=== PATIENT | female | born 1945 | race Caucasian/White ===

== ENCOUNTER → 2017-10-24 11:54 | Outpatient (CLI) | payer MEDICARE, SELFPAY ==
[2017-10-24 15:43] LABS: Absolute Lymphocyte Count 1.77 X10^3/ul (0.83-4.51); Absolute Neutrophil Count 3.5 X10^3/uL (2.0-7.7); Basophil# 0.02 X10^3/uL; Basophil% 0.3 % (0-1); Eosinophils% 1.7 % (0-5); Hematocrit 33.8 % (37-47); Hemoglobin 11.5 g/dl (12.0-15.0); Lymphocyte # 1.77 X10^3/ul (4.0); Lymphocyte % 29.4 % (19-41); Mean Corpuscular Hgb 30.5 pg (27.0-32.0); Mean Corpuscular Volume 89.7 fL (81-99); Mean Platelet Vol. 9.4 fl (6.2-12.0); Monocyte# 0.64 X10^3/uL; Monocyte% 10.6 % (0-10); Platelet Count 280 K/mm3 (150-450); RBC Distribution Width CV 12.9 % (11.6-14.6); RBC Distribution Width SD 42.1 fl (35.1-43.9); Red Blood Count 3.77 M/mm3 (4.2-5.4)
[2017-10-24 15:45] LABS: POSITIVE COUNT NO; POSITIVE DIFFERENTIAL NO; POSITIVE MORPHOLOGY NO
[2017-10-24 16:19] LABS: Vitamin D,25 Hydroxy 32.4 ng/mL (29.95-100.01)
[2017-10-24 16:24] LABS: AST(SGOT) 21 U/L (15-37); Alanine Aminotransfer ALT/SGPT 24 U/L (13-56); Albumin, Serum 3.7 g/dL (3.2-5.0); Alkaline Phosphatase 78 U/L (45-117); Anion Gap 8 (5-15); BUN 13 mg/dL (7-18); BUN/Creat Ratio 16.2 RATIO (10-20); Calcium,Total 9.5 mg/dL (8.5-10.1); Chloride 107 mmol/L (98-107); EST Glomerular Filtration Rate 74 mL/min (>60); Est Glom Filt Rate - Afr Amer 90 mL/min (>60); Globulin 3.8 g/dL (2.2-4.2); Glucose 86 mg/dL (74-106); Potassium 3.8 mmol/L (3.5-5.1); Protein, Total 7.5 g/dL (6.4-8.2); Sodium Level 141 mmol/L (136-145); Thyroid Stim Hormone (TSH) 1.14 uIU/mL (0.358-3.74)
== END ==
PROVIDERS: Family Provider Family Medicine Geriatric Medicine; PCP Family Medicine Geriatric Medicine; Visit Provider Family Medicine Geriatric Medicine
DX: E55.9 Vitamin D deficiency, unspecified (principal); I10 Essential (primary) hypertension
CPT/HCPCS: 36415; 80053; 82306; 84443; 85025

== ENCOUNTER → 2018-04-29 14:17 | Outpatient (CLI) | payer MEDICARE, SELFPAY ==
[2018-04-29 16:57] LABS: Absolute Neutrophil Count 4.7 X10^3/uL (2.0-7.7); Basophil# 0.04 X10^3/uL; Basophil% 0.5 % (0-1); Eosinophil# 0.12 X10^3/uL; Eosinophils% 1.4 % (0-5); Hematocrit 34.1 % (37-47); Hemoglobin 11.7 g/dl (12.0-15.0); Lymphocyte % 33.5 % (19-41); Mean Corp Hgb Conc 34.3 g/gl (32-36); Mean Corpuscular Hgb 30.5 pg (27.0-32.0); Mean Corpuscular Volume 88.8 fL (81-99); Mean Platelet Vol. 9.9 fl (6.2-12.0); Monocyte% 10.4 % (0-10); Neutrophil # 4.67 X10^3/uL (2.7-7.7); Platelet Count 349 K/mm3 (150-450); RBC Distribution Width CV 13.4 % (11.6-14.6); RBC Distribution Width SD 42.5 fl (35.1-43.9); Red Blood Count 3.84 M/mm3 (4.2-5.4); White Blood Count 8.7 K/mm3 (4.4-11.0)
[2018-04-29 17:00] LABS: POSITIVE COUNT NO; POSITIVE DIFFERENTIAL NO; POSITIVE MORPHOLOGY NO
[2018-04-29 17:08] LABS: Vitamin D,25 Hydroxy 36.4 ng/mL (29.95-100.01)
[2018-04-29 17:10] LABS: ALB/GLOB Ratio 0.9 RATIO (0.9-2.4); AST(SGOT) 19 U/L (15-37); Alanine Aminotransfer ALT/SGPT 24 U/L (13-56); Albumin, Serum 3.6 g/dL (3.2-5.0); Alkaline Phosphatase 84 U/L (45-117); Anion Gap 10 (5-15); BUN 12 mg/dL (7-18); BUN/Creat Ratio 13.6 RATIO (10-20); Chloride 105 mmol/L (98-107); Creatinine, Serum 0.88 mg/dL (0.55-1.02); EST Glomerular Filtration Rate 67 mL/min (>60); Est Glom Filt Rate - Afr Amer 81 mL/min (>60); Globulin 4.1 g/dL (2.2-4.2); Glucose 93 mg/dL (74-106); Protein, Total 7.7 g/dL (6.4-8.2); Sodium Level 143 mmol/L (136-145); Thyroid Stim Hormone (TSH) 1.29 uIU/mL (0.358-3.74)
== END ==
PROVIDERS: Family Provider Family Medicine Geriatric Medicine; PCP Family Medicine Geriatric Medicine; Visit Provider Family Medicine Geriatric Medicine
DX: E55.9 Vitamin D deficiency, unspecified (principal); I10 Essential (primary) hypertension
CPT/HCPCS: 36415; 80053; 82306; 84443; 85025

== ENCOUNTER → 2018-05-07 14:15 | Outpatient (CLI) | payer MEDICARE, SELFPAY ==
[2018-05-07 15:57] LABS: Anion Gap 7 (5-15); BUN 9 mg/dL (7-18); BUN/Creat Ratio 12.5 RATIO (10-20); Calcium,Total 8.6 mg/dL (8.5-10.1); Chloride 108 mmol/L (98-107); Creatinine, Serum 0.72 mg/dL (0.55-1.02); EST Glomerular Filtration Rate 84 mL/min (>60); Est Glom Filt Rate - Afr Amer 102 mL/min (>60); Glucose 115 mg/dL (74-106); Potassium 3.7 mmol/L (3.5-5.1); Sodium Level 141 mmol/L (136-145)
== END ==
PROVIDERS: Family Provider Family Medicine Geriatric Medicine; PCP Family Medicine Geriatric Medicine; Visit Provider Family Medicine Geriatric Medicine
DX: E87.6 Hypokalemia (principal)
CPT/HCPCS: 36415; 80048

== ENCOUNTER 2018-05-19 14:52 | Emergency (ER) | payer MEDICARE, SELFPAY ==
[2018-05-19 14:53] VITALS: BP 142/72; PULSE 70; RESP 24; TEMP 36.4; O2SAT 98; BMI 23.2
--- NOTE | 2018-05-19 15:16 | ED.DCSUM_ITS ---
- ER Visit Summary Date of Service: 05/19/18 Chief Complaint: Right eye pain History of Present Illness: The patient is a 73 F who woke at 5 AM this morning to go to the restroom. She noted her right eye was quite painful at that time. She did not note any obvious foreign body or injection to her eye. She tried using Visine eyedrops and went back to bed. When she got up at 11 she still had right eye pain. She denies vision change. She denies any known injury. She states she did have a similar episode in the past when she had fallen asleep with her contacts and had a corneal abrasion. Physical Examination: Vital signs unremarkable. Patient is lying in a darkened room. She is in no acute distress. Head neck examination was no eyelid edema or erythema. There is minimal injection of the right eye. Pupils equal and reactive. No gross foreign body. Extraocular movements fully intact. Test Results: [] Emergency Department Course and Treatment: Tetracaine is applied to the right eye and patient has complete resolution of her pain. Floor seen is applied and there is mild uptake noted around the 2 o'clock position. She will be treated with gentamicin eyedrops. She has seen Dr. Samuels in the past and will be referred back to him if not improving. Treatment Plan: [] Disposition: Discharge Impression: Corneal abrasion right eye This note was generated with [employer] dictation software. It may contain incorrect words, spelling, and punctuation that were not noted in review of the chart prior to signing ED Disposition - Plan for ED Patient: Chief Complaint: Eye Problem Referrals: Ramon Best Chi, MD [Primary Care Provider] -
--- NOTE | 2018-05-19 15:30 | ED.DEP ---
ED Disposition - Plan for ED Patient: Disposition: Home or Assisted Living Chief Complaint: Eye Problem Instructions: ED Eye Injury Corneal Abrasion Referrals: Sujit Samuels MD [STAFF PHYSICIAN] - 1-2 Days if not improving Additional Instructions: 1 drop Gentamicin to right eye 4x/day until pain resolved for 24 hours.
[2018-05-19] MEDS: Tetracaine 0.5% Ophthalmic Bottle 1 DRP RIGHT EYE (16:16)
[2018-05-19] MEDS: Gentamicin Sulfate 1 OPTH.BTL 1 DRP RIGHT EYE (16:16)
[2018-05-19] MEDS: Fluorescein 1 MG STRIP 1 STRIP RIGHT EYE (16:17)
--- NOTE | 2018-05-19 16:51 | ED.RN ---
After instilling eye drop to right eye pt states pain started again. Physician aware and tetracaine x2 drops was administered. Pt was found to walking about room increased resps and stated her arms and legs were tingling. 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 Upon assessment I assured pt she had no signs of allergic reaction. I placed nonrebreather on pt and encouraged her to slow breathing. After ten minutes pt admits some improvement. report was given to Jenny Metcalf and pt will continue to rest while waiting for sx to resolve.
== END 2018-05-19 17:00 | disposition home or self-care (01) ==
PROVIDERS: Emergency Provider Emergency Medicine; Family Provider Family Medicine Geriatric Medicine; PCP Family Medicine Geriatric Medicine
DX: S05.01XA Injury of conjunctiva and corneal abrasion without foreign body, right eye, initial encounter (principal); X58.XXXA Exposure to other specified factors, initial encounter; Y93.9 Activity, unspecified; I10 Essential (primary) hypertension; Z87.891 Personal history of nicotine dependence; Z79.899 Other long term (current) drug therapy
CPT/HCPCS: 99282

== ENCOUNTER → 2018-08-05 12:54 | Outpatient (CLI) | payer MEDICARE, SELFPAY ==
--- NOTE | 2018-08-05 12:57 | BI_ITS ---
MAMMOGRAPHY - BILATERAL SCREENING REASON FOR EXAM: Female, 73 years old. Routine annual screening examination. PERTINENT HISTORY: Sister with breast cancer. Mother with breast cancer. TECHNIQUE: Digital bilateral breast gladis (3D mammographic acquisition) in the CC and MLO projections. 2-D mediolateral oblique (MLO) and craniocaudad (CC) views of both breasts were obtained. CAD: Full Field Digital Mammography with Computer Added Detection was performed. COMPARISON: Comparison is made with prior study dated May 30, 2017 and May 10, 2016. FINDINGS: Breast Composition: There are scattered areas of fibroglandular density. There are no dominant masses or suspicious calcifications. No other significant abnormalities are identified. There has been no significant change since the prior study. BI/SCREENING MAMM (CAD), BILAT IMPRESSION: Stable bilateral screening mammogram. Yearly follow-up mammogram recommended. (A) ASSESSMENT CATEGORY: BIRADS Category 1: Negative. A letter regarding these results will be sent to the patient by the facility within 30 days. Approximately 10% of breast cancers are not detected by mammography. A normal mammogram should not delay biopsy of a clinically suspicious abnormality. [id number] Electronically Signed: Sai Grey MD at 14:18 EST , Service support ,
== END ==
PROVIDERS: Family Provider Family Medicine Geriatric Medicine; PCP Family Medicine Geriatric Medicine; Referring Provider Family Medicine Geriatric Medicine; Visit Provider Family Medicine Geriatric Medicine
DX: Z12.31 Encounter for screening mammogram for malignant neoplasm of breast (principal); Z80.3 Family history of malignant neoplasm of breast
CPT/HCPCS: 77063; 77067

== ENCOUNTER → 2018-08-19 16:17 | Outpatient (CLI) | payer MEDICARE, SELFPAY ==
--- NOTE | 2018-08-19 16:22 | RAD_ITS ---
STUDY: X-RAY - RIGHT HIP REASON FOR EXAM: Female, 73 years old. Right hip pain. No known injury. TECHNIQUE: 2 views of the hip. AP pelvis. COMPARISON: Abdomen December 27, 2016. FINDINGS: Alignment is normal. No fracture or dislocation. Mild superior hip joint space narrowing right slightly greater than left not significantly changed. Degenerative changes L3-L4 with disc space narrowing and osteophytosis stable since the prior study. Soft tissues unremarkable. RAD/HIP, UNI W/ Pelvis 2-3 Views IMPRESSION: Degenerative changes of the hips right greater than left. Degenerative changes L3-4. Electronically Signed: Kristofer Logan MD at 5:42 EST , Service support ,
--- NOTE | 2018-08-19 16:23 | RAD_ITS ---
STUDY: X-RAY - LUMBAR SPINE REASON FOR EXAM: Female, 73 years old. Low back pain. No known injury. TECHNIQUE: 3 view(s) of the lumbar spine were obtained. COMPARISON: CT abdomen and pelvis July 20, 2016. FINDINGS: Lumbar levoscoliosis. No fracture or subluxation. Disc space narrowing with vacuum disc and marginal osteophytes L3-L4. Disc space narrowing L2-L3 and L5-S1. Soft tissues unremarkable. RAD/Lumbar Spine 2 or 3 Views IMPRESSION: Multilevel degenerative changes of the lumbar spine unchanged, most prominent at L3-L4. Lumbar levoscoliosis. Electronically Signed: Kristofer Logan MD at 5:49 EST , Service support ,
--- NOTE | 2018-08-19 16:29 | RAD_ITS ---
STUDY: X-RAY - RIGHT SHOULDER REASON FOR EXAM: Female, 73 years old. Bilateral shoulder pain for many years. No known injury. TECHNIQUE: 3 view(s) of the shoulder. COMPARISON: Chest x-ray January 30, 2017. FINDINGS: Normal glenohumeral articulation. Normal acromioclavicular joint. Normal acromion. A large osteophyte arises from the medial aspect of the humeral head present previously. The soft tissue structures are unremarkable. Normal visualized pulmonary apex. RAD/Shoulder min 2 Views IMPRESSION: Degenerative changes of the shoulder. No fracture identified. Electronically Signed: Kristofer Logan MD at 4:58 EST , Service support ,
--- NOTE | 2018-08-19 16:45 | RAD_ITS ---
STUDY: X-RAY - LEFT SHOULDER REASON FOR EXAM: Female, 73 years old. Bilateral shoulder pain for many years. No known injury. TECHNIQUE: 4 view(s) of the shoulder. COMPARISON: Chest January 30, 2017. FINDINGS: Normal glenohumeral articulation. Normal acromioclavicular joint. Normal acromion. Small osteophyte arises from the medial aspect humeral head. Possible 0.9 x 0.8 cm loose body superior aspect of the shoulder joint. The soft tissue structures are unremarkable. Normal visualized pulmonary apex. RAD/Shoulder min 2 Views IMPRESSION: Degenerative changes humeral head and small loose body within the shoulder joint, unchanged. Electronically Signed: Kristofer Logan MD at 5:02 EST , Service support ,
== END ==
PROVIDERS: Family Provider Family Medicine Geriatric Medicine; PCP Family Medicine Geriatric Medicine; Referring Provider Family Medicine Geriatric Medicine; Visit Provider Family Medicine Geriatric Medicine
DX: M25.512 Pain in left shoulder (principal); M25.511 Pain in right shoulder; M25.551 Pain in right hip; M54.5 Low back pain
CPT/HCPCS: 72100; 73030; 73502

== ENCOUNTER → 2018-10-29 15:00 | Outpatient (CLI) | payer MEDICARE, SELFPAY ==
[2018-09-02 15:25] VITALS: BMI 22.6
[2018-10-29 17:28] LABS: Absolute Lymphocyte Count 1.59 X10^3/ul (0.83-4.51); Absolute Neutrophil Count 4.2 X10^3/uL (2.0-7.7); Basophil# 0.02 X10^3/uL; Basophil% 0.3 % (0-1); Eosinophil# 0.09 X10^3/uL; Eosinophils% 1.3 % (0-5); Hematocrit 38.6 % (37-47); Hemoglobin 12.9 g/dl (12.0-15.0); Lymphocyte # 1.59 X10^3/ul (4.0); Lymphocyte % 23.6 % (19-41); Mean Corp Hgb Conc 33.4 g/gl (32-36); Mean Corpuscular Hgb 30.6 pg (27.0-32.0); Mean Corpuscular Volume 91.5 fL (81-99); Mean Platelet Vol. 9.6 fl (6.2-12.0); Monocyte# 0.82 X10^3/uL; Monocyte% 12.2 % (0-10); Neutrophil # 4.21 X10^3/uL (2.7-7.7); Neutrophil % 62.5 % (47-70); Platelet Count 390 K/mm3 (150-450); RBC Distribution Width CV 13.8 % (11.6-14.6); RBC Distribution Width SD 45.1 fl (35.1-43.9); Red Blood Count 4.22 M/mm3 (4.2-5.4); White Blood Count 6.7 K/mm3 (4.4-11.0)
[2018-10-29 17:30] LABS: POSITIVE COUNT NO; POSITIVE DIFFERENTIAL NO; POSITIVE MORPHOLOGY NO
[2018-10-29 18:01] LABS: Vitamin D,25 Hydroxy 25.6 ng/mL (29.95-100.01)
[2018-10-29 18:28] LABS: ALB/GLOB Ratio 0.9 RATIO (0.9-2.4); AST(SGOT) 25 U/L (15-37); Alanine Aminotransfer ALT/SGPT 31 U/L (13-56); Albumin, Serum 3.7 g/dL (3.2-5.0); Alkaline Phosphatase 94 U/L (45-117); Anion Gap 11 (5-15); BUN 14 mg/dL (7-18); BUN/Creat Ratio 16.7 RATIO (10-20); Calcium,Total 9.1 mg/dL (8.5-10.1); Chloride 108 mmol/L (98-107); Creatinine, Serum 0.84 mg/dL (0.55-1.02); EST Glomerular Filtration Rate 70 mL/min (>60); Est Glom Filt Rate - Afr Amer 85 mL/min (>60); Globulin 4.2 g/dL (2.2-4.2); Glucose 102 mg/dL (74-106); Potassium 3.7 mmol/L (3.5-5.1); Protein, Total 7.9 g/dL (6.4-8.2); Sodium Level 141 mmol/L (136-145); Thyroid Stim Hormone (TSH) 1.31 uIU/mL (0.358-3.74)
== END ==
PROVIDERS: Family Provider Family Medicine Geriatric Medicine; PCP Family Medicine Geriatric Medicine; Visit Provider Family Medicine Geriatric Medicine
DX: E55.9 Vitamin D deficiency, unspecified (principal); I10 Essential (primary) hypertension
CPT/HCPCS: 36415; 80053; 82306; 84443; 85025

== ENCOUNTER → 2018-12-16 15:12 | Outpatient (CLI) | payer MEDICARE, SELFPAY ==
[2018-09-02 15:25] VITALS: BMI 22.6
--- NOTE | 2018-12-16 15:26 | RAD_ITS ---
STUDY: X-RAY - LEFT SHOULDER REASON FOR EXAM: Female, 73 years old. Pain. TECHNIQUE: 4 view(s) of the shoulder. COMPARISON: August 19, 2018 FINDINGS: There are degenerative changes of the glenohumeral articulation. There are degenerative changes of the acromioclavicular joint. Normal acromion. There is a osteophyte arising from the medial aspect of the humeral head. There is a stable bony density projecting superior to the shoulder joint. The soft tissue structures are unremarkable. Normal visualized pulmonary apex. RAD/Shoulder min 2 Views IMPRESSION: Degenerative changes. Stable possible loose body within the shoulder joint. Electronically Signed: Shyanne Guevara MD at 16:14 EDT Tel , Service support ,
--- NOTE | 2018-12-16 15:26 | RAD_ITS ---
STUDY: X-RAY - RIGHT SHOULDER REASON FOR EXAM: Female, 73 years old. Pain. TECHNIQUE: 4 view(s) of the shoulder. COMPARISON: September 16, 2018 FINDINGS: There are degenerative changes of the glenohumeral articulation. There are degenerative changes of the acromioclavicular joint. Normal acromion. There is a large osteophyte arising from the medial aspect of the humeral head that is grossly stable. The soft tissue structures are unremarkable. Normal visualized pulmonary apex. RAD/Shoulder min 2 Views IMPRESSION: Degenerative changes. Electronically Signed: Shyanne Guevara MD at 16:01 EDT Tel , Service support ,
[2018-12-16 16:20] LABS: Magnesium 2.2 mg/dL (1.6-2.6); T3 Uptake 37 % (30-39)
== END ==
PROVIDERS: Family Provider Family Medicine Geriatric Medicine; PCP Family Medicine Geriatric Medicine; Referring Provider Family Medicine Geriatric Medicine; Visit Provider Family Medicine Geriatric Medicine
DX: E03.9 Hypothyroidism, unspecified (principal); E83.49 Other disorders of magnesium metabolism; M19.012 Primary osteoarthritis, left shoulder; M19.011 Primary osteoarthritis, right shoulder
CPT/HCPCS: 36415; 73030; 83735; 84439; 84443; 84479

== ENCOUNTER → 2018-12-18 13:41 | Outpatient (CLI) | payer MEDICARE, SELFPAY ==
[2018-09-02 15:25] VITALS: BMI 22.6
--- NOTE | 2018-12-18 13:43 | ECHOD_ITS ---
Reason For Study: SOB Procedure This was a 2D Doppler, Color Flow transthoracic echocardiogram. Exam performed in department. Left Ventricle Normal size and thickness. The estimated ejection fraction is 65 %. Stage 1 diastolic dysfunction. No regional wall motion abnormalities noted. Right Ventricle Normal size and thickness. Normal systolic function. Atria Normal left atrium. Normal right atrium. Normal atrial septum. Mitral Valve The mitral valve is structurally normal. No prolapse or stenosis seen. Trivial mitral valve insufficiency. Tricuspid Valve Normal tricuspid valve. Trivial tricuspid valve insufficiency. Right ventricular systolic pressure estimated to be 30 mmHg. Aortic Valve Normal aortic valve. Trisinus/trileaflet aortic valve. Pulmonic Valve Normal pulmonic valve. Trivial pulmonic valve insufficiency. Great Vessels Normal aortic root. Normal arch. Normal inferior vena cava. Inferior vena cava collapse with sniff. Pericardium/Pleural No pericardial effusion. MMode/2D Measurements & Calculations LVIDd: 4.7 cm IVSd: 1.5 cm Ao root diam: 3.1 cm LVIDs: 2.8 cm LVPWd: 1.1 cm LA dimension: 3.0 cm RVDd: 3.3 cm FS: 39.5 % LAV(MOD-bp): 45.9 ml LA A4 area: 16.6 cm2 RA A4 area: 10.6 cm2 LAV(MOD-bp) Indexed: 26.6 ml/m2 LAV(MOD-sp2): 48.3 ml LAV(MOD-sp4): 42.2 ml Time Measurements MV dec time: 0.22 sec Doppler Measurements & Calculations MV E max myke: 88.4 cm/sec Lat Peak E' Myke: 11.2 cm/sec Med Peak E' Myke: 6.2 cm/sec MV A max myke: 106.8 cm/sec E/E' lat: 7.9 E/E' med: 14.3 MV E/A: 0.83 MV V2 max: 110.7 cm/sec MV P1/2t max myke: 93.4 cm/sec Ao V2 max: 133.6 cm/sec MV max P.9 mmHg MV P1/2t: 98.6 msec Ao max P.1 mmHg MV V2 mean: 60.5 cm/sec MV dec slope: 277.4 cm/sec2 Ao V2 mean: 81.8 cm/sec MV mean P.7 mmHg MVA(P1/2t): 2.2 cm2 Ao mean P.2 mmHg MV V2 VTI: 34.9 cm Ao V2 VTI: 27.3 cm LV V1 max: 94.4 cm/sec MR max myke: 588.8 cm/sec PA V2 max: 96.3 cm/sec LV V1 max P.6 mmHg MR max P.7 mmHg LV V1 mean P.9 mmHg MR mean myke: 445.1 cm/sec LV V1 mean: 64.7 cm/sec MR mean P.8 mmHg LV V1 VTI: 21.1 cm MR VTI: 183.9 cm PI end-d myke: 90.5 cm/sec TR max myke: 248.4 cm/sec TR max P.7 mmHg Interpretation Summary The estimated ejection fraction is 65 %. Stage 1 diastolic dysfunction. Trivial mitral valve insufficiency. Trivial tricuspid valve insufficiency. Right ventricular systolic pressure estimated to be 30 mmHg. There is no comparison study available. Ordering Physician: Ramon Best Referring Physician: Ramon Best Chi Performed By: Kirk Rico RCS
== END ==
PROVIDERS: Family Provider Family Medicine Geriatric Medicine; PCP Family Medicine Geriatric Medicine; Referring Provider Family Medicine Geriatric Medicine; Visit Provider Family Medicine Geriatric Medicine
DX: R06.02 Shortness of breath (principal)
CPT/HCPCS: 93306

== ENCOUNTER → 2019-03-18 17:02 | Outpatient (CLI) | payer MEDICARE, SELFPAY ==
[2019-03-18 15:20] VITALS: BMI 22.6
--- NOTE | 2019-03-18 17:06 | RAD_ITS ---
STUDY: X-RAY - RIGHT KNEE REASON FOR EXAM: Female, 73 years old. Right knee pain. Previous patellar resection. TECHNIQUE: 4 view(s) of the knee. COMPARISON: None. FINDINGS: No visible fracture. No osseous destruction. The patella is surgically absent. Alignment anatomic. Marked degenerative changes lateral compartment. Soft tissues with no acute findings. Calcific atherosclerosis. RAD/Knee 4 or More Views IMPRESSION: No acute osseous abnormality. Marked degenerative changes lateral compartment. Patella surgically absent. Electronically Signed: Dandre Dobbins, at 4:20 EDT Tel , Service support ,
--- NOTE | 2019-03-18 17:06 | RAD_ITS ---
STUDY: X-RAY - PELVIS AND RIGHT HIP REASON FOR EXAM: Female, 73 years old. Right hip pain. TECHNIQUE: 3 views of the pelvis and hip. COMPARISON: 08/19/2018 radiographs FINDINGS: Interval progression of now severe right hip osteoarthritis with [id number] configuration and subchondral sclerosis and cystic change of both the femoral head and acetabular roof. No fracture or osseous destruction. No dislocation. No acute soft tissue abnormality. Dense calcific atherosclerosis. Right scoliosis lumbar spine, probably mild, partially visible. Mild degenerative changes left hip. RAD/HIP, UNI W/ Pelvis 2-3 Views IMPRESSION: Interval progression of now severe right hip osteoarthritis. Electronically Signed: Dandre Dobbins, at 4:47 EDT Tel , Service support ,
== END ==
PROVIDERS: Family Provider Internal Medicine; PCP Internal Medicine; Referring Provider Internal Medicine; Visit Provider Internal Medicine
DX: M17.11 Unilateral primary osteoarthritis, right knee (principal); M16.11 Unilateral primary osteoarthritis, right hip
CPT/HCPCS: 73502; 73564

== ENCOUNTER → 2019-03-24 14:57 | Outpatient (CLI) | payer MEDICARE, SELFPAY ==
[2019-03-24 12:55] VITALS: BMI 23.1
--- NOTE | 2019-03-24 14:58 | RAD_ITS ---
STUDY: X-RAY - PELVIS AND RIGHT HIP REASON FOR EXAM: Female, 73 years old. Pain TECHNIQUE: 3 views of the pelvis and hip. COMPARISON: None. FINDINGS: There is a non-specific bowel gas pattern. Normal visualized soft tissue structures. Normal bilateral iliac wings, sacroiliac joints and visualized sacrum. Normal bilateral superior and inferior pubic rami. Normal pubic symphysis. Normal bilateral ischial tuberosities. Normal visualized femoral head. Normal acetabulum. Severe concentric narrowing of the hip joint. RAD/HIP, UNI W/ Pelvis 2-3 Views IMPRESSION: Severe arthritic changes of the right hip. No evidence for acute fracture Electronically Signed: Sujit Moraes MD at 19:31 EDT , Service support ,
== END ==
PROVIDERS: Family Provider Internal Medicine; PCP Internal Medicine; Referring Provider Orthopaedic Surgery; Visit Provider Orthopaedic Surgery
DX: M16.11 Unilateral primary osteoarthritis, right hip (principal)
CPT/HCPCS: 73502

== ENCOUNTER → 2019-04-08 14:05 | Outpatient (CLI) | payer MEDICARE, SELFPAY ==
[2019-04-08 13:50] VITALS: BMI 23.1
--- NOTE | 2019-04-08 14:24 | EKG12_ITS ---
Test Reason : ROUTINE Blood Pressure : / mmHG Vent. Rate : 064 BPM Atrial Rate : 064 BPM P-R Int : 134 ms QRS Dur : 132 ms QT Int : 462 ms P-R-T Axes : 051 -22 115 degrees QTc Int : 476 ms Normal sinus rhythm Left bundle branch block Abnormal ECG Confirmed by JOMAR SOLORIO, VITA ([id number]), avid editor PAL CHAVARRIA ([id number]) on 04/09/2019 8:41:40 AM Referred By: Mendel Manzo Confirmed By:VITA HADLEY MD
[2019-04-08 14:51] LABS: Hematocrit 37.8 % (37-47); Hemoglobin 12.6 g/dL (12.0-15.0); Mean Corp Hgb Conc 33.3 g/dL (32-36); Mean Corpuscular Volume 92.9 fL (81-99); Mean Platelet Vol. 9.3 fl (6.2-12.0); Platelet Count 315 K/mm3 (150-450); RBC Distribution Width CV 12.8 % (11.6-14.6); RBC Distribution Width SD 43.8 fl (35.1-43.9); Red Blood Count 4.07 M/mm3 (4.2-5.4); White Blood Count 9.6 K/mm3 (4.4-11.0)
[2019-04-08 15:32] LABS: Anion Gap 7 (5-15); BUN 21 mg/dL (7-18); Calcium,Total 9.5 mg/dL (8.5-10.1); Chloride 106 mmol/L (98-107); Creatinine, Serum 0.78 mg/dL (0.55-1.02); EST Glomerular Filtration Rate 77 mL/min (>60); Est Glom Filt Rate - Afr Amer 93 mL/min (>60); Glucose 95 mg/dL (74-106); Sodium Level 139 mmol/L (136-145); Thyroid Stim Hormone (TSH) 0.74 uIU/mL (0.358-3.74)
== END ==
PROVIDERS: Family Provider Internal Medicine; PCP Internal Medicine; Referring Provider Nurse Practitioner Family; Visit Provider Nurse Practitioner Family
DX: Z01.818 Encounter for other preprocedural examination (principal); E03.9 Hypothyroidism, unspecified
CPT/HCPCS: 36415; 80048; 84443; 85027; 93005

== ENCOUNTER 2019-04-29 07:30 | Inpatient (IN) | payer MEDICARE, SELFPAY ==
[2019-03-24 12:55] VITALS: BMI 23.1
[2019-04-22 11:21] VITALS: BP 151/74; PULSE 64; RESP 16; TEMP 36.9; O2SAT 97; BMI 23.6
[2019-04-22 14:08] VITALS: BMI 23.2
--- NOTE | 2019-04-28 13:56 | HP.PCM_ITS ---
History and Physical Date of Admission: 04/29/19 Intake Vital Signs 03/24/19 Height 5 ft 6 in 03/24/19 Weight: 143 lb 6 oz 03/24/19 Body Mass Index (BMI) 23.1 Intake Visit Reasons: RIGHT HIP Chief Complaint: right hip Accompanied by: Self Is patient in pain?: Yes Pain scale (1-10): 4 Allergies Sulfa (Sulfonamide Antibiotics) Allergy (Verified 03/18/19 13:40) Unknown Medications Cholecalciferol (Vitamin D3) [Vitamin D3] 400 unit PO DAILY 05/02/14 [History Confirmed 03/24/19] Clonazepam [Clonazepam Tab.Rapdis] 0.25 mg PO QHS 05/02/14 [History Confirmed 03/24/19] Multivitamins,Therapeutic [Multivitamin] 1 tab PO DAILY 05/02/14 [History Confirmed 03/24/19] Paroxetine [Paxil] 10 mg PO DAILY 05/02/14 [History Confirmed 03/24/19] Calcium Carbonate [Tums] 1,000 mg PO BIDCM 07/20/16 [History Confirmed 03/24/19] Levothyroxine [Synthroid] 50 mcg PO DAILY 07/20/16 [History Confirmed 03/24/19] Losartan Potassium [Cozaar] 100 mg PO DAILY 07/20/16 [History Confirmed 03/24/19] Simvastatin [Zocor] 40 mg PO QHS 07/20/16 [History Confirmed 03/24/19] Aynor-3 Fatty Acids [Fish Oil] 1 tab PO BID 01/30/17 [History Confirmed 03/24/19] baclofen 10 mg tablet 10 mg PO DAILY 08/26/18 [History Confirmed 03/24/19] diclofenac potassium 25 mg capsule 25 mg PO BID 08/26/18 [History Confirmed 03/24/19] amlodipine 5 mg tablet 2.5 mg PO DAILY #90 tab 03/18/19 [Rx Confirmed 03/24/19] potassium chloride ER 20 mEq tablet,extended release(part/cryst) PO #30 tab 03/24/19 [History Confirmed 03/24/19] [facility] Medical History (Updated 03/18/19 @ 15:41 by Hector Allen MD) Pain management (Acute) Skin cancer (Acute) Heart murmur (Chronic) Hypertension (Chronic) Chronic bronchitis (Chronic) Cataracts, bilateral (Chronic) UTI (urinary tract infection) (Chronic) Back problem (Chronic) History of wrist fracture (Resolved) History of fracture of right ankle (Resolved) Hyperthyroidism (Acute) History of Clostridium difficile colitis (Resolved) IBS (irritable bowel syndrome) (Chronic) Anxiety (Chronic) High cholesterol (Chronic) Hypotension (Acute) Age related osteoporosis (Chronic) Environmental allergies (Chronic) Surgical History (Updated 02/19/19 @ 07:45 by Deborah Morgan) History of colonoscopy (Acute) History of right knee surgery (Acute) Family History (Updated 02/19/19 @ 07:47 by Deborah Morgan) Sister Asthma Anxiety Breast cancer Diabetes Respiratory disease Skin cancer Mother Breast cancer Father Depression Grandmother Colon cancer Grandfather Myocardial infarction Other Cancer Heart disease Hypertension Kidney disease Social History (Updated 03/24/19 @ 15:24 by Bobby Parnell DO) Smoking Status: Former smoker alcohol intake: current alcohol intake frequency: holidays/special occasions only Alcohol type: beer, other substance use type: does not use what type of physical activity do you participate in: walking, aerobics frequency: 1-2 times per week HPI RIGHT HIP: Chief Complaint: Referral from Dr. allen for right hip pain Details: Parts of this documentation were recorded by a scribe, this documentation accurately reflects the service provided and the decisions made by me, Bobby Parnell DO 03/24/19 1252. PIERO TURCIOS is a 73 year old F NEW patient here today for right hip pain. Patient referred by Dr. Tejada. Patient states she has had this pain for about 3 months. She has right groin torres that radiates arounf to the lateral side of her hip. Denies numbness, tingling or other associated symptoms. Does have occasional popping and pain of her right thigh. Patient has seen Dr. Quan for her low back and right hip. Patient does not recall the injections. States the injections where somewhat helpful. Patient has been taking Ibuprofen and Tylenol. Has had PT of her right knee and leg within the past year. Has a hx of right knee surgery about 50 years ago had a patellectomy of the right knee. Patient had a right intra-articular hip injection on 12/05/18 and had a TFE ROS Const Reports system reviewed and no additional complaints, except as docu Eyes Reports system reviewed and no additional complaints, except as docu ENT Reports system reviewed and no additional complaints, except as docu Card Reports system reviewed and no additional complaints, except as docu Resp Reports system reviewed and no additional complaints, except as docu GI Reports system reviewed and no additional complaints, except as docu Musc Reports system reviewed and no additional complaints, except as docu, Reports as per HPI Skin/Breast Reports system reviewed and no additional complaints, except as docu Neuro Yes system reviewed and no additional complaints, except as docu Psych Reports system reviewed and no additional complaints, except as docu Endo Reports system reviewed and no additional complaints, except as docu Santiago/Lymph Reports system reviewed and no additional complaints, except as docu Aller/Immun Reports system reviewed and no additional complaints, except as docu Ortho Exam Right Knee Homans Sign: No Right Hip Skin: No Ecchymosis, No soft tissue swelling, No Erythema Homans Sign: No HIP: Pain with internal and external rotation about the groin and posterior hip palpable pedal pulses Supplemental Info 03/18/2019 x-ray right hip: Severe [id number] DJD joint space narrowing subchondral sclerosis and bone spurs Assessment & Plan Problems 1. Primary osteoarthritis of right hip M16.11 2. Osteoarthritis of lumbar spine, unspecified spinal osteoarthritis complication status M47.816 Plan Obtained X-rays of patient's right hip and lumbar spine. Personally reviewed x- rays. There is no obvious fracture, dislocation, or lucency noted. Patient educated that she has severe OA of the right hip. Patient also educated that she also has low back spondylosis. Patient educated that her groin pain and post of her lateral sided hip pain is from the hip OA. Educated that her tx options are PT or right total hip replacement anti-inflammatories aquatic therapy. Reviewed the pre-operative plans with the patient. Risks and benefits of the procedure were fully explained, including but not limited to infection, neurovascular injury, continued pain, arthritis, stiffness, need for further surgery, re- injury, DVT, PE, general risks of anesthesia, and loss of limb or life. The patient understands all the risks and does wish to proceed with written consent. Patient educated that there is risk of a leg length discrepancy and she will be on blood thinners post op along with strict hip precautions for 3 months and expected postoperative course. Educated that she does need PT post op for ROM and mobility. Follow up in after surgery or sooner if pain, swelling, numbness or associated symptoms, or concerns develop. All questions answered. Patient in agreement of plan. Will forward a copy to Dr. Allen. Thank you for this consultation Orders Orders: HIP, UNI W/ Pelvis 2-3 Views Today M25.551 Plan Detail Goals Decrease pain and spasm Improve ROM Barriers Scoliosis Coding Level of Care Code 12732 Diagnoses Primary osteoarthritis of right hip M16.11 ??Osteoarthritis type: primary Osteoarthritis of lumbar spine, unspecified spinal osteoarthritis complication status M47.816 ??Spinal osteoarthritis complication: unspecified spinal osteoarthritis I have re-examined the patient. There are no clinical changes since date of exam
[2019-04-29] VITALS (10 sets, daily range): BP systolic 114–136; BP diastolic 48–68; PULSE 63–84; RESP 14–18; TEMP 36–36.9; O2SAT 96–100; BMI 23.6
[2019-04-29] MEDS: Gabapentin 600 MG Tablet PO (08:30)
[2019-04-29] MEDS: Scopolamine 1mg/72hr Patch 1 PATCH TRANSDERM. (08:30)
[2019-04-29] MEDS: Celecoxib 200 MG Capsule 400 MG PO (08:31)
[2019-04-29] MEDS: Acetaminophen 500 MG Tablet 1000 MG PO ×3 (08:31→21:15)
[2019-04-29 08:46] LABS: Bedside Glucose 73 mg/dL (70-110)
[2019-04-29] MEDS: Lactated Ringers 1,000 ML 100 ML IV (09:19)
[2019-04-29] MEDS: Magnesium Sulfate 4gm/100mL 4 GM/100 ML IV.SOLN. IV (09:20)
[2019-04-29] MEDS: dexAMETHasone 10 MG/ML Vial IV (09:42)
[2019-04-29] MEDS: Cefazolin 2 GM in 0.9% Normal Saline 100 ML IV (09:48)
--- NOTE | 2019-04-29 11:14 | RAD_ITS ---
STUDY: X-RAY - PELVIS AND RIGHT HIP REASON FOR EXAM: Female, 74 years old. Right hip replacement. TECHNIQUE: 1 views of the pelvis and hip. COMPARISON: Comparison is made with prior examination dated March 24, 2019. FINDINGS: The patient is status post right hip replacement. There is good alignment. Postoperative soft tissue changes. RAD/Hip Min 2 Views (Portable) IMPRESSION: Status post right hip replacement. There is good alignment. Postoperative soft tissue changes. Electronically Signed: Sai Grey, at 13:28 EST , Service support ,
--- NOTE | 2019-04-29 11:20 | PCM.OPRPT ---
Report of Operation Date of Procedure: 04/29/19 Description of Surgical Findings:: Preoperative diagnosis: DJD right hip Postoperative diagnosis: Same Procedure: Right total hip arthroplasty Implants: [place] Accolade II stem size 4 132 degree neck angle +2.5 mm neck length 54 mm cup with 20 mm cancellous screw 36 mm ceramic head Anesthesia: Spinal EBL: 200 cc Complications: None Condition: Stable to PACU Indication for procedure: This is a 74-year-old female who has had long-standing arthrosis of the hip who has failed conservative treatment and wished to undergo total hip arthroplasty. We did discuss operative versus nonoperative intervention including risks of bleeding, infection , nerve artery tissue damage, need for further surgery, fracture, leg length discrepancy dislocation blood clot and need for postoperative physical therapy and postoperative expectations. An informed consent was signed. Procedure: Patient was met in the preoperative holding area once again the operative extremity was identified by both patient and physician and was marked. Patient was met by anesthesia and a spinal was placed. A Valencia catheter was placed patient was then positioned in the lateral decubitus position on a well-padded pegboard with an axillary roll. All bony prominences were checked and padded. The patient was prepped and draped in the usual sterile fashion. A timeout was called to ensure the proper patient procedure and extremity were being contemplated. Anatomic landmarks were palpated and marked for a standard posterior lateral approach. A 10 blade scalpel was used to make a posterior incision through the skin and subcutaneous tissue. In retractors were used and electrocautery was used to maintain meticulous hemostasis and dissect full-thickness flaps until the gluteal fascia was reached. The gluteal fascia was incised in line with the gluteal fibers. The bursal tissue was then freed from the underside and a Charnley retractor was placed. The fat pad was elevated off of the external rotators with electrocautery and the external rotators were dissected off of the greater trochanter including the piriformis and were tagged with #1 Ethibond for later repair. The joint capsule opened with posterior trapdoor technique. The hip was surgically dislocated. Hohmann was placed around the lesser trochanter. A neck cutting guide was used to efraín the neck with a Bovie and an oscillating saw was used complete the femoral neck cut. The femoral head was then removed and sized. We then turned our attention to the acetabulum. A Bovie was used to make a perforation in the anterior joint capsule and a pointed Hohmann was placed this was repeated in the 6 o'clock position a wide marion was placed there. With a long handled knife the labral and pulvinar tissue were removed. We then began sequential reaming until the appropriate size was achieved. We then fit the acetabular shell in place with good food and drug research scientist to the acetabulum. We then proceeded to place a posterior superior screw by drilling first measuring and inserting the screw. We then inserted a trial liner. And turned our attention back to the femur at this point a femoral elevator was used. As well as a pointed wide Hohmann around the lesser trochanter and a Hohmann to help retract the gluteus medius. A box chisel was used to remove excess lateral neck followed by a canal finder and a lateralizing reamer. This was followed by sequential broaches. Attention was made of the version within the canal. Once the final broach was seated we then trialed reduced the hip it was determined that a 132 degree neck angle with a 2.5 neck length was the appropriate size. We then checked ability with shuck testing as well as flexion and internal rotation. then proceeded with hip extension and checked leg lengths at the knees and heels. At this point trials were removed. A posterior lipped liner was inserted to the cup. The femoral stem was inserted. We re-trialed and then proceeded to impact the femoral head onto the Josias taper. We then surgically reduce the hip check stability again and leg lengths and were satisfied. Betadine rinse was allowed to sit for 5 minutes while everyone changed their gloves. Thorough irrigation was performed. Followed by closure of the external rotators with #2 FiberWire followed by closure of gluteal fascia with #1 Ethibond. 0 Vicryl fat stitches and 2-0 Vicryl subcutaneous stitches and randy in the skin. Dressing was applied Mepilex Ag and an abduction pillow was placed. Patient tolerated the procedure well there was no intraoperative complications all counts were correct and the patient was brought back to the PACU in stable condition
[2019-04-29] MEDS: Lactated Ringers 1,000 ML 125 ML IV ×2 (13:55→22:34)
[2019-04-29] MEDS: Ensure Surgery 237 ML LIQUID PO ×2 (14:01→21:15)
[2019-04-29] MEDS: Cefazolin 1 GM/50 ML BAG IV ×2 (15:15→22:34)
[2019-04-29] MEDS: oxyCODONE 5 MG Tablet PO (16:15)
[2019-04-29] MEDS: Atorvastatin Calcium 20 MG Tablet PO (21:15)
[2019-04-30 03:10] VITALS: BP 148/73; PULSE 84; RESP 16; TEMP 36.4; O2SAT 95
[2019-04-30 05:24] LABS: Hematocrit 32.1 % (37-47); Hemoglobin 10.6 g/dL (12.0-15.0); Mean Corpuscular Hgb 31.2 pg (27.0-32.0); Mean Corpuscular Volume 94.4 fL (81-99); Mean Platelet Vol. 9.7 fl (6.2-12.0); Platelet Count 279 K/mm3 (150-450); RBC Distribution Width CV 12.3 % (11.6-14.6); RBC Distribution Width SD 42.7 fl (35.1-43.9); White Blood Count 17.2 K/mm3 (4.4-11.0)
[2019-04-30 05:42] LABS: Anion Gap 7 (5-15); BUN 14 mg/dL (7-18); BUN/Creat Ratio 21.4 RATIO (10-20); Calcium,Total 8.7 mg/dL (8.5-10.1); Chloride 109 mmol/L (98-107); Creatinine, Serum 0.65 mg/dL (0.55-1.02); EST Glomerular Filtration Rate 94 mL/min (>60); Est Glom Filt Rate - Afr Amer 113 mL/min (>60); Estimated Creatinine Clearance 43.07 ml/min; Glucose 181 mg/dL (74-106); Potassium 4.2 mmol/L (3.5-5.1); Sodium Level 141 mmol/L (136-145)
[2019-04-30] MEDS: Cefazolin 1 GM/50 ML BAG IV (06:21)
[2019-04-30] MEDS: Acetaminophen 500 MG Tablet 1000 MG PO ×2 (06:22→14:25)
[2019-04-30] MEDS: Levothyroxine 50 MCG Tablet PO (06:23)
[2019-04-30] MEDS: Ensure Surgery 237 ML LIQUID PO (06:23)
[2019-04-30] MEDS: APIXABAN 2.5 MG TABLET PO (06:25)
[2019-04-30] MEDS: Losartan Potassium 100 MG Tablet PO (07:35)
[2019-04-30] MEDS: Multivitamins,Therapeutic Tablet 1 TABLET PO (07:35)
[2019-04-30] MEDS: Paroxetine 20 MG Tablet 40 MG PO (07:36)
[2019-04-30] MEDS: amLODIPine 5 MG Tablet PO (07:36)
[2019-04-30] MEDS: 0.9% Saline Lock 10 ML Syringe IV (07:38)
[2019-04-30 09:40] VITALS: BP 148/66; PULSE 81; RESP 20; TEMP 37; O2SAT 98
--- NOTE | 2019-04-30 09:40 | CASEMGMT ---
JAYJAY SHIELDS Face to Face with patient for initial transition planning/care coordination assessment. JAYJAY SHIELDS introduced self and role at [facility]. Patient sitting in chair, alert and oriented. Patient willing to participate in assessment and is able to answer all questions appropriately. Care providers, pharmacy, and demographics verified. Patient wishes to discharge home and would like HHC at discharge. JAYJAY SHIELDS provided list of C companies in-network with insurance. Patient would like [facility]. Patient states she has no further needs or concerns at this time. CM to follow for discharge planning needs that may arise. PCP: Aaron Specialists: zhen Parnell Pharmacy: [facility] Insurance: [employer] Prescription Benefit: yes Living Will/HPOA: yes, daughter Rubina Watters LNOK: daughters Living Arrangements: Patient lives alone in 2 story home with bed and bath on 1st floor. Patient was independent prior to surgery Transportation: daughters DME/HHC: Patient has shower chair, raised toilet, grab bars, hip kit, and walker at home. Patient prefers [facility] for HHC. JAYJAY SHIELDS sent referral to [facility] and they are able to accept the patient. Disposition Plan: Patient to discharge home with family support, HHC, and follow-u plans in place. Akosua DANIEL, RN, CM
--- NOTE | 2019-04-30 12:57 | PCM.DC.ORTHO ---
Discharge Diet: No Restrictions Weight Bearing Status: Weight bearing as tolerated Additional Instructions: Begin daily showering warm water antibacterial soap postop day #3( 72hrs Post-operatively) and then daily. Leave the dressing on for 72 hours postoperatively then may remove prior to first shower and change dressing daily after this until no drainage for 2 consecutive days then may leave open to air. Follow hip precautions as reviewed by hospital physical therapist. Wear compression stockings may remove at night. Call with any concerns Allergies/Adverse Reactions: Allergies Sulfa (Sulfonamide Antibiotics) Allergy (Verified 04/29/19 08:17) Unknown Medications to take at Discharge Cholecalciferol (Vitamin D3) [Vitamin D3] 400 unit PO DAILY 05/02/14 Multivitamins,Therapeutic [Multivitamin] 1 tab PO DAILY 05/02/14 Paroxetine [Paxil] 40 mg PO DAILY 05/02/14 Levothyroxine [Synthroid] 50 mcg PO DAILY 07/20/16 Losartan Potassium [Cozaar] 100 mg PO DAILY 07/20/16 Simvastatin [Zocor] 40 mg PO QHS 07/20/16 potassium chloride ER 20 mEq tablet,extended release(part/cryst) 20 meq PO DAILY #30 tab 03/24/19 magnesium 250 mg (as magnesium oxide) tablet 250 mg PO DAILY 04/08/19 vitamin B complex and vit C no.3 15 mg-10 mg-50 mg-5 mg-300 mg capsule 1 cap PO DAILY 04/08/19 amlodipine 5 mg tablet 5 mg PO DAILY tab 04/15/19 Calcium Carbonate [Tums Ultra Strength] 1,177 mg PO QHS 04/22/19 Acetaminophen [Tylenol] 1,000 mg PO Q8 #50 tab 04/30/19 Apixaban [Eliquis] 2.5 mg PO BID #42 tab 04/30/19 Oxycodone [Oxyir] 5 - 10 mg PO Q4H PRN PRN #60 tablet 04/30/19 The following prescriptions were given: Apixaban [Eliquis] 2.5 mg PO BID #42 tab [facility] Oxycodone [Oxyir] 5 - 10 mg PO Q4H PRN PRN #60 tablet PRN Reason: Pain Score 1-5/10 Transmission Status: [facility] Acetaminophen [Tylenol] 1,000 mg PO Q8 #50 tab Transmission Status: Pending to [id number] Primary Care Physician: Hector Walker MD [Primary Care Provider] - Test Results: Test results from this visit will be discussed in further detail at your follow-up appointment, if applicable. Please Follow Up With: Bobby Parnell, When: 2 weeks
--- NOTE | 2019-04-30 12:58 | DS.PCM_ITS ---
Discharge Date and Diagnosis Date of Admission: 04/29/19 Date of Discharge: 04/30/19 - Secondary Discharge Diagnosis Chronic Problems (Last Reviewed 04/22/19 @ 14:07 by Deborah Morgan) Diarrhea (Chronic) Right hip pain (Chronic) Heart murmur (Chronic) Hypertension (Chronic) Chronic bronchitis (Chronic) Cataracts, bilateral (Chronic) UTI (urinary tract infection) (Chronic) Back problem (Chronic) Scoliosis (Chronic) L lumbar IBS (irritable bowel syndrome) (Chronic) Anxiety (Chronic) High cholesterol (Chronic) Age related osteoporosis (Chronic) Environmental allergies (Chronic) Depression (Chronic) Hypothyroidism (Chronic) HLD (hyperlipidemia) (Chronic) HTN (hypertension) (Chronic) Hospital Course and Treatment Operations: None, total hip replacement Summary of Care Provided: The patient is a 74 year old F ]underwent right total hip arthroplasty on date of admission without any intraoperative complications. Patient has failed can conservative treatment wished to undergo the elective procedure. Patient underwent the procedure without any intraoperative complications did receive pre-and postoperative antibiotics which were discontinued within 23 hours postoperatively. Patient did receive trans-examined acid and vital signs remained stable postoperatively as well as hemoglobin and hematocrit and did not require any blood transfusion. Seen by physical therapy did progress ambulation was started on both mechanical chemical DVT prophylaxis in the form of SCDs DAVID hose and Eliquis 2.5 mg twice daily for which patient will continue for 3 weeks post hospital discharge. To be set up with home health care at home physical therapy will follow-up in the office in 2 weeks for staple removal wound check and conversion to outpatient physical therapy. - Physical Exam Vitals/I&O's: Vital Signs Temp Pulse Resp BP Pulse Ox 98.6 F 81 20 H 148/66 H 98 04/30/19 09:40 04/30/19 09:40 04/30/19 09:40 04/30/19 09:40 04/30/19 09:40 Oxygen Flow Rate (L/min) 6 Oxygen Delivery Method Room Air Weight: 144 lb 2.917 oz Body Mass Index (BMI) 23.6 Intake and Output for Last 24 Hours 04/28/19 04/29/19 04/30/19 23:59 23:59 23:59 Intake Total 3522.92 / 3522.92 1260.5 / 1260.5 Output Total 2760 / 2760 1600 / 1600 Balance 762.92 / 762.92 -339.5 / -339.5 General: Alert, Oriented x3, Cooperative, No apparent distress Extremities: - - NVI compartments soft, no cocerning signs from nursing. Laboratory Results 04/30/19 04:55: WBC 17.2 H, RBC 3.40 L, Hgb 10.6 L, Hct 32.1 L, MCV 94.4, MCH 31.2, MCHC 33.0, RDW Std Deviation 42.7, RDW Coeff of Golden 12.3, Plt Count 279, MPV 9.7 04/30/19 04:55: Sodium 141, Potassium 4.2, Chloride 109 H, Carbon Dioxide 25.0, Anion Gap 7, BUN 14, Creatinine 0.65, Estim Creat Clear Calc 43.07, Est GFR (MDRD) Af Amer 113, Est GFR (MDRD) Non-Af 94, BUN/Creatinine Ratio 21.4 H, Glucose 181 H, Calcium 8.7 Current Medications Acetaminophen (Tylenol) 1,000 mg PO Q8 [facility] Last Admin: 04/30/19 06:22 Dose: 1,000 mg Documented by: Amlodipine Besylate (Norvasc) 5 mg PO DAILY [facility] Last Admin: 04/30/19 07:36 Dose: 5 mg Documented by: Apixaban (Eliquis) 2.5 mg PO BID [facility] Atorvastatin Calcium (Lipitor) 20 mg PO QHS [facility] Last Admin: 04/29/19 21:15 Dose: 20 mg Documented by: Enteral Nutritional Formula (Ensure Surgery) 237 ml PO 0600,1300,2000 [facility] Last Admin: 04/30/19 12:38 Dose: Not Given Documented by: Hydromorphone HCl (Dilaudid Inj) 0.5 mg IV Q2H PRN PRN PRN Reason: BREAKTHROUGH PAIN (>4/10) Lactated Ringer's () 1,000 mls @ 125 mls/hr IV .Q8H [facility] Last Admin: 04/30/19 12:37 Dose: Not Given Documented by: Insulin Human Lispro (Humalog Kwikpen (Bkc)) 1 - 6 unit SC Q4H PRN PRN; Protocol PRN Reason: BG>/= 180, SEE PROTOCOL Ketorolac Tromethamine (Toradol) 15 mg IV Q6H PRN PRN PRN Reason: Pain Score 1-5/10 Stop: 05/01/19 11:14 Levothyroxine Sodium (Synthroid) 50 mcg PO DAILY@0600 [facility] Last Admin: 04/30/19 06:23 Dose: 50 mcg Documented by: Losartan Potassium (Cozaar) 100 mg PO DAILY [facility] Last Admin: 04/30/19 07:35 Dose: 100 mg Documented by: Multivitamins (Multivitamin) 1 tablet PO DAILYCM [facility] Last Admin: 04/30/19 07:35 Dose: 1 tablet Documented by: Ondansetron HCl (Zofran) 4 mg IV Q6H PRN PRN PRN Reason: NAUSEA Oxycodone HCl (Oxyir) 5 - 10 mg PO Q4H PRN PRN PRN Reason: Pain Score 1-510 Last Admin: 04/29/19 16:15 Dose: 5 mg Documented by: Paroxetine HCl (Paxil) 40 mg PO DAILY [facility] Last Admin: 04/30/19 07:36 Dose: 40 mg Documented by: Potassium Chloride (K-Dur) 20 meq PO DAILY [facility] Last Admin: 04/30/19 07:35 Dose: 20 meq Documented by: Senna/Docusate Sodium (Senokot-S, Ramandeep-Colace) 2 tablet PO BID [facility] Last Admin: 04/30/19 07:34 Dose: Not Given Documented by: Sodium Chloride () 10 - 40 ml IV UD PRN PRN Reason: SALINE FLUSH Last Admin: 04/30/19 07:38 Dose: 10 ml Documented by: Discharge Diet: No Restrictions Weight Bearing Status: Weight bearing as tolerated Home Medications: Medications to take at Discharge Cholecalciferol (Vitamin D3) [Vitamin D3] 400 unit PO DAILY 05/02/14 Multivitamins,Therapeutic [Multivitamin] 1 tab PO DAILY 05/02/14 Paroxetine [Paxil] 40 mg PO DAILY 05/02/14 Levothyroxine [Synthroid] 50 mcg PO DAILY 07/20/16 Losartan Potassium [Cozaar] 100 mg PO DAILY 07/20/16 Simvastatin [Zocor] 40 mg PO QHS 07/20/16 potassium chloride ER 20 mEq tablet,extended release(part/cryst) 20 meq PO DAILY #30 tab 03/24/19 magnesium 250 mg (as magnesium oxide) tablet 250 mg PO DAILY 04/08/19 vitamin B complex and vit C no.3 15 mg-10 mg-50 mg-5 mg-300 mg capsule 1 cap PO DAILY 04/08/19 amlodipine 5 mg tablet 5 mg PO DAILY tab 04/15/19 Calcium Carbonate [Tums Ultra Strength] 1,177 mg PO QHS 04/22/19 Acetaminophen [Tylenol] 1,000 mg PO Q8 #50 tab 04/30/19 Apixaban [Eliquis] 2.5 mg PO BID #42 tab 04/30/19 Oxycodone [Oxyir] 5 - 10 mg PO Q4H PRN PRN #60 tablet 04/30/19 Following Prescrptions Were Given to Patient: Apixaban [Eliquis] 2.5 mg PO BID #42 tab [facility] Oxycodone [Oxyir] 5 - 10 mg PO Q4H PRN PRN #60 tablet PRN Reason: Pain Score 1-11/01 Transmission Status[facility] Acetaminophen [Tylenol] 1,000 mg PO Q8 #50 tab Transmission Status: Pending to [facility] Primary Care Physician: Hector Walker MD [Primary Care Provider] - Please Follow Up With: Bobby Parnell DO When: 2 weeks Additional Instructions: Begin daily showering warm water antibacterial soap postop day #3( 72hrs Post- operatively) and then daily. Leave the dressing on for 72 hours postoperatively then may remove prior to first shower and change dressing daily after this until no drainage for 2 consecutive days then may leave open to air. Follow hip precautions as reviewed by hospital physical therapist. Wear compression stockings may remove at night. Call with any concerns Medical Necessity - Tobacco Use Smoking Status: Former smoker Meaningful Use Info Meaningful Use Diagnoses (Choose all that apply): None applicable
[2019-04-30 14:16] VITALS: BP 141/68; PULSE 79; RESP 16; TEMP 36.6; O2SAT 99
== END 2019-04-30 14:31 | disposition home or self-care (01) | DRG 470 ==
LOC: ACINP 07:32 → MS3 12:50
PROVIDERS: Admitting Provider Orthopaedic Surgery; Family Provider Internal Medicine; PCP Internal Medicine; Referring Provider Orthopaedic Surgery; Visit Provider Orthopaedic Surgery
PROC: 0SR90JZ Replacement of Right Hip Joint with Synthetic Substitute, Open Approach (ICD-10-PCS; CPT 27130; principal; 2019-04-29 09:05)
DX: M16.11 Unilateral primary osteoarthritis, right hip (principal); M47.816 Spondylosis without myelopathy or radiculopathy, lumbar region; E03.9 Hypothyroidism, unspecified; E78.5 Hyperlipidemia, unspecified; I10 Essential (primary) hypertension; Z87.891 Personal history of nicotine dependence; F32.9 Major depressive disorder, single episode, unspecified
CPT/HCPCS: 36415; 73502; 80048; 82962; 85027; 87081; 97110; 97116; 97162; 97166; 97530; C1713; C1776; J7120; A4216

== ENCOUNTER 2019-05-02 17:08 | Emergency (ER) | payer MEDICARE, SELFPAY ==
[2019-04-29 12:55] VITALS: BMI 23.6
[2019-05-02 17:11] VITALS: BP 156/64; PULSE 87; RESP 17; TEMP 36.4; O2SAT 96; BMI 23.6
--- NOTE | 2019-05-02 17:38 | EKG12_ITS ---
Test Reason : Blood Pressure : / mmHG Vent. Rate : 069 BPM Atrial Rate : 069 BPM P-R Int : 132 ms QRS Dur : 142 ms QT Int : 472 ms P-R-T Axes : 057 028 125 degrees QTc Int : 505 ms Normal sinus rhythm Left bundle branch block Abnormal ECG Confirmed by CHINO SOLORIO, WINTER ([id number]), survey questionnaire designer SHRUTI VILLAR ([id number]) on 05/06/2019 1:51:55 PM Referred By: Bobby Parnell Confirmed By:WINTER MAGANA MD
--- NOTE | 2019-05-02 17:47 | ED.DCSUM_ITS ---
History of Present Illness Chief Complaint: Dizziness Detail of Chief Complaint: Since of warmth followed by nausea and swirling sensation Informant: Patient, Family Onset: Today Context: Sudden Onset Timing: Continuous Quality: Swishing sensation in her head Location: Head and generalized Current Severity: Mild Maximum Severity: Moderate Worsened by: Per patient unknown Relieved by: Per patient nothing Associated Symptoms: Nausea, warmth and shortness of breath with anxiety Narrative: Is an elderly 74-year-old woman who has 2 complaints first was shortness of breath that started abruptly associated with feeling anxious. She is status post total right hip arthroplasty on April 29. She states half hour prior to presentation she developed dizziness which she defined as a swirling sensation and with a sensation of warmth and nausea. She denies headache. She has chronic neck pain. She denies double vision or blurred vision. She denies trouble with speech or swallowing. She denied chest pain. She denied vomiting or diarrhea. She did complain of nausea. She states she is on Eliquis. She was started on Eliquis postop. She is presently taking 5 mg twice a day. She states the swishing sensation has improved. There is no history of TIA or CVA. She denies swelling of her calf, discoloration or pain. Prior similar symptoms: No Recent Illness/Hospitalization: Yes - Past Medical History (1) Hyperthyroidism Status: Acute (2) Hypotension Status: Acute (3) Anxiety Status: Chronic (4) Cataracts, bilateral Status: Chronic (5) Depression Status: Chronic (6) Diarrhea Status: Chronic (7) HLD (hyperlipidemia) Status: Chronic (8) HTN (hypertension) Status: Chronic (9) IBS (irritable bowel syndrome) Status: Chronic Past Medical History - Allergies and Home Meds Allergies/Adverse Reactions: Allergies Sulfa (Sulfonamide Antibiotics) Allergy (Verified 05/02/19 17:11) Unknown Primary Care Physician: Hector Walker MD [Primary Care Provider] - Surgical History: - Lives: Alone Smoking Status: Unknown if ever smoked Alcohol: None Drugs: None - Family History Maternal Family History: Family History (Last Reviewed 04/22/19 @ 14:07 by Deborah Morgan) Sister Asthma Anxiety Breast cancer Diabetes Respiratory disease Skin cancer Mother Breast cancer Father Depression Grandmother Colon cancer Grandfather Myocardial infarction Other Cancer Heart disease Hypertension Kidney disease Family History: Reports: - Paternal Family History: Family History (Last Reviewed 04/22/19 @ 14:07 by Deborah Morgan) Sister Asthma Anxiety Breast cancer Diabetes Respiratory disease Skin cancer Mother Breast cancer Father Depression Grandmother Colon cancer Grandfather Myocardial infarction Other Cancer Heart disease Hypertension Kidney disease Family History: Reports: - Review of Systems General: Denies: Chills, Fever, Malaise, Subjective, Sweats Eyes: Denies: Visual changes - bilaterally, Blurred Vision - bilaterally ENT: Denies: Bilateral ear pain, Rhinorrhea, Sore throat Cardiovascular: Denies: Chest pain, Palpitations Respiratory: Reports: Dyspnea, Dyspnea on exertion Gastrointestinal: Denies: Abdominal pain, Nausea, Vomiting, Diarrhea, Melena, Hematochezia Musculoskeletal: Denies: Myalgias, Arthralgias, Neck pain, Back pain, Swelling, Extremity Pain Skin: Denies: Rash, Wounds Neurological: Denies: Headache, Weakness, Parasthesia, Numbness Psych: Denies: Depression, Anxiety Hematologic: Reports: Easy bruising. Denies: Easy bleeding Allergy: Denies: Uticaria, Swelling of the mouth, Swelling of the tongue Physical Exam Vital Signs/Narrative: Vital Signs Temp Pulse Resp BP Pulse Ox 05/02/19 17:11 97.6 F L 87 17 156/64 H 96 Inital Vital Signs reviewed: Yes General: Well nourished, Well developed, No Acute Distress Head: Normocephalic, Atraumatic Eyes: Perrl, EOMI ENT: Moist mucous membranes, No rhinorrhea Neck: Supple, Nontender Cardiovascular: Regular rate, Regular rhythm, No murmurs, Normal S1, Normal S2 Respiratory: No distress, CTA bilaterally, Chest nontender Abdomen: Soft, Nontender, Nondistended, Normal bowel sounds Back: Nontender, Normal Inspection Extremities: Nontender, No edema Skin: Normal color, No rash, No Trauma. Negative for: Cyanosis, Diaphoresis, Jaundice Neurological: Alert, Oriented x3, Cranial nerves II-XII grossly intact, Normal Strength, Normal Sensation, Normal DTR, - - Romberg with eyes open and close normal. The eye askew test was negative. The hint test was negative. Enriqueta- Hallpike maneuver cause symptoms when she was raised from a flat position. Psychological: Normal affect, Normal Mood Diagnostic/Tx/Re-eval Chest X-Ray - ED: 2 View, Normal, Heart, Bony Structures, No Acute Disease, Chronic Changes, - - There is a 1 cm right hilar nodule. There is no evidence of infiltrate, effusion or pneumothorax. CTA was ordered to evaluate for pulmonary embolus. 05/02/19 18:30 Chest PA and Lateral [RAD] Stat Laboratory Results 05/02/19 05/02/19 05/02/19 17:56 17:56 17:56 WBC 11.7 H RBC 3.47 L Hgb 10.8 L Hct 32.1 L MCV 92.5 MCH 31.1 MCHC 33.6 RDW Std Deviation 42.2 RDW Coeff of Golden 12.6 Plt Count 313 MPV 9.6 Immature Gran % (Auto) 0.300 Neut % (Auto) 67.2 Lymph % (Auto) 19.3 Rutherford % (Auto) 11.6 H Eos % (Auto) 1.2 Baso % (Auto) 0.4 Absolute Neuts (auto) 7.9 H Absolute Lymphs (auto) 2.25 Nucleated RBC % 0 D-Dimer Quant (PE/DVT) 1.62 H* Sodium 139 Potassium 3.5 Chloride 106 Carbon Dioxide 25.0 Anion Gap 8 BUN 19 H Creatinine 0.83 Estim Creat Clear Calc 51.89 Est GFR (MDRD) Af Amer 86 Est GFR (MDRD) Non-Af 71 BUN/Creatinine Ratio 22.9 H Glucose 110 H Calcium 9.0 CTA of the chest reveals no abnormality per radiologist. - Medical Decision Making Patient appears tachypneic and dyspneic. Even though she is on Eliquis since she is post op day 3 of right total hip arthroplasty need to entertain possibility of pulmonary embolus. She is not high pretest probability; therefore, will obtain d-dimer. Chest x-ray was obtained to evaluate for pneumonia. EKG to assess for acute ischemia which would raise then possibility of congestive heart failure. Suspect patient's dizziness is benign positional vertigo in light of the positive Enirqueta-Hallpike maneuver. ED Disposition - Plan for ED Patient: Disposition: Home or Assisted Living Diagnosis: Dyspnea, Benign paroxysmal positional vertigo, Anxiety reaction Instructions: Benign Positional Vertigo Prescriptions: Clorazepate [Tranxene] 3.75 mg PO TID PRN PRN #10 tablet PRN Reason: Anxiousness/shortness of breat Transmission Status: Sent to [facility] Referrals: Hector Walker MD [Primary Care Provider] -
[2019-05-02 18:10] LABS: Absolute Lymphocyte Count 2.25 X10^3/uL (0.83-4.51); Absolute Neutrophil Count 7.9 X10^3/uL (2.0-7.7); Basophil# 0.05 X10^3/uL; Basophil% 0.4 % (0-1); Eosinophil# 0.14 X10^3/uL; Eosinophils% 1.2 % (0-5); Hematocrit 32.1 % (37-47); Hemoglobin 10.8 g/dL (12.0-15.0); Lymphocyte # 2.25 X10^3/ul (4.0); Lymphocyte % 19.3 % (19-41); Mean Corp Hgb Conc 33.6 g/dL (32-36); Mean Corpuscular Hgb 31.1 pg (27.0-32.0); Mean Corpuscular Volume 92.5 fL (81-99); Mean Platelet Vol. 9.6 fl (6.2-12.0); Monocyte# 1.35 X10^3/uL; Monocyte% 11.6 % (0-10); NRBC Flagged by Analyzer 0 % (0-5); Neutrophil # 7.85 X10^3/uL (2.7-7.7); Neutrophil % 67.2 % (47-70); Platelet Count 313 K/mm3 (150-450); RBC Distribution Width CV 12.6 % (11.6-14.6); RBC Distribution Width SD 42.2 fl (35.1-43.9); Red Blood Count 3.47 M/mm3 (4.2-5.4); White Blood Count 11.7 K/mm3 (4.4-11.0)
[2019-05-02 18:20] LABS: Anion Gap 8 (5-15); BUN 19 mg/dL (7-18); BUN/Creat Ratio 22.9 RATIO (10-20); Chloride 106 mmol/L (98-107); Creatinine, Serum 0.83 mg/dL (0.55-1.02); EST Glomerular Filtration Rate 71 mL/min (>60); Est Glom Filt Rate - Afr Amer 86 mL/min (>60); Estimated Creatinine Clearance 51.89 ml/min; Glucose 110 mg/dL (74-106); Potassium 3.5 mmol/L (3.5-5.1); Sodium Level 139 mmol/L (136-145)
--- NOTE | 2019-05-02 18:30 | RAD_ITS ---
STUDY: X-RAY CHEST REASON FOR EXAM: Female, 74 years old. Dizziness. Headache. Hit replacement on Sunday. TECHNIQUE: PA and lateral views of the chest. COMPARISON: January 30, 2017 FINDINGS: The lungs remain hyperinflated. There are stable prominent interstitial markings. Normal size heart. Normal mediastinum and fina. Normal visualized pulmonary arteries. There is atherosclerotic calcification of the aortic arch with tortuosity. Normal visualized thoracic spine. There is degenerative osteoarthritis of the bilateral shoulders. There is no demonstrated abnormality of the visualized soft tissue structures of the upper abdomen. RAD/Chest PA and Lateral IMPRESSION: Stable examination demonstrating no acute cardiopulmonary process. Electronically Signed: Shyanne Guevara MD at 18:53 EST Tel , Service support ,
[2019-05-02 18:34] LABS: D-Dimer Quantitative (DVT/PE) 1.62 FEU/ug/m (0.27-0.49)
--- NOTE | 2019-05-02 18:39 | CT_ITS ---
STUDY: CTA CHEST REASON FOR EXAM: Female, 74 years old. Shortness of breath. Recent hip replacement. RADIATION DOSAGE (If Supplied By Facility): CTDIvol = ( 11.19 ) mGy, DLP = ( 379.05 ) mGycm TECHNIQUE: The examination was performed with the intravenous administration of IV Isovue 370 100. Post-processing of the angiographic images was performed, with multiplanar reformation and 3D reconstruction. Individualized dose optimization techniques were used for this CT. COMPARISON: January 30, 2017 FINDINGS: There is suboptimal enhancement of the main pulmonary artery and right and left pulmonary arteries. There is suboptimal enhancement of the bilateral peripheral pulmonary arteries. There is no gross demonstrated pulmonary embolism. There is atherosclerotic calcification of the aortic arch and descending thoracic aorta. There is no demonstrated aortic dissection. There are calcifications of the coronary arteries. There are calcified mediastinal left hilar lymph nodes. Normal visualized trachea and bronchi. There is stable minimal left basilar scarring. Normal chest wall structures. There are degenerative changes of thoracic spine. The limited images of the upper abdomen demonstrate hepatic and splenic granulomas. CT/CTA Chest W/WO Contrast IMPRESSION: No demonstrated gross pulmonary embolism or arterial dissection. Atherosclerosis. Evidence of prior granulomatous disease. Electronically Signed: Shyanne Guevara MD at 19:16 EST Tel , Service support ,
[2019-05-02 19:40] VITALS: BP 136/64
--- NOTE | 2019-05-02 21:15 | ED.VISSUMM ---
- ER Visit Summary Date of Service: 05/02/19 Chief Complaint: [] History of Present Illness: The patient is a 74 F [] Physical Examination: [] Test Results: [] Emergency Department Course and Treatment: [] Treatment Plan: [] Disposition: [] Impression: [] This note was generated with [employer] dictation software. It may contain incorrect words, spelling, and punctuation that were not noted in review of the chart prior to signing ED Disposition - Plan for ED Patient: Disposition: Home or Assisted Living Diagnosis: Dyspnea, Benign paroxysmal positional vertigo, Anxiety reaction Instructions: Benign Positional Vertigo Prescriptions: Clorazepate [Tranxene] 3.75 mg PO TID PRN PRN #10 tablet PRN Reason: Anxiousness/shortness of breat Transmission Status: Sent to [id number] Referrals: Hector Walker MD [Primary Care Provider] -
[2019-05-02 21:32] VITALS: BP 147/85; PULSE 71; RESP 16; O2SAT 99
== END 2019-05-02 21:32 | disposition home or self-care (01) ==
PROVIDERS: Emergency Provider Emergency Medicine; Family Provider Internal Medicine; PCP Internal Medicine
DX: H81.10 Benign paroxysmal vertigo, unspecified ear (principal); R06.00 Dyspnea, unspecified; F41.1 Generalized anxiety disorder; E05.90 Thyrotoxicosis, unspecified without thyrotoxic crisis or storm; F32.9 Major depressive disorder, single episode, unspecified; E78.5 Hyperlipidemia, unspecified; I10 Essential (primary) hypertension; Z96.641 Presence of right artificial hip joint; Z79.01 Long term (current) use of anticoagulants; Z79.899 Other long term (current) drug therapy
CPT/HCPCS: 71046; 71275; 80048; 85025; 85379; 93005; 96360; 96361; 99284; J7030; Q9967; A4216

== ENCOUNTER 2019-05-12 14:57 | Inpatient (IN) | payer MEDICARE, SELFPAY ==
[2019-05-12] VITALS (11 sets, daily range): BP systolic 118–152; BP diastolic 51–108; PULSE 75–95; RESP 17–24; TEMP 36.3–37.3; O2SAT 94–99; BMI 23.6; BMI 22.8; BMI 24.2
--- NOTE | 2019-05-12 15:36 | EKG12_ITS ---
Test Reason : CP Blood Pressure : / mmHG Vent. Rate : 077 BPM Atrial Rate : 077 BPM P-R Int : 130 ms QRS Dur : 148 ms QT Int : 408 ms P-R-T Axes : 056 036 167 degrees QTc Int : 461 ms Normal sinus rhythm Left bundle branch block Abnormal ECG Confirmed by JOMAR SOLORIO, VITA ([id number]), editor farm journal RAUDEL TREADWELL ([id number]) on 05/14/2019 2:06:35 PM Referred By: Ibeth Melton Confirmed By:VITA HADLEY MD
--- NOTE | 2019-05-12 15:37 | VDLE_ITS ---
Reason For Study: SOB RIGHT LEFT GSV is normal. GSV is normal. CFV is compressible, spontaneous, phasic, CFV is compressible, spontaneous, phasic, competent and demonstrates normal competent, and demonstrates normal augmentation. augmentation. FV is compressible, spontaneous, phasic, FV is compressible, spontaneous, phasic, competent and demonstrates normal competent and demonstrates normal augmentation. augmentation. POP V is compressible, spontaneous, phasic, POP V is compressible, spontaneous, phasic, competent and demonstrates normal competent and demonstrates normal augmentation. augmentation. T/P Trunk is compressible. T/P Trunk is compressible. PTV is compressible. PTV is compressible. PER V is difficult to visualize, appears PER V is difficult to visualize, appears compressible. compressible. Procedure Exam performed portable in ED. The study was technically difficult. A preliminary report was called and/or faxed to ED. Interpretation Summary No evidence for acute deep venous thrombosis bilateral lower extremities with patent and compressible bilateral great saphenous veins. Bilateral peroneal veins are difficult to visualize but appear compressible. The exam was felt to be technically difficult. Ordering Physician: Chase Shelby Referring Physician: Hector Walker Performed By: Julieth Zelaya, GRANT, RVT
--- NOTE | 2019-05-12 15:40 | RAD_ITS ---
STUDY: X-RAY CHEST REASON FOR EXAM: Female, 74 years old. Chest pain. TECHNIQUE: Single AP portable view of the chest. COMPARISON: Comparison is made with prior study dated May 02, 2019. FINDINGS: EKG electrodes are seen. Mild degree of vascular congestion. Blunting of both cause phrenic angles with mild increased markings at the bases suggestive of atelectasis. Normal size heart. Normal mediastinum and fina. Normal visualized pulmonary arteries. There is atherosclerotic calcification of the aortic arch with tortuosity. Normal visualized thoracic spine. There is degenerative osteoarthritis of the bilateral shoulders. There is no demonstrated abnormality of the visualized soft tissue structures of the upper abdomen. RAD/Chest 1 View (Portable) IMPRESSION: Findings suggest mild degree of vascular congestion/CHF with blunting of both costophrenic angles and mild bibasilar atelectasis. Electronically Signed: Sai rGey, at 15:58 EST , Service support ,
[2019-05-12 15:47] LABS: Absolute Lymphocyte Count 2.08 X10^3/uL (0.83-4.51); Absolute Neutrophil Count 10.2 X10^3/uL (2.0-7.7); Basophil# 0.05 X10^3/uL; Basophil% 0.4 % (0-1); Eosinophils% 0.7 % (0-5); Hematocrit 31.3 % (37-47); Hemoglobin 10.4 g/dL (12.0-15.0); Lymphocyte # 2.08 X10^3/ul (4.0); Lymphocyte % 15.3 % (19-41); Mean Corp Hgb Conc 33.2 g/dL (32-36); Mean Corpuscular Hgb 31.3 pg (27.0-32.0); Mean Corpuscular Volume 94.3 fL (81-99); Mean Platelet Vol. 9.3 fl (6.2-12.0); Monocyte# 1.15 X10^3/uL; Monocyte% 8.5 % (0-10); NRBC Flagged by Analyzer 0 % (0-5); Neutrophil # 10.16 X10^3/uL (2.7-7.7); Neutrophil % 74.7 % (47-70); Platelet Count 435 K/mm3 (150-450); RBC Distribution Width CV 13.5 % (11.6-14.6); RBC Distribution Width SD 45.8 fl (35.1-43.9); Red Blood Count 3.32 M/mm3 (4.2-5.4); White Blood Count 13.6 K/mm3 (4.4-11.0)
[2019-05-12] MEDS: Aspirin 81 MG TAB.CHEW 324 MG PO (16:00)
[2019-05-12 16:17] LABS: Anion Gap 9 (5-15); BUN 13 mg/dL (7-18); BUN/Creat Ratio 18.2 RATIO (10-20); Calcium,Total 8.8 mg/dL (8.5-10.1); Chloride 109 mmol/L (98-107); Creatinine, Serum 0.72 mg/dL (0.55-1.02); EST Glomerular Filtration Rate 84 mL/min (>60); Est Glom Filt Rate - Afr Amer 102 mL/min (>60); Glucose 121 mg/dL (74-106); Potassium 2.9 mmol/L (3.5-5.1); Sodium Level 140 mmol/L (136-145)
--- NOTE | 2019-05-12 16:18 | ED.RN ---
trop 5.[address] lab. dr bowden aware
--- NOTE | 2019-05-12 16:23 | ED.VISSUMM ---
- ER Visit Summary Date of Service: 05/12/19 Chief Complaint: Chest pain and shortness of breath History of Present Illness: The patient is a [address] Walker. On April 29 she had a right total hip replacement by Dr. Parnell. She reports that she was doing well until 2 days ago. She denies any hip pain or redness. She reports that she had the randy out today. Patient reports that 2 nights ago she woke up severely short of breath. It seemed to improve when she went and sat in the chair. However, since then she has chest pain and shortness of breath when she exerts herself and is short of breath when she lays flat. She describes of chest pain as a pressure that is 8 out of 10 at worst and she is pain-free currently. It is brought on by movement and resolves after a few minutes of rest. She reports that it lasts hours at night. She denies any associated nausea, vomiting, or diaphoresis. She does report that she is very short of breath with this. Patient denies any personal family history of DVT. She denies any ankle swelling or calf pain. Physical Examination: Vitals: Stable. Afebrile. General: Well-nourished and well-developed. Head: Normocephalic atraumatic. Neck: Supple, no lymphadenopathy. No JVD. Nontender. Cardiovascular: Regular rate and rhythm. 2 out of 6 systolic murmur. Respiratory: No respiratory distress. Crackles at the bases bilaterally. Abdominal: Soft, nontender, nondistended, normal bowel sounds. No guarding, rebound, or peritoneal signs. Back: Nontender. Extremities: Nontender, no edema. No palpable cord or Homans sign. Calves are nontender. Skin: Normal color, no rash. Neurologic: Alert and oriented ?3. Cranial nerves II through XII are intact. Normal strength and sensation. Psych: Normal affect. Test Results: EKG is sinus at 77 with a left bundle branch block. This is unchanged from earlier this month. Troponin is 5.74. Chem-7 shows a potassium of 2.9, chloride 109, glucose 121. CBC shows a white count 13.6, H&H of 10.4 and 31.3, segmented neutrophils 75, lymphs is a 15. Bilateral lower extremity Dopplers are negative. Chest x-ray shows mild CHF. Emergency Department Course and Treatment: Patient was treated with aspirin and K-Dur p.o. She is resting comfortably and is pain-free. Treatment Plan: The patient was discussed with Dr. Stephen and Dr. Melton. She is on 2.5 mg of Eliquis twice daily. Dr. Stephen asked that I did not anticoagulate her further. She will be admitted to the hospital for further evaluation and treatment. Disposition: Admitted in improved condition. Impression: 1. Non-ST elevation NM. 2. Hypokalemia. 3. Critical care time 30 minutes. This note was generated with [employer] dictation software. It may contain incorrect words, spelling, and punctuation that were not noted in review of the chart prior to signing ED Disposition - Plan for ED Patient: Referrals: Hector Walker MD [Primary Care Provider] -
[2019-05-12 16:50] LABS: BNP,B-Type NATRIURETIC PEPTIDE 937.1 pg/mL (0-100)
--- NOTE | 2019-05-12 17:25 | CON.PCM_ITS ---
Reason for Consult Date of Consultation: 05/12/19 Reason for Consultation: Shortness of breath and abnormal cardiac enzymes History of Present Illness: The patient is a 74 year old F past medical history significant for hypertension and chronic left bundle branch block. She recently over the last 2 weeks underwent right hip surgery and was discharged and was doing well. She was discharged on Eliquis 2.5 mg twice a day. She says over the last week or so she has been getting progressively short of breath with some chest heaviness. She has not had any pedal edema and there is been no radiation of this chest heaviness she has not had any palpitations no paroxysmal nocturnal dyspnea. She has had a mild cough. She presented to the emergency room today and her EKG did confirm the left bundle branch block but in addition she was noted to be dyspneic and her troponin was noted to be abnormal. Cardiology was called for follow-up [] Past Medical History Allergies/Adverse Reactions: Allergies Sulfa (Sulfonamide Antibiotics) Allergy (Verified 05/12/19 14:58) Unknown Home Medications: Ambulatory Orders Medication Instructions Recorded Cholecalciferol (Vitamin D3) 400 unit PO DAILY 05/02/14 [Vitamin D3] Multivitamins,Therapeutic 1 tab PO DAILY 05/02/14 [Multivitamin] Levothyroxine [Synthroid] 50 mcg PO DAILY 07/20/16 Losartan Potassium [Cozaar] 100 mg PO DAILY 07/20/16 Simvastatin [Zocor] 40 mg PO QHS 07/20/16 potassium chloride ER 20 mEq 20 meq PO DAILY #30 tab 03/24/19 tablet,extended release(part/cryst) vitamin B complex and vit C no.3 1 cap PO DAILY 04/08/19 15 mg-10 mg-50 mg-5 mg-300 mg capsule amlodipine 5 mg tablet 5 mg PO DAILY tab 04/15/19 Calcium Carbonate [Tums Ultra 1,177 mg PO QHS 04/22/19 Strength] Apixaban [Eliquis] 2.5 mg PO BID #42 tab 04/30/19 Oxycodone [Oxyir] 5 - 10 mg PO Q4H PRN PRN #60 tab 04/30/19 Clorazepate [Tranxene] 3.75 mg PO TID PRN PRN #10 tab 05/02/19 paroxetine 40 mg tablet 40 mg PO DAILY #90 tab 05/09/19 Acetaminophen [Tylenol] 1,000 mg PO Q8H 05/12/19 Magnesium Oxide [Mag-Ox 400] 800 mg PO BID 05/12/19 Past Medical History (Chronic Problems): Chronic Problems (Last Reviewed 04/22/19 @ 14:07 by Deborah Morgan) Diarrhea (Chronic) Right hip pain (Chronic) Heart murmur (Chronic) Hypertension (Chronic) Chronic bronchitis (Chronic) Cataracts, bilateral (Chronic) UTI (urinary tract infection) (Chronic) Back problem (Chronic) Scoliosis (Chronic) L lumbar IBS (irritable bowel syndrome) (Chronic) Anxiety (Chronic) High cholesterol (Chronic) Age related osteoporosis (Chronic) Environmental allergies (Chronic) Depression (Chronic) Hypothyroidism (Chronic) HLD (hyperlipidemia) (Chronic) HTN (hypertension) (Chronic) Surgical History: - - *Family History Maternal Family History: Family History (Last Reviewed 04/22/19 @ 14:07 by Deborah Morgan) Sister Asthma Anxiety Breast cancer Diabetes Respiratory disease Skin cancer Mother Breast cancer Father Depression Grandmother Colon cancer Grandfather Myocardial infarction Other Cancer Heart disease Hypertension Kidney disease History Items: - Paternal Family History: Family History (Last Reviewed 04/22/19 @ 14:07 by Deborah Morgan) Sister Asthma Anxiety Breast cancer Diabetes Respiratory disease Skin cancer Mother Breast cancer Father Depression Grandmother Colon cancer Grandfather Myocardial infarction Other Cancer Heart disease Hypertension Kidney disease History Items: - Smoking Status: Former smoker Tobacco Use: Cigarettes Alcohol: None Drugs: None Review of Systems - Review of Systems General: Denies: Fever, Night Sweats, Fatigue HEENT: Denies: Vision Change Cardiovascular: Reports: Chest Discomfort, Shortness of Breath, Shortness of Breath at Rest. Denies: Orthopnea, PND, Peripheral Edema, Palpitations, Lightheadedness, Dizziness, Near Syncope, Syncope Respiratory: Denies: Cough, Sputum Production, Hemoptysis Gastrointestinal: Denies: Hematemesis, Hematochezia, Melena Genitourinary: Denies: Dysuria, Hematuria Muscoloskeletal: Denies: Myalgias Skin: Denies: Rash Neurological: Denies: Dizziness Psychiatric: Denies: Anxiety Endocrine: Denies: Unexplained Weight Loss Hematologic/ Lymphatic: Denies: Anemia Subjectve: Pleasant lady in no distress Objective: Vital Signs Temp Pulse Resp BP Pulse Ox 97.3 F L 83 18 152/108 H 96 05/12/19 14:58 05/12/19 17:22 05/12/19 17:22 05/12/19 17:22 05/12/19 17:22 Oxygen Delivery Method Room Air Weight: 142 lb Body Mass Index (BMI) 22.8 General: Awake, Alert, Oriented x 3 HEENT: PERRL, EOMI, Sclera Non Icteric Neck: Supple, Good ROM, No Lymph Node Enlargement Lungs: Rales - Sanjay Bases Cardiovascular: Regular Rhythm, Normal S1, Normal S2, No Murmurs, No Rubs, No Gallops Vascular: No Carotid Bruits, Normal Femoral Pulses, Normal Radial Pulses, Normal Dorsalis Pedal Pulse, Normal Posterior Tibial Pulses Abdomen: Bowel Sounds Present, Soft, Non Tender, No HSM, No Organomegaly Extremities: No Cyanosis, No Clubbing, No edema Musculoskeletal: No Erythema Skin: No Rashes Lymphatic: No Lymph Node Enlargement Neurological: No Focal Motor or Sensory Deficit Psych/Mental Status: Appropriate 05/12/19 15:27: WBC 13.6 H, RBC 3.32 L, Hgb 10.4 L, Hct 31.3 L, MCV 94.3, MCH 31.3, MCHC 33.2, Plt Count 435, MPV 9.3, Immature Gran % (Auto) 0.400, Neut % (Auto) 74.7 H, Lymph % (Auto) 15.3 L, [place] % (Auto) 8.5, Eos % (Auto) 0.7, Baso % (Auto) 0.4, Absolute Neuts (auto) 10.2 H, Nucleated RBC % 0 05/12/19 15:27: Sodium 140, Potassium 2.9 L, Chloride 109 H, Carbon Dioxide 22.0, Anion Gap 9, BUN 13, Creatinine 0.72, Est GFR (MDRD) Af Amer 102, Est GFR (MDRD) Non-Af 84, BUN/Creatinine Ratio 18.2, Glucose 121 H, Calcium 8.8, Troponin I 5.740 H* 05/12/19 15:27: B-Natriuretic Peptide 937.1 H Rhythm: EKG: Sinus rhythm with a left bundle branch block ECHO: Stress Test: Cardiac Cath: PCI: CT Surgery: Holter monitor: EPS: PPM: CXR: Chest CT Scan: Assessment/Plan 1. Non-ST elevation myocardial infarction * Patient presents with shortness of breath and is noted to have abnormal cardiac enzymes suggestive of a non-ST elevation myocardial infarction. My recommendation at this time would be for her to consider a cardiac catheterization to assess her coronary anatomy. Her last stress test was in 2017 and in 2019 she did have preserved ejection fraction by echocardiographic criteria. * The risk benefits and alternatives have been explained to her as well as her daughters they understand and agreed to proceed. * Since she has been on Eliquis we may need a day or so before we proceed with this electively. Alternatively we may be able to proceed with this through the radial approach. This would also be dependent on her clinical course * 2. Hypertension * Her blood pressure appears to be under suboptimal control. Would continue with losartan at a higher dose. * We will also add low-dose beta-bishnu to her regimen. * 3. Congestive heart failure * Patient presents with shortness of breath and bilateral rales and elevated natruretic peptide suggestive of congestive heart failure. The above is likely secondary to ischemia. * Would recommend intravenous diuresis and replacement of her potassium * Evaluate her coronary anatomy through a left heart catheterization. * 4. Left bundle branch block * It appears she has a chronic left bundle branch block. * We will continue to follow the above. * * Thank you for allowing me to participate in the care of your patient. Please don't hesitate to call if any issues arise
--- NOTE | 2019-05-12 17:57 | PCM.HP.STD ---
Problem List (1) Chest pain Status: Acute Qualifiers: Chest pain type: chest pain due to myocardial ischemia Ischemic chest pain type: unstable angina pectoris Qualified Code(s): I20.0 - Unstable angina History of Present Illness Date of Admission: 05/12/19 The patient is a 74 year old F who underwent a R HETAL on 04/29/[address] Parnell. She states that she had been doing quite well other than and episode of BPPV up until about 2 days ago when she started to experience SOB that woke her from sleep and chest pressure. She states that both of these have been ongoing since then. She and her family have noticed that she gets dyspneic very easily and she states that it is worse with exertion and the pressure that she has been feeling in her chest worsens with exertion. She describes it as the feeling as if she is having a lead weight placed on her chest. She is currently denying chest pressure but still gets dyspneic with extended conversations. Sats are in the mid 90's on RA. She states that she feels better at rest. She also has had to sleep upright in a chair 2/2 orthopnea with lying flat. EKG shows LBBB which appears to be chronic but her troponins are > 5 and she has crackles on exam B LL. Of note, pt had been ambulating with a cane but is now using a walker again 2/2 SOB. Past Medical History Past Medical History (Chronic Problems): Chronic Problems (Last Reviewed 04/22/19 @ 14:07 by Deborah Morgan) Diarrhea (Chronic) Right hip pain (Chronic) Heart murmur (Chronic) Hypertension (Chronic) Chronic bronchitis (Chronic) Cataracts, bilateral (Chronic) UTI (urinary tract infection) (Chronic) Back problem (Chronic) Scoliosis (Chronic) L lumbar IBS (irritable bowel syndrome) (Chronic) Anxiety (Chronic) High cholesterol (Chronic) Age related osteoporosis (Chronic) Environmental allergies (Chronic) Depression (Chronic) Hypothyroidism (Chronic) HLD (hyperlipidemia) (Chronic) HTN (hypertension) (Chronic) Medical History: Medical History (Last Reviewed 04/22/19 @ 14:07 by Deborah Morgan) Pain management (Acute) R52 Dr Quan 2019 Skin cancer (Acute) C44.90 Heart murmur (Chronic) R01.1 Hypertension (Chronic) I10 Chronic bronchitis (Chronic) J42 Cataracts, bilateral (Chronic) H26.9 UTI (urinary tract infection) (Chronic) N39.0 Back problem (Chronic) M53.9 History of wrist fracture (Resolved) Z87.81 History of fracture of right ankle (Resolved) Z87.81 1987 Hyperthyroidism (Acute) E05.90 History of Clostridium difficile colitis (Resolved) Z86.19 IBS (irritable bowel syndrome) (Chronic) K58.9 Anxiety (Chronic) F41.9 High cholesterol (Chronic) E78.00 Hypotension (Acute) I95.9 Age related osteoporosis (Chronic) M81.0 Environmental allergies (Chronic) Z91.09 Allergies Sulfa (Sulfonamide Antibiotics) Allergy (Verified 05/12/19 14:58) Unknown Home Medications: Ambulatory Orders Medication Instructions Recorded Cholecalciferol (Vitamin D3) 400 unit PO DAILY 05/02/14 [Vitamin D3] Multivitamins,Therapeutic 1 tab PO DAILY 05/02/14 [Multivitamin] Levothyroxine [Synthroid] 50 mcg PO DAILY 07/20/16 Losartan Potassium [Cozaar] 100 mg PO DAILY 07/20/16 Simvastatin [Zocor] 40 mg PO QHS 07/20/16 potassium chloride ER 20 mEq 20 meq PO DAILY #30 tab 03/24/19 tablet,extended release(part/cryst) vitamin B complex and vit C no.3 1 cap PO DAILY 04/08/19 15 mg-10 mg-50 mg-5 mg-300 mg capsule amlodipine 5 mg tablet 5 mg PO DAILY tab 04/15/19 Calcium Carbonate [Tums Ultra 1,177 mg PO QHS 04/22/19 Strength] Apixaban [Eliquis] 2.5 mg PO BID #42 tab 04/30/19 Oxycodone [Oxyir] 5 - 10 mg PO Q4H PRN PRN #60 tab 04/30/19 Clorazepate [Tranxene] 3.75 mg PO TID PRN PRN #10 tab 05/02/19 paroxetine 40 mg tablet 40 mg PO DAILY #90 tab 05/09/19 Acetaminophen [Tylenol] 1,000 mg PO Q8H 05/12/19 Magnesium Oxide [Mag-Ox 400] 800 mg PO BID 05/12/19 Surgical History: Surgical History (Last Reviewed 05/12/19 @ 18:05 by Ibeth Melton DO) History of colonoscopy Z98.890 History of right knee surgery Z98.890 shattered Knee cap - 1967 Surgical History: total hip arthroplasty - 04/29/19, - Psychiatric History: Anxiety, Depression 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 Lives: Alone, - - currently (since hip surgery) daughters have been staying with her Smoking Status: Former smoker Tobacco Use: Cigarettes Alcohol: None Drugs: None - *Family History Maternal Family History: Family History (Last Reviewed 05/12/19 @ 18:06 by Ibeth Melton DO) Sister Asthma Anxiety Breast cancer Diabetes Respiratory disease Skin cancer Mother Breast cancer Father Depression Grandmother Colon cancer Grandfather Myocardial infarction Other Cancer Heart disease Hypertension Kidney disease History Items: High Cholesterol, Hypertension, - Paternal Family History: Family History (Last Reviewed 05/12/19 @ 18:06 by Ibeth Melton DO) Sister Asthma Anxiety Breast cancer Diabetes Respiratory disease Skin cancer Mother Breast cancer Father Depression Grandmother Colon cancer Grandfather Myocardial infarction Other Cancer Heart disease Hypertension Kidney disease History Items: - Review of Systems Constitutional: Reports: Fatigue. Denies: Anorexia, Chills, Fever, Night Sweats, Malaise, Weakness, Weight Change Eyes: Denies: Blurred vision, Cataracts, Conjunctivae Inflammation, Double vision, Drainage, Eyelid Inflammation, Pain, Vision Change HEENT: Denies: Difficulty Hearing, Difficulty Swallowing, Dysphasia, Ear Pain, Eye Pain, Hard of Hearing, Head Aches, Hearing Changes, Nasal bleeding, Nasal Congestion, Post Nasal Drip, Sinus Congestion, Sinus Drainage, Sore Throat, Visual Changes Cardiovascular: Reports: Chest Pressure, Chest Tightness, Heaviness, Orthopnea, - - sx worsened with exertion. Denies: Chest Pain, Claudication, Edema, Light Headedness, Palpitations, Paroxysmal Noc. Dyspnea, Syncope Respiratory: Reports: Cough, Shortness of Breath, Shortness of breath upon exertion. Denies: Hemoptysis, Pleuritic Pain, Shortness of breath at rest, Sputum production, Wheezing Gastrointestinal: Reports: Abdominal Pain, Constipation, Diarrhea, Dyspepsia, Hematemesis, Hematochezia, Nausea, Melena, Vomiting Genitourinary: Reports: Dysuria, Frequency, Hematuria, Hesitancy, Incontinence, Nocturia, Retention, Urgency Gynecological: Reports: Excessively long or heavy periods Musculoskeletal: Reports: Joint Pain, Joint stiffness, Leg Pain, Muscle pain. Denies: Arm Pain, Back Pain, Foot Pain, Hand Pain, Joint swelling, Neck Pain, Shoulder Pain Skin: Reports: - - R HETAL incision posterior thigh-well healing (randy removed today). Denies: Dryness, Jaundice, Lesions, Pruritis, Rash, Skin Changes, Wounds Neurological: Denies: Balance problems, Blurred vision, Double vision, Change in Speech, Slurred speech, Confusion, Difficulty swallowing, Focal weakness, Headaches, Incoordination, Numbness, Tingling, Tremor, Seizures Psychiatric: Reports: Anxiety, Depression. Denies: Suicidal Ideations Endocrine: Denies: Change in Body Habitus, Heat/ Cold Intolerance, Polydipsia, Polyuria, Hx of Irradiation, Hx of Thyroiditis Hematologic/ Lymphatic: Denies: Adenopathy, Anemia, Easy Bruising, Easy Bleeding, Petechiae, Purpura, Hx of blood clot, Hx of blood transfusion VTE Information - Inpt Only VTE Present on Admission: No VTE Mechan Device Prophylaxis: SCD's VTE Pharm Prophylaxis ordered?: No Reason prophylaxis not ordered:: Drug Interaction - on apixiban - Physical Exam Vitals/I&O's: Vital Signs Temp Pulse Resp BP Pulse Ox 97.3 F L 83 18 152/108 H 96 05/12/19 14:58 05/12/19 17:22 05/12/19 17:22 05/12/19 17:22 05/12/19 17:22 Oxygen Delivery Method Room Air Weight: 64.41 kg Body Mass Index (BMI) 22.8 General: Alert, Oriented x3, Cooperative, Well developed, Well nourished, - - non-toxic but mild conversational dyspnea HEENT: Atraumatic, PERRLA, EOMI, Normocephalic, EAC Clear Oral: Moist Mucosa, No Gingival or Mucosal Lesions/ Ulcerations, - - upper dentures in place Neck: Supple, Negative Carotid Bruits, No Nodes, No Nuchal Rigidity, Trachea Midline, Thyroid Normal Size and Texture, JVD, Bilateral, - - +HJR Lungs: Rales - B LL 1/2 of lung stephens, Short of Breath Cardiovascular: Regular rate, Regular Rhythm, Normal S1, Normal S2, No murmurs, No Ectopic Activity, No rub noted, No Gallop Abdomen: Bowel Sounds Present, Soft, Non Tender, Non-Distended, No Hepato-splenomegaly, No hernias noted Extremities: No clubbing, No cyanosis, No edema, Peripheral Pulses Normal Skin: No rashes, No breakdown, Incision - well healing R posterior thigh Musculoskeletal: No Tenderness to Palpation of Joints or Extremities, Arthritic Changes, Muscle Wasting - R LE-mild Lymphatic: No Cervical, Supraclavicular, or Inguinal Adenopathy Neurological: Cranial nerves II-XII grossly intact, Deep Tendon Reflexes 2+/4 and Symmetrical, Neuro grossly intact, Motor Exam 5/5 strength throughout - except R LE 2/2 HETAL Psych/Mental Status: Normal Affect, Appropriate, Anxious - mild Laboratory Results 05/12/19 15:27: WBC 13.6 H, RBC 3.32 L, Hgb 10.4 L, Hct 31.3 L, MCV 94.3, MCH 31.3, MCHC 33.2, RDW Std Deviation 45.8 H, RDW Coeff of Golden 13.5, Plt Count 435, MPV 9.3, Immature Gran % (Auto) 0.400, Neut % (Auto) 74.7 H, Lymph % (Auto) 15.3 L, [place] % (Auto) 8.5, Eos % (Auto) 0.7, Baso % (Auto) 0.4, Absolute Neuts (auto) 10.2 H, Absolute Lymphs (auto) 2.08, Nucleated RBC % 0 05/12/19 15:27: Sodium 140, Potassium 2.9 L, Chloride 109 H, Carbon Dioxide 22.0, Anion Gap 9, BUN 13, Creatinine 0.72, Estim Creat Clear Calc 44.80, Est GFR (MDRD) Af Amer 102, Est GFR (MDRD) Non-Af 84, BUN/Creatinine Ratio 18.2, Glucose 121 H, Calcium 8.8, Troponin I 5.740 H* 05/12/19 15:27: B-Natriuretic Peptide 937.1 H Current Medications Acetaminophen (Tylenol) 1,000 mg PO Q8 [facility] Amlodipine Besylate (Norvasc) 5 mg PO DAILY [facility] Atorvastatin Calcium (Lipitor) 20 mg PO QHS [facility] Clopidogrel Bisulfate (Plavix) 75 mg PO DAILY [facility] Sodium Chloride () 1,000 mls @ 0 mls/hr IV .Q0M JOANA Levothyroxine Sodium (Synthroid) 50 mcg PO DAILY@0600 JOANA Losartan Potassium (Cozaar) 100 mg PO DAILY JOANA Magnesium Oxide (Mag-Ox 400) 800 mg PO BID JOANA Multivitamins (Multivitamin) 1 tablet PO DAILY@0800 JOANA Nitroglycerin (Nitrostat) 0.4 mg SUBLINGUAL Q5M PRN PRN Reason: CARDIAC/CHEST PAIN Assessment/Plan All Active Problems (Last Reviewed 04/22/19 @ 14:07 by Deborah Morgan) Pain management (Acute) Skin cancer (Acute) Segmental and somatic dysfunction of pelvic region (Acute) Segmental and somatic dysfunction of lumbar region (Acute) Segmental and somatic dysfunction of thoracic region (Acute) Segmental and somatic dysfunction of cervical region (Acute) History of wrist fracture (Resolved) History of fracture of right ankle (Resolved) Hyperthyroidism (Acute) History of Clostridium difficile colitis (Resolved) Hypotension (Acute) Chest pain (Acute) NSTEMI -admit to TELE -Cards consulted -Cardiac Cath when deemed appropriate by cards -Plavix with load -BB started and increased losartan dose per cards (100mg from 50 mg) -statin -nitro prn -cardiac diet -bed rest for now CHF-Acute -diuresis with lasix -suspect pt should respond well with diuresis -hep lock IV Chronic LBBB -noted on previous ECG HPL/HTN -med changes per cards -check LFT in am Hypokalemia -40 mEq given in ED -recheck in am -may need more with lasix Hypothyroidism -continue home levothyroxine Mild Leukocytosis -suspect reactive -no s/o infection Anxiety/Depression -cotinue paxil IBS -no active issues Vitamin D Deficiency -restart supplementation upon d/c HETAL 04/29 -WBAT -continue precautions -consult PT once able -apixiban 2.5 for now for DVT prophylaxis Code Visit Inpatient E&M: 19045 Init Hosp L2
--- NOTE | 2019-05-12 18:38 | EKG12_ITS ---
Test Reason : NSTEMI Blood Pressure : / mmHG Vent. Rate : 081 BPM Atrial Rate : 081 BPM P-R Int : 142 ms QRS Dur : 142 ms QT Int : 410 ms P-R-T Axes : 048 004 145 degrees QTc Int : 476 ms Normal sinus rhythm Left bundle branch block Abnormal ECG When compared with ECG of 12-MAY-2019 15:15, MANUAL COMPARISON REQUIRED, DATA IS UNCONFIRMED Confirmed by KERA DOWLING ([id number]), associate entertainment editor RAUDEL TREADWELL ([id number]) on 05/20/2019 10:20:01 AM Referred By: Ibeth Melton Confirmed By:KERA DOWLING
[2019-05-12] MEDS: Clopidogrel Bisulfate 300 MG Tablet PO (18:59)
[2019-05-12] MEDS: Furosemide 40 MG/4 ML Vial IV (19:00)
[2019-05-12] MEDS: Atorvastatin Calcium 20 MG Tablet PO (21:15)
[2019-05-12] MEDS: Acetaminophen 500 MG Tablet 1000 MG PO (21:15)
[2019-05-12] MEDS: Magnesium Oxide 400 MG Tablet 800 MG PO (21:16)
[2019-05-12] MEDS: MELATONIN 3 MG TABLET PO (23:40)
[2019-05-13] VITALS (24 sets, daily range): BP systolic 95–139; BP diastolic 42–93; PULSE 74–103; RESP 16–34; TEMP 36.3–36.7; O2SAT 89–98; BMI 24.1
[2019-05-13] MEDS: amLODIPine 5 MG Tablet PO (05:45)
[2019-05-13] MEDS: Acetaminophen 500 MG Tablet 1000 MG PO ×3 (05:45→21:06)
[2019-05-13] MEDS: Clopidogrel Bisulfate 75 MG Tablet PO (05:45)
[2019-05-13] MEDS: Levothyroxine 50 MCG Tablet PO (05:46)
[2019-05-13] MEDS: Losartan Potassium 100 MG Tablet PO (05:46)
[2019-05-13] MEDS: 0.9% Saline Lock 10 ML Syringe IV ×2 (05:53→23:41)
--- NOTE | 2019-05-13 05:55 | EKG12_ITS ---
Test Reason : AM EKG Blood Pressure : / mmHG Vent. Rate : 076 BPM Atrial Rate : 076 BPM P-R Int : 140 ms QRS Dur : 146 ms QT Int : 426 ms P-R-T Axes : 055 010 154 degrees QTc Int : 479 ms Normal sinus rhythm Left bundle branch block Abnormal ECG When compared with ECG of 12-MAY-2019 22:21, MANUAL COMPARISON REQUIRED, DATA IS UNCONFIRMED Confirmed by KERA DOWLING ([id number]), supervising editor news reel RAUDEL TREADWELL ([id number]) on 05/20/2019 10:20:45 AM Referred By: Ibeth Melton Confirmed By:KERA DOWLIGN
[2019-05-13 06:16] LABS: Hematocrit 31.6 % (37-47); Hemoglobin 10.6 g/dL (12.0-15.0); Mean Corp Hgb Conc 33.5 g/dL (32-36); Mean Corpuscular Hgb 31.3 pg (27.0-32.0); Mean Corpuscular Volume 93.2 fL (81-99); Mean Platelet Vol. 9.5 fl (6.2-12.0); Platelet Count 473 K/mm3 (150-450); Red Blood Count 3.39 M/mm3 (4.2-5.4); White Blood Count 14.2 K/mm3 (4.4-11.0)
[2019-05-13 06:55] LABS: ALB/GLOB Ratio 0.6 RATIO (0.9-2.4); AST(SGOT) 41 U/L (15-37); Alanine Aminotransfer ALT/SGPT 40 U/L (13-56); Albumin, Serum 2.9 g/dL (3.2-5.0); Alkaline Phosphatase 107 U/L (45-117); Anion Gap 9 (5-15); BUN 14 mg/dL (7-18); BUN/Creat Ratio 18.5 RATIO (10-20); Calcium,Total 9.1 mg/dL (8.5-10.1); Chloride 108 mmol/L (98-107); Cholesterol 156 mg/dL (200); Creatinine, Serum 0.76 mg/dL (0.55-1.02); EST Glomerular Filtration Rate 79 mL/min (>60); Est Glom Filt Rate - Afr Amer 96 mL/min (>60); Estimated Creatinine Clearance 43.07 ml/min; Globulin 4.8 g/dL (2.2-4.2); Glucose 109 mg/dL (74-106); High Density Lipoprotein 77 mg/dL; Potassium 3.3 mmol/L (3.5-5.1); Protein, Total 7.7 g/dL (6.4-8.2); Sodium Level 140 mmol/L (136-145); Triglycerides 94 mg/dL; Very Low Density Lipoprotein 19 mg/dL (5-40)
[2019-05-13] MEDS: Aspirin 81 MG TAB.CHEW PO (07:18)
--- NOTE | 2019-05-13 07:44 | NURSING ---
verbal report given to ashly torres in [facility]
[2019-05-13 08:20] LABS: Magnesium 2.3 mg/dL (1.6-2.6); Phosphorus 3.5 mg/dL (2.5-4.9)
--- NOTE | 2019-05-13 08:56 | PN.CARD_ITS ---
Subjectve: Patient seen and evaluated. Objective: Vital Signs Temp Pulse Resp BP Pulse Ox 98.1 F 77 20 H 121/64 H 96 05/13/19 05:29 05/13/19 05:29 05/13/19 05:29 05/13/19 05:29 05/13/19 05:29 Oxygen Flow Rate (L/min) 2 Oxygen Delivery Method Nasal Cannula Weight: 145 lb 8.081 oz Body Mass Index (BMI) 24.2 Intake and Output for Last 24 Hours 05/11/19 05/12/19 05/13/19 23:59 23:59 23:59 Intake Total 360 / 360 Output Total 300 / 300 Balance 60 / 60 General: Awake, Alert, Oriented x 3 HEENT: PERRL, EOMI, Sclera Non Icteric Neck: Supple, Good ROM, No Lymph Node Enlargement Lungs: Clear to auscultation Cardiovascular: Regular Rhythm, Normal S1, Normal S2, No Murmurs, No Rubs, No Gallops Vascular: No Carotid Bruits, Normal Femoral Pulses, Normal Radial Pulses, Normal Dorsalis Pedal Pulse, Normal Posterior Tibial Pulses Abdomen: Bowel Sounds Present, Soft, Non Tender, No HSM, No Organomegaly Extremities: No Cyanosis, No Clubbing, No edema Musculoskeletal: No Erythema Skin: No Rashes Lymphatic: No Lymph Node Enlargement Neurological: No Focal Motor or Sensory Deficit Psych/Mental Status: Appropriate 05/12/19 15:27: WBC 13.6 H, RBC 3.32 L, Hgb 10.4 L, Hct 31.3 L, MCV 94.3, MCH 31.3, MCHC 33.2, Plt Count 435, MPV 9.3, Immature Gran % (Auto) 0.400, Neut % (Auto) 74.7 H, Lymph % (Auto) 15.3 L, [place] % (Auto) 8.5, Eos % (Auto) 0.7, Baso % (Auto) 0.4, Absolute Neuts (auto) 10.2 H, Nucleated RBC % 0 05/12/19 15:27: Sodium 140, Potassium 2.9 L, Chloride 109 H, Carbon Dioxide 22.0, Anion Gap 9, BUN 13, Creatinine 0.72, Est GFR (MDRD) Af Amer 102, Est GFR (MDRD) Non-Af 84, BUN/Creatinine Ratio 18.2, Glucose 121 H, Calcium 8.8, Troponin I 5.740 H* 05/12/19 15:27: B-Natriuretic Peptide 937.1 H 05/12/19 18:48: Troponin I 6.880 H* 05/12/19 22:15: Troponin I 7.320 H* 05/13/19 05:35: WBC 14.2 H, RBC 3.39 L, Hgb 10.6 L, Hct 31.6 L, MCV 93.2, MCH 31.3, MCHC 33.5, Plt Count 473 H, MPV 9.5 05/13/19 05:35: Sodium 140, Potassium 3.3 L, Chloride 108 H, Carbon Dioxide 23.0, Anion Gap 9, BUN 14, Creatinine 0.76, Est GFR (MDRD) Af Amer 96, Est GFR (MDRD) Non-Af 79, BUN/Creatinine Ratio 18.5, Glucose 109 H, Calcium 9.1, Total Bilirubin 0.60, Triglycerides 94, Cholesterol 156, LDL Cholesterol 60, VLDL Cholesterol 19, HDL Cholesterol 77 05/13/19 05:35: Phosphorus 3.5, Magnesium 2.3 Rhythm: EKG: ECHO: Stress Test: Cardiac Cath: PCI: CT Surgery: Holter monitor: EPS: PPM: CXR: Chest CT Scan: Medical Necessity - Tobacco Use Smoking Status: Former smoker Tobacco Use: Cigarettes Assessment/Plan 1. Non-ST elevation myocardial infarction * Patient presents with shortness of breath and is noted to have abnormal cardiac enzymes suggestive of a non-ST elevation myocardial infarction. My recommendation at this time would be for her to consider a cardiac catheterization to assess her coronary anatomy. Her last stress test was in 2017 and in 2019 she did have preserved ejection fraction by echocardiographic criteria. * Patient underwent cardiac catheterization today which demonstrated the following * Normal left main coronary artery * Left anterior descending artery with moderate calcification and mid segment 90% stenosis * First diagonal vessel with diffuse disease * Codominant left circumflex artery with moderate mid segment disease * Totally occluded mid right coronary artery and a small vessel with [id number] collaterals * Based on the above angiographic findings the patient will be considered for angioplasty of the left anterior descending artery. 2. Hypertension * Her blood pressure appears to be under suboptimal control. Would continue with losartan at a higher dose. * We will also add low-dose [id number] to her regimen. * 3. Congestive heart failure * Patient presents with shortness of breath and bilateral rales and elevated natruretic peptide suggestive of congestive heart failure. The above is likely secondary to ischemia. * Would recommend intravenous diuresis and replacement of her potassium * 4. Left bundle branch block * It appears she has a chronic left bundle branch block. * We will continue to follow the above. * * Thank you for allowing me to participate in the care of your patient. Please don't hesitate to call if any issues arise
--- NOTE | 2019-05-13 08:58 | ECHOCS_ITS ---
Version 2 Reason For Study: CHF Procedure This was a 2D Doppler, Color Flow transthoracic echocardiogram. The study was technically difficult. Contrast injection was performed. Exam performed portable in ICU/CCU. Left Ventricle Normal LV size. The estimated ejection fraction is 35 %. Moderately severe segmental systolic dysfunction (see wall motion). Stage 3 diastolic dysfunction. [place] : Akinetic. Mid-anteroseptal : Akinetic. Mid-Posterior: Normal. Mid-Inferior: Normal. Lateral-Basal: Normal. Atria Normal left atrium. Normal right atrium. Mitral Valve Normal mitral valve. Mild (1+) eccentric mitral valve insufficiency. Tricuspid Valve Normal tricuspid valve. Moderate (2+) tricuspid valve insufficiency. Pulmonary artery systolic pressure is 55 mmHg. Pulmonic Valve The pulmonic valve is not well visualized. Great Vessels Normal aortic root. The pulmonary artery is normal size. Normal inferior vena cava. Pericardium/Pleural No pericardial effusion. Medication Diluted definity 2ml given slow IV push to enhance endocardial definition. MMode/2D Measurements & Calculations LVIDd: 4.9 cm IVSd: 1.5 cm Ao root diam: 2.9 cm LVIDs: 4.4 cm LVPWd: 1.1 cm LA dimension: 3.8 cm RVDd: 3.8 cm FS: 10.5 % LAV(MOD-bp): 61.4 ml LVAd ap4: 37.2 cm2 SV(MOD-sp4): 34.6 ml LAV(MOD-bp) Indexed: 35.6 ml/m2 EDV(MOD-sp4): 133.0 ml LAV(MOD-sp2): 56.5 ml EDV(sp4-el): 136.4 ml LAV(MOD-sp4): 58.2 ml LVAs ap4: 29.9 cm2 ESV(MOD-sp4): 98.4 ml ESV(sp4-el): 101.1 ml EF(MOD-sp4): 26.0 % EF(sp4-el): 25.9 % SV(sp4-el): 35.3 ml LA A4 area: 18.0 cm2 RA A4 area: 11.9 cm2 Time Measurements MV dec time: 0.15 sec Doppler Measurements & Calculations MV E max nancy: 132.4 cm/sec MV V2 max: 135.9 cm/sec MV P1/2t max nancy: 135.1 cm/sec MV A max nancy: 44.9 cm/sec MV max P.4 mmHg MV P1/2t: 59.3 msec MV E/A: 3.0 MV V2 mean: 61.2 cm/sec MV mean P.0 mmHg MV dec slope: 667.2 cm/sec2 MV V2 VTI: 24.2 cm MVA(P1/2t): 3.7 cm2 Ao V2 max: 112.5 cm/sec LV V1 max: 90.6 cm/sec MR max nancy: 385.0 cm/sec Ao max P.1 mmHg LV V1 max P.3 mmHg MR max P.3 mmHg MR mean nancy: 279.9 cm/sec MR mean P.8 mmHg MR VTI: 104.0 cm PA V2 max: 76.1 cm/sec TR max nancy: 353.9 cm/sec TR max P.1 mmHg Interpretation Summary Normal LV size. The estimated ejection fraction is 35 %. Moderately severe segmental systolic dysfunction (see wall motion). Moderate (2+) tricuspid valve insufficiency. Pulmonary artery systolic pressure is 55 mmHg. Stage 3 diastolic dysfunction. Contrast injection was performed. Compared to previous study, the left ventricular systolic function has worsened.. Ordering Physician: Bairon Stephen Referring Physician: Ibeth Mleton Performed By: Kirk Rico RCS
--- NOTE | 2019-05-13 09:07 | CL.D_ITS ---
Patient Name: SOLANGE TURCIOS Study Date: 05/13/2019 Performing: Bairon Stephen MD Ht: 64.96 inches 165 cm : 1945 Wt: 145.51 lbs 66 kg Age: 74 Gender: female BSA: 1.73 PROCEDURE(S) PERFORMED DC11-AO ROOT ANGIO WITH HEART CATH [id number] CI34-MTH W OR WO PTCA, SINGLE CORONARY ARTERY CLINICAL PROFILE AND INDICATIONS Heart Failure: NYHA Class: 2, Newly Diagnosed: Yes, Heart Failure Type: Diastolic Stress/Imaging Stress/Image Study Performed: No CONCLUSIONS Severe triple-vessel disease involving the mid LAD, diffuse disease noted in the distal LAD, moderate disease noted in the diagonal, moderate disease noted in the circumflex artery, totally occluded non dominant right coronary artery with [id number] collaterals RECOMMENDATIONS Referred for immediate PCI DESCRIPTION OF PROCEDURE The patient arrived to the procedure lab. The risks and benefits of the procedure as well as a full d escription of our services here and current unavailability of surgical backup were fully explained to the patient and/or their significant other prior to the catheterization. The Timeout was completed, verifying the correct patient and procedure. The patient's procedural site was prepped and draped in the usual fashion. Local anesthetic was given subcutaneously to right radial region with Lidocaine 2% . Using a modified Seldinger technique, arterial access was obtained via the right radial artery, a 6 Fr sheath was inserted. Left Coronary Artery selective angiography was performed in multiple views u sing a 5 Fr. 4.0 [place] catheter. Right Coronary Artery non-selective angiography was then performed i n multiple views using a 5 Fr. JR 5 catheter. Ascending (root) aorta selective angiography was then p erformed in single view. Ascending (root) aorta selective angiography was then performed in single view. CORONARY ANGIOGRAPHY DOMINANCE: Co- Dominant LEFT HEART ASSESSMENT Left Ventricular Ejection Fraction: Not assessed LEFT MAIN: Mild calcification, Angiographically normal LEFT ANTERIOR DESCENDING ARTERY: MID LAD: 90 % Stenosis DISTAL LAD: Diffusely diseased up to 70 % DIAGONAL 1: Proximal - Moderate luminal irregularities up to 50% CIRCUMFLEX ARTERY: MID CIRC: 60 % Stenosis RIGHT CORONARY ARTERY: MID RCA: is occluded COLLATERAL FLOW: Collateral flow from CIRC to Right PDA AORTIC ROOT: small RCA noted aberrantly COMPLICATIONS PROCEDURE MEDICATIONS Fentanyl 25 mcg IV Versed 1 mg IV Oxygen: 2 L/min via nasal cannula Heparin 5000 unit(s) IV 05/13/2019 08:56:28 SUMMARY OF HEMODYNAMIC DATA Time AIR REST ECG 08:01:47 AO 108/58 (78) SA 08:24:19 Signed By Bairon Stephen MD On 05/13/2019 09:06:53 Bairon Stephen MD
--- NOTE | 2019-05-13 09:29 | NURSING ---
verbal report given to JAYJAY Fitzpatrick in ICU
--- NOTE | 2019-05-13 09:45 | EKG12_ITS ---
Test Reason : S/P PTCA Blood Pressure : / mmHG Vent. Rate : 086 BPM Atrial Rate : 086 BPM P-R Int : 140 ms QRS Dur : 148 ms QT Int : 438 ms P-R-T Axes : 065 018 -29 degrees QTc Int : 524 ms Normal sinus rhythm Left bundle branch block Abnormal ECG When compared with ECG of 13-MAY-2019 05:19, MANUAL COMPARISON REQUIRED, DATA IS UNCONFIRMED Confirmed by CHINO SOLORIO, WINTER ([id number]), editor house organ PAL CHAVARRIA ([id number]) on 05/26/2019 1:52:31 PM Referred By: Ibeth Melton Confirmed By:WINTER MAGANA MD
[2019-05-13] MEDS: 0.9% Normal Saline 1,000 ML 60 ML IV (10:27)
--- NOTE | 2019-05-13 10:35 | CRPHASE1_ITS ---
Patient Communication PHII Cardiac Rehab Discussed with Patient:: Yes Guide to Cardiac Rehab Given to Patient:: Yes Cardiac Rehab Facility Choice List Given to Patient:: Yes Choice Program [facility] CR PHII:: Communication Given to CR, Refer to marker.to Risk Factors/Lifestyle Smoking Status: Smoker, status unknown Hx Hypertension: Yes Hx Diabetes Mellitus Type 1: No Hx Diabetes Mellitus Type 2: No Height: 5 ft 5 in Weight:: 145 lb BMI: 24.1 Family History: Family History (Last Reviewed 05/12/19 @ 18:06 by Ibeth Melton DO) Sister Asthma Anxiety Breast cancer Diabetes Respiratory disease Skin cancer Mother Breast cancer Father Depression Grandmother Colon cancer Grandfather Myocardial infarction Other Cancer Heart disease Hypertension Kidney disease Laboratory Values: Cardiac Rehab Phase I Labs Triglycerides 94 mg/dL (-199) 05/13/19 05:35 Cholesterol 156 mg/dL (200) 05/13/19 05:35 LDL Cholesterol 60 mg/dL (0-130) 05/13/19 05:35 HDL Cholesterol 77 mg/dL (40-) 05/13/19 05:35 Phase I Education Given On:: [place], Nutrition, Antiplatelet medication, CHF, Smoking cessation, Diabetes - Type I, Diabetes - Type II - CR BOOKLET GIVEN AND PROGRAM EXPLAINED, PT GRISELDAT SETTELING IN AFTER PROCEDURE, TOLD WILL CALL ONCE SHE IS HOME TO DISCUSS CR FURTHER Medical/Surgical History CAD:: Yes Diabetes:: No Hypertension:: Yes Dyslipidemia:: Yes Other Medical/Surgical Issues:: LBBB,IBS,OSTEOPOROSIS Cardiac Rehabilitation Info Cardiac Rehabilitation Program Information: Cardiac Rehabilitation is important for patients like you who are recovering from a heart problem. Cardiac rehabilitation programs are recognized as integral to the continued care of the patient with coronary heart disease. The cardiac rehabilitation program is designed to optimize a patient's physical, psychological, and social functioning. Health occasional caregiver work in cardiac rehabilitation programs and assist you with getting the treatments you need to get stronger and healthier - like exercise, healthy eating habits, and medications. Cardiac rehabilitation has been show to help people with heart problems live longer and have better life enjoyment than people who do not go to cardiac rehabilitation. Please contact the Cardiac Rehabilitation Program at [facility] at in two weeks if you have not heard from them.
--- NOTE | 2019-05-13 10:39 | CRPH1.INSTRU ---
General Education CAD and cardiac anatomy and function:: Not instructed Explanation of diagnoses and procedures:: Not instructed Sign/Symptoms of NM:: Not instructed Antiplatelet therapy: Not instructed - ANGIOPLASY W/O STENT Proper use of NTG-SL: Not instructed Emergency procedures and activation of EMS: Patient communicates acknowledgment Compliance of all prescribed medications: Patient communicates acknowledgment Smoking Nicotine/Smoking Response Code:: Not instructed Dyslipidemia Dyslipidemia Response Code:: Not instructed Overweight/Obesity Patient Overweight/Obesity Risk Factors Are:: BMI Normal [24-29 & > 65 years old] - 24.1 BMI Overweight/Obesity:: Not instructed Hypertension Recommendations Include:: Maintain BP <130/85, BP <130/80 if diabetic, Decrease/maintain normal body weight, Moderation of ETOH Hypertension:: Not instructed Heart Disease Heart Disease Response Code:: Not instructed Diabetes Patient Diabetes Risk Factors Are:: No documented hx of diabetes Metabolic Syndrome Metabolic Syndrome Response Code:: Not instructed Sedentary Sedentary Response Code:: Not instructed Stress Stress Response Code:: Not instructed
--- NOTE | 2019-05-13 10:48 | CL.I_ITS ---
Patient Name: SOLANGE TURCIOS Study Date: 05/13/2019 Performing: Manan Begum MD Ht: 64.96 inches 165 cm : 1945 Wt: 145.51 lbs 66 kg Age: 74 Gender: female BSA: 1.73 PROCEDURE(S) PERFORMED [id number], SINGLE CORONARY ARTERY CLINICAL PROFILE AND CO-MORBIDITIES Heart Failure: NYHA Class: 2, Newly Diagnosed: Yes, Heart Failure Type: Diastolic Stress/Imaging Stress/Image Study Performed: No CONCLUSIONS Successful PTCA of mLAD RECOMMENDATIONS ASA Indefinitley Risk factor modification Follow up with Dr. Zafar Mike for at least 1 month DESCRIPTION OF PROCEDURE The patient arrived to the procedure lab. The risks and benefits of the procedure as well as a full d escription of our services here and current unavailability of surgical backup were fully explained to the patient and/or their significant other prior to the catheterization. The Timeout was completed, verifying the correct patient and procedure. The patient's procedural site was prepped and draped in the usual fashion. Local anesthetic was given subcutaneously to right radial region with Lidocaine 2% Using a modified Seldinger technique,arterial access was obtained via the right radial artery, a 6Fr sheath was inserted. Left Coronary Artery selective angiography was performed in multiple views usin g a 5 Fr. 4.0 Aurora catheter. Right Coronary Artery non-selective angiography was then performed in m ultiple views using a 5 Fr. JR 5 catheter. Ascending (root) aorta selective angiography was then perf ormed in single view. Ascending (root) aorta selective angiography was then performed in single view.The images were reviewed and options discussed. A decision was then made to proceed with an Intervention, IVUS or other adjunct procedure. XB3 Guide catheter was inserted and engaged into the LCA. BMW Guide wire was advanced to the LAD. 2x8 Emerge Balloon catheter was advanced across lesion in the LAD, mid. PTCA balloon inflated at 8 a tms for 28 secs. PTCA balloon inflated at 8 atms for 12 secs. Angiogram performed post balloon dilata tion. Angiogram performed. Runthru Guide wire was inserted as a travon wire 2.5x8 Synergy Drug Eluting stent was advanced across the lesion in the LAD, mid. Drug Eluting stent was removed intact, failed to cross lesion Angiogram performed. Angiogram performed. Angiogram performed. The arterial sheath was pulled and a TR Band was applied for hemostasis. 13ccair INTERVENTION INFORMATION LESION SITE: LAD (Mid) Lesion Complexity: High/C, chronic total occlusion: No, lesion at bifurcation: No, thrombus present: No, lesion length: 4 mm, culprit lesion: Yes, Previously treated lesion: No Pre Stenosis: 90 % Pre intervention SHER flow: 3 PROCEDURE: Balloon Angioplasty Stent did not cross due to heavily calcified and tortuous proximal LAD even with the use of a travon w sonia. Since we had a good PTCA result, we decided to accept the result without further attempts at brianda nt deployment. Post Stenosis: 40 % Post intervention SHER flow: 3 Lesion Devices: Cardinal 6 Fr XB3.0 100cm Guide Catheter Butler .014 BMW Lillian Straight 190cm Julien Sci EMERGE MR 2.00x08 BALLOON Julien Sci Synergy MR ROEL 2.50x08 Terumo .014 Runthrough Extra Floppy 180cm straight COMPLICATIONS No Complications PROCEDURE MEDICATIONS Fentanyl 25 mcg IV Versed 1 mg IV Oxygen: 2 L/min via nasal cannula Heparin 5000 unit(s) IV 05/13/2019 08:56:28 Nitro 200 mcg IC 05/13/2019 09:23:10 Zofran 4 mg IV 05/13/2019 09:23:30 SUMMARY OF HEMODYNAMIC DATA Time AIR REST ECG 08:01:47 AO 108/58 (78) SA 08:24:19 Signed By Manan Begum MD On 05/13/2019 10:47:58 AM Manan Begum MD
[2019-05-13] MEDS: Furosemide 20 MG/2 ML VIAL IV (11:13)
--- NOTE | 2019-05-13 11:13 | CASEMGMT ---
RN CM Assessment Readmission Note Previous Admission: 04.29.19- Diagnosis: RTHR DC Disposition: home with [facility]. Pt states she did f/u with ortho on dc. Had her medications and did not have concerns on dc. Presentation: NSTEMI Intro role of CM and purpose of RN CM assessment to patient in room Demographics, PCP and Pharmacy verified. Pt states she was doing well @ home; had been participating in therapy and was walking with cane alone. No care needs identified. Pt is agreeable to resume [facility] on dc for PT/OT, however states they may be done with me soon, I was getting around with just the cane. Pt states she had not seen Dr. Walker since last admission, Dr. Walker did call her on phone in hospital today to check on her. Pt did f/u with Dr. Parnell as ordered. PCP: Dr. Walker Specialists: Dr. Stephen; Dr. Pranell Patient DC goals: Home on dc DC PLAN: Anticipate home on dc with resumption of PT/OT by [facility] [place] CARTERN RN ACM
[2019-05-13] MEDS: Paroxetine 20 MG Tablet 40 MG PO (11:19)
[2019-05-13] MEDS: Magnesium Oxide 400 MG Tablet 800 MG PO ×2 (11:19→21:08)
[2019-05-13] MEDS: Multivitamins,Therapeutic Tablet 1 TABLET PO (11:20)
--- NOTE | 2019-05-13 12:14 | CHAPLAIN ---
Type of Pastoral Visit _x__ Initial Visit ___ Follow-up Visit ___ On-call Visit ___ General Patient Visit ___ Spiritual Assessment ___ Family Conference ___ Bereavement ___ Rapid Response ___ Code Blue ___ Other (describe below) Pastoral Care Referral From _x__ Patient ___ Family ___ Nurse ___ Physician ___ Meat Counter Worker ___ Manager Of Business Operations ___ Other (describe below) Sacrament/Intervention ___ Active listening ___ Anointing ___ Confucianist ___ Bereavement ___ Communion _x__ Babita exploration ___ ___ Life review ___ Prayer ___ Reconciliation ___ Sacrament of Sick _x__ Supportive presence ___ Wedding ___ Other (describe below) Pastoral Comments
--- NOTE | 2019-05-13 13:15 | PN_ITS ---
Subjective: Patient was admitted yesterday for shortness of breath and chest pressure. She also was having episode of BP 2 days. She has dyspnea on exertion. She was found to have NSTEMI with serial troponins. EKG showed LBBB which appears to be chronic but troponins were 5.7, 6.8 and 7.3 consistent with non-STEMI Patient was taken to [facility] and found single-vessel disease and had PCI of mid LAD. She is transferred to ICU after PCI Patient is mild short of breath on exertion otherwise denies chest pressure. Vitals/I&O's: Vital Signs Temp Pulse Resp BP Pulse Ox 98.1 F 77 20 H 121/64 H 96 05/13/19 05:29 05/13/19 05:29 05/13/19 05:29 05/13/19 05:29 05/13/19 05:29 Oxygen Flow Rate (L/min) 2 Oxygen Delivery Method Nasal Cannula Weight: 145 lb Body Mass Index (BMI) 24.2 Intake and Output for Last 24 Hours 05/11/19 05/12/19 05/13/19 23:59 23:59 23:59 Intake Total 360 / 360 Output Total 300 / 300 Balance 60 / 60 General: Alert, Oriented x3, Cooperative HEENT: Atraumatic, PERRLA, EOMI, Normocephalic Neck: Supple, No JVD, Negative Carotid Bruits Lungs: Normal air movement - Air entry bilaterally equal., No rhonchi, No wheeze, Rales - Occasional rales present in the right lung base Cardiovascular: Regular rate, Regular Rhythm, Normal S1, Normal S2, No murmurs Abdomen: Bowel Sounds Present, Soft, Non Tender, Non-Distended Extremities: No edema, Capillary Refill Less than 3 Seconds Skin: No rashes, No breakdown Musculoskeletal: No Tenderness to Palpation of Joints or Extremities, Arthritic Changes Neurological: Cranial nerves II-XII grossly intact, Deep Tendon Reflexes 2+/4 and Symmetrical, Neuro grossly intact Psych/Mental Status: Normal Affect, Appropriate Laboratory Results 05/12/19 15:27: WBC 13.6 H, RBC 3.32 L, Hgb 10.4 L, Hct 31.3 L, MCV 94.3, MCH 31.3, MCHC 33.2, RDW Std Deviation 45.8 H, RDW Coeff of Golden 13.5, Plt Count 435, MPV 9.3, Immature Gran % (Auto) 0.400, Neut % (Auto) 74.7 H, Lymph % (Auto) 15.3 L, [place] % (Auto) 8.5, Eos % (Auto) 0.7, Baso % (Auto) 0.4, Absolute Neuts (auto) 10.2 H, Absolute Lymphs (auto) 2.08, Nucleated RBC % 0 05/12/19 15:27: Sodium 140, Potassium 2.9 L, Chloride 109 H, Carbon Dioxide 22.0, Anion Gap 9, BUN 13, Creatinine 0.72, Estim Creat Clear Calc 44.80, Est GFR (MDRD) Af Amer 102, Est GFR (MDRD) Non-Af 84, BUN/Creatinine Ratio 18.2, Glucose 121 H, Calcium 8.8, Troponin I 5.740 H* 05/12/19 15:27: B-Natriuretic Peptide 937.1 H 05/12/19 18:48: Troponin I 6.880 H* 05/12/19 22:15: Troponin I 7.320 H* 05/13/19 05:35: WBC 14.2 H, RBC 3.39 L, Hgb 10.6 L, Hct 31.6 L, MCV 93.2, MCH 31.3, MCHC 33.5, RDW Std Deviation 47.0 H, RDW Coeff of Golden 14.0, Plt Count 473 H, MPV 9.5 05/13/19 05:35: Sodium 140, Potassium 3.3 L, Chloride 108 H, Carbon Dioxide 23.0, Anion Gap 9, BUN 14, Creatinine 0.76, Estim Creat Clear Calc 43.07, Est GFR (MDRD) Af Amer 96, Est GFR (MDRD) Non-Af 79, BUN/Creatinine Ratio 18.5, Glucose 109 H, Calcium 9.1, Total Bilirubin 0.60, AST 41 H, ALT 40, Alkaline Phosphatase 107, Total Protein 7.7, Albumin 2.9 L, Globulin 4.8 H, Albumin/Globulin Ratio 0.6 L, Triglycerides 94, Cholesterol 156, LDL Cholesterol 60, VLDL Cholesterol 19, HDL Cholesterol 77 05/13/19 05:35: Phosphorus 3.5, Magnesium 2.3 Current Medications Acetaminophen (Tylenol) 1,000 mg PO Q8 JOANA Last Admin: 05/13/19 05:45 Dose: 1,000 mg Documented by: Amlodipine Besylate (Norvasc) 5 mg PO DAILY [facility] Last Admin: 05/13/19 05:45 Dose: 5 mg Documented by: Atorvastatin Calcium (Lipitor) 20 mg PO QHS [facility] Last Admin: 05/12/19 21:15 Dose: 20 mg Documented by: Atropine Sulfate () 0.5 mg IV UD PRN PRN Reason: HR <50 bpm Clopidogrel Bisulfate (Plavix) 75 mg PO DAILY [facility] Last Admin: 05/13/19 05:45 Dose: 75 mg Documented by: Heparin Sodium (Beef Lung) (Heparin 500 Unit/5 Ml (100/Ml)) 500 unit IV UD PRN PRN Reason: HEPARIN FLUSH Sodium Chloride () 1,000 mls @ 0 mls/hr IV .Q0M JOANA Sodium Chloride () 1,000 mls @ 60 mls/hr IV .[id number] [facility] Last Admin: 05/13/19 10:27 Dose: 60 mls/hr Documented by: Labetalol HCl (Trandate) 5 mg IV X1 PRN PRN Reason: SBP > 160 when pulling sheath Stop: 05/15/19 09:38 Levothyroxine Sodium (Synthroid) 50 mcg PO DAILY@0600 [facility] Last Admin: 05/13/19 05:46 Dose: 50 mcg Documented by: Losartan Potassium (Cozaar) 100 mg PO DAILY [facility] Last Admin: 05/13/19 05:46 Dose: 100 mg Documented by: Magnesium Oxide (Mag-Ox 400) 800 mg PO BID [facility] Last Admin: 05/13/19 11:19 Dose: 800 mg Documented by: Melatonin (Melatonin) 3 mg PO QHS PRN PRN Reason: SLEEP Last Admin: 05/12/19 23:40 Dose: 3 mg Documented by: Multivitamins (Multivitamin) 1 tablet PO DAILY@0800 [facility] Last Admin: 05/13/19 11:20 Dose: 1 tablet Documented by: Nitroglycerin (Nitrostat) 0.4 mg SUBLINGUAL Q5M PRN PRN Reason: CARDIAC/CHEST PAIN Paroxetine HCl (Paxil) 40 mg PO DAILY [facility] Last Admin: 05/13/19 11:19 Dose: 40 mg Documented by: Potassium Chloride (K-Dur) 40 meq [facility] Stop: 05/14/19 17:01 Sodium Chloride () 10 - 40 ml IV UD PRN PRN Reason: SALINE FLUSH Last Admin: 05/13/19 05:53 Dose: 10 ml Documented by: Sodium Chloride () 500 ml IV BOLUS PRN PRN Reason: VASO-VAGAL PROTOCOL Medical Necessity - Tobacco Use Smoking Status: Smoker, status unknown Tobacco Use: Cigarettes Assessment/Plan All Active Problems (Last Reviewed 04/22/19 @ 14:07 by Deborah Morgan) Pain management (Acute) Skin cancer (Acute) Segmental and somatic dysfunction of pelvic region (Acute) Segmental and somatic dysfunction of lumbar region (Acute) Segmental and somatic dysfunction of thoracic region (Acute) Segmental and somatic dysfunction of cervical region (Acute) History of wrist fracture (Resolved) History of fracture of right ankle (Resolved) Hyperthyroidism (Acute) History of Clostridium difficile colitis (Resolved) Hypotension (Acute) Chest pain (Acute) Patient was admitted yesterday for shortness of breath and chest pressure. She also was having episode of BP 2 days. She has dyspnea on exertion. She was found to have NSTEMI with serial troponins. EKG showed LBBB which appears to be chronic but troponins were 5.7, 6.8 and 7.3 consistent with non-STEMI Patient was taken to [facility] and found single-vessel disease and had PCI of mid LAD. She is transferred to ICU after PCI Patient is mild short of breath on exertion otherwise denies chest pressure. 1. NSTEMI: Cardiac cath shows chronic total occlusion of mid LAD 90%. Patient h ad balloon angioplasty and post stenosis 40%. Stent did not cross due to heavily calcified and tortuous proximal LAD. Normal left main. First diagonal with diffuse disease. Codominant left circumflex with moderate mid segment disease. Totally occluded mid RCA and a small vessel with [id number] collaterals. This was explained to the patient. She has preserved EF by echocardiographic criteria. On low-dose beta-bishnu, nitroglycerin as needed losartan. Aspirin and Plavix 2. Acute on chronic heart failure with preserved EF most probably secondary to NSTEMI: Patient was admitted with shortness of breath, elevated BNP and mild pulmonary congestion suggestive of acute on chronic heart failure. On IV diuretic. Monitor electrolytes and kidney function. Hypokalemia: Potassium being replaced 3. Chronic left bundle branch block: 4. Hypertension and dyslipidemia and hypothyroidism: Blood pressure was 152/108 on 05/12 but currently well controlled 121/64. Fasting profile reported as TG 94, TC 156, LDL 60 and HDL 77. Levothyroxine. 5. History of total hip arthroplasty on 04/29: On Eliquis 2.5 mg twice daily for DVT prophylaxis. Currently on hold; resume after 24 hours of the procedure Code Visit Inpatient E&M: [id number] [facility] Hosp L3
[2019-05-13] MEDS: Lidocaine 5% Patch 1 PATCH TOPICAL (21:00)
[2019-05-13] MEDS: Atorvastatin Calcium 20 MG Tablet PO (21:05)
[2019-05-13] MEDS: MELATONIN 3 MG TABLET PO (22:09)
[2019-05-13] MEDS: Calcium Carbonate 500 MG Tablet 1000 MG PO (23:16)
[2019-05-13] MEDS: Furosemide 40 MG/4 ML Vial IV (23:41)
[2019-05-14] VITALS (24 sets, daily range): BP systolic 97–150; BP diastolic 49–76; PULSE 77–100; RESP 16–34; TEMP 36.6–37.1; O2SAT 85–97
[2019-05-14 04:14] LABS: Hematocrit 30.5 % (37-47); Hemoglobin 10.2 g/dL (12.0-15.0); Mean Corp Hgb Conc 33.4 g/dL (32-36); Mean Corpuscular Hgb 31.5 pg (27.0-32.0); Mean Corpuscular Volume 94.1 fL (81-99); Mean Platelet Vol. 9.2 fl (6.2-12.0); Platelet Count 445 K/mm3 (150-450); RBC Distribution Width CV 13.9 % (11.6-14.6); RBC Distribution Width SD 46.7 fl (35.1-43.9); Red Blood Count 3.24 M/mm3 (4.2-5.4)
[2019-05-14 04:30] LABS: ALB/GLOB Ratio 0.6 RATIO (0.9-2.4); AST(SGOT) 163 U/L (15-37); Alanine Aminotransfer ALT/SGPT 51 U/L (13-56); Albumin, Serum 2.7 g/dL (3.2-5.0); Alkaline Phosphatase 103 U/L (45-117); Anion Gap 10 (5-15); BUN 17 mg/dL (7-18); BUN/Creat Ratio 20.4 RATIO (10-20); Calcium,Total 8.8 mg/dL (8.5-10.1); Chloride 109 mmol/L (98-107); Creatinine, Serum 0.83 mg/dL (0.55-1.02); EST Glomerular Filtration Rate 71 mL/min (>60); Est Glom Filt Rate - Afr Amer 86 mL/min (>60); Estimated Creatinine Clearance 51.89 ml/min; Globulin 4.3 g/dL (2.2-4.2); Glucose 138 mg/dL (74-106); Potassium 3.9 mmol/L (3.5-5.1); Sodium Level 141 mmol/L (136-145)
[2019-05-14] MEDS: Acetaminophen 500 MG Tablet 1000 MG PO ×3 (05:08→22:34)
[2019-05-14] MEDS: Levothyroxine 50 MCG Tablet PO (05:09)
--- NOTE | 2019-05-14 05:55 | RAD_ITS ---
STUDY: X-RAY CHEST REASON FOR EXAM: Female, 74 years old. Shortness of breath/dyspnea. TECHNIQUE: Single AP portable view of the chest. COMPARISON: Comparison is made with prior study dated May 12, 2019. FINDINGS: EKG electrodes are seen. There now is evidence of increased markings in the right upper lobe. Stable increased markings at the lung bases. This may represent superimposed infiltration on residual mild degree of CHF. Blunting of both costophrenic angles. There is borderline cardiomegaly. Normal mediastinum and fina. Normal visualized pulmonary arteries. There is atherosclerotic calcification of the aortic arch with tortuosity. Normal visualized thoracic spine. There is degenerative osteoarthritis of the bilateral shoulders. There is no demonstrated abnormality of the visualized soft tissue structures of the upper abdomen. RAD/Chest 1 View (Portable) IMPRESSION: Persistent mild degree of CHF. Findings suggestive of new right upper lobe infiltrate. Electronically Signed: Sai Grey, at 10:18 EST , Service support ,
[2019-05-14] MEDS: Ondansetron 4 MG/2 ML Vial IV ×3 (06:23→20:35)
[2019-05-14] MEDS: 0.9% Saline Lock 10 ML Syringe IV ×6 (06:23→20:35)
--- NOTE | 2019-05-14 07:04 | CPS ---
patient was 95% on 4 lpm. patient weaned to 3 lpm.
--- NOTE | 2019-05-14 07:16 | CPS ---
patient weaned to 2 lpm
--- NOTE | 2019-05-14 07:30 | PN.CARD_ITS ---
Subjectve: Patient seen and evaluated. Was apparently short of breath the night. Needed some Lasix. This morning is resting quietly. Objective: Vital Signs Temp Pulse Resp BP Pulse Ox 97.8 F 83 20 H 128/58 H 94 05/14/19 04:00 05/14/19 07:00 05/14/19 07:00 05/14/19 07:00 05/14/19 07:15 Oxygen Flow Rate (L/min) 3 Oxygen Delivery Method Nasal Cannula Weight: 144 lb 6.444 oz Body Mass Index (BMI) 24.2 Intake and Output for Last 24 Hours 05/12/19 05/13/19 05/14/19 23:59 23:59 23:59 Intake Total 1733 / 1733 120 / 120 Output Total 300 / 300 1200 / 1200 Balance 1433 / 1433 -1080 / -1080 General: Awake, Alert, Oriented x 3 HEENT: PERRL, EOMI, Sclera Non Icteric Neck: Supple, Good ROM, No Lymph Node Enlargement Lungs: Clear to auscultation Cardiovascular: Regular Rhythm, Normal S1, Normal S2, No Murmurs, No Rubs, No Gallops Vascular: No Carotid Bruits, Normal Femoral Pulses, Normal Radial Pulses, Normal Dorsalis Pedal Pulse, Normal Posterior Tibial Pulses Abdomen: Bowel Sounds Present, Soft, Non Tender, No HSM, No Organomegaly Extremities: No Cyanosis, No Clubbing, No edema Musculoskeletal: No Erythema Skin: No Rashes Lymphatic: No Lymph Node Enlargement Neurological: No Focal Motor or Sensory Deficit 05/13/19 05:35: Phosphorus 3.5, Magnesium 2.3 05/14/19 04:10: WBC 14.0 H, RBC 3.24 L, Hgb 10.2 L, Hct 30.5 L, MCV 94.1, MCH 31.5, MCHC 33.4, Plt Count 445, MPV 9.2 05/14/19 04:10: Sodium 141, Potassium 3.9, Chloride 109 H, Carbon Dioxide 22.0, Anion Gap 10, BUN 17, Creatinine 0.83, Est GFR (MDRD) Af Amer 86, Est GFR (MDRD) Non-Af 71, BUN/Creatinine Ratio 20.4 H, Glucose 138 H, Calcium 8.8, Total Bilirubin 0.50 Rhythm: EKG: ECHO: Stress Test: Cardiac Cath: PCI: CT Surgery: Holter monitor: EPS: PPM: CXR: Chest CT Scan: Medical Necessity - Tobacco Use Smoking Status: Smoker, status unknown Tobacco Use: Cigarettes Assessment/Plan 1. Non-ST elevation myocardial infarction * Patient presents with shortness of breath and is noted to have abnormal cardiac enzymes suggestive of a non-ST elevation myocardial infarction. My recommendation at this time would be for her to consider a cardiac catheterization to assess her coronary anatomy. Her last stress test was in 2017 and in 2019 she did have preserved ejection fraction by echocardiographic criteria. * Patient underwent cardiac catheterization which demonstrated the following * Normal left main coronary artery * Left anterior descending artery with moderate calcification and mid segment 90% stenosis * First diagonal vessel with diffuse disease * Codominant left circumflex artery with moderate mid segment disease * Totally occluded mid right coronary artery and a small vessel with [id number] collaterals * Based on the above angiographic findings the patient underwent limited angioplasty of the left anterior descending artery. Significant calcification noted. 2. Hypertension * Her blood pressure appears to be under suboptimal control. Would continue with losartan at a higher dose. * We will also add low-dose beta-bishnu to her regimen. * 3. Congestive heart failure * Patient presents with shortness of breath and bilateral rales and elevated natruretic peptide suggestive of congestive heart failure. The above is likely secondary to ischemia. * Would recommend diuresis and replacement of her potassium * Echocardiogram demonstrated reduced left ventricular systolic function estimated EF of 30 to 35% with segmental wall motion of normalities including nearly akinetic anterior wall. 4. Left bundle branch block * It appears she has a chronic left bundle branch block. * We will continue to follow the above. * * Thank you for allowing me to participate in the care of your patient. Please don't hesitate to call if any issues arise
--- NOTE | 2019-05-14 07:57 | PN_ITS ---
Patient Problems: Active and Suspected Problems (Last Updated 05/13/19 @ 17:53 by Mable Wood) Non-ST elevated myocardial infarction (non-STEMI) (Acute 05/12/19) Subjective: Seen and examined. Patient has shortness of breath, nausea last night. Still short of breath. Patient was also seen by nighttime hospitalist last night. EKG done normal sinus rhythm 71 bpm with LAD with nonspecific intraventricular block and T wave abnormality. No significant change from previous EKG. QTc 445 ms. monitoring and evaluation advisor patient has PVCs. Chest x-ray done in the morning. Patient on Zofran but did not respond therefore Reglan added. Vitals/I&O's: Vital Signs Temp Pulse Resp BP Pulse Ox 97.8 F 83 20 H 128/58 H 93 05/14/19 04:00 05/14/19 07:00 05/14/19 07:00 05/14/19 07:00 05/14/19 07:37 Oxygen Flow Rate (L/min) 2 Oxygen Delivery Method Nasal Cannula Weight: 144 lb 6.444 oz Body Mass Index (BMI) 24.2 Intake and Output for Last 24 Hours 05/12/19 05/13/19 05/14/19 23:59 23:59 23:59 Intake Total 1733 / 1733 120 / 120 Output Total 300 / 300 1200 / 1200 Balance 1433 / 1433 -1080 / -1080 General: Alert, Oriented x3, Cooperative HEENT: Atraumatic, PERRLA, EOMI, Normocephalic Neck: Supple, No JVD, Negative Carotid Bruits Lungs: Diminished - Air entry diminished more on right lung side., Rales - Bilateral rales present., Short of Breath Cardiovascular: Regular rate, Regular Rhythm, Normal S1, Normal S2, No murmurs Abdomen: Bowel Sounds Present, Soft, Non Tender, Non-Distended Extremities: Capillary Refill Less than 3 Seconds, Edema - Mild edema Skin: No rashes, No breakdown Musculoskeletal: No Tenderness to Palpation of Joints or Extremities, Arthritic Changes Lymphatic: No Cervical, Supraclavicular, or Inguinal Adenopathy Neurological: Cranial nerves II-XII grossly intact, Deep Tendon Reflexes 2+/4 and Symmetrical Psych/Mental Status: Normal Affect, Appropriate Laboratory Results 05/13/19 05:35: Phosphorus 3.5, Magnesium 2.3 05/14/19 04:10: WBC 14.0 H, RBC 3.24 L, Hgb 10.2 L, Hct 30.5 L, MCV 94.1, MCH 31.5, MCHC 33.4, RDW Std Deviation 46.7 H, RDW Coeff of Golden 13.9, Plt Count 445, MPV 9.2 05/14/19 04:10: Sodium 141, Potassium 3.9, Chloride 109 H, Carbon Dioxide 22.0, Anion Gap 10, BUN 17, Creatinine 0.83, Estim Creat Clear Calc 51.89, Est GFR (MDRD) Af Amer 86, Est GFR (MDRD) Non-Af 71, BUN/Creatinine Ratio 20.4 H, Glucose 138 H, Calcium 8.8, Total Bilirubin 0.50, AST 163 H, ALT 51, Alkaline Phosphatase 103, Total Protein 7.0, Albumin 2.7 L, Globulin 4.3 H, Albumin/Globulin Ratio 0.6 L Current Medications Acetaminophen (Tylenol) 1,000 mg PO Q8 [facility] Last Admin: 05/14/19 05:08 Dose: 1,000 mg Documented by: Amlodipine Besylate (Norvasc) 5 mg PO DAILY [facility] Last Admin: 05/13/19 05:45 Dose: 5 mg Documented by: Atorvastatin Calcium (Lipitor) 20 mg PO QHS [facility] Last Admin: 05/13/19 21:05 Dose: 20 mg Documented by: Atropine Sulfate () 0.5 mg IV UD PRN PRN Reason: HR <50 bpm Calcium Carbonate (Tums) 1,000 mg PO Q4H PRN PRN PRN Reason: INDIGESTION Last Admin: 05/13/19 23:16 Dose: 1,000 mg Documented by: Clopidogrel Bisulfate (Plavix) 75 mg PO DAILY [facility] Last Admin: 05/13/19 05:45 Dose: 75 mg Documented by: Heparin Sodium (Beef Lung) (Heparin 500 Unit/5 Ml (100/Ml)) 500 unit IV UD PRN PRN Reason: HEPARIN FLUSH Sodium Chloride () 1,000 mls @ 0 mls/hr IV .Q0M [facility] Labetalol HCl (Trandate) 5 mg IV X1 PRN PRN Reason: SBP > 160 when pulling sheath Stop: 05/15/19 09:38 Levothyroxine Sodium (Synthroid) 50 mcg PO DAILY@0600 [facility] Last Admin: 05/14/19 05:09 Dose: 50 mcg Documented by: Lidocaine (Lidoderm Patch) 1 patch TOPICAL DAILY PRN; Protocol PRN Reason: low back pain Last Admin: 05/13/19 21:00 Dose: 1 patch Documented by: Losartan Potassium (Cozaar) 100 mg PO DAILY [facility] Last Admin: 05/13/19 05:46 Dose: 100 mg Documented by: Magnesium Oxide (Mag-Ox 400) 800 mg PO BID [facility] Last Admin: 05/13/19 21:08 Dose: 800 mg Documented by: Melatonin (Melatonin) 3 mg PO QHS PRN PRN Reason: SLEEP Last Admin: 05/13/19 22:09 Dose: 3 mg Documented by: Multivitamins (Multivitamin) 1 tablet PO DAILY@0800 [facility] Last Admin: 05/13/19 11:20 Dose: 1 tablet Documented by: Multivitamins (Allbee W/C Caplet, Thera B Comp/C) 1 capsule PO DAILY [facility] Nitroglycerin (Nitrostat) 0.4 mg SUBLINGUAL Q5M PRN PRN Reason: CARDIAC/CHEST PAIN Ondansetron HCl (Zofran) 4 mg IV Q6H PRN PRN PRN Reason: NAUSEA/VOMITING Last Admin: 05/14/19 06:23 Dose: 4 mg Documented by: Paroxetine HCl (Paxil) 40 mg PO DAILY [facility] Last Admin: 05/13/19 11:19 Dose: 40 mg Documented by: Potassium Chloride (K-Dur) 40 meq PO BIDCM [facility] Stop: 05/14/19 17:01 Last Admin: 05/13/19 17:07 Dose: 40 meq Documented by: Sodium Chloride () 10 - 40 ml IV UD PRN PRN Reason: SALINE FLUSH Last Admin: 05/14/19 06:23 Dose: 20 ml Documented by: Sodium Chloride () 500 ml IV BOLUS PRN PRN Reason: VASO-VAGAL PROTOCOL STROKE Vital Signs/Narrative: Vital Signs Temp Pulse Resp BP Pulse Ox 05/14/19 07:37 93 05/14/19 07:15 94 05/14/19 07:03 95 05/14/19 07:00 83 20 H 128/58 H 94 05/14/19 06:00 85 22 H 129/60 H 94 05/14/19 05:00 96 26 H 125/52 H 92 05/14/19 04:00 97.8 F 90 22 H 124/60 H 93 Medical Necessity - Tobacco Use Smoking Status: Smoker, status unknown Tobacco Use: Cigarettes Assessment/Plan All Active Problems (Last Updated 05/13/19 @ 17:53 by Mable Wood) Non-ST elevated myocardial infarction (non-STEMI) (Acute 05/12/19) History of coronary angioplasty (Resolved 05/13/19) Chest pain (Resolved) History of Clostridium difficile colitis (Resolved) Hypotension (Resolved) Patient was admitted yesterday for shortness of breath and chest pressure. She also was having episode of BP 2 days. She has dyspnea on exertion. She was found to have NSTEMI with serial troponins. EKG showed LBBB which appears to be chronic but troponins were 5.7, 6.8 and 7.3 consistent with non-STEMI Patient was [facility] and found single-vessel disease and had PCI of mid LAD. She is transferred to ICU after PCI Patient is mild short of breath on exertion otherwise denies chest pressure. 1. NSTEMI: Cardiac cath shows chronic total occlusion of mid LAD 90%. Patient had balloon angioplasty and post stenosis 40%. Stent did not cross due to heavily calcified and tortuous proximal LAD. Normal left main. First diagonal with diffuse disease. Codominant left circumflex with moderate mid segment disease. Totally occluded mid RCA and a small vessel with [id number] collaterals. This was explained to the patient. She has preserved EF by echocardiographic criteria. On low-dose beta-bishnu, nitroglycerin as needed losartan. Aspirin and Plavix. 05/14/2019: Patient is short of breath and mild nauseous. monitoring and evaluation advisor and EKG did not show much change. Occasional PVCs. Chest x-ray reviewed. Shows mild pulmonary congestion with blunting of bilateral costophrenic angles suggestive of mild effusion. Repeat chest x-ray official report pending. To me it shows increased infiltrate in right lower lobe. Urinary antigen, MRSA nasal screen and sputum culture ordered. Patient did not have any fever or chills, tachycardia therefore want to start antibiotic. Still most possible causes CHF exacerbation and moderate pulmonary hypertension. Patient has about 50 pack years of his smoking therefore concern of COPD. Never had PFT. Quit about 5 years ago. 2. Acute on chronic heart failure with preserved EF most probably secondary to NSTEMI: Patient was admitted with shortness of breath, elevated BNP and mild pulmonary congestion suggestive of acute on chronic heart failure. On IV diuretic. Monitor electrolytes and kidney function. Hypokalemia: Potassium being replaced 05/14: Echo reported EF 35% with moderately severe segmental systolic dysfunction with akinetic anteroseptal wall stage III diastolic dysfunction. Moderate 2+ TR, RVSP 55 images history of moderate pulmonary hypertension. 3. Chronic left bundle branch block: 4. Hypertension and dyslipidemia and hypothyroidism: Blood pressure was 152/108 on 05/12 but currently well controlled 121/64. Fasting profile reported as TG 94, TC 156, LDL 60 and HDL 77. On levothyroxine. 5. History of total hip arthroplasty on 04/29: On Eliquis 2.5 mg twice daily for DVT prophylaxis. Diagnosis, hospital course labs, imaging and plan of management discussed with patient and HER-2 daughters near the bedside Clinical Impression(s) from Imaging Studies Chest X-Ray 05/12/19 15:40 IMPRESSION: Findings suggest mild degree of vascular congestion/CHF with blunting of both costophrenic angles and mild bibasilar atelectasis. Code Visit Inpatient E&M: 73779 Subs Hosp L3
[2019-05-14] MEDS: Multivitamins,Therapeutic Tablet 1 TABLET PO (08:38)
[2019-05-14] MEDS: Metoclopramide 10 MG/2 ML Vial IV (09:05)
[2019-05-14] MEDS: Vitamin B Comp W-C Capsule 1 CAP PO (09:09)
[2019-05-14] MEDS: amLODIPine 5 MG Tablet PO (09:10)
[2019-05-14] MEDS: Losartan Potassium 100 MG Tablet PO (09:10)
[2019-05-14] MEDS: Clopidogrel Bisulfate 75 MG Tablet PO (09:11)
[2019-05-14] MEDS: Magnesium Oxide 400 MG Tablet 800 MG PO ×2 (09:11→22:35)
[2019-05-14] MEDS: Paroxetine 20 MG Tablet 40 MG PO (09:11)
[2019-05-14] MEDS: guaiFENesin 1,200 MG Tablet 1200 MG PO ×2 (09:59→22:35)
[2019-05-14] MEDS: Furosemide 40 MG/4 ML Vial IV (09:59)
--- NOTE | 2019-05-14 10:00 | EKG12_ITS ---
Test Reason : AM Blood Pressure : / mmHG Vent. Rate : 088 BPM Atrial Rate : 088 BPM P-R Int : 142 ms QRS Dur : 140 ms QT Int : 392 ms P-R-T Axes : 055 017 159 degrees QTc Int : 474 ms Normal sinus rhythm Left bundle branch block Abnormal ECG When compared with ECG of 13-MAY-2019 10:08, MANUAL COMPARISON REQUIRED, DATA IS UNCONFIRMED Confirmed by CHINO SOLORIO, WINTER ([id number]), image editor PAL CHAVARRIA ([id number]) on 05/26/2019 1:04:07 PM Referred By: Ibeth Melton Confirmed By:WINTER MAGANA MD
[2019-05-14] MEDS: Ipratropium/Albuterol Sulfate 3 ML AMPUL.NEB INHALATION ×2 (12:42→19:49)
[2019-05-14 13:44] LABS: M R Staph aureus DNA By PCR Negative (Negative); Probe Check PASS; Specimen Processing Control PASS
[2019-05-14] MEDS: Metoclopramide 10 MG/2 ML Vial 5 MG IV (16:58)
--- NOTE | 2019-05-14 19:49 | CPS ---
placed nasal cannula on pt at 2 lpm of oxygen
[2019-05-14] MEDS: APIXABAN 2.5 MG TABLET PO (22:34)
[2019-05-14] MEDS: Atorvastatin Calcium 20 MG Tablet PO (22:35)
[2019-05-14] MEDS: MELATONIN 3 MG TABLET PO (22:43)
[2019-05-15] VITALS (16 sets, daily range): BP systolic 90–123; BP diastolic 49–71; PULSE 72–98; RESP 17–26; TEMP 36.6–37; O2SAT 91–95
[2019-05-15] MEDS: Acetaminophen 500 MG Tablet 1000 MG PO ×3 (06:01→21:18)
[2019-05-15] MEDS: Levothyroxine 50 MCG Tablet PO (06:01)
[2019-05-15] MEDS: Ondansetron 4 MG/2 ML Vial IV (06:09)
[2019-05-15] MEDS: 0.9% Saline Lock 10 ML Syringe IV ×4 (06:12→16:42)
[2019-05-15] MEDS: Ipratropium/Albuterol Sulfate 3 ML AMPUL.NEB INHALATION (07:02)
[2019-05-15] MEDS: Metoclopramide 10 MG/2 ML Vial 5 MG IV (08:55)
[2019-05-15] MEDS: Calcium Carbonate 500 MG Tablet 1000 MG PO (09:12)
--- NOTE | 2019-05-15 09:18 | PN.CARD_ITS ---
Subjectve: Patient seen and evaluated. Objective: Vital Signs Temp Pulse Resp BP Pulse Ox 98.5 F 88 21 H 123/66 H 93 05/15/19 03:30 05/15/19 07:20 05/15/19 07:20 05/15/19 03:30 05/15/19 07:42 Oxygen Flow Rate (L/min) 3 Oxygen Delivery Method Nasal Cannula Weight: 143 lb 15.39 oz Body Mass Index (BMI) 24.2 Intake and Output for Last 24 Hours 05/13/19 05/14/19 05/15/19 23:59 23:59 23:59 Intake Total 1733 / 1733 1300 / 1300 100 / 100 Output Total 300 / 300 1800 / 1800 Balance 1433 / 1433 -500 / -500 100 / 100 General: Awake, Alert, Oriented x 3 HEENT: PERRL, EOMI, Sclera Non Icteric Neck: Supple, Good ROM, No Lymph Node Enlargement Lungs: Rales - Sanjay Bases Cardiovascular: Regular Rhythm, Normal S1, Normal S2, No Murmurs, No Rubs, No Gallops Vascular: No Carotid Bruits, Normal Femoral Pulses, Normal Radial Pulses, Normal Dorsalis Pedal Pulse, Normal Posterior Tibial Pulses Abdomen: Bowel Sounds Present, Soft, Non Tender, No HSM, No Organomegaly Extremities: No Cyanosis, No Clubbing, No edema Musculoskeletal: No Erythema Skin: No Rashes Lymphatic: No Lymph Node Enlargement Neurological: No Focal Motor or Sensory Deficit Psych/Mental Status: Appropriate Rhythm: EKG: ECHO: Stress Test: Cardiac Cath: PCI: CT Surgery: Holter monitor: EPS: PPM: CXR: Chest CT Scan: Medical Necessity - Tobacco Use Smoking Status: Smoker, status unknown Tobacco Use: Cigarettes Assessment/Plan 1. Non-ST elevation myocardial infarction * Patient presents with shortness of breath and is noted to have abnormal cardiac enzymes suggestive of a non-ST elevation myocardial infarction. My recommendation at this time would be for her to consider a cardiac catheterization to assess her coronary anatomy. Her last stress test was in 2017 and in 2019 she did have preserved ejection fraction by echocardiographic criteria. * Patient underwent cardiac catheterization which demonstrated the following * Normal left main coronary artery * Left anterior descending artery with moderate calcification and mid segment 90% stenosis * First diagonal vessel with diffuse disease * Codominant left circumflex artery with moderate mid segment disease * Totally occluded mid right coronary artery and a small vessel with lef t-to-right collaterals * Based on the above angiographic findings the patient underwent limited angioplasty of the left anterior descending artery. Significant calcification noted. 2. Hypertension * Her blood pressure appears to be under suboptimal control. Would continue with losartan at a higher dose. * We will also add low-dose beta-bishnu to her regimen. * 3. Congestive heart failure * Patient presents with shortness of breath and bilateral rales and elevated natruretic peptide suggestive of congestive heart failure. The above is likely secondary to ischemia. * Would recommend diuresis and replacement of her potassium * Echocardiogram demonstrated reduced left ventricular systolic function estimated EF of 30 to 35% with segmental wall motion of normalities including nearly akinetic anterior wall. * We will continue losartan * Eventually would need Lasix during discharge 4. Left bundle branch block * It appears she has a chronic left bundle branch block. * We will continue to follow the above. * * Thank you for allowing me to participate in the care of your patient. Please don't hesitate to call if any issues arise
--- NOTE | 2019-05-15 10:00 | EKG12_ITS ---
Test Reason : AM Blood Pressure : / mmHG Vent. Rate : 099 BPM Atrial Rate : 099 BPM P-R Int : 130 ms QRS Dur : 138 ms QT Int : 374 ms P-R-T Axes : 050 013 185 degrees QTc Int : 479 ms Normal sinus rhythm Possible Left atrial enlargement Left bundle branch block Abnormal ECG When compared with ECG of 13-MAY-2019 05:19, MANUAL COMPARISON REQUIRED, DATA IS UNCONFIRMED Confirmed by CHINO SOLORIO, WINTER ([id number]), editor in chief RAUDEL TREADWELL ([id number]) on 05/19/2019 10:01:32 AM Referred By: Ibeth Melton Confirmed By:WINTER MAGANA MD
[2019-05-15] MEDS: Furosemide 40 MG/4 ML Vial IV (10:56)
[2019-05-15] MEDS: APIXABAN 2.5 MG TABLET PO ×2 (11:00→21:19)
[2019-05-15] MEDS: Magnesium Oxide 400 MG Tablet 800 MG PO ×2 (11:01→21:19)
[2019-05-15] MEDS: Multivitamins,Therapeutic Tablet 1 TABLET PO (11:01)
[2019-05-15] MEDS: Vitamin B Comp W-C Capsule 1 CAP PO (11:01)
[2019-05-15] MEDS: guaiFENesin 1,200 MG Tablet 1200 MG PO ×2 (11:02→21:19)
[2019-05-15] MEDS: Losartan Potassium 100 MG Tablet PO (11:02)
[2019-05-15] MEDS: Clopidogrel Bisulfate 75 MG Tablet PO (11:03)
[2019-05-15] MEDS: Paroxetine 20 MG Tablet 40 MG PO (11:04)
[2019-05-15] MEDS: amLODIPine 5 MG Tablet PO (11:04)
[2019-05-15] MEDS: Carvedilol 3.125 MG TABLET PO ×2 (11:19→21:19)
--- NOTE | 2019-05-15 11:50 | DCINST_ITS ---
- Discharge Diagnoses Current Active Problems: Current Active and Chronic Problems (Last Updated 05/13/19 @ 17:53 by Mable Wood) Atherosclerosis of coronary artery of [place] heart without angina pectoris (Chronic) [id number] LAD 05/13/19 Non-ST elevated myocardial infarction (non-STEMI) (Acute 05/12/19) Acute on chronic combined systolic (congestive) and diastolic (congestive) heart failure (Chronic) Secondary pulmonary arterial hypertension (Chronic) Essential (primary) hypertension (Chronic) Allergies/Adverse Reactions: Allergies Sulfa (Sulfonamide Antibiotics) Allergy (Verified 05/12/19 14:58) Unknown Medications to take at Discharge Cholecalciferol (Vitamin D3) [Vitamin D3] 400 unit PO DAILY 05/02/14 Multivitamins,Therapeutic [Multivitamin] 1 tab PO DAILY 05/02/14 Levothyroxine [Synthroid] 50 mcg PO DAILY 07/20/16 Losartan Potassium [Cozaar] 100 mg PO DAILY 07/20/16 Simvastatin [Zocor] 40 mg PO QHS 07/20/16 potassium chloride ER 20 mEq tablet,extended release(part/cryst) 20 meq PO DAILY #30 tab 03/24/19 vitamin B complex and vit C no.3 15 mg-10 mg-50 mg-5 mg-300 mg capsule 1 cap PO DAILY 04/08/19 amlodipine 5 mg tablet 5 mg PO DAILY tab 04/15/19 Calcium Carbonate [Tums Ultra Strength] 1,177 mg PO QHS 04/22/19 Apixaban [Eliquis] 2.5 mg PO BID #42 tab 04/30/19 Oxycodone [Oxyir] 5 - 10 mg PO Q4H PRN PRN #60 tab 04/30/19 Clorazepate [Tranxene] 3.75 mg PO TID PRN PRN #10 tab 05/02/19 paroxetine 40 mg tablet 40 mg PO DAILY #90 tab 05/09/19 Acetaminophen [Tylenol] 1,000 mg PO Q8H 05/12/19 Magnesium Oxide [Mag-Ox 400] 800 mg PO BID 05/12/19 Primary Care Physician: Hector Walker MD [Primary Care Provider] - Test Results: Test results from this visit will be discussed in further detail at your follow- up appointment, if applicable.
--- NOTE | 2019-05-15 12:05 | PCM.PN.HOSP ---
Patient Problems: Active and Suspected Problems (Last Updated 05/13/19 @ 17:53 by Mable Wood) Non-ST elevated myocardial infarction (non-STEMI) (Acute 05/12/19) Subjective: Patient is still short of breath. Oxygen requirement went up from 2-3 and 5 L of oxygen. Patient did not had fever but short of breath, tachypnea. Earlier chest x-ray shows right upper lobe infiltrate therefore most likely pneumonia and therefore started on IV Rocephin and Zithromax. Vitals/I&O's: Vital Signs Temp Pulse Resp BP Pulse Ox 98.3 F 84 25 H 115/71 91 05/15/19 10:46 05/15/19 11:45 05/15/19 10:46 05/15/19 10:46 05/15/19 10:46 Oxygen Flow Rate (L/min) 5 Oxygen Delivery Method Nasal Cannula Weight: 143 lb 15.39 oz Body Mass Index (BMI) 24.2 Intake and Output for Last 24 Hours 05/13/19 05/14/19 05/15/19 23:59 23:59 23:59 Intake Total 1733 / 1733 1300 / 1300 100 / 100 Output Total 300 / 300 1800 / 1800 Balance 1433 / 1433 -500 / -500 100 / 100 General: Alert, Oriented x3, Cooperative HEENT: Atraumatic, PERRLA, EOMI, Normocephalic Neck: Supple, No JVD, Negative Carotid Bruits Lungs: Diminished - Air entry is diminished., Rhonchi - Rhonchi getting better Cardiovascular: Regular rate, Regular Rhythm, Normal S1, Normal S2, No murmurs, - - Occasional PVCs Abdomen: Bowel Sounds Present, Soft, Non Tender, Non-Distended Extremities: No edema, Capillary Refill Less than 3 Seconds Skin: No rashes, No breakdown Musculoskeletal: No Tenderness to Palpation of Joints or Extremities, Arthritic Changes Neurological: Cranial nerves II-XII grossly intact Psych/Mental Status: Normal Affect, Appropriate Microbiology Past 72 Hours 05/14/19 16:40 Mucosa - Nasopharyngeal Respiratory Panel (PCR) - Final 05/14/19 12:10 Urine, Random Streptococcus pneumoniae Antigen (M - Final 05/14/19 12:10 Urine, Random Legionella Antigen - Final Laboratory Results 05/14/19 10:00: MRSA (PCR) Negative Current Medications Acetaminophen (Tylenol) 1,000 mg PO Q8 [facility] Last Admin: 05/15/19 06:01 Dose: 1,000 mg Documented by: Amlodipine Besylate (Norvasc) 5 mg PO DAILY [facility] Last Admin: 05/15/19 11:04 Dose: 5 mg Documented by: Apixaban (Eliquis) 2.5 mg PO BID [facility] Last Admin: 05/15/19 11:00 Dose: 2.5 mg Documented by: Atorvastatin Calcium (Lipitor) 20 mg PO QHS [facility] Last Admin: 05/14/19 22:35 Dose: 20 mg Documented by: Atropine Sulfate () 0.5 mg IV UD PRN PRN Reason: HR <50 bpm Azithromycin (Zithromax) 500 mg PO Q24 [facility] Calcium Carbonate (Tums) 1,000 mg PO Q4H PRN PRN PRN Reason: INDIGESTION Last Admin: 05/15/19 09:12 Dose: 1,000 mg Documented by: Carvedilol (Coreg) 3.125 mg PO BID [facility] Last Admin: 05/15/19 11:19 Dose: 3.125 mg Documented by: Clopidogrel Bisulfate (Plavix) 75 mg PO DAILY [facility] Last Admin: 05/15/19 11:03 Dose: 75 mg Documented by: Furosemide (Lasix) 40 mg IV DAILY [facility] Last Admin: 05/15/19 10:56 Dose: 40 mg Documented by: Guaifenesin (Mucinex) 1,200 mg PO BID [facility] Last Admin: 05/15/19 11:02 Dose: 1,200 mg Documented by: Heparin Sodium (Beef Lung) (Heparin 500 Unit/5 Ml (100/Ml)) 500 unit IV UD PRN PRN Reason: HEPARIN FLUSH Sodium Chloride () 1,000 mls @ 0 mls/hr IV .Q0M [facility] Ceftriaxone Sodium (Rocephin) 1 gm in 50 mls @ 100 mls/hr IV Q24 [facility] Levothyroxine Sodium (Synthroid) 50 mcg PO DAILY@0600 [facility] Last Admin: 05/15/19 06:01 Dose: 50 mcg Documented by: Lidocaine (Lidoderm Patch) 1 patch TOPICAL DAILY PRN; Protocol PRN Reason: low back pain Last Admin: 05/13/19 21:00 Dose: 1 patch Documented by: Losartan Potassium (Cozaar) 100 mg PO DAILY [facility] Last Admin: 05/15/19 11:02 Dose: 100 mg Documented by: Magnesium Oxide (Mag-Ox 400) 800 mg PO BID [facility] Last Admin: 05/15/19 11:01 Dose: 800 mg Documented by: Melatonin (Melatonin) 3 mg PO QHS PRN PRN Reason: SLEEP Last Admin: 05/14/19 22:43 Dose: 3 mg Documented by: Metoclopramide HCl (Reglan) 5 mg IV Q6H PRN PRN PRN Reason: NAUSEA Last Admin: 05/15/19 08:55 Dose: 5 mg Documented by: Multivitamins (Multivitamin) 1 tablet PO DAILY@0800 [facility] Last Admin: 05/15/19 11:01 Dose: 1 tablet Documented by: Multivitamins (Allbee W/C Caplet, Thera B Comp/C) 1 capsule PO DAILY [facility] Last Admin: 05/15/19 11:01 Dose: 1 capsule Documented by: Nitroglycerin (Nitrostat) 0.4 mg SUBLINGUAL Q5M PRN PRN Reason: CARDIAC/CHEST PAIN Ondansetron HCl (Zofran) 4 mg IV Q6H PRN PRN PRN Reason: NAUSEA/VOMITING Last Admin: 05/15/19 06:09 Dose: 4 mg Documented by: Paroxetine HCl (Paxil) 40 mg PO DAILY [facility] Last Admin: 05/15/19 11:04 Dose: 40 mg Documented by: Sodium Chloride () 10 - 40 ml IV UD PRN PRN Reason: SALINE FLUSH Last Admin: 05/15/19 10:56 Dose: 20 ml Documented by: Sodium Chloride () 500 ml IV BOLUS PRN PRN Reason: VASO-VAGAL PROTOCOL STROKE Vital Signs/Narrative: Vital Signs Temp Pulse Resp BP Pulse Ox 05/15/19 11:45 84 05/15/19 10:46 98.3 F 92 25 H 115/71 91 Medical Necessity - Tobacco Use Smoking Status: Smoker, status unknown Tobacco Use: Cigarettes Assessment/Plan All Active Problems (Last Updated 05/13/19 @ 17:53 by Mable Wood) Non-ST elevated myocardial infarction (non-STEMI) (Acute 05/12/19) History of coronary angioplasty (Resolved 05/13/19) Chest pain (Resolved) History of Clostridium difficile colitis (Resolved) Hypotension (Resolved) Patient was admitted yesterday for shortness of breath and chest pressure. She also was having episode of BP 2 days. She has dyspnea on exertion. She was found to have NSTEMI with serial troponins. EKG showed LBBB which appears to be chronic but troponins were 5.7, 6.8 and 7.3 consistent with non-STEMI Patient was taken to [facility] and found single-vessel disease and had PCI of mid LAD. She is transferred to ICU after PCI Patient is mild short of breath on exertion otherwise denies chest pressure. 1. NSTEMI: Cardiac cath shows chronic total occlusion of mid LAD 90%. Patient had balloon angioplasty and post stenosis 40%. Stent did not cross due to heavily calcified and tortuous proximal LAD. Normal left main. First diagonal with diffuse disease. Codominant left circumflex with moderate mid segment disease. Totally occluded mid RCA and a small vessel with [id number] collaterals. This was explained to the patient. She has preserved EF by echocardiographic criteria. On low-dose beta-bishnu, nitroglycerin as needed losartan. Aspirin and Plavix. 05/14/2019: Patient is short of breath and mild nauseous. group work program aide and EKG did not show much change. Occasional PVCs. Chest x-ray reviewed. Shows mild pulmonary congestion with blunting of bilateral costophrenic angles suggestive of mild effusion. X-ray was ordered. Urinary antigen, MRSA nasal screen and sputum culture ordered. Patient did not have any fever or chills, tachycardia therefore want to start antibiotic. Still most possible causes CHF exacerbation and moderate pulmonary hypertension. Patient has about 50 pack years of his smoking therefore concern of COPD. Never had PFT. Quit about 5 years ago. 05/15/2019: Patient did not have chest pain. On appropriate cardiac medications. 2. Right upper lobe pneumonia: X-ray shows right upper lobe infiltrate. Mild degree of CHF/pulmonary venous congestion. Urinary antigens are negative. Respiratory panel negative. Sputum culture ordered. MRSA nasal screen negative.. With increased shortness of breath, tachypnea and hypoxia, patient is started on IV antibiotic, Rocephin and Zithromax. If she still shortness of breath, hypoxia does not get better will need CT chest and upgrade of antibiotic. 2. Acute on chronic heart failure with preserved EF most probably secondary to NSTEMI: Patient was admitted with shortness of breath, elevated BNP and mild pulmonary congestion suggestive of acute on chronic heart failure. On IV diuretic. Monitor electrolytes and kidney function. Hypokalemia: Potassium being replaced 05/14: Echo reported EF 35% with moderately severe segmental systolic dysfunction with akinetic anteroseptal wall stage III diastolic dysfunction. Moderate 2+ TR, RVSP 55 images history of moderate pulmonary hypertension. 3. Chronic left bundle branch block: 4. Hypertension and dyslipidemia and hypothyroidism: Blood pressure was 152/108 on 05/12 but currently well controlled 121/64. Fasting profile reported as TG 94, TC 156, LDL 60 and HDL 77. On levothyroxine. 5. History of total hip arthroplasty on 04/29: On Eliquis 2.5 mg twice daily for DVT prophylaxis. Diagnosis, hospital course labs, imaging and plan of management discussed with patient and HER-2 daughters near the bedside Signout: Patient admitted with non-STEMI and had angioplasty done. Could not have a stent secondary to calcified proximal LAD. Patient more short of breath and tachypnea and right upper infiltrate, right upper lobe pneumonia. Started on IV Rocephin and Zithromax. Clinical Impression(s) from Imaging Studies Chest X-Ray 05/12/19 15:40 IMPRESSION: Findings suggest mild degree of vascular congestion/CHF with blunting of both costophrenic angles and mild bibasilar atelectasis. Clinical Impression(s) from Imaging Studies Chest X-Ray 05/12/19 15:40 IMPRESSION: Findings suggest mild degree of vascular congestion/CHF with blunting of both costophrenic angles and mild bibasilar atelectasis. Electronically Signed: Sai Grey, at 15:58 EST , Service support , Chest X-Ray 05/14/19 05:55 IMPRESSION: Persistent mild degree of CHF. Findings suggestive of new right upper lobe infiltrate. Code Visit Inpatient E&M: 39081 Subs Hosp L3
[2019-05-15] MEDS: Azithromycin 250 MG Tablet 500 MG PO (13:25)
--- NOTE | 2019-05-15 14:02 | CASEMGMT ---
Pt is current with [facility] for PT/OT at this time and pt is agreeable to add assisted d/t recent NSTEMI with intervention. Message left with Gayle at [facility] at this time in regards to same and MARIBEL order is in with note to add assisted. Pt/family voice no further questions/concerns/needs at this time. Patricia RO CM
[2019-05-15] MEDS: Ceftriaxone 1 GM/50 ML BAG IV (15:21)
[2019-05-15] MEDS: Metoclopramide 5 MG TABLET PO ×2 (16:42→21:19)
[2019-05-15 18:31] LABS: Absolute Lymphocyte Count 1.62 X10^3/uL (0.83-4.51); Absolute Neutrophil Count 9.4 X10^3/uL (2.0-7.7); Basophil# 0.02 X10^3/uL; Basophil% 0.2 % (0-1); Eosinophil# 0.12 X10^3/uL; Hematocrit 29.5 % (37-47); Hemoglobin 9.5 g/dL (12.0-15.0); Lymphocyte # 1.62 X10^3/ul (4.0); Lymphocyte % 13.2 % (19-41); Mean Corp Hgb Conc 32.2 g/dL (32-36); Mean Corpuscular Hgb 30.8 pg (27.0-32.0); Mean Corpuscular Volume 95.8 fL (81-99); Mean Platelet Vol. 9.7 fl (6.2-12.0); Monocyte# 1.05 X10^3/uL; Monocyte% 8.5 % (0-10); NRBC Flagged by Analyzer 0 % (0-5); Neutrophil # 9.44 X10^3/uL (2.7-7.7); Neutrophil % 76.6 % (47-70); Platelet Count 462 K/mm3 (150-450); RBC Distribution Width CV 13.9 % (11.6-14.6); RBC Distribution Width SD 48.3 fl (35.1-43.9); Red Blood Count 3.08 M/mm3 (4.2-5.4); White Blood Count 12.3 K/mm3 (4.4-11.0)
[2019-05-15 18:43] LABS: Anion Gap 10 (5-15); BUN 29 mg/dL (7-18); BUN/Creat Ratio 38.6 RATIO (10-20); Chloride 107 mmol/L (98-107); Creatinine, Serum 0.75 mg/dL (0.55-1.02); EST Glomerular Filtration Rate 80 mL/min (>60); Est Glom Filt Rate - Afr Amer 97 mL/min (>60); Estimated Creatinine Clearance 43.07 ml/min; Glucose 139 mg/dL (74-106); Potassium 3.5 mmol/L (3.5-5.1); Sodium Level 138 mmol/L (136-145)
[2019-05-15] MEDS: MELATONIN 3 MG TABLET PO (21:16)
[2019-05-15] MEDS: Atorvastatin Calcium 20 MG Tablet PO (21:19)
[2019-05-16] VITALS (14 sets, daily range): BP systolic 105–124; BP diastolic 56–65; PULSE 62–94; RESP 18–22; TEMP 36.4–37.1; O2SAT 92–95
[2019-05-16 05:33] LABS: Absolute Neutrophil Count 9.8 X10^3/uL (2.0-7.7); Basophil# 0.03 X10^3/uL; Basophil% 0.2 % (0-1); Eosinophil# 0.23 X10^3/uL; Eosinophils% 1.8 % (0-5); Hematocrit 28.9 % (37-47); Hemoglobin 9.5 g/dL (12.0-15.0); Lymphocyte % 12.6 % (19-41); Mean Corp Hgb Conc 32.9 g/dL (32-36); Mean Corpuscular Hgb 31.3 pg (27.0-32.0); Mean Corpuscular Volume 95.1 fL (81-99); Mean Platelet Vol. 9.8 fl (6.2-12.0); Monocyte# 1.03 X10^3/uL; Monocyte% 8.1 % (0-10); NRBC Flagged by Analyzer 0 % (0-5); Neutrophil # 9.79 X10^3/uL (2.7-7.7); Platelet Count 454 K/mm3 (150-450); RBC Distribution Width CV 13.8 % (11.6-14.6); RBC Distribution Width SD 47.8 fl (35.1-43.9); Red Blood Count 3.04 M/mm3 (4.2-5.4); White Blood Count 12.7 K/mm3 (4.4-11.0)
[2019-05-16] MEDS: Levothyroxine 50 MCG Tablet PO (06:17)
[2019-05-16] MEDS: Metoclopramide 5 MG TABLET PO ×3 (06:17→15:52)
[2019-05-16] MEDS: Acetaminophen 500 MG Tablet 1000 MG PO ×3 (06:17→21:50)
[2019-05-16] MEDS: Vitamin B Comp W-C Capsule 1 CAP PO (09:03)
[2019-05-16] MEDS: Paroxetine 20 MG Tablet 40 MG PO (09:03)
[2019-05-16] MEDS: APIXABAN 2.5 MG TABLET PO ×2 (09:03→21:49)
[2019-05-16] MEDS: guaiFENesin 1,200 MG Tablet 1200 MG PO ×2 (09:03→21:52)
[2019-05-16] MEDS: Clopidogrel Bisulfate 75 MG Tablet PO (09:04)
[2019-05-16] MEDS: Multivitamins,Therapeutic Tablet 1 TABLET PO (09:04)
[2019-05-16] MEDS: Magnesium Oxide 400 MG Tablet 800 MG PO ×2 (09:04→21:51)
[2019-05-16] MEDS: Carvedilol 3.125 MG TABLET PO ×2 (09:04→21:50)
[2019-05-16] MEDS: Furosemide 40 MG/4 ML Vial IV ×2 (09:06→17:57)
[2019-05-16] MEDS: Azithromycin 250 MG Tablet 500 MG PO (09:07)
[2019-05-16] MEDS: Ceftriaxone 1 GM/50 ML BAG IV (09:14)
--- NOTE | 2019-05-16 12:31 | CASEMGMT ---
Pt is still on 5liters home oxygen at this time and is agreeable to [facility] for home oxygen as they are the preferred provider for her [facility] at this time. Green sheet on chart at this time for resumption of HHC and possible home oxygen, if qualifies. Pt states no further questions/concerns/needs at this time. Pt states no concerns with going home at time of discharge with resumption of care. PT/OT was ordered at this time. CM to follow. SStrahat RO CM
--- NOTE | 2019-05-16 14:03 | RAD_ITS ---
STUDY: X-RAY CHEST REASON FOR EXAM: Female, 74 years old. Shortness of breath TECHNIQUE: Single AP portable view of the chest. COMPARISON: May 14, 2019 4:58 AM FINDINGS: There is increasing density at the left lung base and blunting of the left costophrenic angle and right. Interstitial markings are mildly prominent. Normal size heart. Normal mediastinum and fina. Normal visualized pulmonary arteries. There is atherosclerotic calcification of the aortic arch with tortuosity. There are diffuse degenerative changes of the visualized thoracic spine. There is degenerative osteoarthritis of the bilateral shoulders. There is no demonstrated abnormality of the visualized soft tissue structures of the upper abdomen. RAD/Chest 1 View (Portable) IMPRESSION: Interval development of blunting of the costophrenic angles consider effusions atelectasis mild edema. Superimposed infiltrates not excluded. Electronically Signed: Vicki Blackmon MD at 14:32 EST Tel , Service support ,
[2019-05-16] MEDS: Calcium Carbonate 500 MG Tablet 1000 MG PO (15:01)
[2019-05-16] MEDS: amLODIPine 5 MG Tablet PO (15:58)
[2019-05-16] MEDS: Losartan Potassium 100 MG Tablet PO (15:58)
[2019-05-16] MEDS: 0.9% Saline Lock 10 ML Syringe IV (17:57)
--- NOTE | 2019-05-16 19:56 | PN_ITS ---
Subjective: I talked to the patient today, her daughter was in the room during the time of my examination. Patient's oxygen requirement has increased over the last 24 hours, I discussed this with cardiology and they recommended an increase in the patient's diuretics. At this time, I do not feel the patient is stable for discharge home. I also feel it is unlikely that the patient has a pneumonia at this time, I have decided to stop her antibiotics, I think you are infiltrates or more likely secondary to congestive heart failure. - Physical Exam Vitals/I&O's: Vital Signs Temp Pulse Resp BP Pulse Ox 98.1 F 62 18 117/62 92 05/16/19 15:30 05/16/19 15:30 05/16/19 15:30 05/16/19 15:30 05/16/19 15:30 Oxygen Flow Rate (L/min) 5 Oxygen Delivery Method Nasal Cannula Weight: 64.4 kg Body Mass Index (BMI) 24.2 Intake and Output for Last 24 Hours 05/14/19 05/15/19 05/16/19 23:59 23:59 23:59 Intake Total 1300 / 1300 1450 / 1450 1045 / 1045 Output Total 1800 / 1800 Balance -500 / -500 1450 / 1450 1045 / 1045 General: Alert, Oriented x3, Cooperative, No apparent distress, Well developed, Well nourished HEENT: Atraumatic, PERRLA, EOMI, Normocephalic Oral: Moist Mucosa Neck: Supple, Trachea Midline, Thyroid Normal Size and Texture Lungs: Diminished, Rales - Inspiratory rales over the patient's left and right lungs, worse on the right Cardiovascular: Regular rate, Regular Rhythm, Normal S1, Normal S2, No murmurs, PMI Normal, No rub noted, No Gallop Abdomen: Bowel Sounds Present, Soft, Non Tender, Non-Distended, No hernias noted Extremities: No clubbing, No cyanosis, No edema, Capillary Refill Less than 3 Seconds Skin: No rashes, No breakdown Musculoskeletal: No Tenderness to Palpation of Joints or Extremities Neurological: Cranial nerves II-XII grossly intact, Neuro grossly intact, Sensory exam intact to light touch and pain Psych/Mental Status: Normal Affect, Appropriate, Alert and oriented to time, place, person, mood and affect Microbiology Past 72 Hours 05/14/19 16:40 Mucosa - Nasopharyngeal Respiratory Panel (PCR) - Final 05/14/19 12:10 Urine, Random Streptococcus pneumoniae Antigen (M - Final 05/14/19 12:10 Urine, Random Legionella Antigen - Final Laboratory Results 05/16/19 05:03: WBC 12.7 H, RBC 3.04 L, Hgb 9.5 L, Hct 28.9 L, MCV 95.1, MCH 31.3, MCHC 32.9, RDW Std Deviation 47.8 H, RDW Coeff of Golden 13.8, Plt Count 454 H, MPV 9.8, Immature Gran % (Auto) 0.300, Neut % (Auto) 77.0 H, Lymph % (Auto) 12.6 L, Jennings % (Auto) 8.1, Eos % (Auto) 1.8, Baso % (Auto) 0.2, Absolute Neuts (auto) 9.8 H, Absolute Lymphs (auto) 1.60, Nucleated RBC % 0 Current Medications Acetaminophen (Tylenol) 1,000 mg PO Q8 [facility] Last Admin: 05/16/19 15:01 Dose: 1,000 mg Documented by: Amlodipine Besylate (Norvasc) 5 mg PO DAILY [facility] Last Admin: 05/16/19 15:58 Dose: 5 mg Documented by: Apixaban (Eliquis) 2.5 mg PO BID [facility] Last Admin: 05/16/19 09:03 Dose: 2.5 mg Documented by: Atorvastatin Calcium (Lipitor) 20 mg PO QHS [facility] Last Admin: 05/15/19 21:19 Dose: 20 mg Documented by: Atropine Sulfate () 0.5 mg IV UD PRN PRN Reason: HR <50 bpm Azithromycin (Zithromax) 500 mg PO Q24 [facility] Last Admin: 05/16/19 09:07 Dose: 500 mg Documented by: Calcium Carbonate (Tums) 1,000 mg PO Q4H PRN PRN PRN Reason: INDIGESTION Last Admin: 05/16/19 15:01 Dose: 1,000 mg Documented by: Carvedilol (Coreg) 3.125 mg PO BID [facility] Last Admin: 05/16/19 09:04 Dose: 3.125 mg Documented by: Clopidogrel Bisulfate (Plavix) 75 mg PO DAILY [facility] Last Admin: 05/16/19 09:04 Dose: 75 mg Documented by: Furosemide (Lasix) 40 mg IV BIDLX [facility] Guaifenesin (Mucinex) 1,200 mg PO BID [facility] Last Admin: 05/16/19 09:03 Dose: 1,200 mg Documented by: Heparin Sodium (Beef Lung) (Heparin 500 Unit/5 Ml (100/Ml)) 500 unit IV UD PRN PRN Reason: HEPARIN FLUSH Sodium Chloride () 1,000 mls @ 0 mls/hr IV .Q0M [facility] Ceftriaxone Sodium (Rocephin) 1 gm in 50 mls @ 100 mls/hr IV Q24 [facility] Last Infusion: 05/16/19 10:55 Dose: Infused Documented by: Levothyroxine Sodium (Synthroid) 50 mcg PO DAILY@0600 [facility] Last Admin: 05/16/19 06:17 Dose: 50 mcg Documented by: Lidocaine (Lidoderm Patch) 1 patch TOPICAL DAILY PRN; Protocol PRN Reason: low back pain Last Admin: 05/13/19 21:00 Dose: 1 patch Documented by: Losartan Potassium (Cozaar) 100 mg PO DAILY [facility] Last Admin: 05/16/19 15:58 Dose: 100 mg Documented by: Magnesium Oxide (Mag-Ox 400) 800 mg PO BID [facility] Last Admin: 05/16/19 09:04 Dose: 800 mg Documented by: Melatonin (Melatonin) 3 mg PO QHS PRN PRN Reason: SLEEP Last Admin: 05/15/19 21:16 Dose: 3 mg Documented by: Metoclopramide HCl (Metoclopramide Hcl) 5 mg PO ACHS [facility] Last Admin: 05/16/19 15:52 Dose: 5 mg Documented by: Multivitamins (Multivitamin) 1 tablet PO DAILY@0800 [facility] Last Admin: 05/16/19 09:04 Dose: 1 tablet Documented by: Multivitamins (Allbee W/C Caplet, Thera B Comp/C) 1 capsule PO DAILY [facility] Last Admin: 05/16/19 09:03 Dose: 1 capsule Documented by: Nitroglycerin (Nitrostat) 0.4 mg SUBLINGUAL Q5M PRN PRN Reason: CARDIAC/CHEST PAIN Ondansetron HCl (Zofran) 4 mg IV Q6H PRN PRN PRN Reason: NAUSEA/VOMITING Last Admin: 05/15/19 06:09 Dose: 4 mg Documented by: Paroxetine HCl (Paxil) 40 mg PO DAILY [facility] Last Admin: 05/16/19 09:03 Dose: 40 mg Documented by: Sodium Chloride () 10 - 40 ml IV UD PRN PRN Reason: SALINE FLUSH Last Admin: 05/16/19 17:57 Dose: 20 ml Documented by: Sodium Chloride () 500 ml IV BOLUS PRN PRN Reason: VASO-VAGAL PROTOCOL Medical Necessity - Tobacco Use Smoking Status: Smoker, status unknown Tobacco Use: Cigarettes Assessment/Plan All Active Problems (Last Updated 05/13/19 @ 17:53 by Mable Wood) Non-ST elevated myocardial infarction (non-STEMI) (Acute 05/12/19) History of coronary angioplasty (Resolved 05/13/19) Chest pain (Resolved) History of Clostridium difficile colitis (Resolved) Hypotension (Resolved) #1 [id number] post angioplasty postop day 3 mid LAD, patient appears stable cardiac victoria at this time #2 acute on chronic systolic congestive heart failure-IV Lasix was increased today, I discussed her care with cardiology. #3 mild pulmonary hypertension #4 diffuse coronary artery disease #5 ischemic cardiomyopathy #6 hypertension #7 leukocytosis-etiology unclear, I do not feel the patient has a pneumonia Further note: I do not feel the patient has a pneumonia at this time, I have decided to discontinue her antibiotics. Code Visit Inpatient E&M: 84273 Subs Hosp L2
[2019-05-16] MEDS: Atorvastatin Calcium 20 MG Tablet PO (21:55)
[2019-05-16] MEDS: MELATONIN 3 MG TABLET PO (22:11)
[2019-05-17] VITALS (13 sets, daily range): BP systolic 103–124; BP diastolic 48–68; PULSE 71–89; RESP 18–28; TEMP 36.6–37; O2SAT 92–95
[2019-05-17] MEDS: Levothyroxine 50 MCG Tablet PO (05:28)
[2019-05-17] MEDS: Acetaminophen 500 MG Tablet 1000 MG PO ×3 (05:28→21:20)
[2019-05-17 06:55] LABS: Absolute Lymphocyte Count 1.45 X10^3/uL (0.83-4.51); Absolute Neutrophil Count 5.5 X10^3/uL (2.0-7.7); Basophil# 0.04 X10^3/uL; Basophil% 0.5 % (0-1); Eosinophil# 0.26 X10^3/uL; Eosinophils% 3.2 % (0-5); Hematocrit 27.8 % (37-47); Hemoglobin 9.1 g/dL (12.0-15.0); Lymphocyte # 1.45 X10^3/ul (4.0); Mean Corp Hgb Conc 32.7 g/dL (32-36); Mean Corpuscular Hgb 30.7 pg (27.0-32.0); Mean Corpuscular Volume 93.9 fL (81-99); Mean Platelet Vol. 9.7 fl (6.2-12.0); Monocyte# 0.78 X10^3/uL; Monocyte% 9.7 % (0-10); NRBC Flagged by Analyzer 0 % (0-5); Neutrophil % 68.2 % (47-70); Platelet Count 421 K/mm3 (150-450); RBC Distribution Width CV 13.3 % (11.6-14.6); Red Blood Count 2.96 M/mm3 (4.2-5.4); White Blood Count 8.1 K/mm3 (4.4-11.0)
[2019-05-17 07:19] LABS: Anion Gap 8 (5-15); BUN 23 mg/dL (7-18); BUN/Creat Ratio 35.1 RATIO (10-20); Calcium,Total 8.7 mg/dL (8.5-10.1); Chloride 104 mmol/L (98-107); Creatinine, Serum 0.66 mg/dL (0.55-1.02); EST Glomerular Filtration Rate 93 mL/min (>60); Est Glom Filt Rate - Afr Amer 113 mL/min (>60); Estimated Creatinine Clearance 43.07 ml/min; Glucose 104 mg/dL (74-106); Sodium Level 137 mmol/L (136-145)
[2019-05-17] MEDS: Vitamin B Comp W-C Capsule 1 CAP PO (09:11)
[2019-05-17] MEDS: Multivitamins,Therapeutic Tablet 1 TABLET PO (09:11)
[2019-05-17] MEDS: Magnesium Oxide 400 MG Tablet 800 MG PO ×2 (09:12→21:19)
[2019-05-17] MEDS: Paroxetine 20 MG Tablet 40 MG PO (09:12)
[2019-05-17] MEDS: Carvedilol 3.125 MG TABLET PO ×2 (09:13→21:18)
[2019-05-17] MEDS: Losartan Potassium 100 MG Tablet PO (10:55)
[2019-05-17] MEDS: Furosemide 40 MG/4 ML Vial IV ×2 (10:55→18:19)
[2019-05-17] MEDS: APIXABAN 2.5 MG TABLET PO ×2 (10:55→21:18)
[2019-05-17] MEDS: guaiFENesin 1,200 MG Tablet 1200 MG PO ×2 (10:56→21:20)
[2019-05-17] MEDS: Clopidogrel Bisulfate 75 MG Tablet PO (10:57)
[2019-05-17] MEDS: 0.9% Saline Lock 10 ML Syringe IV ×2 (10:58→18:19)
--- NOTE | 2019-05-17 12:26 | PN.CARD_ITS ---
Subjectve: Patient seen and evaluated. Objective: Vital Signs Temp Pulse Resp BP Pulse Ox 97.9 F 81 18 120/68 95 05/17/19 09:45 05/17/19 09:45 05/17/19 09:45 05/17/19 09:45 05/17/19 09:45 Oxygen Flow Rate (L/min) 2 Oxygen Delivery Method Nasal Cannula Weight: 140 lb 10.479 oz Body Mass Index (BMI) 24.2 Intake and Output for Last 24 Hours 05/15/19 05/16/19 05/17/19 23:59 23:59 23:59 Intake Total 1450 / 1450 1195 / 1195 50 / 50 Balance 1450 / 1450 1195 / 1195 50 / 50 General: Awake, Alert, Oriented x 3 HEENT: PERRL, EOMI, Sclera Non Icteric Neck: Supple, Good ROM, No Lymph Node Enlargement Lungs: Diminished Sanjay Bases Cardiovascular: Regular Rhythm, Normal S1, Normal S2, No Murmurs, No Rubs, No Gallops Vascular: No Carotid Bruits, Normal Femoral Pulses, Normal Radial Pulses, Normal Dorsalis Pedal Pulse, Normal Posterior Tibial Pulses Abdomen: Bowel Sounds Present, Soft, Non Tender, No HSM, No Organomegaly Extremities: No Cyanosis, No Clubbing, No edema Musculoskeletal: No Erythema Skin: No Rashes Lymphatic: No Lymph Node Enlargement Neurological: No Focal Motor or Sensory Deficit Psych/Mental Status: Appropriate 05/17/19 06:31: Sodium 137, Potassium 3.0 L, Chloride 104, Carbon Dioxide 25.0, Anion Gap 8, BUN 23 H, Creatinine 0.66, Est GFR (MDRD) Af Amer 113, Est GFR (MDRD) Non-Af 93, BUN/Creatinine Ratio 35.1 H, Glucose 104, Calcium 8.7 05/17/19 06:31: WBC 8.1, RBC 2.96 L, Hgb 9.1 L, Hct 27.8 L, MCV 93.9, MCH 30.7, MCHC 32.7, Plt Count 421, MPV 9.7, Immature Gran % (Auto) 0.400, Neut % (Auto) 68.2, Lymph % (Auto) 18.0 L, Cass % (Auto) 9.7, Eos % (Auto) 3.2, Baso % (Auto) 0.5, Absolute Neuts (auto) 5.5, Nucleated RBC % 0 Rhythm: EKG: ECHO: Stress Test: Cardiac Cath: PCI: CT Surgery: Holter monitor: EPS: PPM: CXR: Chest CT Scan: Medical Necessity - Tobacco Use Smoking Status: Smoker, status unknown Tobacco Use: Cigarettes Assessment/Plan 1. Non-ST elevation myocardial infarction * Patient presents with shortness of breath and is noted to have abnormal cardiac enzymes suggestive of a non-ST elevation myocardial infarction. My recommendation at this time would be for her to consider a cardiac catheterization to assess her coronary anatomy. Her last stress test was in 2017 and in 2019 she did have preserved ejection fraction by echocardiographic criteria. * Patient underwent cardiac catheterization which demonstrated the following * Normal left main coronary artery * Left anterior descending artery with moderate calcification and mid segment 90% stenosis * First diagonal vessel with diffuse disease * Codominant left circumflex artery with moderate mid segment disease * Totally occluded mid right coronary artery and a small vessel with [id number] collaterals * Based on the above angiographic findings the patient underwent limited angioplasty of the left anterior descending artery. Significant calcification noted. 2. Hypertension * Her blood pressure appears to be under suboptimal control. Would continue with losartan at a higher dose. * We will also add low-dose beta-bishnu to her regimen. * 3. Congestive heart failure * Patient presents with shortness of breath and bilateral rales and elevated natruretic peptide suggestive of congestive heart failure. The above is likely secondary to ischemia. * Would recommend diuresis and replacement of her potassium. We will give her another day of IV Lasix twice daily * Echocardiogram demonstrated reduced left ventricular systolic function estimated EF of 30 to 35% with segmental wall motion of normalities including nearly akinetic anterior wall. * We will continue losartan * Eventually would need Lasix during discharge 4. Left bundle branch block * It appears she has a chronic left bundle branch block. * We will continue to follow the above. * Above has all been discussed with the patient, her family, and Dr. Carson and all in agreement. * Thank you for allowing me to participate in the care of your patient. Please don't hesitate to call if any issues arise
[2019-05-17] MEDS: Calcium Carbonate 500 MG Tablet 1000 MG PO ×2 (17:07→23:20)
--- NOTE | 2019-05-17 18:02 | PCM.PROGNOTE ---
Subjective: Patient was seen and examined today, she is no longer on any supplemental oxygen, I talked with the patient and her daughters who are in the room today during the time my examination. Also discussed her care with cardiology. Patient does not complain of any chest pain or shortness of breath. - Physical Exam Vitals/I&O's: Vital Signs Temp Pulse Resp BP Pulse Ox 97.9 F 87 18 103/48 L 94 05/17/19 14:00 05/17/19 15:00 05/17/19 14:00 05/17/19 14:00 05/17/19 14:00 Oxygen Flow Rate (L/min) 2 Oxygen Delivery Method Nasal Cannula Weight: 63.8 kg Body Mass Index (BMI) 24.2 Intake and Output for Last 24 Hours 05/15/19 05/16/19 05/17/19 23:59 23:59 23:59 Intake Total 1450 / 1450 1195 / 1195 570 / 570 Balance 1450 / 1450 1195 / 1195 570 / 570 General: Alert, Oriented x3, Cooperative, No apparent distress, Well developed, Well nourished HEENT: Atraumatic, PERRLA, EOMI, Normocephalic Oral: Moist Mucosa Neck: Supple, No Nuchal Rigidity, Trachea Midline, Thyroid Normal Size and Texture Lungs: Clear to auscultation, Normal air movement, No rhonchi, No wheeze, Rales - Scattered inspiratory rales over the patient's right and left lung Cardiovascular: Regular rate, Regular Rhythm, Normal S1, Normal S2, No murmurs, PMI Normal, No rub noted Abdomen: Bowel Sounds Present, Soft, Non Tender, Non-Distended Extremities: No clubbing, No cyanosis, Capillary Refill Less than 3 Seconds Skin: No rashes, No breakdown Musculoskeletal: No Tenderness to Palpation of Joints or Extremities Neurological: Cranial nerves II-XII grossly intact, Neuro grossly intact, Sensory exam intact to light touch and pain, Coordination normal Psych/Mental Status: Normal Affect, Appropriate, Alert and oriented to time, place, person, mood and affect Microbiology Past 72 Hours 05/14/19 16:40 Mucosa - Nasopharyngeal Respiratory Panel (PCR) - Final Laboratory Results 05/17/19 06:31: Sodium 137, Potassium 3.0 L, Chloride 104, Carbon Dioxide 25.0, Anion Gap 8, BUN 23 H, Creatinine 0.66, Estim Creat Clear Calc 43.07, Est GFR (MDRD) Af Amer 113, Est GFR (MDRD) Non-Af 93, BUN/Creatinine Ratio 35.1 H, Glucose 104, Calcium 8.7 05/17/19 06:31: WBC 8.1, RBC 2.96 L, Hgb 9.1 L, Hct 27.8 L, MCV 93.9, MCH 30.7, MCHC 32.7, RDW Std Deviation 46.0 H, RDW Coeff of Golden 13.3, Plt Count 421, MPV 9.7, Immature Gran % (Auto) 0.400, Neut % (Auto) 68.2, Lymph % (Auto) 18.0 L, [place] % (Auto) 9.7, Eos % (Auto) 3.2, Baso % (Auto) 0.5, Absolute Neuts (auto) 5.5, Absolute Lymphs (auto) 1.45, Nucleated RBC % 0 Current Medications Acetaminophen (Tylenol) 1,000 mg PO Q8 [facility] Last Admin: 05/17/19 14:07 Dose: 1,000 mg Documented by: Amlodipine Besylate (Norvasc) 5 mg PO DAILY [facility] Last Admin: 05/17/19 14:07 Dose: Not Given Documented by: Apixaban (Eliquis) 2.5 mg PO BID [facility] Last Admin: 05/17/19 10:55 Dose: 2.5 mg Documented by: Atorvastatin Calcium (Lipitor) 20 mg PO QHS [facility] Last Admin: 05/16/19 21:55 Dose: 20 mg Documented by: Atropine Sulfate () 0.5 mg IV UD PRN PRN Reason: HR <50 bpm Calcium Carbonate (Tums) 1,000 mg PO Q4H PRN PRN PRN Reason: INDIGESTION Last Admin: 05/17/19 17:07 Dose: 1,000 mg Documented by: Carvedilol (Coreg) 3.125 mg PO BID [facility] Last Admin: 05/17/19 09:13 Dose: 3.125 mg Documented by: Clopidogrel Bisulfate (Plavix) 75 mg PO DAILY [facility] Last Admin: 05/17/19 10:57 Dose: 75 mg Documented by: Furosemide (Lasix) 40 mg IV BIDLX [facility] Last Admin: 05/17/19 10:55 Dose: 40 mg Documented by: Guaifenesin (Mucinex) 1,200 mg PO BID [facility] Last Admin: 05/17/19 10:56 Dose: 1,200 mg Documented by: Heparin Sodium (Beef Lung) (Heparin 500 Unit/5 Ml (100/Ml)) 500 unit IV UD PRN PRN Reason: HEPARIN FLUSH Sodium Chloride () 1,000 mls @ 0 mls/hr IV .Q0M [facility] Levothyroxine Sodium (Synthroid) 50 mcg PO DAILY@0600 [facility] Last Admin: 05/17/19 05:28 Dose: 50 mcg Documented by: Lidocaine (Lidoderm Patch) 1 patch TOPICAL DAILY PRN; Protocol PRN Reason: low back pain Last Admin: 05/13/19 21:00 Dose: 1 patch Documented by: Losartan Potassium (Cozaar) 100 mg PO DAILY [facility] Last Admin: 05/17/19 10:55 Dose: 100 mg Documented by: Magnesium Oxide (Mag-Ox 400) 800 mg PO BID [facility] Last Admin: 05/17/19 09:12 Dose: 800 mg Documented by: Melatonin (Melatonin) 3 mg PO QHS PRN PRN Reason: SLEEP Last Admin: 05/16/19 22:11 Dose: 3 mg Documented by: Multivitamins (Multivitamin) 1 tablet PO DAILY@0800 [facility] Last Admin: 05/17/19 09:11 Dose: 1 tablet Documented by: Multivitamins (Allbee W/C Caplet, Thera B Comp/C) 1 capsule PO DAILY [facility] Last Admin: 05/17/19 09:11 Dose: 1 capsule Documented by: Nitroglycerin (Nitrostat) 0.4 mg SUBLINGUAL Q5M PRN PRN Reason: CARDIAC/CHEST PAIN Ondansetron HCl (Zofran) 4 mg IV Q6H PRN PRN PRN Reason: NAUSEA/VOMITING Last Admin: 05/15/19 06:09 Dose: 4 mg Documented by: Paroxetine HCl (Paxil) 40 mg PO DAILY [facility] Last Admin: 05/17/19 09:12 Dose: 40 mg Documented by: Sodium Chloride () 10 - 40 ml IV UD PRN PRN Reason: SALINE FLUSH Last Admin: 05/17/19 10:58 Dose: 10 ml Documented by: Sodium Chloride () 500 ml IV BOLUS PRN PRN Reason: VASO-VAGAL PROTOCOL Medical Necessity - Tobacco Use Smoking Status: Smoker, status unknown Tobacco Use: Cigarettes Assessment/Plan All Active Problems (Last Updated 05/13/19 @ 17:53 by Mable Wood) Non-ST elevated myocardial infarction (non-STEMI) (Acute 05/12/19) History of coronary angioplasty (Resolved 05/13/19) Chest pain (Resolved) History of Clostridium difficile colitis (Resolved) Hypotension (Resolved) #1 [id number] post angioplasty postop day 4 mid LAD, patient appears stable cardiac victoria at this time #2 acute on chronic systolic congestive heart failure - patient's oxygenation is improved today, continue present medications #3 mild pulmonary hypertension #4 diffuse coronary artery disease #5 ischemic cardiomyopathy #6 hypertension #7 leukocytosis-resolved, patient's white blood cell count today was normal I do not feel the patient has a pneumonia at this time Code Visit Inpatient E&M: 65387 Subs Hosp L2
[2019-05-17] MEDS: Atorvastatin Calcium 20 MG Tablet PO (21:19)
[2019-05-17] MEDS: MELATONIN 3 MG TABLET PO (21:26)
[2019-05-18 03:09] VITALS: PULSE 75
[2019-05-18 03:27] VITALS: BP 122/69; PULSE 80; RESP 21; TEMP 36.7; O2SAT 93
[2019-05-18] MEDS: Acetaminophen 500 MG Tablet 1000 MG PO (06:37)
[2019-05-18] MEDS: Levothyroxine 50 MCG Tablet PO (06:37)
[2019-05-18] MEDS: Calcium Carbonate 500 MG Tablet 1000 MG PO ×2 (06:38→12:00)
[2019-05-18 07:00] VITALS: PULSE 87
--- NOTE | 2019-05-18 07:28 | RAD_ITS ---
STUDY: X-RAY CHEST REASON FOR EXAM: Female, 74 years old. Shortness of breath TECHNIQUE: PA and lateral views of the chest. COMPARISON: 05/16/2019 FINDINGS: Central pulmonary vascular congestion and interstitial thickening similar since the prior study. Trace bilateral pleural effusions noted. There is mild cardiac enlargement. Normal mediastinum and fina. There is prominence of the pulmonary hilar arteries and peripheral pulmonary arteries, consistent with congestive heart failure (CHF). Normal visualized aortic arch and descending thoracic aorta. There is demineralization of the osseous structures. There is degenerative osteoarthritis of the bilateral shoulders. There is no demonstrated abnormality of the visualized soft tissue structures of the upper abdomen. RAD/Chest PA and Lateral IMPRESSION: Stable mild CHF with interstitial edema and trace effusions. Electronically Signed: Philip Judd MD (Brooks) at 12:55 EST , Service support ,
[2019-05-18] MEDS: Multivitamins,Therapeutic Tablet 1 TABLET PO (09:02)
[2019-05-18] MEDS: Vitamin B Comp W-C Capsule 1 CAP PO (09:02)
[2019-05-18] MEDS: Carvedilol 3.125 MG TABLET PO (09:03)
[2019-05-18] MEDS: APIXABAN 2.5 MG TABLET PO (09:03)
[2019-05-18] MEDS: Magnesium Oxide 400 MG Tablet 800 MG PO (09:04)
[2019-05-18 09:27] VITALS: BP 103/56; PULSE 78; RESP 16; TEMP 36.6; O2SAT 94
[2019-05-18 10:00] VITALS: O2SAT 89; O2SAT 94
[2019-05-18] MEDS: guaiFENesin 1,200 MG Tablet 1200 MG PO (10:19)
[2019-05-18] MEDS: Paroxetine 20 MG Tablet 40 MG PO (10:20)
[2019-05-18] MEDS: Clopidogrel Bisulfate 75 MG Tablet PO (10:20)
[2019-05-18] MEDS: Losartan Potassium 100 MG Tablet PO (10:21)
--- NOTE | 2019-05-18 11:41 | DCINST_ITS ---
You will use the following diet at home:: No restrictions Your food should be the consistency of: Regular Your liquids should be the consistency of: Regular/Thin Discharge Activity: Return to Normal Activity Weight Bearing Status: Full weight bearing Additional Instructions: weight daily-call physician if 5 pound or more weight gain over 5 days Allergies/Adverse Reactions: Allergies Sulfa (Sulfonamide Antibiotics) Allergy (Verified 05/12/19 14:58) Unknown Medications to take at Discharge Cholecalciferol (Vitamin D3) [Vitamin D3] 400 unit PO DAILY 05/02/14 Multivitamins,Therapeutic [Multivitamin] 1 tab PO DAILY 05/02/14 Levothyroxine [Synthroid] 50 mcg PO DAILY 07/20/16 Losartan Potassium [Cozaar] 100 mg PO DAILY 07/20/16 Simvastatin [Zocor] 40 mg PO QHS 07/20/16 potassium chloride ER 20 mEq tablet,extended release(part/cryst) 20 meq PO DAILY #30 tab 03/24/19 vitamin B complex and vit C no.3 15 mg-10 mg-50 mg-5 mg-300 mg capsule 1 cap PO DAILY 04/08/19 amlodipine 5 mg tablet 5 mg PO DAILY tab 04/15/19 Calcium Carbonate [Tums Ultra Strength] 1,177 mg PO QHS 04/22/19 Apixaban [Eliquis] 2.5 mg PO BID #42 tab 04/30/19 Oxycodone [Oxyir] 5 - 10 mg PO Q4H PRN PRN #60 tab 04/30/19 Clorazepate [Tranxene] 3.75 mg PO TID PRN PRN #10 tab 05/02/19 paroxetine 40 mg tablet 40 mg PO DAILY #90 tab 05/09/19 Acetaminophen [Tylenol] 1,000 mg PO Q8H 05/12/19 Magnesium Oxide [Mag-Ox 400] 800 mg PO BID 05/12/19 Carvedilol [Coreg (Beta Arleth)] 3.125 mg PO BID #60 tab 05/18/19 Clopidogrel Bisulfate [Plavix] 75 mg PO DAILY #30 tab 05/18/19 Furosemide [Lasix] 40 mg PO BIDLX #60 tablet 05/18/19 The following prescriptions were given: Carvedilol [Coreg (Beta Arleth)] 3.125 mg PO BID #60 tab Furosemide [Lasix] 40 mg PO BIDLX #60 tablet Clopidogrel Bisulfate [Plavix] 75 mg PO DAILY #30 tab Primary Care Physician: Hector Walker MD [Primary Care Provider] - Please follow up with your Primary Care Physician in: as directed Test Results: Test results from this visit will be discussed in further detail at your follow- up appointment, if applicable. Please Follow Up With: Bairon Stephen MD
[2019-05-18 11:44] VITALS: BP 103/56; PULSE 78; RESP 16; TEMP 36.6; O2SAT 94
--- NOTE | 2019-05-18 11:57 | PCA ---
Faxed discharge paperwork to [facility]. Spoke with oncstar Marcus on the phone and notified her of discharge.
[2019-05-18] MEDS: Furosemide 40 MG Tablet PO (11:59)
--- NOTE | 2019-05-18 12:43 | NURSING ---
1100-pt up and and ambulated farther than ever today. walked around entire nurses station. alf spo2 checked and was 89% but only few seconds then when up to 94. dr. metcalf aware. pt to be dc'd today
--- NOTE | 2019-05-18 18:34 | PCM.DC.SUM ---
Discharge Date and Diagnosis Date of Admission: 05/12/19 Date of Discharge: 05/18/19 - Primary Discharge Diagnosis #1 non-STEMI #2 acute on chronic systolic congestive heart failure #3 occlusive coronary disease #4 mild pulmonary hypertension #4 diffuse coronary artery disease #5 ischemic cardiomyopathy #6 hypertension #7 leukocytosis #8 scattered pulmonary fibrosis #9 hypokalemia #10 anemia-etiology unclear - Secondary Discharge Diagnosis Chronic Problems (Last Updated 05/13/19 @ 17:53 by Mable Wood) Atherosclerosis of coronary artery of [place] heart without angina pectoris (Chronic) [id number] LAD 05/13/19 Acute on chronic combined systolic (congestive) and diastolic (congestive) heart failure (Chronic) Secondary pulmonary arterial hypertension (Chronic) Essential (primary) hypertension (Chronic) HLD (hyperlipidemia) (Chronic) Hospital Course and Treatment Operations: None Procedures: 2-D Echocardiogram, Cardiac catheterization - With PTCA LAD Summary of Care Provided: The patient is a 74 year old F who was seen in the emergency room at [facility] with a chief complaint of chest pain and shortness of breath. On April 29, 2019, patient had a total right hip arthroplasty performed. Work-up in the emergency room included an EKG which showed normal sinus rhythm at 77 with a left bundle branch block, troponin was 5.74, potassium was 2.9, white blood cell count was slightly elevated at 13.6, chest x-ray showed the presence of mild congestive heart failure. Cardiology was contacted and the hospitalist service was contacted for admission, patient was admitted to PCU and seen in consultation by cardiology. On 05/13/2019 she underwent a cardiac catheterization and attempted stent placement, stent could not be placed but the patient underwent a PTCA to the LAD. Patient tolerated procedure well, she was treated for systolic congestive heart failure, echocardiogram was obtained which showed an estimated ejection fraction of 35%, pulmonary artery systolic pressure was 55 mm. Patient was treated with IV diuretics and improved slowly during her hospitalization, she required oxygen for short period of time due to hypoxia. On 05/18/2019, patient was seen and examined: On examination she appeared in good health and spirits. Vital signs as documented. Skin warm and dry and without overt rashes. Neck without JVD. Lungs-scattered inspiratory rales are noted bilaterally. Heart exam notable for regular rhythm, normal sounds and absence of murmurs, rubs or gallops. Abdomen unremarkable and without evidence of organomegaly, masses, or abdominal aortic enlargement. Extremities nonedematous. Neuro: Cranial nerves II through XII are grossly intact, no focal motor deficits were noted, sensation to light touch and pinprick is intact. Psych: Patient is alert and oriented x3, she does not appear anxious or depressed. On 05/18/2019, patient was seen and examined and felt to be in stable condition for discharge home, patient's pulse ox was transiently low at 88% on room air ambulating, I discussed the use of oxygen with her and her daughter at home and the patient elected not to wear oxygen at home and I felt this was appropriate. Her pulse ox on room air was above 88%. - Physical Exam Vitals/I&O's: Vital Signs Temp Pulse Resp BP Pulse Ox 97.9 F 78 16 103/56 L 94 05/18/19 11:44 05/18/19 11:44 05/18/19 11:44 05/18/19 11:44 05/18/19 11:44 Oxygen Flow Rate (L/min) 2 Oxygen Delivery Method Room Air Weight: 62.9 kg Body Mass Index (BMI) 24.2 Intake and Output for Last 24 Hours 05/16/19 05/17/19 05/18/19 23:59 23:59 23:59 Intake Total 1195 / 1195 1140 / 1140 40 / 40 Balance 1195 / 1195 1140 / 1140 40 / 40 Discharge Activity: Return to Normal Activity Weight Bearing Status: Full weight bearing Home Medications: Medications to take at Discharge Cholecalciferol (Vitamin D3) [Vitamin D3] 400 unit PO DAILY 05/02/14 Multivitamins,Therapeutic [Multivitamin] 1 tab PO DAILY 05/02/14 Levothyroxine [Synthroid] 50 mcg PO DAILY 07/20/16 Losartan Potassium [Cozaar] 100 mg PO DAILY 07/20/16 Simvastatin [Zocor] 40 mg PO QHS 07/20/16 potassium chloride ER 20 mEq tablet,extended release(part/cryst) 20 meq PO DAILY #30 tab 03/24/19 vitamin B complex and vit C no.3 15 mg-10 mg-50 mg-5 mg-300 mg capsule 1 cap PO DAILY 04/08/19 amlodipine 5 mg tablet 5 mg PO DAILY tab 04/15/19 Calcium Carbonate [Tums Ultra Strength] 1,177 mg PO QHS 04/22/19 Apixaban [Eliquis] 2.5 mg PO BID #42 tab 04/30/19 Oxycodone [Oxyir] 5 - 10 mg PO Q4H PRN PRN #60 tab 04/30/19 Clorazepate [Tranxene] 3.75 mg PO TID PRN PRN #10 tab 05/02/19 paroxetine 40 mg tablet 40 mg PO DAILY #90 tab 05/09/19 Acetaminophen [Tylenol] 1,000 mg PO Q8H 05/12/19 Magnesium Oxide [Mag-Ox 400] 800 mg PO BID 05/12/19 Carvedilol [Coreg (Beta Arleth)] 3.125 mg PO BID #60 tab 05/18/19 Clopidogrel Bisulfate [Plavix] 75 mg PO DAILY #30 tab 05/18/19 Furosemide [Lasix] 40 mg PO BIDLX #60 tab 05/18/19 Following Prescrptions Were Given to Patient: Carvedilol [Coreg (Beta Arleth)] 3.125 mg PO BID #60 tab Furosemide [Lasix] 40 mg PO BIDLX #60 tab Clopidogrel Bisulfate [Plavix] 75 mg PO DAILY #30 tab Primary Care Physician: Hector Walker MD [Primary Care Provider] - Please follow up with your Primary Care Physician in: as directed Please Follow Up With: Bairon Stephen MD Disposition: Home Minutes spent on discharge:: 33 Patient Condition:: Stable Medical Necessity - Tobacco Use Smoking Status: Smoker, status unknown Tobacco Use: Cigarettes Meaningful Use Info Meaningful Use Diagnoses (Choose all that apply): AMI, CHF - AMI Aspirin given w/in 24hrs of arrival?: Yes ASA at discharge?: Yes Statins at discharge?: Yes Nahum/ARB at discharge?: Yes Beta Arleth at discharge?: Yes Done w/ Acute AL measure.: Yes Documented LVEF (%): 35 - CHF NAHUM/ARB ordered at discharge?: Yes Documented LVEF (%): 35 Code Visit Inpatient E&M: 74317 Disch Hosp
== END 2019-05-18 12:46 | disposition home or self-care (01) | DRG 250 ==
LOC: ED 15:29 → PCU 18:01 → ICU 05-13 09:04 → PCU 05-14 18:40
PROVIDERS: Internal Medicine; Specialist; Admitting Provider Internal Medicine; Emergency Provider Emergency Medicine; Family Provider Internal Medicine; PCP Internal Medicine; Referring Provider Internal Medicine; Visit Provider Internal Medicine
DX: I21.4 Non-ST elevation (NSTEMI) myocardial infarction (principal); I50.23 Acute on chronic systolic (congestive) heart failure; E87.6 Hypokalemia; I44.7 Left bundle-branch block, unspecified; E03.9 Hypothyroidism, unspecified; I11.0 Hypertensive heart disease with heart failure; E55.9 Vitamin D deficiency, unspecified; K58.9 Irritable bowel syndrome, unspecified; J84.10 Pulmonary fibrosis, unspecified; I25.10 Atherosclerotic heart disease of native coronary artery without angina pectoris; I25.5 Ischemic cardiomyopathy; Z96.641 Presence of right artificial hip joint; D64.9 Anemia, unspecified; E78.5 Hyperlipidemia, unspecified; Z87.891 Personal history of nicotine dependence
CPT/HCPCS: 36415; 71045; 71046; 80048; 80053; 80061; 83735; 83880; 84100; 84484; 85025; 85027; 87449; 87633; 87641; 92920; 93005; 93306; 93454; 93567; 93970; 94640; 94667; 94668; 97110; 97162; 97166; 97530; 97535; 99152; 99153; 99251; 99285; J7030; Q9957; Q9967; A4216; C1725; C1769; C1887; C1894; C8929; G0463; J1940; J2405

== ENCOUNTER 2019-06-12 12:27 | Outpatient (RCR) | payer MEDICARE, SELFPAY ==
[2019-06-09 07:54] VITALS: BMI 22.8
--- NOTE | 2019-08-01 07:28 | HP.PT.NRP ---
HP - Discharge Summary (1) - Patient Information SOLANGE TURCIOS was seen in my office for initial evaluation on 06/12/19. The following Plan of Care was established for this patient: Initial Frequency: f/u one month - Anticipated Interventions Patient/Client Instruction: Educate patient on: Condition, Plan of Care For the Purpose of:: To improve muscle performance and motor function, To improve ability of physical actions for home/community/work/leisure, To improve gait and locomotor functions Therapeutic Exercise to Include: Strength training, Flexibilty training, Active ROM For the Purpose of:: To improve muscle performance and motor function, To improve ability of physical actions for home/community/work/leisure, To improve gait and locomotor functions This patient was last seen in our office 06/12/19. Pertinent comments regarding their Physical therapy will appear below: Pt seen one visit for HEP instruct adn was to f/u one month later for progression. She neglected to schedule or attend. At this point, it has been nearly two months and I will discontinue due to nonattendance. At this point I will be discontinuing this patient from physical therapy. I would be happy to see this patient again in the future if found appropriate by the physician. Thank you! Jama Hardin, DPT, OCS, CSCS
== END 2019-06-12 19:00 | disposition home or self-care (01) ==
LOC: PT 12:27
PROVIDERS: Family Provider Internal Medicine; PCP Internal Medicine; Referring Provider Orthopaedic Surgery; Visit Provider Orthopaedic Surgery
DX: Z98.890 Other specified postprocedural states (principal)
CPT/HCPCS: 97110; 97162

== ENCOUNTER → 2019-08-06 13:21 | Outpatient (CLI) | payer MEDICARE, SELFPAY ==
[2019-07-30 13:17] VITALS: BMI 22.6
--- NOTE | 2019-08-06 13:23 | BI_ITS ---
MAMMOGRAPHY - BILATERAL SCREENING REASON FOR EXAM: Female, 74 years old. Routine annual screening examination. PERTINENT HISTORY: Sister with breast cancer. Mother with breast cancer. TECHNIQUE: Digital bilateral breast servando (3D mammographic acquisition) in the CC and MLO projections. 2-D mediolateral oblique (MLO) and craniocaudad (CC) views of both breasts were obtained. CAD: Full Field Digital Mammography with Computer Added Detection was performed. COMPARISON: Comparison is made with prior examination dated August 05, 2018 and May 30, 2017. FINDINGS: Breast Composition: There are scattered areas of fibroglandular density. There are no dominant masses or suspicious calcifications. No other significant abnormalities are identified. There has been no significant change since the prior study. BI/SCREEN MAMM (CAD) W/SERVANDO BILAT IMPRESSION: Stable bilateral screening mammogram. Yearly follow-up mammogram recommended. (A) ASSESSMENT CATEGORY: BIRADS Category 1: Negative. A letter regarding these results will be sent to the patient by the facility within 30 days. Approximately 10% of breast cancers are not detected by mammography. A normal mammogram should not delay biopsy of a clinically suspicious abnormality. [id number] Electronically Signed: Sai Grey, at 14:20 EST , Service support ,
== END ==
PROVIDERS: PCP Internal Medicine; Referring Provider Nurse Practitioner Family; Visit Provider Nurse Practitioner Family
DX: Z12.31 Encounter for screening mammogram for malignant neoplasm of breast (principal); Z80.3 Family history of malignant neoplasm of breast
CPT/HCPCS: 77063; 77067

== ENCOUNTER → 2019-12-11 14:35 | Outpatient (CLI) | payer MEDICARE, SELFPAY ==
[2019-11-24 13:24] VITALS: BMI 21.6
[2019-12-05 16:11] VITALS: BMI 21.6
--- NOTE | 2019-12-11 14:39 | BI_ITS ---
MAMMOGRAPHY - BILATERAL SCREENING REASON FOR EXAM: Female, 74 years old. Routine annual screening examination. PERTINENT HISTORY: Sister with breast cancer. Mother with breast cancer. TECHNIQUE: Digital bilateral breast servando (3D mammographic acquisition) in the CC and MLO projections. 2-D mediolateral oblique (MLO) and craniocaudad (CC) views of both breasts were obtained. CAD: Full Field Digital Mammography with Computer Added Detection was performed. COMPARISON: Comparison is made with prior study dated August 06, 2019 and August 05, 1999. FINDINGS: Breast Composition: There are scattered areas of fibroglandular density. There are no dominant masses or suspicious calcifications. No other significant abnormalities are identified. There has been no significant change since the prior study. BI/SCREEN MAMM (CAD) W/SERVANDO BILAT IMPRESSION: Stable bilateral screening mammogram. Yearly follow-up mammogram recommended. (A) ASSESSMENT CATEGORY: BIRADS Category 1: Negative. A letter regarding these results will be sent to the patient by the facility within 30 days. Approximately 10% of breast cancers are not detected by mammography. A normal mammogram should not delay biopsy of a clinically suspicious abnormality. [id number] Electronically Signed: Sai Grey, at 8:36 EDT , Service support ,
--- NOTE | 2019-12-11 14:40 | BD_ITS ---
STUDY: DUAL ENERGY X-RAY ABSORPTIOMETRY / DXA REASON FOR EXAM: Female, 74 years old. 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 COMPARISON: Comparison is made with prior study dated May 30, 2017. FINDINGS: Lumbar Spine (L1-L4): g/cm2 (1.036) / T-score (-1.1) / Z-score (0.7) Findings are suggestive of osteopenia with a low fracture risk. Left Femur Total: g/cm2 (0.797) / T-score (-1.7) / Z-score (0.1) Left Femoral Neck: g/cm2 (0.792) / T-score (-1.8) / Z-score (0.2) The T-Scores on the most recent prior examination were: Lumbar Spine (L1-L4): There has been improvement of bone density since the previous examination. Left Femur Total: which represents a worsening of 4.3%. BD/Dexa Bone Density Study IMPRESSION: The patient is considered osteopenic as outlined below according to World Jaren Organization (WHO) criteria with a moderate fracture risk. There has been worsening of bone density since the previous examination. Reference Information: The T-score is the number of standard deviations above or below the standard which is normal for young adults at their peak bone mineral density. The World Health Organization (WHO) interprets the T-scores as follows: Above -1 Normal bone density Between -1 and -2.5 Osteopenia Equal to / or below -2.5 Osteoporosis As a practical clinical guideline, osteopenia may be graded as follows: Mild -1 through -1.5 Moderate -1.6 through -2.0 Severe -2.1 through -2.4 The Z-score is the number of standard deviations above or below age-matched controls. A Z-score of less than -1.5 would be considered abnormal. References: 1. NIH Osteoporosis and Related Bone Diseases http://www.osteo.org 2. International Society for Clinical Densitometry http://www.iscd.org 3. National Osteoporosis Foundation http://www.nof.org Electronically Signed: Sai Grey, at 15:22 EDT , Service support ,
== END ==
PROVIDERS: PCP Internal Medicine; Referring Provider Internal Medicine; Visit Provider Internal Medicine
DX: Z12.31 Encounter for screening mammogram for malignant neoplasm of breast (principal); Z78.0 Asymptomatic menopausal state
CPT/HCPCS: 77063; 77067; 77080

== ENCOUNTER → 2019-12-15 14:00 | Outpatient (CLI) | payer MEDICARE, SELFPAY ==
[2019-10-30 14:07] VITALS: BMI 21.6
[2019-12-05 16:11] VITALS: BMI 21.6
--- NOTE | 2019-12-15 14:03 | ECHOCS_ITS ---
Reason For Study: CAD/ASHD Procedure This was a 2D Doppler, Color Flow transthoracic echocardiogram. Technically difficult study, patient could not tolerate laying on her left side due to severe shoulder pain. Echo was done with patient supine, contrast was used to enhance image quality. Exam performed in department. Left Ventricle Normal LV size. The estimated ejection fraction is 35 %. Septal motion consistent with IVCD. Stage 3 diastolic dysfunction. There is moderate to severe global hypokinesis of the left ventricle. Right Ventricle Normal RV size. Normal systolic function. Atria Normal left atrium. Normal right atrium. Mitral Valve Normal mitral valve. Tricuspid Valve Normal tricuspid valve. Aortic Valve Trisinus/trileaflet aortic valve. Pulmonic Valve The pulmonic valve is not well visualized. Great Vessels Normal aortic root. The pulmonary artery is normal size. Normal inferior vena cava. Pericardium/Pleural No pericardial effusion. Medication 22 gauge I.V. with prn adaptor inserted into right arm. Diluted definity 3ml given slow IV push to enhance endocardial definition. Interpretation Summary Normal LV size. The estimated ejection fraction is 35 %. Septal motion consistent with IVCD. Stage 3 diastolic dysfunction. Contrast injection was performed. Ordering Physician: Bairon Stephen Referring Physician: Hector Walker Performed By: Kirk Rico RCS
== END ==
PROVIDERS: PCP Internal Medicine; Referring Provider Internal Medicine Cardiovascular Disease; Visit Provider Internal Medicine Cardiovascular Disease
DX: I25.10 Atherosclerotic heart disease of native coronary artery without angina pectoris (principal)
CPT/HCPCS: 93306; Q9957; A4216; C8929

== ENCOUNTER 2020-01-09 19:38 | Inpatient (IN) | payer MEDICARE, SELFPAY ==
[2019-12-05 16:11] VITALS: BMI 21.6
[2020-01-09 19:40] VITALS: BP 158/70; PULSE 78; RESP 16; TEMP 36.8; O2SAT 97; BMI 21.1
[2020-01-09 20:04] VITALS: BP 161/63; PULSE 76; RESP 18; TEMP 38.8; O2SAT 97
[2020-01-09 20:57] LABS: Absolute Lymphocyte Count 1.61 X10^3/uL (0.83-4.51); Absolute Neutrophil Count 5.3 X10^3/uL (2.0-7.7); Basophil# 0.04 X10^3/uL; Basophil% 0.5 % (0-1); Eosinophil# 0.05 X10^3/uL; Eosinophils% 0.7 % (0-5); Hematocrit 34.3 % (37-47); Lymphocyte # 1.61 X10^3/ul (4.0); Mean Corpuscular Hgb 30.9 pg (27.0-32.0); Mean Corpuscular Volume 88.4 fL (81-99); Mean Platelet Vol. 9.3 fl (6.2-12.0); Monocyte# 0.65 X10^3/uL; Monocyte% 8.5 % (0-10); NRBC Flagged by Analyzer 0 % (0-5); Neutrophil # 5.31 X10^3/uL (2.7-7.7); Platelet Count 321 K/mm3 (150-450); RBC Distribution Width CV 12.6 % (11.6-14.6); RBC Distribution Width SD 40.8 fl (35.1-43.9); Red Blood Count 3.88 M/mm3 (4.2-5.4); White Blood Count 7.7 K/mm3 (4.4-11.0)
[2020-01-09] MEDS: Ondansetron ODT 4 MG Tablet PO (20:57)
--- NOTE | 2020-01-09 21:00 | RAD_ITS ---
STUDY: X-RAY CHEST REASON FOR EXAM: Female, 74 years old. STARTED TODAY WITH N/V/D,CHILLS JOHN, TECHNIQUE: AP portable COMPARISON: May 18, 2019 FINDINGS: The lungs are clear and expanded. There is no demonstrated pleural abnormality. Normal size heart. Normal mediastinum and fina. Normal visualized pulmonary arteries. Mildly calcified aortic arch and descending thoracic aorta. Dorsal spine and shoulders demonstrate degenerative change. Normal visualized ribs, and clavicles.. There is no demonstrated abnormality of the visualized soft tissue structures of the upper abdomen. RAD/Chest 1 View (Portable) IMPRESSION: No acute cardiopulmonary pathology Electronically Signed: Sujit Moraes MD at 21:18 EDT , Service support ,
--- NOTE | 2020-01-09 21:16 | ED.DCSUM_ITS ---
History of Present Illness Chief Complaint: General Illness Informant: Patient Narrative: Patient is a 74-year-old female who presents to the emergency department for fever. Her initial symptoms started earlier today. She has had some body aches as well as a mild headache. She has been nauseous and vomited 3 times today. She does have chronic diarrhea which is no worse than normal. She denies any urinary symptoms including any dysuria, frequency or hematuria. No associated abdominal pain with her nausea/vomiting. She denies any cough. No sore throat or earache. No rashes. She denies any chest pain or shortness of breath. No known sick contacts. She has not tried taking anything for this. She states that 2 days prior she did have an episode of vomiting after eating a large meal. She did feel better at that time. Nobody else got sick at that time either. Past Medical History - Allergies and Home Meds Allergies/Adverse Reactions: Allergies Sulfa (Sulfonamide Antibiotics) Allergy (Verified 01/09/20 19:42) Unknown Primary Care Physician: Hector Walker MD [Primary Care Provider] - Past Medical History: - - CAD with stent, hypertension, hyperlipidemia, history of C. difficile Surgical History: total hip arthroplasty - 04/29/19, - Smoking Status: Former smoker - Family History Maternal Family History: Family History (Last Reviewed 10/14/19 @ 11:[address] Bairon Stephen MD) Sister Asthma Anxiety Breast cancer Diabetes Respiratory disease Skin cancer Mother Breast cancer Father Depression Grandmother Colon cancer Grandfather Myocardial infarction Other Cancer Heart disease Hypertension Kidney disease Family History: Reports: High Cholesterol, Hypertension, - Paternal Family History: Family History (Last Reviewed 10/14/19 @ 11:[address] Bairon Stephen MD) Sister Asthma Anxiety Breast cancer Diabetes Respiratory disease Skin cancer Mother Breast cancer Father Depression Grandmother Colon cancer Grandfather Myocardial infarction Other Cancer Heart disease Hypertension Kidney disease Family History: Reports: - Review of Systems All systems negative except as indicated General: Reports: Chills, Fever. Denies: Sweats Eyes: Denies: Visual changes - bilaterally, Diplopia ENT: Denies: Bilateral ear pain, Rhinorrhea, Sore throat Cardiovascular: Denies: Chest pain, Palpitations Respiratory: Denies: Dyspnea, Cough, Sputum, Dyspnea on exertion Gastrointestinal: Reports: Nausea, Vomiting. Denies: Abdominal pain, Diarrhea, Melena, Hematochezia Genitourinary: Denies: Dysuria, Hematuria, Frequency Musculoskeletal: Denies: Back pain, Extremity Pain Skin: Denies: Rash, Wounds Neurological: Reports: Headache. Denies: Weakness, Numbness Physical Exam Vital Signs/Narrative: Vital Signs Temp Pulse Resp BP Pulse Ox 01/09/20 20:04 101.8 F H 76 18 161/63 H 97 01/09/20 19:40 98.3 F 78 16 158/70 H 97 Inital Vital Signs reviewed: Yes General: Well nourished, Well developed, No Acute Distress Head: Normocephalic, Atraumatic Eyes: Perrl, EOMI ENT: Moist mucous membranes, No rhinorrhea, TM's clear Neck: Supple, Nontender, No lymphadenopathy Cardiovascular: Regular rate, Regular rhythm, No murmurs Respiratory: No distress, CTA bilaterally, Chest nontender Abdomen: Soft, Nontender, Nondistended, Normal bowel sounds Back: Nontender, Normal Inspection Extremities: Nontender, No edema. Negative for: Edema, Calf Tenderness Skin: Normal color, No rash Neurological: Alert, Oriented x3, Cranial nerves II-XII grossly intact, Normal Strength, Normal Sensation Psychological: Normal affect, Normal Mood Diagnostic/Tx/Re-eval - EKG Initial EKG Interpretation: - - Rate of 67 bpm and normal sinus rhythm. QRS of 152 with a left bundle branch block present. She has a history of this in the past. Otherwise no significant ST elevations or depressions appreciated. No evidence of acute ischemia or arrhythmia. - Medical Decision Making Patient presents to the emergency department for fever, headache and chills. Upon arrival to the ED she does have a fever but otherwise normal vital signs. She is nontoxic and [id number] on physical exam. Will check basic lab work along with chest x-ray and urinalysis. Will do coronavirus test. She has not had any known exposures. She is given a dose of Tylenol for symptomatic treatment. X-ray did not show any evidence of consolidation. Lab work showed the patient to be hypokalemic and we will replace this IV and orally. Magnesium pending. Her troponin did come back elevated. She has a history of elevated troponins in the past but that was when her she had her stent placed. She already did take an aspirin today as well as Plavix. I did discuss the case with the hospitalist and they are requesting a therapeutic dose of Lovenox which will give here in the emergency department. Will bring into the hospital for further evaluation and management. She understands and is agreeable this plan. ED Disposition - Plan for ED Patient: Disposition: Acute Care [facility] Diagnosis: Fever, Hypokalemia, NSTEMI (non-ST elevated myocardial infarction), Nausea and vomiting Referrals: Hector Walker MD [Primary Care Provider] -
[2020-01-09 21:20] LABS: ALB/GLOB Ratio 0.8 RATIO (0.9-2.4); AST(SGOT) 18 U/L (15-37); Alanine Aminotransfer ALT/SGPT 25 U/L (13-56); Albumin, Serum 3.4 g/dL (3.2-5.0); Alkaline Phosphatase 78 U/L (45-117); Anion Gap 7 (5-15); BUN 16 mg/dL (7-18); Calcium,Total 8.8 mg/dL (8.5-10.1); Chloride 100 mmol/L (98-107); Creatinine, Serum 0.89 mg/dL (0.55-1.02); EST Glomerular Filtration Rate 66 mL/min (>60); Est Glom Filt Rate - Afr Amer 79 mL/min (>60); Estimated Creatinine Clearance 48.39 ml/min; Globulin 4.5 g/dL (2.2-4.2); Glucose 136 mg/dL (74-106); Lipase 75 U/L (73-393); Potassium 2.6 mmol/L (3.5-5.1); Protein, Total 7.9 g/dL (6.4-8.2); Sodium Level 134 mmol/L (136-145)
--- NOTE | 2020-01-09 21:21 | EKG12_ITS ---
Test Reason : GENERAL ILLNESS Blood Pressure : / mmHG Vent. Rate : 067 BPM Atrial Rate : 067 BPM P-R Int : 148 ms QRS Dur : 152 ms QT Int : 478 ms P-R-T Axes : 049 -28 116 degrees QTc Int : 505 ms Normal sinus rhythm Left bundle branch block Abnormal ECG Confirmed by CHINO SOLORIO, WINTER ([id number]), medical transcription editor PAL CHAVARRIA ([id number]) on 01/13/2020 12:38:53 PM Referred By: DR MACHADO Confirmed By:WINTER MAGANA MD
[2020-01-09 21:24] LABS: Lactic Acid 1.3 mmol/L (0.4-1.9)
[2020-01-09] MEDS: Acetaminophen 325 MG Tablet 650 MG PO (21:30)
[2020-01-09 21:34] LABS: Magnesium 2.1 mg/dL (1.6-2.6)
[2020-01-09 21:47] VITALS: BP 161/77; PULSE 73; RESP 16; TEMP 38.2; O2SAT 99
--- NOTE | 2020-01-09 21:49 | PCM.HP.STD ---
Problem List (1) Suspected COVID-19 virus infection Status: Acute (2) Cardiac enzymes elevated Status: Acute (3) Atherosclerosis of coronary artery of [place] heart without angina pectoris Status: Chronic Qualifiers: Coronary Disease-Associated Artery/Lesion type: unspecified vessel or lesion type Qualified Code(s): I25.10 - Atherosclerotic heart disease of [place] coronary artery without angina pectoris (4) Non-ST elevated myocardial infarction (non-STEMI) Status: Resolved (5) History of coronary angioplasty Status: Resolved Comment: [id number] LAD 05/13/19 (6) Chronic combined systolic and diastolic CHF (congestive heart failure) Status: Chronic (7) Ischemic cardiomyopathy Status: Chronic (8) Left ventricular diastolic dysfunction Status: Chronic (9) Essential (primary) hypertension Status: Chronic (10) HLD (hyperlipidemia) Status: Chronic Qualifiers: Hyperlipidemia type: unspecified Qualified Code(s): E78.5 - Hyperlipidemia, unspecified (11) Left bundle branch block (LBBB) Status: Chronic History of Present Illness Date of Admission: 01/09/20 Chief Complaint: Fever, JOHN, N/V/D The patient is a 74 y/o F w/ PMHx: Chronic Systolic/Diastolic CHF, CAD s/p PCI mid LAD 05/13/19, Pulmonary Fibrosis, AOCD, HTN, HLD, Hypothyroidism, Anxiety and Depression, Chronic pain syndrome following with OLGA Guadarrama who presents to the [facility] ED on 01/09/20 with history of onset on day of ED presentation nausea with emesis and loose stools as while as fevers, chills and frontal throbbing headache prompting ED presentation in addition to myalgias and arthralgias with no recent chest pain, dyspnea or cough. She notes her headache is throbbing in nature, rated 5/10 in severity without light or sound sensitivity. She does admit to rhinorrhea but denies congestion or alteration to sense of taste or smell. She notes chronic loose stools x 3 years and denies any specific alteration. She denies any associated abdominal pain or cramping. Work-up in the ED included T101.8, heart rate 78, BP 158/70, respiratory rate 16, 97% room air, CBC with WC 7.7, hemoglobin 12, platelets 321 with no shift, CMP sodium 134, potassium 2.6, glucose 136, lactic acid 1.3, troponin 0.151, lipase 75 COVID testing pending, blood culture x 2 obtained per ED, EKG was sinus rhythm with L bundle branch block with no acute evidence of ischemia, chest x-ray with no acute cardiopulmonary findings. Past Medical History Past Medical History (Chronic Problems): Chronic Problems (Last Reviewed 10/14/19 @ 11:[address] Bairon Stephen MD) Chronic diarrhea (Chronic) Atherosclerosis of coronary artery of [place] heart without angina pectoris (Chronic) Chronic combined systolic and diastolic CHF (congestive heart failure) (Chronic) Ischemic cardiomyopathy (Chronic) Left ventricular diastolic dysfunction (Chronic) Secondary pulmonary arterial hypertension (Chronic) Essential (primary) hypertension (Chronic) HLD (hyperlipidemia) (Chronic) Left bundle branch block (LBBB) (Chronic) Medical History: Medical History (Last Reviewed 10/14/19 @ 11:[address] Bairon Stephen MD) Atherosclerosis of coronary artery of [place] heart without angina pectoris (Chronic) I25.10 Non-ST elevated myocardial infarction (non-STEMI) (Resolved) Onset Date: 05/12/19 I21.4 Chronic combined systolic and diastolic CHF (congestive heart failure) (Chronic) I50.42 Ischemic cardiomyopathy (Chronic) I25.5 Left ventricular diastolic dysfunction (Chronic) I51.9 Secondary pulmonary arterial hypertension (Chronic) I27.21 Essential (primary) hypertension (Chronic) I10 HLD (hyperlipidemia) (Chronic) E78.5 Left bundle branch block (LBBB) (Chronic) I44.7 Age related osteoporosis M81.0 Anxiety F41.9 Back problem M53.9 Cataracts, bilateral H26.9 Chronic bronchitis J42 Depression F32.9 Diarrhea R19.7 Environmental allergies Z91.09 Heart murmur R01.1 Hyperthyroidism E05.90 Hypothyroidism E03.9 IBS (irritable bowel syndrome) K58.[address] Quan 2019 Right hip pain M25.551 Scoliosis M41.9 L lumbar Segmental and somatic dysfunction of cervical region M99.01 Segmental and somatic dysfunction of lumbar region M99.03 Segmental and somatic dysfunction of pelvic region M99.05 Segmental and somatic dysfunction of thoracic region M99.02 Skin cancer C44.90 UTI (urinary tract infection) N39.0 History of Clostridium difficile colitis (Resolved) Z86.19 History of fracture of right ankle Z87.81 1988 History of wrist fracture Z87.81 Hypotension (Resolved) I95.9 Acute on chronic combined systolic (congestive) and diastolic (congestive) heart failure (Inactive) I50.43 Allergies Sulfa (Sulfonamide Antibiotics) Allergy (Verified 01/09/20 19:42) Unknown Home Medications: Ambulatory Orders Medication Instructions Recorded Cholecalciferol (Vitamin D3) 400 unit PO DAILY 05/02/14 [Vitamin D3] Multivitamins,Therapeutic 1 tab PO DAILY 05/02/14 [Multivitamin] vitamin B comp and C no.3 15 mg-10 1 cap PO DAILY 04/08/19 mg-50 mg-5 mg-300 mg capsule Calcium Carbonate [Tums Ultra 1,177 mg PO QHS 04/22/19 Strength] Magnesium Oxide [Mag-Ox 400] 800 mg PO BID 05/12/19 acetaminophen 500 mg tablet 1,000 mg PO Q8H PRN 05/28/19 aspirin 81 mg tablet,delayed 81 mg PO DAILY 06/09/19 release clopidogrel 75 mg tablet 75 mg PO DAILY #30 tab 06/11/19 losartan 25 mg tablet 25 mg PO DAILY #90 tab 07/30/19 potassium chloride 10 mEq 20 meq PO DAILY #180 tab 10/14/19 tablet,extended release(part/cryst) buspirone 5 mg tablet 2.5 mg PO BID #60 tab 10/30/19 paroxetine HCl 40 mg tablet 40 mg PO DAILY #90 tab 11/11/19 levothyroxine 50 mcg tablet 50 mcg PO DAILY #90 tab 12/02/19 rosuvastatin 20 mg tablet 20 mg PO DAILY #30 tab 12/05/19 furosemide 40 mg tablet 40 mg PO BID #60 tab 12/16/19 Carvedilol 12.5 mg PO BID 01/09/20 Surgical History: Surgical History (Last Reviewed 10/14/19 @ 11:[address] Bairon Stephen MD) History of coronary angioplasty (Resolved) Onset Date: 05/13/19 Z98.61 [id number] LAD 05/13/19 History of colonoscopy Z98.890 History of right knee surgery Z98.890 shattered Knee cap - 1967 History of total right hip arthroplasty Onset Date: 04/2019 Z96.641 Surgical History: total hip arthroplasty - 04/29/19, - - PCI to mid LAD, bilateral cataract surgery, right wrist surgery, right ankle surgery with hardware, right total hip replacement, right knee surgery following trauma, shattered. Psychiatric History: Anxiety, Depression REED REPAIRER History: No pertinent REED REPAIRER history Lives: Alone Smoking Status: Former smoker - Patient quit cigarette tobacco usage approximately 6 to 7 years prior to current presentation with prior to this slightly less than 1 pack/day cigarette tobacco use. Tobacco Use: Non-smoker Alcohol: None Drugs: None - *Family History Maternal Family History: Family History (Last Reviewed 10/14/19 @ 11:[address] Bairon Stephen MD) Sister Asthma Anxiety Breast cancer Diabetes Respiratory disease Skin cancer Mother Breast cancer Father Depression Grandmother Colon cancer Grandfather Myocardial infarction Other Cancer Heart disease Hypertension Kidney disease History Items: Cancer, High Cholesterol, Hypertension Paternal Family History: Family History (Last Reviewed 10/14/19 @ 11:[address] Bairon Stephen MD) Sister Asthma Anxiety Breast cancer Diabetes Respiratory disease Skin cancer Mother Breast cancer Father Depression Grandmother Colon cancer Grandfather Myocardial infarction Other Cancer Heart disease Hypertension Kidney disease History Items: - - Father with history of depression. Review of Systems Constitutional: Reports: Anorexia, Fever, Malaise, Weakness, Fatigue. Denies: Chills, Weight Change HEENT: Reports: - - Rhinorrhea without congestion.. Denies: Head Aches, Sinus Congestion, Sinus Drainage Cardiovascular: Reports: Light Headedness. Denies: Chest Pain, Chest Pressure, Chest Tightness, Orthopnea, Palpitations, Syncope Respiratory: Denies: Cough, Shortness of Breath, Shortness of breath at rest, Shortness of breath upon exertion, Sputum production Gastrointestinal: Reports: Diarrhea, Nausea, Vomiting. Denies: Abdominal Pain Genitourinary: Denies: Dysuria Musculoskeletal: Reports: Joint Pain, Muscle pain. Denies: Joint Tenderness Skin: Denies: Rash, Wounds Neurological: Denies: Numbness, Tingling, Focal weakness Psychiatric: Reports: Anxiety, Depression. Denies: Homicidal Ideations, Suicidal Ideations Hematologic/ Lymphatic: Reports: Easy Bruising, Easy Bleeding VTE Information - Inpt Only VTE Present on Admission: No VTE Mechan Device Prophylaxis: SCD's VTE Pharm Prophylaxis ordered?: Yes Patient Problems: Active and Suspected Problems (Last Reviewed 10/14/19 @ 11:[address] Bairon Stephen MD) Fever (Acute) Hypokalemia (Acute) Suspected COVID-19 virus infection (Acute) Cardiac enzymes elevated (Acute) Subjective: Seated upright in the ED bed, fatigued appearance otherwise no acute distress, notes feeling some improvement since antiemetics. Objective: Physical Examination: General: awake, alert, oriented x 3 and cooperative, seated upright in the ED bed, no obvious distress, notes feeling some improvement. Skin: normal color, turgor, no icterus, cyanosis. HEENT: AT/NC, EOMI, PERRLA, mildly dry MM, no carotid bruits or JVD noted. Lungs: Diminished breath sounds, greater bilateral bases, moderate effort, mild decrease BL bases, no rales, ronchi or wheezing. Heart: Regular rate and rhythm; no gallop, rub audible. Abdomen: soft, NTTP, ND, normal BS, no HSM. Extremities: no cyanosis, clubbing, or edema. Neurological: patient awake, alert, oriented x 3; cognitive function intact; pupils equally reactive to light and accomodation; cranial nerves II-XII grossly normal, moving all 4 extremities, no focal deficits, strength mildly to moderately global decrease secondary to acute presentation and complaints. Psychiatric: affect appears moderately fatigued otherwise normal, no acute evidence of depressive or anxiety feelings. - Physical Exam Vitals/I&O's: Vital Signs Temp Pulse Resp BP Pulse Ox 100.7 F H 73 16 161/77 H 99 01/09/20 21:47 01/09/20 21:47 01/09/20 21:47 01/09/20 21:47 01/09/20 21:47 Oxygen Delivery Method Room Air Weight: 127 lb Body Mass Index (BMI) 21.1 Laboratory Results 01/09/20 20:36: WBC 7.7, RBC 3.88 L, Hgb 12.0, Hct 34.3 L, MCV 88.4, MCH 30.9, MCHC 35.0, RDW Std Deviation 40.8, RDW Coeff of [place] 12.6, Plt Count 321, MPV 9.3, Immature Gran % (Auto) 0.300, Neut % (Auto) 69.0, Lymph % (Auto) 21.0, [place] % (Auto) 8.5, Eos % (Auto) 0.7, Baso % (Auto) 0.5, Absolute Neuts (auto) 5.3, Absolute Lymphs (auto) 1.61, Nucleated RBC % 0 01/09/20 20:36: Sodium 134 L, Potassium 2.6 L*, Chloride 100, Carbon Dioxide 27.0, Anion Gap 7, BUN 16, Creatinine 0.89, Estim Creat Clear Calc 48.39, Est GFR (MDRD) Af Amer 79, Est GFR (MDRD) Non-Af 66, BUN/Creatinine Ratio 18.0, Glucose 136 H, Calcium 8.8, Total Bilirubin 0.60, AST 18, ALT 25, Alkaline Phosphatase 78, Troponin I 0.151 H, Total Protein 7.9, Albumin 3.4, Globulin 4.5 H, Albumin/Globulin Ratio 0.8 L, Lipase 75 01/09/20 20:36: Lactic Acid 1.3 01/09/20 20:44: COVID-19 (ANDREW) Pending 01/09/20 21:20: Magnesium 2.1 Current Medications Potassium Chloride () 10 meq in 100 mls @ 100 mls/hr IV BOLUS Q1H JOANA Stop: 01/09/20 22:44 Assessment/Plan All Active Problems (Last Reviewed 10/14/19 @ 11:[address] Bairon Stephen MD) Fever (Acute) Hypokalemia (Acute) Suspected COVID-19 virus infection (Acute) Cardiac enzymes elevated (Acute) Non-ST elevated myocardial infarction (non-STEMI) (Resolved 05/12/19) History of coronary angioplasty (Resolved 05/13/19) Chest pain (Resolved) History of Clostridium difficile colitis (Resolved) Hypotension (Resolved) The patient is a 74 y/o F w/ PMHx: Chronic Systolic/Diastolic CHF, CAD s/p PCI mid LAD 05/13/19, Pulmonary Fibrosis, AOCD, HTN, HLD, Hypothyroidism, Anxiety and Depression, Chronic pain syndrome following with OLGA Guadarrama who presents to the [facility] ED on 01/09/20 with history of onset on day of ED presentation nausea with emesis and loose stools as while as fevers, chills and frontal throbbing headache prompting ED presentation in addition to myalgias and arthralgias with no recent chest pain, dyspnea or cough. She notes her headache is throbbing in nature. 1. Fever, N/V/D, Headache secondary to Possible Gastroenteritis versus lower suspicion Acute Viral Syndrome, COVID-19: Will admit to the COVID unit pending ED initiated COVID testing however only recent symptom onset and although lower suspicion given timeline will remain on COVID unit pending further evaluation, will maintain on oxygen with wean as tolerated to room air, continue MDI inhaler/ATC duoneb, PRN albuterol, maintain on IV Rocephin and Azithromycin pending stool/cdiff assessment, HOB, IS parameters w/ pending sputum cultures and urine antigens, will obtain procalcitonin, CRP, CPK, D-dimer, Ferritin, LDH, continue supportive care including q 2 hour turning including prone given no prone bed availability and judicious hydration, closely monitor for worsening status for ARDS and multiorgan failure. Maintained on therapeutic lovenox. Trending cardiac enzymes, repeat EKG in AM. Recent ECHO thus defer repeat. 2. Indeterminate cardiac enzyme: Admission troponin 0.151, EKG was sinus rhythm with no acute evidence of ischemia, last troponin in the system on 05/12/2019 7.32 with NSTEMI at that time s/p LAD PCI, suspect likely demand secondary to #1, will maintain on security monitor, cycle cardiac enzymes, initiate therapeutic Lovenox pending trending, maintain on aspirin defer any repeat echocardiogram as recently performed on 12/15/2019 with normal LV size, EF 35%, septal motion consistent with IVCD, stage III diastolic dysfunction. ASA, NG, morphine. May consider Cardiology consultation if trending upward. 3. Hypokalemia: Admission K+ 2.6, magnesium obtained per ED 2.1, supplementation given, repeat level in AM. 4. CAD: s/p PCI LAD 05/13/19, continue aspirin, Plavix, Coreg, losartan, statin therapy. 05/13/19 cardiac catheterization with severe triple-vessel disease involving the mid LAD, diffuse disease noted in the distal LAD, moderate disease noted in diagonal, moderate disease noted in the circumflex artery, totally occluded nondominant right coronary artery with [id number] collaterals with successful PTCA of the mid LAD. 5. Scattered pulmonary fibrosis: Noted on prior records, may complicate acute presentation as noted #1. 6. Chronic Systolic/Diastolic CHF, Ischemic Cardiomyopathy: 12/15/19 ECHO w/ normal LV size, EF 35%, septal motion consistent with IVCD, stage III diastolic dysfunction, continue aspirin, Plavix, Coreg, losartan, Lasix, statin therapy. 7. Hypertension: Continue home regimen including Coreg, Lasix, losartan with hold parameters, PRN hydralazine. 8. Hyperlipidemia: Continue home statin regimen. 9. Anxiety and depression: We will continue home BuSpar and Paxil regimen. 10. Hypothyroidism: Continue home synthroid regimen. 11. Chronic pain syndrome: Following with Dr. Quan outpatient. 12. DVT prophylaxis: SCDs, therapeutic Lovenox. 13. CODE status: Patient HCPOA is Rubina Watters her eldest daughter and living will is currently in place. Discussed CODE status at length including difference between FULL code, DNR-CCA and DNR-CC status. Following discussions about the differences in these status, requested full code. Advanced Care Planning Face to Face Time: 16 minutes. Inpatient E&M: 61448 Init Hosp L3 Procedures: 00649 Advncd Care Plan 30 Min
[2020-01-09 22:00] LABS: Bacteria 0 SEEN /hpf (None Seen); Mucous, Urine 0 SEEN /hpf (<or=2+); White Blood Cells 0 SEEN /hpf (0-5)
[2020-01-09 22:05] LABS: Color, Urine Yellow (Yellow); Glucose, Dipstick Normal (Normal); Ketone-Dipstick 5 mg/dl (Negative); Leukocyte Esterase-Dipstick Negative /ul (Negative); Nitrite-Dipstick Negative (Negative); Occult Blood-Urine 150 /ul (Negative); Protein-Dipstick 30 mg/dl (Negative); Specific Gravity, Urine 1.015 (1.002-1.030); Urine Bilirubin Dipstick Negative (Negative); Urine Clarity Clear (Clear); Urine Urobilinogen Normal (Normal)
[2020-01-09] MEDS: Potassium Chloride 10mEq/100mL 10 MEQ/100 ML IV.SOLN. 100 MEQ IV BOLUS (22:15)
[2020-01-09] MEDS: Enoxaparin 60 MG/0.6 ML Syringe SC (22:15)
[2020-01-09 22:17] VITALS: BP 129/52; PULSE 72; RESP 16; TEMP 38.3; O2SAT 97
[2020-01-09 22:23] LABS: Red Blood Cells-Urine 10-25 SEEN /hpf (0-5); Squamous Epithelial Cells - UA 0-5 SEEN /hpf (5-10)
[2020-01-09 23:52] VITALS: PULSE 67
[2020-01-09 23:54] VITALS: BMI 21.4
[2020-01-09 23:56] VITALS: BP 150/55; PULSE 63; RESP 13; TEMP 36.7; O2SAT 97
[2020-01-09 23:59] LABS: International Normalized Ratio 1.1; Prothrombin Time (Protime)PT. 13.8 SECONDS (11.7-14.9)
[2020-01-10] VITALS (14 sets, daily range): BP systolic 116–150; BP diastolic 45–78; PULSE 59–74; RESP 16–22; TEMP 36.2–37.3; O2SAT 90–100; BMI 21.5
[2020-01-10] LABS: Partial Thromboplast Time 36.1 Seconds (24.1-36.2)
[2020-01-10 00:04] LABS: D-Dimer Quantitative (DVT/PE) 0.97 FEU/ug/m (0.27-0.49)
[2020-01-10 00:06] LABS: Ferritin 24 ng/mL (8-252); LDH 161 U/L (84-246)
[2020-01-10] MEDS: 0.9% Normal Saline 1,000 ML 100 ML IV ×3 (00:09→21:07)
[2020-01-10 00:30] LABS: Procalcitonin 0.04 ng/mL (0.00-0.09)
[2020-01-10 00:36] LABS: Anion Gap 8 (5-15); BUN 15 mg/dL (7-18); BUN/Creat Ratio 15.9 RATIO (10-20); Calcium,Total 8.3 mg/dL (8.5-10.1); Chloride 101 mmol/L (98-107); Creatinine, Serum 0.94 mg/dL (0.55-1.02); EST Glomerular Filtration Rate 61 mL/min (>60); Est Glom Filt Rate - Afr Amer 74 mL/min (>60); Estimated Creatinine Clearance 45.82 ml/min; Glucose 182 mg/dL (74-106); Potassium 2.6 mmol/L (3.5-5.1); Sodium Level 135 mmol/L (136-145)
[2020-01-10] MEDS: busPIRone 5 MG Tablet 2.5 MG PO ×3 (00:40→21:03)
[2020-01-10] MEDS: Furosemide 40 MG Tablet PO ×3 (00:44→19:45)
[2020-01-10] MEDS: Carvedilol 6.25 MG Tablet PO ×3 (00:44→21:03)
[2020-01-10] MEDS: Calcium Carbonate 500 MG Tablet 1000 MG PO ×2 (00:45→21:04)
[2020-01-10] MEDS: Famotidine 20 MG Tablet PO ×3 (00:45→21:04)
[2020-01-10] MEDS: Atorvastatin Calcium 40 MG Tablet PO ×2 (00:46→21:04)
[2020-01-10] MEDS: Paroxetine 20 MG Tablet 40 MG PO ×2 (00:46→21:04)
[2020-01-10] MEDS: Potassium Chloride 10mEq/100mL 10 MEQ/100 ML IV.SOLN. 100 MEQ IV BOLUS ×4 (02:06→05:21)
[2020-01-10 04:31] LABS: Absolute Lymphocyte Count 2.98 X10^3/uL (0.83-4.51); Basophil# 0.04 X10^3/uL; Basophil% 0.4 % (0-1); Eosinophil# 0.03 X10^3/uL; Eosinophils% 0.3 % (0-5); Hematocrit 31.9 % (37-47); Hemoglobin 10.9 g/dL (12.0-15.0); Lymphocyte # 2.98 X10^3/ul (4.0); Lymphocyte % 33.2 % (19-41); Mean Corp Hgb Conc 34.2 g/dL (32-36); Mean Corpuscular Hgb 30.7 pg (27.0-32.0); Mean Corpuscular Volume 89.9 fL (81-99); Monocyte# 0.89 X10^3/uL; Monocyte% 9.9 % (0-10); NRBC Flagged by Analyzer 0 % (0-5); Neutrophil # 5.02 X10^3/uL (2.7-7.7); Neutrophil % 56.1 % (47-70); Platelet Count 276 K/mm3 (150-450); RBC Distribution Width CV 12.8 % (11.6-14.6); RBC Distribution Width SD 41.9 fl (35.1-43.9); Red Blood Count 3.55 M/mm3 (4.2-5.4)
[2020-01-10] MEDS: Levothyroxine 50 MCG Tablet PO (05:21)
[2020-01-10] MEDS: Enoxaparin 60 MG/0.6 ML Syringe SC ×2 (05:21→18:44)
--- NOTE | 2020-01-10 05:55 | EKG12_ITS ---
Test Reason : Blood Pressure : / mmHG Vent. Rate : 069 BPM Atrial Rate : 069 BPM P-R Int : 148 ms QRS Dur : 142 ms QT Int : 502 ms P-R-T Axes : 052 -13 116 degrees QTc Int : 537 ms Normal sinus rhythm Left bundle branch block Abnormal ECG Confirmed by JOMAR SOLORIO, VITA ([id number]), medical editor SHRUTI VILLAR ([id number]) on 01/14/2020 8:57:53 AM Referred By: Confirmed By:VITA HADLEY MD
[2020-01-10 07:09] LABS: ALB/GLOB Ratio 0.7 RATIO (0.9-2.4); AST(SGOT) 21 U/L (15-37); Alanine Aminotransfer ALT/SGPT 22 U/L (13-56); Albumin, Serum 2.8 g/dL (3.2-5.0); Alkaline Phosphatase 67 U/L (45-117); Anion Gap 8 (5-15); BUN 12 mg/dL (7-18); Calcium,Total 8.2 mg/dL (8.5-10.1); Chloride 105 mmol/L (98-107); Creatinine, Serum 0.86 mg/dL (0.55-1.02); EST Glomerular Filtration Rate 68 mL/min (>60); Est Glom Filt Rate - Afr Amer 83 mL/min (>60); Estimated Creatinine Clearance 50.08 ml/min; Globulin 3.8 g/dL (2.2-4.2); Glucose 100 mg/dL (74-106); Potassium 3.5 mmol/L (3.5-5.1); Protein, Total 6.6 g/dL (6.4-8.2); Sodium Level 139 mmol/L (136-145)
--- NOTE | 2020-01-10 07:42 | PN_ITS ---
Patient Problems: Active and Suspected Problems (Last Reviewed 10/14/19 @ 11:[address] Bairon Stephen MD) Fever (Acute) Hypokalemia (Acute) Suspected COVID-19 virus infection (Acute) Cardiac enzymes elevated (Acute) NSTEMI (non-ST elevated myocardial infarction) (Acute) Nausea and vomiting (Acute) Reason for Visit: Acute gastroenteritis, elevated d-dimer and elevated troponin Subjective: Patient is a 74-year-old lady with multiple comorbidities who presented with loose bowel movement with emesis with associated fever and chills and headache. Patient was found to have elevated d-dimer on admission COVID-19 assay came back negative. She was also found to have elevated troponin admitted to monitored bed for further management Objective: GENERAL: cooperative HEENT: Atraumatic; EYES; Anicteric, Normal Conjunctiva NECK; supple, normal thyroid, RESPIRATORY: Diminished to auscultation CARDIOVASCULAR: Regular S1 S2, GI: soft, normoactive bowel sounds, : No Renal angle tenderness; EXTREMITIES: No edema, no clubbing, MUSCULOSKELETAL: no muscle waisting NEURO: Awake; no lateralizing signs. SKIN: No Rash PSYCH; Flat affect Vitals/I&O's: Vital Signs Temp Pulse Resp BP Pulse Ox 99.2 F H 72 20 H 116/78 100 01/10/20 04:15 01/10/20 04:15 01/10/20 04:15 01/10/20 04:15 01/10/20 04:15 Oxygen Delivery Method Room Air Weight: 59.5 kg Body Mass Index (BMI) 21.4 Intake and Output for Last 24 Hours 01/08/20 01/09/20 01/10/20 23:59 23:59 23:59 Intake Total 100 / 100 1305 / 1305 Output Total 1700 / 1700 Balance 100 / 100 -395 / -395 Microbiology Past 72 Hours 01/10/20 01:00 Stool C. difficile DNA Amplification - Final 01/10/20 01:00 Urine, Clean Catch Streptococcus pneumoniae Antigen (M - Final 01/10/20 01:00 Urine, Clean Catch Legionella Antigen - Final Laboratory Results 01/09/20 20:36: WBC 7.7, RBC 3.88 L, Hgb 12.0, Hct 34.3 L, MCV 88.4, MCH 30.9, MCHC 35.0, RDW Std Deviation 40.8, RDW Coeff of Golden 12.6, Plt Count 321, MPV 9.3, Immature Gran % (Auto) 0.300, Neut % (Auto) 69.0, Lymph % (Auto) 21.0, [place] % (Auto) 8.5, Eos % (Auto) 0.7, Baso % (Auto) 0.5, Absolute Neuts (auto) 5.3, Absolute Lymphs (auto) 1.61, Nucleated RBC % 0 01/09/20 20:36: Sodium 134 L, Potassium 2.6 L*, Chloride 100, Carbon Dioxide 27.0, Anion Gap 7, BUN 16, Creatinine 0.89, Estim Creat Clear Calc 48.39, Est GFR (MDRD) Af Amer 79, Est GFR (MDRD) Non-Af 66, BUN/Creatinine Ratio 18.0, Glucose 136 H, Calcium 8.8, Total Bilirubin 0.60, AST 18, ALT 25, Alkaline Phosphatase 78, Troponin I 0.151 H, Total Protein 7.9, Albumin 3.4, Globulin 4.5 H, Albumin/Globulin Ratio 0.8 L, Lipase 75 01/09/20 20:36: Lactic Acid 1.3 01/09/20 20:44: COVID-19 (ANDREW) Negative 01/09/20 21:20: Magnesium 2.1 01/09/20 21:50: Urine Color Yellow, Urine Clarity Clear, Urine pH 6.0, Ur Specific [place] 1.015, Urine Protein 30 H, Urine Glucose (UA) Normal, Urine Ketones 5 H, Urine Occult Blood 150 H, Urine Nitrite Negative, Urine Bilirubin Negative, Urine Urobilinogen Normal, Ur Leukocyte Esterase Negative, Urine RBC 10-25 SEEN, Urine WBC 0 SEEN, Ur Squamous Epith Cells 0-5 SEEN, Urine Bacteria 0 SEEN, Urine Mucus 0 SEEN 01/09/20 23:30: PT 13.8, INR 1.1, APTT 36.1, D-Dimer Quant (PE/DVT) 0.97 H* 01/09/20 23:30: Ferritin 24, Lactate Dehydrogenase 161, C-React Prot Ext Range 14.60 H 01/09/20 23:30: Procalcitonin 0.04 01/09/20 23:30: Sodium 135 L, Potassium 2.6 L*, Chloride 101, Carbon Dioxide 26.0, Anion Gap 8, BUN 15, Creatinine 0.94, Estim Creat Clear Calc 45.82, Est GFR (MDRD) Af Amer 74, Est GFR (MDRD) Non-Af 61, BUN/Creatinine Ratio 15.9, Glucose 182 H, Calcium 8.3 L, Troponin I 0.157 H 01/10/20 02:15: Troponin I 0.165 H 01/10/20 04:20: WBC 9.0, RBC 3.55 L, Hgb 10.9 L, Hct 31.9 L, MCV 89.9, MCH 30.7, MCHC 34.2, RDW Std Deviation 41.9, RDW Coeff of Golden 12.8, Plt Count 276, MPV 9.0, Immature Gran % (Auto) 0.100, Neut % (Auto) 56.1, Lymph % (Auto) 33.2, [place] % (Auto) 9.9, Eos % (Auto) 0.3, Baso % (Auto) 0.4, Absolute Neuts (auto) 5.0, Absolute Lymphs (auto) 2.98, Nucleated RBC % 0 01/10/20 06:25: Sodium 139, Potassium 3.5, Chloride 105, Carbon Dioxide 26.0, Anion Gap 8, BUN 12, Creatinine 0.86, Estim Creat Clear Calc 50.08, Est GFR (MDRD) Af Amer 83, Est GFR (MDRD) Non-Af 68, BUN/Creatinine Ratio 14.0, Glucose 100, Calcium 8.2 L, Total Bilirubin 0.60, AST 21, ALT 22, Alkaline Phosphatase 67, Total Protein 6.6, Albumin 2.8 L, Globulin 3.8, Albumin/Globulin Ratio 0.7 L Current Medications Acetaminophen (Tylenol) 650 mg PO Q6H PRN PRN PRN Reason: Pain Score 1-10/Temp > 100.7 F Al Hydroxide/Mg Hydroxide (Mylanta Ii) 30 ml PO Q6H PRN PRN PRN Reason: Gastric Burning Albuterol Sulfate (Ventolin Aerosols) 2.5 mg INHALATION Q2H PRN PRN PRN Reason: Dyspnea, wheezing Aspirin (Ecotrin) 81 mg PO DAILY [facility] Atorvastatin Calcium (Lipitor) 40 mg PO QHS [facility] Last Admin: 01/10/20 00:46 Dose: 40 mg Documented by: Buspirone HCl (Buspar) 2.5 mg PO BID [facility] Last Admin: 01/10/20 00:40 Dose: 2.5 mg Documented by: Calcium Carbonate (Tums) 1,000 mg PO QHS [facility] Last Admin: 01/10/20 00:45 Dose: 1,000 mg Documented by: Carvedilol (Coreg) 6.25 mg PO BID [facility] Last Admin: 01/10/20 00:44 Dose: 6.25 mg Documented by: Clopidogrel Bisulfate (Plavix) 75 mg PO DAILY [facility] Dextrose (D50w Syringe) 0 gm IV X1 PRN; Protocol PRN Reason: Hypoglycemia Enoxaparin Sodium (Lovenox) 60 mg SC Q12@0600,1800 [facility] Last Admin: 01/10/20 05:21 Dose: 60 mg Documented by: Famotidine (Pepcid) 20 mg PO BID [facility] Last Admin: 01/10/20 00:45 Dose: 20 mg Documented by: Furosemide (Lasix) 40 mg PO BID [facility] Last Admin: 01/10/20 00:44 Dose: 40 mg Documented by: Glucagon () 1 mg IM .X1 PRN PRN Reason: Hypoglycemia Guaifenesin (Robitussin) 20 ml PO Q4H PRN PRN PRN Reason: COUGH Hydralazine HCl (Apresoline Iv) 10 mg IV Q4H PRN PRN PRN Reason: SBP > 160 Sodium Chloride () 1,000 mls @ 100 mls/hr IV .Q10H [facility] Last Admin: 01/10/20 00:09 Dose: 100 mls/hr Documented by: Azithromycin 500 mg/ Dextrose 255 mls @ 250 mls/hr IV QHS [facility] Last Infusion: 01/10/20 02:06 Dose: Infused Documented by: Ceftriaxone Sodium 2 gm/ (Sodium Chloride) 50 mls @ [facility]ls[facility]fusion: 01/10/20 01:01 Dose: Infused Documented by: Sodium Chloride () 250 mls @ 15 mls/hr IV .[id number] PRN PRN Reason: Saline Flush Sodium Chloride () 250 mls @ 15 mls/hr IV .[id number] PRN PRN Reason: Additional IVPB Infusion Levothyroxine Sodium (Synthroid) 50 mcg PO DAILY@0600 [facility] Last Admin: 01/10/20 05:21 Dose: 50 mcg Documented by: Losartan Potassium (Cozaar) 25 mg PO DAILY [facility] Melatonin (Melatonin) 3 mg PO QHS PRN PRN PRN Reason: INSOMNIA Morphine Sulfate () 2 mg IV Q3H PRN PRN PRN Reason: Pain Score 6-10/10 Nitroglycerin (Nitrostat) 0.4 mg SUBLINGUAL Q5M PRN PRN Reason: CARDIAC/CHEST PAIN Ondansetron HCl (Zofran) 4 mg IV Q8H PRN PRN PRN Reason: NAUSEA/VOMITING Oxycodone HCl (Oxyir) 5 mg PO Q4H PRN PRN PRN Reason: Pain Score 4-5/10 Paroxetine HCl (Paxil) 40 mg PO QHS [facility] Potassium Chloride (K-Dur) 20 meq PO DAILY [facility] Prochlorperazine Edisylate (Compazine Iv) 5 mg IV Q4H PRN PRN PRN Reason: Breakthrough Nausea/Vomiting Sodium Chloride () 10 - 40 ml IV UD PRN PRN Reason: SALINE FLUSH Throat Lozenges (Cepacol Sore Throat Lozenge) 1 lozenge MUCOUS MEM Q2H PRN PRN PRN Reason: SORE THROAT STROKE Vital Signs/Narrative: Vital Signs Temp Pulse Resp BP Pulse Ox 01/10/20 04:15 99.2 F H 72 20 H 116/78 100 Medical Necessity - Tobacco Use Smoking Status: Former smoker Tobacco Use: Non-smoker Assessment/Plan All Active Problems (Last Reviewed 10/14/19 @ 11:[address] Bairon Stephen MD) Fever (Acute) Hypokalemia (Acute) Suspected COVID-19 virus infection (Acute) Cardiac enzymes elevated (Acute) NSTEMI (non-ST elevated myocardial infarction) (Acute) Nausea and vomiting (Acute) Non-ST elevated myocardial infarction (non-STEMI) (Resolved 05/12/19) History of coronary angioplasty (Resolved 05/13/19) Chest pain (Resolved) History of Clostridium difficile colitis (Resolved) Hypotension (Resolved) Patient is a 74-year-old lady with multiple comorbidities who presented with loose bowel movement with emesis with associated fever and chills and headache. Patient was found to have elevated d-dimer on admission COVID-19 assay came back negative. She was also found to have elevated troponin admitted to monitored bed for further management 1. Acute gastroenteritis ?Possibly viral gastroenteritis. COVID-19 infection was ruled out with a negative assay. Muscle patient did not have other elevated markers of inflammation typical for COVID-19 infection including ferritin. Patient isolation was therefore discontinued patient transferred from the ICU to the progressive care unit 2. Elevated d-dimer ?Possibly related to above. Patient was started on therapeutic Lovenox. Was initially placed in isolation which was later discontinued. Ordered CTA of the chest to rule out VTE 3. Elevated troponin thought to be secondary to above ?Placed on a monitored bed with serial cardiac enzymes ordered 4. Coronary artery disease ?With previous PCI with ROEL to mid LAD lesion on 05/13/2019 5. Hypertension - Blood pressure controlled, home medications continued with dose adjustment as needed 6. Dyslipidemia -Patient is on statin therapy, continued at home dose 7. Hypothyroidism - Patient is on levothyroxine home dose continued 8. Pression with anxiety ?Patient is on Paxil did continue 9. Chronic pain syndrome ?Patient managed by Dr. Suarez 10. DVT prophylaxis ?Lovenox Inpatient E&M: [id number] [facility] L3
[2020-01-10 08:23] LABS: Ferritin 25 ng/mL (8-252); LDH 187 U/L (84-246)
[2020-01-10] MEDS: Aspirin E.C. 81 MG Tablet PO (08:42)
[2020-01-10] MEDS: Clopidogrel Bisulfate 75 MG Tablet PO (08:43)
[2020-01-10] MEDS: Losartan Potassium 25 MG Tablet PO (08:43)
--- NOTE | 2020-01-10 12:15 | CASEMGMT ---
JAYJAY CM ASSESSMENT Pt in isolation precautions. Call placed to pt's room and assessment completed via phone conversation. PCP: Dr Walker Specialists: Dr Stephen--cardiology, Dr Gutierrez--dermatology Preferred Pharmacy: [facility] Insurance: [facility] Prescription Benefit: Yes Living Will/HPOA: Has both LW and Healthcare POA, who is her daughter, Rubina. Copies are not on file @ [facility] and pt is aware. She states her daughter is planning on bringing them in. LNOK: 2 daughters: Rubina (PODixon) and Jenny. Son. Living Arrangements: Lives alone in a 2-story home w/bed and bath on 1st floor. Independent w/ADL's and IADL's. Transportation: Pt states drives self and states no transportation concerns at this time. Daughter or son can drive if needed. DME: States has the following DME: shower chair, grab bars. Also has a raised toilet seat and walker but does not use these. Pt states no need for further DME at this time. HHC/SNF: No hx SNF. Hx of [facility] HHC. Denies need for HHC or OP therapy. Pt wishes to return home and states has no concerns with going home at time of discharge. CM to follow for any discharge planning/needs. Pt voices no concerns/needs at this time. Advised pt to ask for CM if any questions/concerns/needs arise. Voices understanding. PLAN: Home Anu DANIEL RN, CM
--- NOTE | 2020-01-10 12:38 | CT_ITS ---
STUDY: CTA CHEST REASON FOR EXAM: Female, 74 years old. ELEV D DIMER, ELEV CARDIAC ENZYMES, TX-ANGIOPLASTY, HTN, CHF RADIATION DOSAGE (If Supplied By Facility): CTDIvol = ( 5.14 ) mGy, DLP = ( 196.9 ) mGycm TECHNIQUE: The examination was performed with the intravenous administration of 100ML ISOVUE 370. Post-processing of the angiographic images was performed, with multiplanar reformation and 3D reconstruction. Individualized dose optimization techniques were used for this CT. COMPARISON: 05/02/2019 FINDINGS: There is no evidence of pulmonary embolus. There is no evidence of thoracic aortic aneurysm or dissection. The heart and pericardium are within normal limits. There are coronary artery calcifications noted. There are calcified mediastinal lymph nodes, consistent with prior granulomatous disease. There are no pulmonary infiltrates or pleural effusions. There is no pneumothorax. Images through the upper abdomen demonstrate hepatic and splenic granulomata. CT/CTA Chest W/WO Contrast IMPRESSION: No evidence of pulmonary embolus or other acute thoracic disease. Coronary artery disease. Evidence of prior granulomatous disease. Electronically Signed: Jarocho Ruffin, at 14:29 EDT Tel , Service support ,
[2020-01-10] MEDS: 0.9% Saline Lock 10 ML Syringe IV (14:12)
[2020-01-10] MEDS: MELATONIN 3 MG TABLET PO (21:02)
[2020-01-11 01:00] VITALS: BP 143/56; PULSE 64; RESP 16; TEMP 36.5; O2SAT 97
[2020-01-11 03:34] VITALS: PULSE 65
[2020-01-11] MEDS: Enoxaparin 60 MG/0.6 ML Syringe SC (05:15)
[2020-01-11] MEDS: Levothyroxine 50 MCG Tablet PO (05:15)
[2020-01-11 05:56] LABS: Absolute Lymphocyte Count 1.85 X10^3/uL (0.83-4.51); Absolute Neutrophil Count 7.1 X10^3/uL (2.0-7.7); Basophil# 0.04 X10^3/uL; Basophil% 0.4 % (0-1); Eosinophil# 0.13 X10^3/uL; Eosinophils% 1.3 % (0-5); Hematocrit 31.5 % (37-47); Hemoglobin 10.6 g/dL (12.0-15.0); Lymphocyte # 1.85 X10^3/ul (4.0); Lymphocyte % 18.8 % (19-41); Mean Corp Hgb Conc 33.7 g/dL (32-36); Mean Corpuscular Hgb 30.6 pg (27.0-32.0); Mean Platelet Vol. 9.2 fl (6.2-12.0); Monocyte# 0.68 X10^3/uL; Monocyte% 6.9 % (0-10); NRBC Flagged by Analyzer 0 % (0-5); Neutrophil # 7.11 X10^3/uL (2.7-7.7); Neutrophil % 72.4 % (47-70); Platelet Count 245 K/mm3 (150-450); RBC Distribution Width CV 13.2 % (11.6-14.6); RBC Distribution Width SD 43.5 fl (35.1-43.9); Red Blood Count 3.46 M/mm3 (4.2-5.4); White Blood Count 9.8 K/mm3 (4.4-11.0)
[2020-01-11 06:19] LABS: Anion Gap 5 (5-15); BUN 13 mg/dL (7-18); BUN/Creat Ratio 17.5 RATIO (10-20); Calcium,Total 8.9 mg/dL (8.5-10.1); Chloride 112 mmol/L (98-107); Creatinine, Serum 0.74 mg/dL (0.55-1.02); EST Glomerular Filtration Rate 80 mL/min (>60); Est Glom Filt Rate - Afr Amer 97 mL/min (>60); Estimated Creatinine Clearance 43.07 ml/min; Glucose 104 mg/dL (74-106); Magnesium 2.1 mg/dL (1.6-2.6); Potassium 2.9 mmol/L (3.5-5.1); Sodium Level 141 mmol/L (136-145)
[2020-01-11 06:48] VITALS: O2SAT 95
[2020-01-11 07:00] VITALS: PULSE 66
[2020-01-11 08:19] VITALS: BP 138/70; PULSE 65; RESP 18; TEMP 37.1; O2SAT 96
[2020-01-11] MEDS: Potassium Chloride 10mEq/100mL 10 MEQ/100 ML IV.SOLN. 100 MEQ IV BOLUS ×4 (08:33→12:05)
[2020-01-11] MEDS: Furosemide 40 MG Tablet PO (09:39)
[2020-01-11] MEDS: Losartan Potassium 25 MG Tablet PO (09:39)
[2020-01-11] MEDS: busPIRone 5 MG Tablet 2.5 MG PO (09:39)
[2020-01-11] MEDS: Aspirin E.C. 81 MG Tablet PO (09:39)
[2020-01-11] MEDS: Carvedilol 6.25 MG Tablet PO (09:39)
[2020-01-11] MEDS: Famotidine 20 MG Tablet PO (09:40)
[2020-01-11] MEDS: Clopidogrel Bisulfate 75 MG Tablet PO (09:40)
[2020-01-11 13:53] LABS: Anion Gap 6 (5-15); BUN 10 mg/dL (7-18); BUN/Creat Ratio 11.3 RATIO (10-20); Calcium,Total 8.2 mg/dL (8.5-10.1); Chloride 108 mmol/L (98-107); Creatinine, Serum 0.88 mg/dL (0.55-1.02); EST Glomerular Filtration Rate 66 mL/min (>60); Est Glom Filt Rate - Afr Amer 80 mL/min (>60); Estimated Creatinine Clearance 48.94 ml/min; Glucose 135 mg/dL (74-106); Potassium 4.1 mmol/L (3.5-5.1); Sodium Level 139 mmol/L (136-145)
--- NOTE | 2020-01-11 14:23 | DCINST_ITS ---
- Discharge Diagnoses Current Active Problems: Current Active and Chronic Problems (Last Reviewed 10/14/19 @ 11:[address] Bairon Stephen MD) Fever (Acute) Hypokalemia (Acute) Suspected COVID-19 virus infection (Acute) Cardiac enzymes elevated (Acute) NSTEMI (non-ST elevated myocardial infarction) (Acute) Nausea and vomiting (Acute) You will use the following diet at home:: No restrictions Discharge Activity: Return to Normal Activity Allergies/Adverse Reactions: Allergies Sulfa (Sulfonamide Antibiotics) Allergy (Verified 01/09/20 19:42) Unknown Medications to take at Discharge Cholecalciferol (Vitamin D3) [Vitamin D3] 400 unit PO DAILY 05/02/14 Multivitamins,Therapeutic [Multivitamin] 1 tab PO DAILY 05/02/14 vitamin B comp and C no.3 15 mg-10 mg-50 mg-5 mg-300 mg capsule 1 cap PO DAILY 04/08/19 Calcium Carbonate [Tums Ultra Strength] 1,177 mg PO QHS 04/22/19 Magnesium Oxide [Mag-Ox 400] 800 mg PO QHS 05/12/19 acetaminophen 500 mg tablet 1,000 mg PO Q8H PRN 05/28/19 aspirin 81 mg tablet,delayed release 81 mg PO DAILY 06/09/19 clopidogrel 75 mg tablet 75 mg PO DAILY #30 tab 06/11/19 losartan 25 mg tablet 25 mg PO DAILY #90 tab 07/30/19 buspirone 5 mg tablet 2.5 mg PO BID #60 tab 10/30/19 paroxetine HCl 40 mg tablet 40 mg PO DAILY #90 tab 11/11/19 levothyroxine 50 mcg tablet 50 mcg PO DAILY #90 tab 12/02/19 rosuvastatin 20 mg tablet 20 mg PO DAILY #30 tab 12/05/19 furosemide 40 mg tablet 40 mg PO BID #60 tab 12/16/19 Carvedilol 6.25 mg PO BID 01/09/20 Potassium Chloride [K-Dur] 20 meq PO TID #90 tab 01/11/20 The following prescriptions were given: Potassium Chloride [K-Dur] 20 meq PO TID #90 tab Transmission Status: Received by [id number] Primary Care Physician: Hector Walker MD [Primary Care Provider] - Please follow up with your Primary Care Physician in: In 3 to 5 days for repeat BMP Test Results: Test results from this visit will be discussed in further detail at your follow- up appointment, if applicable. Proposed Discharge Date: 01/11/20
--- NOTE | 2020-01-11 14:29 | DS.PCM_ITS ---
Discharge Date and Diagnosis - Problem List Patient Problems: Active and Suspected Problems (Last Reviewed 10/14/19 @ 11:[address] Bairon Stephen MD) Fever (Acute) Hypokalemia (Acute) Cardiac enzymes elevated (Acute) NSTEMI (non-ST elevated myocardial infarction) (Acute) Nausea and vomiting (Acute) Date of Admission: 01/09/20 Date of Discharge: 01/11/20 - Primary Discharge Diagnosis Acute Problems: Active Problems (Last Reviewed 10/14/19 @ 11:[address] Bairon Stephen MD) Fever (Acute) Hypokalemia (Acute) Cardiac enzymes elevated (Acute) NSTEMI (non-ST elevated myocardial infarction) (Acute) Nausea and vomiting (Acute) - Secondary Discharge Diagnosis Chronic Problems: Chronic Problems (Last Reviewed 10/14/19 @ 11:[address] Bairon Stephen MD) Chronic diarrhea (Chronic) Atherosclerosis of coronary artery of [place] heart without angina pectoris (Chronic) Chronic combined systolic and diastolic CHF (congestive heart failure) (Chronic) Ischemic cardiomyopathy (Chronic) Left ventricular diastolic dysfunction (Chronic) Secondary pulmonary arterial hypertension (Chronic) Essential (primary) hypertension (Chronic) HLD (hyperlipidemia) (Chronic) Left bundle branch block (LBBB) (Chronic) Hospital Course and Treatment Imaging Results: Clinical Impression(s) from Imaging Studies Chest X-Ray 01/09/20 21:00 IMPRESSION: No acute cardiopulmonary pathology Electronically Signed: Sujit Moraes MD at 21:18 EDT , Service support , Chest CTA 01/10/20 12:38 IMPRESSION: No evidence of pulmonary embolus or other acute thoracic disease. Coronary artery disease. Evidence of prior granulomatous disease. Electronically Signed: Jarocho Ruffin at 14:29 EDT Tel , Service support , Operations: None Summary of Care Provided: Patient is a 74-year-old lady with multiple comorbidities who presented with loose bowel movement with emesis with associated fever and chills and headache. Patient was found to have elevated d-dimer on admission COVID-19 assay came back negative. She was also found to have elevated troponin admitted to monitored bed for further management 1. Acute gastroenteritis ?Possibly viral gastroenteritis. COVID-19 infection was ruled out with a negative assay. Muscle patient did not have other elevated markers of inflammation typical for COVID-19 infection including ferritin. Patient isolati on was therefore discontinued patient transferred from the ICU to the progressive care unit 2. Elevated d-dimer ?Possibly related to above. Patient was started on therapeutic Lovenox. Was initially placed in isolation which was later discontinued. Ordered CTA of the chest to rule out VTE -CTA of the chest was negative for PE 3. Elevated troponin thought to be secondary to above ?Placed on a monitored bed with serial cardiac enzymes ordered 4. Coronary artery disease ?With previous PCI with ROEL to mid LAD lesion on 05/13/2019 5. Hypertension - Blood pressure controlled, home medications continued with dose adjustment as needed 6. Dyslipidemia -Patient is on statin therapy, continued at home dose 7. Hypothyroidism - Patient is on levothyroxine home dose continued 8. Pression with anxiety ?Patient is on Paxil did continue 9. Chronic pain syndrome ?Patient managed by Dr. Suarez 10. DVT prophylaxis ?Lovenox 11. Hypokalemia -corrected per protocol. Patient was instructed to follow-up with PCP for repeat BMP in 3 to 5 days. Patient was on potassium 20 mEq p.o. daily dose was changed to 20 mEq p.o. 3 times daily prescription written for 30 days only Patient Problems: Active and Suspected Problems (Last Reviewed 10/14/19 @ 11:[address] Bairon Stephen MD) Fever (Acute) Hypokalemia (Acute) Cardiac enzymes elevated (Acute) NSTEMI (non-ST elevated myocardial infarction) (Acute) Nausea and vomiting (Acute) Objective: GENERAL: cooperative HEENT: Atraumatic; EYES; Anicteric, Normal Conjunctiva NECK; supple, normal thyroid, RESPIRATORY: Diminished to auscultation CARDIOVASCULAR: Regular S1 S2, GI: soft, normoactive bowel sounds, : No Renal angle tenderness; EXTREMITIES: No edema, no clubbing, MUSCULOSKELETAL: no muscle waisting NEURO: Awake; no lateralizing signs. SKIN: No Rash PSYCH; Flat affect - Physical Exam Vitals/I&O's: Vital Signs Temp Pulse Resp BP Pulse Ox 98.7 F 65 18 138/70 H 96 01/11/20 08:19 01/11/20 08:19 01/11/20 08:19 01/11/20 08:19 01/11/20 08:19 Oxygen Flow Rate (L/min) 2 Oxygen Delivery Method Room Air Weight: 59.5 kg Body Mass Index (BMI) 21.4 Intake and Output for Last 24 Hours 01/09/20 01/10/20 01/11/20 23:59 23:59 23:59 Intake Total 100 / 100 4225.00 / 4225.00 575 / 575 Output Total 2200 / 2200 Balance 100 / 100 2025.00 / 2025.00 575 / 575 Microbiology Past 72 Hours 01/10/20 01:00 Stool Enteric Bacteriology - Final 01/10/20 01:00 Stool C. difficile DNA Amplification - Final 01/10/20 01:00 Urine, Clean Catch Streptococcus pneumoniae Antigen (M - Final 01/10/20 01:00 Urine, Clean Catch Legionella Antigen - Final Laboratory Results 01/11/20 05:21: WBC 9.8, RBC 3.46 L, Hgb 10.6 L, Hct 31.5 L, MCV 91.0, MCH 30.6, MCHC 33.7, RDW Std Deviation 43.5, RDW Coeff of Golden 13.2, Plt Count 245, MPV 9.2, Immature Gran % (Auto) 0.200, Neut % (Auto) 72.4 H, Lymph % (Auto) 18.8 L, Atkinson % (Auto) 6.9, Eos % (Auto) 1.3, Baso % (Auto) 0.4, Absolute Neuts (auto) 7.1, Absolute Lymphs (auto) 1.85, Nucleated RBC % 0 01/11/20 05:21: Sodium 141, Potassium 2.9 L, Chloride 112 H, Carbon Dioxide 24.0, Anion Gap 5, BUN 13, Creatinine 0.74, Estim Creat Clear Calc 43.07, Est GFR (MDRD) Af Amer 97, Est GFR (MDRD) Non-Af 80, BUN/Creatinine Ratio 17.5, Glucose 104, Calcium 8.9, Magnesium 2.1 01/11/20 13:30: Sodium 139, Potassium 4.1, Chloride 108 H, Carbon Dioxide 25.0, Anion Gap 6, BUN 10, Creatinine 0.88, Estim Creat Clear Calc 48.94, Est GFR (MDRD) Af Amer 80, Est GFR (MDRD) Non-Af 66, BUN/Creatinine Ratio 11.3, Glucose 135 H, Calcium 8.2 L Current Medications Acetaminophen (Tylenol) 650 mg PO Q6H PRN PRN PRN Reason: Pain Score 1-10/Temp > 100.7 F Al Hydroxide/Mg Hydroxide (Mylanta Ii) 30 ml PO Q6H PRN PRN PRN Reason: Gastric Burning Albuterol Sulfate (Ventolin Aerosols) 2.5 mg INHALATION Q2H PRN PRN PRN Reason: Dyspnea, wheezing Aspirin (Ecotrin) 81 mg PO DAILY [facility] Last Admin: 01/11/20 09:39 Dose: 81 mg Documented by: Atorvastatin Calcium (Lipitor) 40 mg PO QHS [facility] Last Admin: 01/10/20 21:04 Dose: 40 mg Documented by: Buspirone HCl (Buspar) 2.5 mg PO BID [facility] Last Admin: 01/11/20 09:39 Dose: 2.5 mg Documented by: Calcium Carbonate (Tums) 1,000 mg PO QHS [facility] Last Admin: 01/10/20 21:04 Dose: 1,000 mg Documented by: Carvedilol (Coreg) 6.25 mg PO BID [facility] Last Admin: 01/11/20 09:39 Dose: 6.25 mg Documented by: Clopidogrel Bisulfate (Plavix) 75 mg PO DAILY [facility] Last Admin: 01/11/20 09:40 Dose: 75 mg Documented by: Dextrose (D50w Syringe) 0 gm IV X1 PRN; Protocol PRN Reason: Hypoglycemia Enoxaparin Sodium (Lovenox) 60 mg SC Q12@0600,1800 [facility] Last Admin: 01/11/20 05:15 Dose: 60 mg Documented by: Famotidine (Pepcid) 20 mg PO BID [facility] Last Admin: 01/11/20 09:40 Dose: 20 mg Documented by: Furosemide (Lasix) 40 mg PO BID [facility] Last Admin: 01/11/20 09:39 Dose: 40 mg Documented by: Glucagon () 1 mg IM .X1 PRN PRN Reason: Hypoglycemia Guaifenesin (Robitussin) 20 ml PO Q4H PRN PRN PRN Reason: COUGH Hydralazine HCl (Apresoline Iv) 10 mg IV Q4H PRN PRN PRN Reason: SBP > 160 Sodium Chloride () 250 mls @ 15 mls/hr IV .[id number] PRN PRN Reason: Saline Flush Sodium Chloride () 250 mls @ 15 mls/hr IV .[id number] PRN PRN Reason: Additional IVPB Infusion Levothyroxine Sodium (Synthroid) 50 mcg PO DAILY@0600 [facility] Last Admin: 01/11/20 05:15 Dose: 50 mcg Documented by: Losartan Potassium (Cozaar) 25 mg PO DAILY [facility] Last Admin: 01/11/20 09:39 Dose: 25 mg Documented by: Melatonin (Melatonin) 3 mg PO QHS PRN PRN PRN Reason: INSOMNIA Last Admin: 01/10/20 21:02 Dose: 3 mg Documented by: Morphine Sulfate () 2 mg IV Q3H PRN PRN PRN Reason: Pain Score 6-10/10 Nitroglycerin (Nitrostat) 0.4 mg SUBLINGUAL Q5M PRN PRN Reason: CARDIAC/CHEST PAIN Ondansetron HCl (Zofran) 4 mg IV Q8H PRN PRN PRN Reason: NAUSEA/VOMITING Oxycodone HCl (Oxyir) 5 mg PO Q4H PRN PRN PRN Reason: Pain Score 4-5/10 Paroxetine HCl (Paxil) 40 mg PO QHS [facility] Last Admin: 01/10/20 21:04 Dose: 40 mg Documented by: Potassium Chloride (K-Dur) 20 meq PO BIDCM [facility] Last Admin: 01/11/20 08:34 Dose: 20 meq Documented by: Prochlorperazine Edisylate (Compazine Iv) 5 mg IV Q4H PRN PRN PRN Reason: Breakthrough Nausea/Vomiting Sodium Chloride () 10 - 40 ml IV UD PRN PRN Reason: SALINE FLUSH Last Admin: 01/10/20 14:12 Dose: 10 ml Documented by: Throat Lozenges (Cepacol Sore Throat Lozenge) 1 lozenge MUCOUS MEM Q2H PRN PRN PRN Reason: SORE THROAT Discharge Diet: No Restrictions Discharge Activity: Return to Normal Activity Home Medications: Medications to take at Discharge Cholecalciferol (Vitamin D3) [Vitamin D3] 400 unit PO DAILY 05/02/14 Multivitamins,Therapeutic [Multivitamin] 1 tab PO DAILY 05/02/14 vitamin B comp and C no.3 15 mg-10 mg-50 mg-5 mg-300 mg capsule 1 cap PO DAILY 04/08/19 Calcium Carbonate [Tums Ultra Strength] 1,177 mg PO QHS 04/22/19 Magnesium Oxide [Mag-Ox 400] 800 mg PO QHS 05/12/19 acetaminophen 500 mg tablet 1,000 mg PO Q8H PRN 05/28/19 aspirin 81 mg tablet,delayed release 81 mg PO DAILY 06/09/19 clopidogrel 75 mg tablet 75 mg PO DAILY #30 tab 06/11/19 losartan 25 mg tablet 25 mg PO DAILY #90 tab 07/30/19 buspirone 5 mg tablet 2.5 mg PO BID #60 tab 10/30/19 paroxetine HCl 40 mg tablet 40 mg PO DAILY #90 tab 11/11/19 levothyroxine 50 mcg tablet 50 mcg PO DAILY #90 tab 12/02/19 rosuvastatin 20 mg tablet 20 mg PO DAILY #30 tab 12/05/19 furosemide 40 mg tablet 40 mg PO BID #60 tab 12/16/19 Carvedilol 6.25 mg PO BID 01/09/20 Potassium Chloride [K-Dur] 20 meq PO TID #90 tab 01/11/20 Following Prescrptions Were Given to Patient: Potassium Chloride [K-Dur] 20 meq PO TID #90 tab Transmission Status: Received by [id number] Primary Care Physician: Hector Walker MD [Primary Care Provider] - Please follow up with your Primary Care Physician in: In 3 to 5 days for repeat BMP Disposition: Home Minutes spent on discharge:: 35 Patient Condition:: Stable Medical Necessity - Tobacco Use Smoking Status: Former smoker Tobacco Use: Non-smoker Meaningful Use Info Meaningful Use Diagnoses (Choose all that apply): None applicable Inpatient E&M: 89251 Disch Hosp
--- NOTE | 2020-01-12 13:54 | CASEMGMT ---
JAYJAY SHIELDS DC PHONE CALL DC DATE: 01.12.2020 DC DISPOSITION: Home DC DIAGNOSIS: NSTEMI LACE/STRATA: 03/27 F/U APPTS MADE PRIOR TO DC: no, weekend dc PRESCRIPTIONS ACQUIRED BY PT: yes Intro role of CM to patient via phone. Pt states she is doing well, no questions re: dc instructions, medications or f/u. Patient has not made f/u appt yet, but states she will this afternoon. No concerns, and no care improvement suggestions were given. [place] CARTERN RN ACM
--- NOTE | 2020-01-12 14:02 | CASEMGMT ---
JAYJAY SHIELDS DC PHONE CALL DC DATE: 01.11.2020 DC DISPOSITION: Home DC DIAGNOSIS: NSTEMI LACE/STRATA: 03/27 F/U APPTS MADE PRIOR TO DC: no, weekend dc PRESCRIPTIONS ACQUIRED BY PT: yes Intro role of CM to patient via phone. Pt states she is doing well, no questions re: dc instructions, medications or f/u. Patient has not made f/u appt yet, but states she will this afternoon. No concerns, and no care improvement suggestions were given. [place] CARTERN RN ACM
== END 2020-01-11 15:09 | disposition home or self-care (01) | DRG 392 ==
LOC: ED 22:10 → ICU 22:55 → PCU 01-10 15:52
PROVIDERS: Admitting Provider Family Medicine; Emergency Provider Emergency Medicine; PCP Internal Medicine; Visit Provider Internal Medicine
DX: A08.4 Viral intestinal infection, unspecified (principal); I50.42 Chronic combined systolic (congestive) and diastolic (congestive) heart failure; R79.89 Other specified abnormal findings of blood chemistry; I11.0 Hypertensive heart disease with heart failure; E87.6 Hypokalemia; D63.8 Anemia in other chronic diseases classified elsewhere; I25.5 Ischemic cardiomyopathy; I25.10 Atherosclerotic heart disease of native coronary artery without angina pectoris; E78.5 Hyperlipidemia, unspecified; G89.4 Chronic pain syndrome; J84.10 Pulmonary fibrosis, unspecified; I27.21 Secondary pulmonary arterial hypertension; M81.0 Age-related osteoporosis without current pathological fracture; F32.9 Major depressive disorder, single episode, unspecified; F41.9 Anxiety disorder, unspecified; Z79.82 Long term (current) use of aspirin; Z79.02 Long term (current) use of antithrombotics/antiplatelets; Z79.890 Hormone replacement therapy; Z79.899 Other long term (current) drug therapy; Z87.891 Personal history of nicotine dependence; I25.2 Old myocardial infarction; Z86.19 Personal history of other infectious and parasitic diseases; Z95.5 Presence of coronary angioplasty implant and graft; Z96.641 Presence of right artificial hip joint
CPT/HCPCS: 36415; 71045; 71275; 80048; 80053; 81001; 82728; 83605; 83615; 83690; 83735; 84145; 84484; 85025; 85379; 85610; 85730; 86140; 87040; 87449; 87493; 87506; 87635; 93005; 99251; 99285; G2023; J7030; J7040; Q9967; A4216; G0463; J0696; U0003

== ENCOUNTER → 2020-01-16 11:18 | Outpatient (CLI) | payer MEDICARE, SELFPAY ==
[2020-01-09 23:54] VITALS: BMI 21.4
[2020-01-16 11:45] LABS: Absolute Lymphocyte Count 1.75 X10^3/uL (0.83-4.51); Absolute Neutrophil Count 5.4 X10^3/uL (2.0-7.7); Basophil# 0.04 X10^3/uL; Basophil% 0.5 % (0-1); Eosinophil# 0.19 X10^3/uL; Eosinophils% 2.4 % (0-5); Hematocrit 35.8 % (37-47); Hemoglobin 11.8 g/dL (12.0-15.0); Lymphocyte # 1.75 X10^3/ul (4.0); Lymphocyte % 21.7 % (19-41); Mean Corpuscular Hgb 30.3 pg (27.0-32.0); Mean Corpuscular Volume 91.8 fL (81-99); Mean Platelet Vol. 9.5 fl (6.2-12.0); Monocyte# 0.69 X10^3/uL; Monocyte% 8.6 % (0-10); NRBC Flagged by Analyzer 0 % (0-5); Neutrophil # 5.36 X10^3/uL (2.7-7.7); Neutrophil % 66.6 % (47-70); Platelet Count 379 K/mm3 (150-450); RBC Distribution Width SD 42.7 fl (35.1-43.9); White Blood Count 8.1 K/mm3 (4.4-11.0)
[2020-01-16 12:15] LABS: AST(SGOT) 31 U/L (15-37); Alanine Aminotransfer ALT/SGPT 55 U/L (13-56); Albumin, Serum 3.3 g/dL (3.2-5.0); Alkaline Phosphatase 71 U/L (45-117); Bilirubin, Direct 0.11 mg/dL (0.00-0.30); Cholesterol 168 mg/dL (200); Globulin 4.8 g/dL (2.2-4.2); High Density Lipoprotein 69 mg/dL; Protein, Total 8.1 g/dL (6.4-8.2); Triglycerides 102 mg/dL; Very Low Density Lipoprotein 20 mg/dL (5-40)
[2020-01-16 12:16] LABS: ALB/GLOB Ratio 0.7 RATIO (0.9-2.4); AST(SGOT) 31 U/L (15-37); Alanine Aminotransfer ALT/SGPT 57 U/L (13-56); Albumin, Serum 3.3 g/dL (3.2-5.0); Alkaline Phosphatase 72 U/L (45-117); Anion Gap 5 (5-15); BUN 14 mg/dL (7-18); BUN/Creat Ratio 16.6 RATIO (10-20); Calcium,Total 8.9 mg/dL (8.5-10.1); Chloride 106 mmol/L (98-107); Creatinine, Serum 0.84 mg/dL (0.55-1.02); EST Glomerular Filtration Rate 70 mL/min (>60); Est Glom Filt Rate - Afr Amer 84 mL/min (>60); Globulin 4.8 g/dL (2.2-4.2); Glucose 105 mg/dL (74-106); Potassium 4.2 mmol/L (3.5-5.1); Protein, Total 8.1 g/dL (6.4-8.2); Sodium Level 135 mmol/L (136-145)
== END ==
PROVIDERS: PCP Internal Medicine; Referring Provider Internal Medicine Cardiovascular Disease; Visit Provider Internal Medicine Cardiovascular Disease
DX: I25.10 Atherosclerotic heart disease of native coronary artery without angina pectoris (principal); E78.5 Hyperlipidemia, unspecified; I10 Essential (primary) hypertension
CPT/HCPCS: 36415; 80053; 80061; 80076; 85025

== ENCOUNTER → 2020-01-27 14:34 | Outpatient (CLI) | payer MEDICARE, SELFPAY ==
[2020-01-20 15:26] VITALS: BMI 21.4
[2020-01-27 17:09] LABS: Anion Gap 6 (5-15); BUN 17 mg/dL (7-18); BUN/Creat Ratio 16.7 RATIO (10-20); Calcium,Total 9.2 mg/dL (8.5-10.1); Chloride 104 mmol/L (98-107); Creatinine, Serum 1.02 mg/dL (0.55-1.02); EST Glomerular Filtration Rate 56 mL/min (>60); Est Glom Filt Rate - Afr Amer 68 mL/min (>60); Glucose 94 mg/dL (74-106); Potassium 3.7 mmol/L (3.5-5.1); Sodium Level 137 mmol/L (136-145)
== END ==
PROVIDERS: PCP Internal Medicine; Referring Provider Internal Medicine; Visit Provider Internal Medicine
DX: E87.6 Hypokalemia (principal)
CPT/HCPCS: 36415; 80048

== ENCOUNTER → 2020-04-21 08:59 | Outpatient (CLI) | payer MEDICARE, SELFPAY ==
[2020-04-13 13:04] VITALS: BMI 21.8
[2020-04-20 14:06] VITALS: BMI 21.4
--- NOTE | 2020-04-21 09:02 | CDU_ITS ---
Reason For Study: BRUIT Rt. Velocities/BP Lt. Velocities/BP Prox CCA 156/8 cm/sec. Prox CCA 107/19 cm/sec. Mid CCA 51/8 cm/sec. Mid CCA 76/17 cm/sec. Dist CCA 88/15 cm/sec. Dist CCA 96/19 cm/sec. Prox ICA 175/43 cm/sec. Prox ICA 77/19 cm/sec. Mid ICA 109/23 cm/sec. Mid ICA 190/52 cm/sec. Dist ICA 105/28 cm/sec. Dist ICA 124/28 cm/sec. Rt. ICA/CCA = 2.0. Lt. ICA/CCA = 2.0. Prox ECA 162/8 cm/sec. Prox ECA 241/0 cm/sec. Rt. Vert. 85/19 cm/sec. Lt. Vert. 74/19 cm/sec. Right Extracranial There is homogeneous, smooth atherosclerotic plaque noted in the right common carotid artery. There is heterogeneous, irregular atherosclerotic plaque noted in the right internal carotid artery. There is heterogeneous, irregular atherosclerotic plaque noted in the right external carotid artery. Antegrade flow is noted in the right vertebral artery. There is heterogeneous, irregular atherosclerotic plaque noted in the left bulb. Left Extracranial There is homogeneous, smooth atherosclerotic plaque noted in the left common carotid artery. There is heterogeneous, irregular atherosclerotic plaque noted in the left internal carotid artery. The left internal carotid artery is very tortuous. There is homogeneous, smooth atherosclerotic plaque noted in the left external carotid artery. Antegrade flow is noted in the left vertebral artery. There is homogeneous, smooth atherosclerotic plaque noted in the left bulb. Procedure Carotid Duplex 14911. Exam performed in department. Interpretation Summary Irregular calcific plaque right distal common carotid and proximal right internal and external carotid arteries 50-69% stenosis right internal carotid >50% stenosis right external carotid Minimal plaque at the proximal left internal carotid with tortuosity of the left internal carotid noted. 50-69% stenosis left mid internal carotid although this may be an over estimation secondary to the tortuosity present. >50% stenosis left external caotid Patent and antegrade vertebrals bilaterally Ordering Physician: Gayle Mckeon Referring Physician: Hector Walker Performed By: Makayla Norman RDCS, RVT
== END ==
PROVIDERS: PCP Internal Medicine; Referring Provider Physician Assistant Medical; Visit Provider Physician Assistant Medical
DX: R09.89 Other specified symptoms and signs involving the circulatory and respiratory systems (principal)
CPT/HCPCS: 93880

== ENCOUNTER → 2020-07-07 14:34 | Outpatient (CLI) | payer MEDICARE, SELFPAY ==
[2020-07-07 14:09] VITALS: BMI 21.4
[2020-07-07 16:11] LABS: Anion Gap 6 (5-15); BUN 13 mg/dL (7-18); Calcium,Total 9.6 mg/dL (8.5-10.1); Chloride 104 mmol/L (98-107); EST Glomerular Filtration Rate 57 mL/min (>60); Est Glom Filt Rate - Afr Amer 69 mL/min (>60); Glucose 100 mg/dL (74-106); Potassium 3.3 mmol/L (3.5-5.1); Sodium Level 138 mmol/L (136-145)
== END ==
PROVIDERS: PCP Internal Medicine; Visit Provider Physician Assistant Medical
DX: I50.42 Chronic combined systolic (congestive) and diastolic (congestive) heart failure (principal)
CPT/HCPCS: 36415; 80048

== ENCOUNTER → 2020-07-19 13:49 | Outpatient (CLI) | payer MEDICARE, SELFPAY ==
[2020-07-07 14:09] VITALS: BMI 21.4
[2020-07-19 15:47] LABS: Anion Gap 7 (5-15); BUN 13 mg/dL (7-18); BUN/Creat Ratio 15.7 RATIO (10-20); Calcium,Total 9.3 mg/dL (8.5-10.1); Chloride 107 mmol/L (98-107); Creatinine, Serum 0.83 mg/dL (0.55-1.02); EST Glomerular Filtration Rate 71 mL/min (>60); Est Glom Filt Rate - Afr Amer 86 mL/min (>60); Glucose 83 mg/dL (74-106); Potassium 4.3 mmol/L (3.5-5.1); Sodium Level 140 mmol/L (136-145)
== END ==
PROVIDERS: PCP Internal Medicine; Referring Provider Internal Medicine; Visit Provider Internal Medicine
DX: I10 Essential (primary) hypertension (principal)
CPT/HCPCS: 36415; 80048

== ENCOUNTER → 2020-10-18 14:17 | Outpatient (CLI) | payer MEDICARE, SELFPAY ==
[2020-10-18 13:51] VITALS: BMI 21.8
[2020-10-18 15:22] LABS: Absolute Lymphocyte Count 1.61 X10^3/uL (0.83-4.51); Absolute Neutrophil Count 6.9 X10^3/uL (2.0-7.7); Basophil# 0.04 X10^3/uL; Basophil% 0.4 % (0-1); Eosinophil# 0.04 X10^3/uL; Eosinophils% 0.4 % (0-5); Hematocrit 39.9 % (37-47); Lymphocyte # 1.61 X10^3/ul (0.83-4.51); Lymphocyte % 17.3 % (19-41); Mean Corp Hgb Conc 32.6 g/dL (32-36); Mean Corpuscular Hgb 31.5 pg (27.0-32.0); Mean Corpuscular Volume 96.6 fL (81-99); Mean Platelet Vol. 9.2 fl (6.2-12.0); Monocyte# 0.73 X10^3/uL; Monocyte% 7.8 % (0-10); NRBC Flagged by Analyzer 0 % (0-5); Neutrophil # 6.88 X10^3/uL (2.7-7.7); Neutrophil % 73.8 % (47-70); Platelet Count 339 K/mm3 (150-450); RBC Distribution Width CV 13.3 % (11.6-14.6); RBC Distribution Width SD 47.5 fl (35.1-43.9); Red Blood Count 4.13 M/mm3 (4.2-5.4); White Blood Count 9.3 K/mm3 (4.4-11.0)
[2020-10-18 16:18] LABS: Anion Gap 7 (5-15); BUN 25 mg/dL (7-18); Calcium,Total 9.2 mg/dL (8.5-10.1); Chloride 105 mmol/L (98-107); EST Glomerular Filtration Rate 57 mL/min (>60); Est Glom Filt Rate - Afr Amer 69 mL/min (>60); Glucose 105 mg/dL (74-106); Potassium 4.8 mmol/L (3.5-5.1); Sodium Level 138 mmol/L (136-145)
== END ==
PROVIDERS: PCP Internal Medicine; Visit Provider Internal Medicine
DX: I10 Essential (primary) hypertension (principal); H53.8 Other visual disturbances
CPT/HCPCS: 36415; 80048; 85025

== ENCOUNTER → 2020-12-13 12:59 | Outpatient (CLI) | payer MEDICARE, SELFPAY ==
[2020-10-18 13:51] VITALS: BMI 21.8
--- NOTE | 2020-12-13 13:01 | BI_ITS ---
MAMMOGRAPHY - BILATERAL SCREENING 3-D TOMOSYNTHESIS REASON FOR EXAM: Female, 75 years old. Annual screening for breast cancer. PERTINENT HISTORY: History of breast cancer in sister and mother. TECHNIQUE: 2-D mammograms and 3-D Tomosynthesis of the breast (s) were performed. CAD was performed. COMPARISON: 12/11/2019. FINDINGS: The breast composition is almost entirely fat. Scattered benign calcifications are seen. No dense spiculated masses or suspicious microcalcifications are identified. No architectural distortion is identified. There is no skin thickening or retraction. There has been no significant change since the prior study. BI/SCRN MAMM (CAD)W/SERVANDO BILAT IMPRESSION: No mammographic signs of malignancy. Routine yearly mammograms recommended. ASSESSMENT CATEGORY: BIRADS Category 2: Benign. A letter regarding these results will be sent to the patient by the facility within 30 days. FOLLOW UP RECOMMENDATION: Yearly follow up mammogram recommended. (A) Approximately 10% of breast cancers are not detected by mammography. A normal mammogram should not delay biopsy of a clinically suspicious abnormality. Electronically Signed: Rogelio Mcdonnell MD at 12:10 EDT , Service support ,
== END ==
PROVIDERS: PCP Internal Medicine; Referring Provider Internal Medicine; Visit Provider Internal Medicine
DX: Z12.31 Encounter for screening mammogram for malignant neoplasm of breast (principal)
CPT/HCPCS: 77063; 77067

== ENCOUNTER → 2020-12-30 13:53 | Outpatient (CLI) | payer MEDICARE, SELFPAY ==
[2020-12-30 13:11] VITALS: BMI 22.3
[2020-12-30 14:46] LABS: AST(SGOT) 25 U/L (15-37); Alanine Aminotransfer ALT/SGPT 38 U/L (13-56); Albumin, Serum 3.6 g/dL (3.2-5.0); Alkaline Phosphatase 64 U/L (45-117); Bilirubin, Direct 0.14 mg/dL (0.00-0.30); Cholesterol 198 mg/dL (200); Globulin 3.6 g/dL (2.2-4.2); High Density Lipoprotein 116 mg/dL; Protein, Total 7.2 g/dL (6.4-8.2); Triglycerides 124 mg/dL; Very Low Density Lipoprotein 25 mg/dL (5-40)
== END ==
LOC: LABSPEC 13:54 → LAB 13:57
PROVIDERS: PCP Internal Medicine; Referring Provider Internal Medicine Cardiovascular Disease; Visit Provider Internal Medicine Cardiovascular Disease
DX: E78.00 Pure hypercholesterolemia, unspecified (principal)
CPT/HCPCS: 36415; 80061; 80076

== ENCOUNTER → 2021-01-10 13:59 | Outpatient (CLI) | payer MEDICARE, SELFPAY ==
[2020-12-30 13:11] VITALS: BMI 22.3
--- NOTE | 2021-01-10 14:01 | ECHOD_ITS ---
Reason For Study: CMP Procedure This was a 2D Doppler, Color Flow transthoracic echocardiogram. Exam performed in department. Left Ventricle Normal LV size. The estimated ejection fraction is 25 %. Stage 1 diastolic dysfunction. Moderately severe segmental systolic dysfunction (see wall motion). Right Ventricle Normal RV size. Normal systolic function. Atria Normal left atrium. Normal right atrium. Mitral Valve Normal mitral valve. Tricuspid Valve Normal tricuspid valve. Mild (1+) tricuspid valve insufficiency. Pulmonary artery systolic pressure is 33 mmHg. Aortic Valve Normal aortic valve. Trisinus/trileaflet aortic valve. Pulmonic Valve Normal pulmonic valve. Great Vessels Normal aortic root. The pulmonary artery is normal size. Normal inferior vena cava. Pericardium/Pleural No pericardial effusion. MMode/2D Measurements & Calculations LVIDd: 4.4 cm IVSd: 1.1 cm Ao root diam: 3.1 cm LVIDs: 3.0 cm LVPWd: 1.1 cm RVDd: 3.2 cm FS: 32.7 % LAV(MOD-bp): 40.5 ml LVAd ap4: 28.3 cm2 SV(MOD-sp4): 47.3 ml LAV(MOD-bp) Indexed: 24.3 ml/m2 LVLd ap4: 7.8 cm LAV(MOD-sp2): 42.8 ml EDV(MOD-sp4): 83.1 ml LAV(MOD-sp4): 36.8 ml EDV(sp4-el): 87.7 ml LVAs ap4: 17.6 cm2 LVLs ap4: 7.0 cm ESV(MOD-sp4): 35.8 ml ESV(sp4-el): 37.9 ml EF(MOD-sp4): 57.0 % EF(sp4-el): 56.8 % SV(sp4-el): 49.8 ml LA A4 area: 14.8 cm2 LA dimension(2D): 2.5 cm RA A4 area: 11.6 cm2 Doppler Measurements & Calculations MV E max myke: 72.9 cm/sec Lat Peak E' Myke: 10.7 cm/sec Med Peak E' Myke: 5.4 cm/sec MV A max myke: 90.7 cm/sec E/E' lat: 6.8 E/E' med: 13.4 MV E/A: 0.80 Ao V2 max: 134.2 cm/sec LV V1 max: 94.3 cm/sec PA V2 max: 91.1 cm/sec Ao max P.2 mmHg LV V1 max P.6 mmHg TR max myke: 265.9 cm/sec TR max P.4 mmHg ECHO/Echo Complete Interpretation Summary Normal LV size. The estimated ejection fraction is 25 %. Stage 1 diastolic dysfunction. Pulmonary artery systolic pressure is 33 mmHg. Moderately severe segmental systolic dysfunction (see wall motion). Compared to previous study, the left ventricular systolic function is the same. . Ordering Physician: Bairon Stephen Referring Physician: Hector Walker Performed By: Kaylie Poole RDCS
== END ==
LOC: CVS 14:00
PROVIDERS: PCP Internal Medicine; Referring Provider Internal Medicine Cardiovascular Disease; Visit Provider Internal Medicine Cardiovascular Disease
DX: I25.10 Atherosclerotic heart disease of native coronary artery without angina pectoris (principal); I25.2 Old myocardial infarction; I11.0 Hypertensive heart disease with heart failure; I50.42 Chronic combined systolic (congestive) and diastolic (congestive) heart failure; I25.5 Ischemic cardiomyopathy; I27.21 Secondary pulmonary arterial hypertension; E78.5 Hyperlipidemia, unspecified; I44.7 Left bundle-branch block, unspecified
CPT/HCPCS: 93306

== ENCOUNTER → 2021-01-17 13:49 | Outpatient (CLI) | payer MEDICARE, SELFPAY ==
[2021-01-17 13:33] VITALS: BMI 22.3
[2021-01-17 15:29] LABS: Anion Gap 5 (5-15); BUN 12 mg/dL (7-18); BUN/Creat Ratio 12.9 RATIO (10-20); Calcium,Total 8.7 mg/dL (8.5-10.1); Chloride 105 mmol/L (98-107); Creatinine, Serum 0.93 mg/dL (0.55-1.02); EST Glomerular Filtration Rate 62 mL/min (>60); Est Glom Filt Rate - Afr Amer 75 mL/min (>60); Glucose 109 mg/dL (74-106); Potassium 3.8 mmol/L (3.5-5.1); Sodium Level 138 mmol/L (136-145)
== END ==
PROVIDERS: PCP Internal Medicine; Referring Provider Internal Medicine; Visit Provider Internal Medicine
DX: I10 Essential (primary) hypertension (principal)
CPT/HCPCS: 36415; 80048

== ENCOUNTER → 2021-01-18 06:11 | Outpatient (CLI) | payer MEDICARE, SELFPAY ==
[2020-12-30 13:11] VITALS: BMI 22.3
[2021-01-17 13:33] VITALS: BMI 22.3
--- NOTE | 2021-01-18 19:57 | STRESSREP ---
Stress Test Report Pharmacologic myocardial perfusion stress test. 75-year-old lady with a history of coronary artery disease left bundle branch block. Stress protocol: Resting EKG demonstrates sinus bradycardia with a rate of 55 bpm and left bundle branch block resting blood pressure is 170/80 mmHg. 0.4 mg of regadenoson was infused per usual protocol followed by rapid intravenous saline flush injection continuous EKG monitoring was performed. The maximum heart rate attained was 63 bpm which was 44% of max infected heart rate the maximum workload was 1 metabolic equivalent. At rest there were no ST or T wave changes noted to suggest abnormal flow reserve and at peak infusion nonspecific ST changes were noted with did not meet the criteria for ischemia. No clinical angina was noted. The final blood pressure was 148/70 mmHg. The peak blood pressure was 170/80 mmHg. Myocardial perfusion protocol. 10.8 mCi of technetium 99m sestamibi was injected at rest. 0.4 mg of regadenoson was infused. Protocol peak infusion 33.1 mCi of technetium 99m sestamibi was injected stress images were obtained stress and rest images were reconstructed and compared in the short axis vertical long horizontal long axis. Gated images were also obtained Perfusion SPECT analysis: Review of the stress images demonstrate normal uptake of tracer noted during the septum, inferior wall, lateral wall. There is a medium size defect noted in the mid to distal anterior wall on the stress images with near complete reversibility noted on the resting images. The above is suggestive of mid to distal anterior wall ischemia. No previous infarct is noted. Gated SPECT analysis: The gated ejection fraction was suboptimally calculated. Conclusion: Abnormal myocardial perfusion stress test with evidence of mid anterior to distal anterior ischemia. Left bundle branch block pattern noted.
== END ==
PROVIDERS: PCP Internal Medicine; Referring Provider Internal Medicine Cardiovascular Disease; Visit Provider Internal Medicine Cardiovascular Disease
DX: I25.5 Ischemic cardiomyopathy (principal); I25.10 Atherosclerotic heart disease of native coronary artery without angina pectoris; I25.2 Old myocardial infarction; I11.0 Hypertensive heart disease with heart failure; I50.42 Chronic combined systolic (congestive) and diastolic (congestive) heart failure; I27.21 Secondary pulmonary arterial hypertension; E78.5 Hyperlipidemia, unspecified; I44.7 Left bundle-branch block, unspecified; Z98.61 Coronary angioplasty status
CPT/HCPCS: 78452; 93017; A9500; A4216; J2785

== ENCOUNTER 2021-01-21 13:25 | Emergency (ER) | payer MEDICARE, SELFPAY ==
[2021-01-17 13:33] VITALS: BMI 22.3
[2021-01-21 13:26] VITALS: BP 126/70; PULSE 44; RESP 18; TEMP 36.5; O2SAT 100; BMI 23.8
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
[2021-01-21] MEDS: Diphth,Pertuss(Acell),Tet Vac 0.5 ML Vial IM (14:27)
== END 2021-01-21 15:58 | disposition home or self-care (01) ==
PROVIDERS: Emergency Provider Emergency Medicine; PCP Internal Medicine
DX: S81.811A Laceration without foreign body, right lower leg, initial encounter (principal); I11.0 Hypertensive heart disease with heart failure; I50.43 Acute on chronic combined systolic (congestive) and diastolic (congestive) heart failure; I25.2 Old myocardial infarction; I25.10 Atherosclerotic heart disease of native coronary artery without angina pectoris; I25.5 Ischemic cardiomyopathy; E78.5 Hyperlipidemia, unspecified; E03.9 Hypothyroidism, unspecified; Z79.02 Long term (current) use of antithrombotics/antiplatelets; Z79.82 Long term (current) use of aspirin; Z79.899 Other long term (current) drug therapy; Z87.891 Personal history of nicotine dependence; V89.0XXA Person injured in unspecified motor-vehicle accident, nontraffic, initial encounter
CPT/HCPCS: 73562; 73590; 90715; 96372; 99284

== ENCOUNTER 2021-01-24 10:58 | Emergency (ER) | payer MEDICARE, SELFPAY ==
[2021-01-24 10:59] VITALS: BP 117/57; PULSE 50; RESP 16; TEMP 36.7; O2SAT 100; BMI 20.7
--- NOTE | 2021-01-24 11:18 | CT_ITS ---
STUDY: CT BRAIN WITHOUT CONTRAST REASON FOR EXAM: Female, 75 years old. Mechanical fall hitting left side of head/face, on Plavix, pain RADIATION DOSAGE (If Supplied By Facility): CTDIvol = ( 44.99 ) mGy, DLP = ( 812.98 ) mGycm TECHNIQUE: Transaxial CT imaging of the brain was performed without administration of intravenous contrast material. Individualized dose optimization techniques were used for this CT. COMPARISON: No relevant priors. FINDINGS: Normal soft tissue structures. Normal calvarium. There is mild cerebral atrophy with widening of the extra-axial spaces and ventricular dilatation. There are areas of decreased attenuation within the white matter tracts of the supratentorial brain, consistent with microvascular disease changes. Normal basal ganglia and thalami. Normal brainstem. Normal cerebellum. There is no intracranial hemorrhage. There are no findings of an acute ischemic infarction. Normal visualized paranasal sinuses. CT/Brain/Head without Contrast IMPRESSION: No acute intracranial hemorrhage or mass effect. Electronically Signed: Philip Judd MD ([place]) at 11:49 EDT , Service support ,
--- NOTE | 2021-01-24 11:18 | CT_ITS ---
STUDY: CT FACIAL BONES WITHOUT CONTRAST REASON FOR EXAM: Female, 75 years old. Mechanical fall hitting left side of head/face, on Plavix, neck pain RADIATION DOSAGE (If Supplied By Facility): CTDIvol = ( 29.38 ) mGy, DLP = ( 510.73 ) mGycm TECHNIQUE: The patient was scanned in a multi detector CT scanner. Sagittal and coronal images were reconstructed. Individualized dose optimization techniques were used for this CT. COMPARISON: None. FINDINGS: Mild soft tissue swelling of the left malar region. Normal orbital rizo and orbital contents. Normal nasal bones and anterior nasal spine. Normal facial bones. There is no demonstrated fracture. Minimal ethmoid sinus disease. CT/Sinus/Facial Bone IMPRESSION: Left malar soft tissue swelling without demonstrated fracture. Electronically Signed: Philip Judd MD ([place]) at 11:52 EDT , Service support ,
--- NOTE | 2021-01-24 11:18 | CT_ITS ---
EXAM: CT CERVICAL SPINE WITHOUT INTRAVENOUS CONTRAST CLINICAL INDICATION: Mechanical fall hitting left side of head/face, on Plavix, neck pain TECHNIQUE: Helically acquired images were obtained of the cervical spine without intravenous contrast. 2D reformatted images were reviewed. This CT exam was performed using one or more of the following dose reduction techniques: automated exposure control, adjustment of the mA and/or kV according to patient size, and/or use of iterative reconstruction technique. This report was created using [employer] report Metaset technology. COMPARISON: None. FINDINGS: VERTEBRAE: Mild anterior spondylosis at C4, C5 and C6. No fracture. No traumatic subluxation. No discrete lytic or blastic abnormality. Normal alignment. Normal craniocervical junction and cervicothoracic junction. DISCS/SPINAL CANAL/NEURAL FORAMINA: Broad posterior disc bulging at C4-C5, C5-C6. No significant canal stenosis. SOFT TISSUES: Unremarkable. No prevertebral soft tissue swelling. VASCULATURE: Atherosclerosis of the bilateral carotid arteries. LYMPH NODES: Unremarkable. No cervical adenopathy. LUNG APICES: Unremarkable as visualized. Clear. OTHER FINDINGS: Left more than right facet arthropathy. CT/Spine Cervical without Contras IMPRESSION: No acute findings in the cervical spine. Electronically Signed: Philip Judd MD ([place]) at 11:51 EDT , Service support ,
--- NOTE | 2021-01-24 11:20 | EDS_ITS ---
HPI HPI - Fall History of Present Illness Chief Complaint: Fall Narrative Narrative: 75-year-old female presenting with left facial pain after mechanical fall. Patient states she was here for an outpatient chest x-ray which was being used to obtain medical clearance for outpatient catheterization. Patient states that after her chest x-ray she had a mechanical fall tripping over her shoe and falling to the ground hitting her left cheek. She denies LOC. Patient is on Plavix. She denies dizziness, lightheadedness, unstable gait at this time. She has no nausea or vomiting. Patient denies chest pain or shortness of breath. Patient states she initially had some neck pain after the rapid response but this is resolving. She complains of mild facial pain only does not have a headache. [facility] Medical History Acute on chronic combined systolic (congestive) and diastolic (congestive) heart failure Age related osteoporosis Anxiety Atherosclerosis of coronary artery of [place] heart without angina pectoris Back problem Cataracts, bilateral Chronic bronchitis Chronic combined systolic and diastolic CHF (congestive heart failure) Chronic diarrhea Depression Diarrhea Environmental allergies Essential (primary) hypertension Heart murmur History of Clostridium difficile colitis History of fracture of right ankle History of non-ST elevation myocardial infarction (NSTEMI) (12/2019) History of wrist fracture HLD (hyperlipidemia) Hyperthyroidism Hypotension Hypothyroidism IBS (irritable bowel syndrome) Ischemic cardiomyopathy Left bundle branch block (LBBB) Left ventricular diastolic dysfunction Pain management Right hip pain Scoliosis Secondary pulmonary arterial hypertension Segmental and somatic dysfunction of cervical region Segmental and somatic dysfunction of lumbar region Segmental and somatic dysfunction of pelvic region Segmental and somatic dysfunction of thoracic region Skin cancer UTI (urinary tract infection) Home Medications cholecalciferol (vitamin D3) 400 unit PO DAILY 05/02/14 [History Last Taken 01/09/20] multivitamin with folic acid 1 tab PO DAILY 05/02/14 [History Last Taken 01/08/20] vitamin B comp and C no.3 15 mg-10 mg-50 mg-5 mg-300 mg capsule 1 cap PO DAILY 04/08/19 [History Last Taken 01/09/20] calcium carbonate 1,177 mg PO QHS 04/22/19 [History Last Taken 01/08/20] acetaminophen 500 mg tablet 1,000 mg PO Q8H PRN 05/28/19 [History Last Taken 01/09/20] aspirin 81 mg tablet,delayed release 81 mg PO DAILY 06/09/19 [History Last Taken 01/09/20] magnesium oxide 400 mg (241.3 mg magnesium) tablet 800 mg PO QHS 01/20/20 [History Last Taken Unknown] rosuvastatin 20 mg tablet 20 mg PO DAILY #90 tab 04/06/20 [Rx Last Taken Unkn own] diphenhydramine 25 mg-acetaminophen 500 mg tablet 1 tab PO QHS PRN 04/20/20 [History Last Taken Unknown] clopidogrel 75 mg tablet See Rx Instructions .ROUTE .COMPLEX #90 tab 06/29/20 [Rx Last Taken Unknown] potassium chloride 10 mEq capsule,extended release 20 meq PO TID #360 cap 07/08/20 [Rx Last Taken Unknown] paroxetine HCl 40 mg tablet 40 mg PO DAILY #90 tab 09/09/20 [Rx Last Taken Unknown] buspirone 5 mg tablet 5 mg PO BID #60 tablet 12/02/20 [Rx Last Taken Unknown] levothyroxine 50 mcg tablet 50 mcg PO DAILY #90 tab 12/02/20 [Rx Last Taken Unknown] carvedilol 3.125 mg tablet 3.125 mg PO BID #180 tab 12/20/20 [Rx Last Taken Unknown] furosemide 40 mg tablet 40 mg PO BID #180 tab 12/20/20 [Rx Last Taken Unknown] budesonide 3 mg capsule,delayed,extended release 3 mg PO DAILY ea 12/30/20 [History Last Taken Unknown] sacubitril-valsartan [Entresto] 1 tab PO BID 01/21/21 [History Last Taken Unknown] Allergy/AdvReac Type Severity Reaction Status Date / Time Sulfa (Sulfonamide Allergy Unknown Verified 01/24/21 10:59 Antibiotics) Family History Sister Asthma Anxiety Breast cancer Diabetes Respiratory disease Skin cancer Mother Breast cancer Father Depression Grandmother Colon cancer Grandfather Myocardial infarction Other Cancer Heart disease Hypertension Kidney disease Surgical History History of colonoscopy History of coronary angioplasty (05/13/19) History of right knee surgery History of total right hip arthroplasty (04/2019) Social History Smoking Status: Former smoker alcohol intake: current alcohol intake frequency: holidays/special occasions only Alcohol type: beer and other substance use type: does not use what type of physical activity do you participate in: walking and aerobics frequency: 1-2 times per week ROS ROS ED Constitutional Constitutional ED: Denies chills, fever(s) or sweats Eyes Eyes: Denies blurry vision or diplopia ENT ENT ED: Reports other Details: Left cheek tenderness and swelling. entrapment. ; Denies rhinorrhea or sore throat Cardiovascular Cardiovascular: Denies chest pain or palpitations Respiratory/Chest Respiratory/Chest: Denies cough, dyspnea, dyspnea on exertion or sputum Gastrointestinal Gastrointestinal: Denies abdominal pain, nausea or vomiting Genitourinary Genitourinary ED: Denies dysuria or hematuria Musculoskeletal Musculoskeletal: Reports neck pain; Denies arthralgias or myalgias Integumentary Denies abscess or rash Neurologic Neurologic: Denies headache(s) Psychiatric Psychiatric: Denies anxiety or depression EXAM Physical Exam Const Vital Signs: 01/24/21 10:59 01/24/21 11:26 Temperature 98.1 F Temperature Source Temporal Pulse Rate 50 L Respiratory Rate 16 Respiratory Effort Normal Respiratory Depth Normal Respiratory Pattern Normal Blood Pressure 117/57 L Blood Pressure Mean 77 Pulse Ox 100 Oxygen Delivery Method Room Air Room Air Positive well nourished General Appearance ED: NAD HEENT Reports normocephalic and TM's normal bilaterally HEENT Narrative: Left cheek tenderness and swelling. No obvious deformity. No extraocular muscle entrapment. Eyes PERRL and EOMs intact bilaterally Neck full ROM General: Negative for tenderness Resp normal respiratory effort and clear to auscultation bilaterally Cardio regular rate and regular rhythm Back/Spine Thoracic Spine / Upper Back: Negative for thoracic spinal tenderness Lumbar Spine / Lower Back: Negative for lumbar spinal tenderness Neuro oriented x3, CN's II-XII intact bilaterally, moves all extremities, no focal motor deficits and no sensory deficits noted Sensorium / Orientation: alert Psych mental status grossly normal and thought process normal Skin Skin Narrative: Left cheek contusion without laceration or abrasion. No deformity. MDM MDM MDM Narrative Medical decision making narrative: Patient presenting with left facial bruising and history of neck pain after falling. She describes as a mechanical fall after tripping over her shoes after coming out of x-ray. Patient had CT brain, cervical spine, maxillofacial CTs which show no acute fractures or acute intracranial pathology. I did review the patient's chest x-ray from earlier and this shows no acute cardiopulmonary process on my interpretation and the radiologist does agree. I do not believe the patient needs further lab work or imaging at this time. She will be discharged home with return precautions. Patient stable for discharge at this time. Impression: 1. Mechanical fall 2. Left facial contusion 3. Cervical strain Radiography Diagnostic Testing: Radiology Impression Brain CT 01/24/21 11:18 IMPRESSION: No acute intracranial hemorrhage or mass effect. Electronically Signed: Philip Judd MD ([place]) at 11:49 EDT , Service support , Cervical Spine CT 01/24/21 11:18 IMPRESSION: No acute findings in the cervical spine. Electronically Signed: Philip Judd MD ([place]) at 11:51 EDT , Service support , Facial/Sinus 01/24/21 11:18 IMPRESSION: Left malar soft tissue swelling without demonstrated fracture. Electronically Signed: Philip Judd MD ([place]) at 11:52 EDT , Service support , Discharge Plan Triage Chief Complaint: Fall ED Provider: Chandler Blakely Dx/Rx/DC Orders Instructions: ED Facial Contusion, ED Fall Prevention Prescriptions: No Action B Complex Plus Vitamin C 90-23-87-5-300 mg capsule 1 cap PO DAILY RF: 0 aspirin 81 mg tablet,delayed release (DR/EC) 81 mg PO DAILY RF: 0 diphenhydramine-acetaminophen [Tylenol PM Extra Strength] 25-500 mg tablet 1 tab PO QHS PRN (Reason: Insomnia) RF: 0 budesonide 3 mg capsule,delayed,extend.release 3 mg PO DAILY RF: 0 cholecalciferol (vitamin D3) 400 UNIT capsule 400 unit PO DAILY RF: 0 multivitamin with folic acid 1 TABLET tablet 1 tab PO DAILY RF: 0 calcium carbonate 1,177 MG tablet,chewable 1,177 mg PO QHS RF: 0 acetaminophen 500 mg tablet 1,000 mg PO Q8H PRN (Reason: pain) RF: 0 magnesium oxide 400 mg (241.3 mg magnesium) tablet 800 mg PO QHS RF: 0 Entresto 49-51 mg Tablet 1 tab PO BID RF: 0 rosuvastatin 20 mg tablet 20 mg PO DAILY Qty: 90 RF: 3 clopidogrel 75 mg tablet See Rx Instructions .ROUTE .COMPLEX Qty: 90 RF: 3 potassium chloride 10 mEq capsule, extended release 20 meq PO TID Qty: 360 RF: 3 paroxetine HCl 40 mg tablet 40 mg PO DAILY Qty: 90 RF: 3 buspirone 5 mg tablet 5 mg PO BID Qty: 60 RF: 2 levothyroxine 50 mcg tablet 50 mcg PO DAILY Qty: 90 RF: 3 furosemide 40 mg tablet 40 mg PO BID Qty: 180 RF: 3 carvedilol 3.125 mg tablet 3.125 mg PO BID Qty: 180 RF: 3 Primary Care Provider: Hector Walker Referrals: Hector Walker MD [Primary Care Provider] - Disposition Disposition: Home, Self Care
== END 2021-01-24 12:20 | disposition home or self-care (01) ==
LOC: ED 12:17
PROVIDERS: Emergency Provider Student in an Organized Health Care Education/Training Program; PCP Internal Medicine
DX: S00.83XA Contusion of other part of head, initial encounter (principal); S16.1XXA Strain of muscle, fascia and tendon at neck level, initial encounter; I25.2 Old myocardial infarction; I25.10 Atherosclerotic heart disease of native coronary artery without angina pectoris; Z79.02 Long term (current) use of antithrombotics/antiplatelets; Z87.891 Personal history of nicotine dependence; W01.0XXA Fall on same level from slipping, tripping and stumbling without subsequent striking against object, initial encounter
CPT/HCPCS: 70450; 70486; 72125; 99282

== ENCOUNTER → 2021-01-26 14:06 | Outpatient (CLI) | payer MEDICARE, SELFPAY ==
[2021-01-25 11:00] VITALS: BMI 20.7
[2021-01-26 16:23] LABS: CRP < 2.90 mg/L (0.0-3.0)
[2021-01-28 16:09] LABS: Endomysial Antibody IgA Negative (Negative)
[2021-01-28 18:31] LABS: Immunoglobulin A 219 mg/dL (64-422); t-Transglutaminase IgA <2 U/mL (0-3)
== END ==
PROVIDERS: PCP Internal Medicine; Referring Provider Internal Medicine Gastroenterology; Visit Provider Internal Medicine Gastroenterology
DX: R19.7 Diarrhea, unspecified (principal)
CPT/HCPCS: 36415; 82784; 83516; 86140; 86255

== ENCOUNTER 2021-02-07 08:04 | Day surgery (SDC) | payer MEDICARE, SELFPAY ==
--- NOTE | 2021-01-24 10:50 | RAD_ITS ---
STUDY: X-RAY CHEST REASON FOR EXAM: Female, 75 years old. History of chills and nausea and vomiting. Evaluate for congestive failure. TECHNIQUE: Frontal and lateral views of the chest. COMPARISON: 01/09/2020. FINDINGS: Stable mild hyperexpansion with scattered healed granulomatous calcifications. There is no demonstrated pleural abnormality. Cardiomegaly unchanged. Normal mediastinum and fina. Normal visualized pulmonary arteries. Aortic tortuosity with calcification unchanged. Normal visualized thoracic spine. Normal visualized ribs, clavicles, and shoulders. There is no demonstrated abnormality of the visualized soft tissue structures of the upper abdomen. RAD/Chest PA and Lateral IMPRESSION: Stable cardiomegaly with mild hyperexpansion. No active or acute cardiopulmonary disease. Electronically Signed: oRgelio Mcdonnell MD at 11:11 EDT , Service support ,
[2021-01-24 11:41] LABS: Absolute Lymphocyte Count 2.47 X10^3/uL (0.83-4.51); Absolute Neutrophil Count 4.8 X10^3/uL (2.0-7.7); Basophil# 0.04 X10^3/uL; Basophil% 0.5 % (0-1); Eosinophil# 0.09 X10^3/uL; Eosinophils% 1.1 % (0-5); Hematocrit 32.8 % (37-47); Hemoglobin 10.5 g/dL (12.0-15.0); Lymphocyte # 2.47 X10^3/ul (0.83-4.51); Lymphocyte % 30.1 % (19-41); Mean Corpuscular Hgb 30.9 pg (27.0-32.0); Mean Corpuscular Volume 96.5 fL (81-99); Mean Platelet Vol. 9.5 fl (6.2-12.0); Monocyte# 0.81 X10^3/uL; Monocyte% 9.9 % (0-10); NRBC Flagged by Analyzer 0 % (0-5); Neutrophil # 4.78 X10^3/uL (2.7-7.7); Neutrophil % 58.2 % (47-70); Platelet Count 307 K/mm3 (150-450); RBC Distribution Width CV 12.7 % (11.6-14.6); RBC Distribution Width SD 44.6 fl (35.1-43.9); White Blood Count 8.2 K/mm3 (4.4-11.0)
[2021-01-25 11:00] VITALS: BMI 20.7
[2021-02-03 10:04] VITALS: BMI 22.3
--- NOTE | 2021-02-07 09:56 | CL.D_ITS ---
Patient Name: SOLANGE TURCIOS Study Date: 02/07/2021 Performing: Bairon Stephen MD Ht: 64.96 inches 165 cm : 1945 Wt: 134.48 lbs 61 kg Age: 75 Gender: female BSA: 1.67 PROCEDURE(S) PERFORMED [id number]/LV CLINICAL PROFILE AND INDICATIONS Indications: Suspected CAD Heart Failure: None Stress/Imaging Date: 01/18/21ress Test with SPECT MPI: Positive Intermediate Risk CAD Presentations: Stable angina. CONCLUSIONS Severe coronary artery disease with mid LAD demonstrating high-grade stenosis and distal left circumf rei artery with high-grade stenosis and a totally occluded right coronary artery with [id number] c ollaterals. The ejection fraction is reduced. RECOMMENDATIONS Surgery consult for coronary revascularization DESCRIPTION OF PROCEDURE The patient arrived to the procedure lab. The risks and benefits of the procedure as well as a full d escription of our services here and current unavailability of surgical backup were fully explained to the patient and/or their significant other prior to the catheterization. The Timeout was completed, verifying the correct patient and procedure. The patient's procedural site was prepped and draped in the usual fashion. Local anesthetic was given subcutaneously to right radial region with Lidocaine 2% . Using a modified Seldinger technique, arterial access was obtained via the right radial artery, a 6 Fr sheath was inserted. Left Coronary Artery selective angiography was performed in multiple views u sing a 5 Fr. 4.0 [place] catheter. Left Ventriculography was performed in SINGLETON projection using a 5 Fr. Pigtail catheter. LV to AO pullback pressures were then recorded.The arterial sheath was pulled and a TR Band was applied for hemostasis sheath flushed, 10cc air inserted. CORONARY ANGIOGRAPHY DOMINANCE: Co- Dominant LEFT HEART ASSESSMENT Left Ventricular Ejection Fraction: by LV Gram 25 % Global Hypokinesis - Moderate Depressed Left Ventricular systolic function LEFT MAIN: Mild calcification, Mild luminal irregularities LEFT ANTERIOR DESCENDING ARTERY: PROX LAD: Mild luminal irregularities less than 30% MID LAD: 85 % Stenosis CIRCUMFLEX ARTERY: DISTAL CIRC: 80 % Stenosis RIGHT CORONARY ARTERY: OSTIAL RCA: is occluded COLLATERAL FLOW: Collateral flow from Left to Right COMPLICATIONS No Complications PROCEDURE MEDICATIONS Fentanyl 50 mcg IV Versed 1 mg IV Oxygen: 2 L/min via nasal cannula Heparin given IA 02/07/2021 09:15:59 SUMMARY OF HEMODYNAMIC DATA Time AIR REST ECG 08:33:56 Art 130/41 (67) 09:05:35 AO 102/40 (62) SA 09:19:13 LV 134/-3, 2 09:32:00 LV 132/-1, 5 09:32:06 LV 102/-4, 3 09:32:56 LVp 106/1, 7 09:33:02 AOp 113/35 (63) 09:33:07 RM AIR REST 09:55:19 Signed By Bairon Stephen MD On 02/07/2021 9:55:50 AM Signed By Bairon Stephen MD On 02/07/2021 9:55:02 AM Bairon Stephen MD
--- NOTE | 2021-02-10 15:51 | PCM.HP.BLA ---
History and Physical Date of Admission: 02/07/21 This is a 75 year old female who presents today for a heart catheterization. She originally presented in April 2019 with chest discomfort and underwent a cardiac catheterization which demonstrated a high-grade lesion in the mid LAD for which he underwent angioplasty and stenting. She also has cardiomyopathy which appears to be out of proportion to the coronary disease. She also does have a history of hypertension, hyperlipidemia, and a left bundle branch block. She denies any chest pain or shortness with paroxysmal nocturnal dyspnea or pedal edema, no neck arm or jaw discomfort to suggest angina. Intake Vital Signs: See EMR Intake Visit Reasons: [facility] Allergies Sulfa (Sulfonamide Antibiotics) Allergy (Verified 12/30/20 13:12) Unknown Medications See EMR Ejection fraction %: 35 to 39 [facility] Medical History Acute on chronic combined systolic (congestive) and diastolic (congestive) heart failure Age related osteoporosis Anxiety Anxiety Atherosclerosis of coronary artery of [place] heart without angina pectoris Back problem Cataracts, bilateral Chronic bronchitis Chronic combined systolic and diastolic CHF (congestive heart failure) Chronic diarrhea Depression Diarrhea Environmental allergies Essential (primary) hypertension Heart murmur History of Clostridium difficile colitis History of fracture of right ankle History of non-ST elevation myocardial infarction (NSTEMI) (12/2019) History of wrist fracture HLD (hyperlipidemia) Hyperthyroidism Hypotension Hypothyroidism IBS (irritable bowel syndrome) Ischemic cardiomyopathy Left bundle branch block (LBBB) Left ventricular diastolic dysfunction Pain management Right hip pain Scoliosis Secondary pulmonary arterial hypertension Segmental and somatic dysfunction of cervical region Segmental and somatic dysfunction of lumbar region Segmental and somatic dysfunction of pelvic region Segmental and somatic dysfunction of thoracic region Skin cancer UTI (urinary tract infection) Surgical History History of colonoscopy History of coronary angioplasty (05/13/19) History of right knee surgery History of total right hip arthroplasty (04/2019) Family History Sister Asthma Anxiety Breast cancer Diabetes Respiratory disease Skin cancer Mother Breast cancer Father Depression Grandmother Colon cancer Grandfather Myocardial infarction Other Cancer Heart disease Hypertension Kidney disease Social History Smoking Status: Former smoker alcohol intake: current alcohol intake frequency: holidays/special occasions only Alcohol type: beer and other substance use type: does not use what type of physical activity do you participate in: walking and aerobics frequency: 1-2 times per week ROS Const Const: Negative for fatigue, weakness, headache(s), frequent falls, difficulty sleeping or excessive sweating Eyes Eyes: Negative for loss of peripheral vision, transient loss of vision, blurry vision, double vision or tunnel vision ENT ENT: Negative for headache(s), dizziness, Nosebleed/epistaxis or balance problems Cardio Chest Pain: No Palpitations: No Edema: None Muscle aches with walking: None Resp Respiratory: Negative for SOB with activity, SOB at rest, SOB orthopnea\SOB lying down, Cough or paroxysmal nocturnal dyspnea GI GI: Negative nausea, vomiting, heartburn or black,tarry stools : Negative for hematuria Musc Musc: Negative for muscle aches/ myalgia, muscle weakness, joint pain or balance problems Skin Skin: Negative non-healing lesions, rash or unusual bruising Neuro Neuro: Negative for dizziness, lightheadedness, near syncope, syncope, orthostatic symptoms, frequent falls, headache(s), weakness, blurry vision, double vision or lack of coordination [place] Hematologic/Lymphatic: Negative for easy bleeding or easy bruising Endo Endo: Negative for fatigue, excessive sweating or increased thirst/drinking Psych Psych: Negative for anxiety or depression Allergy Allergy/Immunology: Negative for hives and Negative for rash Cardiology Exam Const Appearance: cooperative, healthy appearing, no acute distress, well developed and well groomed Nutritional Appearance: average body habitus and well nourished Orientation: alert, awake and oriented x3 Head Head: normal to inspection, normocephalic and atraumatic Ears: hearing grossly normal bilaterally and external ears normal Nose: external nose normal, nares normal, nasal mucous membranes and turbinates normal, septum normal and no nasal discharge Face and Sinus: face symmetric Mouth: oral mucosae normal, tongue normal, oropharynx normal and moist mucous membranes Teeth and gingiva: dentition normal Throat: posterior oropharynx normal, tonsils normal and uvula midline Eyes General: appearance normal, both eyes and all related structures Eyelids: eyelids normal Conjunctivae: conjunctivae normal Pupils: PERRL, normal by confrontation and accommodation normal EOM: EOM intact bilaterally Neck Neck: normal visual inspection, trachea midline and no JVD JVD: +5 Carotids: normal carotid upstroke and bounding pulses Chest Chest inspection: normal inspection of the chest, symmetric chest movement and normal respiratory effort Auscultation: Bilateral: Clear to Auscultation Cardio Palpation: normal PMI Rate: regular rate Rhythm: regular rhythm Heart sounds: S1 normal, S2 normal and normal, physiologic split S2; Negative rub, gallop or murmur GI GI: normal to inspection, soft, no hepatosplenomegaly and bowel sounds present Neuro General: patient alert, patient awake, patient oriented x3, gait normal, moves all extremities and no focal sensory deficit Skin Skin: no rashes or lesions noted Extremities Pulses: Normal: Right Femoral Pulse, Left Femoral Pulse, Right Dorsalis Pedis Pulse, Left Dorsalis Pedis Pulse, Right Posterior Tibial Pulse, Left Posterior Tibial Pulse, Right Radial Pulse and Left Radial Pulse Lower Extremity Edema: None: Bilateral Musculoskel Musculoskeletal: No joint tenderness Psych Psychological: normal affect Assessment and Plan Assessment and Plan (1) History of coronary angioplasty: Status: Resolved Comment: [id number]-[id number]-Dhl LAD 05/13/19 Plan - : She is status post angioplasty and stenting of the left anterior descending artery. She underwent echocardiogram on 01/10/2021 that showed ejection fraction of 25%, stage I diastolic dysfunction, and moderately severe segmental systolic dysfunction. She underwent a stress test on 01/18/2021 that was considered to be abnormal with evidence of mid anterior and distal anterior ischemia. Due to abnormal stress test and reduced ejection fraction, she will proceed with heart catheterization. Based on results, further recommendation will be made. (2) Ischemic cardiomyopathy: Status: Chronic Plan - : She does have a history of ischemic cardiomyopathy. Her last ejection fraction was 25%. She remains on the beta-bishnu as well as the Entresto. (3) Chronic combined systolic and diastolic CHF (congestive heart failure): Status: Chronic Plan - : She does have evidence of systolic and diastolic heart failure. She is tolerating the Entresto the beta-bishnu and her diuretics no changes will be made to the above. Over time, her ejection fraction will be followed and if it remains reduced, 35% or below, we will consider an implantable biventricular defibrillator. (4) Essential (primary) hypertension: Status: Chronic Plan - : She does have a history of hypertension. Her blood pressure appears to be under good control at this particular time I would not recommend that we make any changes regard to the above. (5) HLD (hyperlipidemia): Status: Chronic Qualifiers: Hyperlipidemia type: unspecified Qualified Code(s): E78.5 - Hyperlipidemia, unspecified Plan - Dr. Bairon Stephen MD: She does have a history of hyperlipidemia and is having her lipids checked at this afternoon. Depending on the results further recommendations will be made. (6) Left bundle branch block (LBBB): Status: Chronic Plan - She does have a chronic left bundle branch block. We will continue to monitor the above.
== END 2021-02-07 11:30 | disposition home or self-care (01) ==
LOC: CLSP 08:06
PROVIDERS: PCP Internal Medicine; Referring Provider Internal Medicine Cardiovascular Disease; Visit Provider Internal Medicine Cardiovascular Disease
DX: I25.118 Atherosclerotic heart disease of native coronary artery with other forms of angina pectoris (principal); I25.82 Chronic total occlusion of coronary artery; E78.5 Hyperlipidemia, unspecified; I44.7 Left bundle-branch block, unspecified; F41.9 Anxiety disorder, unspecified; I50.42 Chronic combined systolic (congestive) and diastolic (congestive) heart failure; I11.0 Hypertensive heart disease with heart failure; F32.9 Major depressive disorder, single episode, unspecified; I25.2 Old myocardial infarction; E03.9 Hypothyroidism, unspecified; Z79.899 Other long term (current) drug therapy; Z79.82 Long term (current) use of aspirin; Z79.02 Long term (current) use of antithrombotics/antiplatelets; M99.01 Segmental and somatic dysfunction of cervical region; M99.03 Segmental and somatic dysfunction of lumbar region; M99.05 Segmental and somatic dysfunction of pelvic region; M99.02 Segmental and somatic dysfunction of thoracic region; I25.5 Ischemic cardiomyopathy; Z87.891 Personal history of nicotine dependence
CPT/HCPCS: 36415; 71046; 85025; 93458; 99152; 99153; J7040; Q9967; C1769; C1894

== ENCOUNTER → 2021-02-16 12:53 | Outpatient (CLI) | payer MEDICARE, SELFPAY ==
--- NOTE | 2021-02-16 12:59 | VDLE_ITS ---
Reason For Study: Pre-op CABG RIGHT LEFT GSV junction, 0.39 x 0.39 cm. GSV junction, 0.42 x 0.40 cm. GSV prox thigh, 0.34 x 0.34 cm. GSV prox thigh, 0.21 x 0.20 cm. Branch noted at prox thigh. Branch noted at prox thigh. GSV mid thigh, 0.27 x 0.26 cm. GSV mid thigh, 0.18 x 0.17 cm. GSV distal thigh, 0.27 x 0.26 cm. GSV distal thigh, 0.19 x 0.19 cm. GSV knee, 0.27 x 0.7 cm. GSV knee, 0.26 x 0.26 cm. GSV prox calf, 0.22 x 0.22 cm. GSV prox calf, 0.18 x 0.17 cm. Branch noted at prox calf. Unable to measure GSV at mid calf due to GSV mid calf, 0.20 x 0.21 cm. vessel size. GSV distal calf, 0.28 x 0.28 cm. GSV distal calf, 0.26 x 0.26 cm. SSV prox, 0.08 x 0.07 cm SSV prox, 0.25 x 0.24 cm. SSV mid, unable to visualize. SSV mid, 0.22 x 0.22 cm. SSV distal, unable to visualize. Branch noted at mid calf SSV distal, 0.16 x 0.16 cm. GSV and SSV are compressible. Procedure GSV and SSV are compressible. This is a venous duplex using B-mode, color flow and spectral Doppler. Exam performed in department. VL/Saphenous Vein Mapping, Bilat Interpretation Summary Patent and compressible bilateral great and small saphenous veins as notable. Branching of the great saphenous vein noted bilateral proximal thighs. Right great saphenous vein is visible throughout. Left great saphenous vein unable to be measured in the mid calf to the diminuti ve vessel size. Right small saphenous vein diminutive to not visualizable. Left small saphenous vein present though small in caliber. Ordering Physician: GAGE TAVAREZ Referring Physician: Hector Walker Performed By: Akosua Ramirez RVT
--- NOTE | 2021-02-16 12:59 | CDU_ITS ---
Reason For Study: Bilateral carotid bruits Rt. Velocities/BP Lt. Velocities/BP Prox CCA 101/11.5 cm/sec. Prox CCA 108.2/17 cm/sec. Mid CCA 68.1/6 cm/sec. Mid CCA 69.1/12.6 cm/sec. Dist CCA 61.8/7.7 cm/sec. Dist CCA 67.9/12.6 cm/sec. Prox ICA 147.7/24.8 cm/sec. Prox ICA 61.9/12.4 cm/sec. Mid ICA 176.3/27 cm/sec. Mid ICA 215.8/42.2 cm/sec. Dist ICA 99.2/18.8 cm/sec. Dist ICA 143.3/18.2 cm/sec. Rt. ICA/CCA = 2.59. Lt. ICA/CCA = 3.12. Prox ECA 147.7/9.4 cm/sec. Prox ECA 215.8/6 cm/sec. Rt. Vert. 79.1/13.3 cm/sec. Lt. Vert. 70/11.5 cm/sec. Right Extracranial There is homogeneous, smooth atherosclerotic plaque noted in the right common carotid artery. There is heterogeneous, irregular atherosclerotic plaque noted in the right internal carotid artery. There is heterogeneous, irregular atherosclerotic plaque noted in the right external carotid artery. Antegrade flow is noted in the right vertebral artery. Left Extracranial There is homogeneous, smooth atherosclerotic plaque noted in the left common carotid artery. There is heterogeneous, irregular atherosclerotic plaque noted in the left internal carotid artery. The left internal carotid artery is very tortuous. There is heterogeneous, irregular atherosclerotic plaque noted in the left external carotid artery. Antegrade flow is noted in the left vertebral artery. VL/Carotid Duplex Ultrasound Interpretation Summary Calcific plaque with shadowing at the proximal right internal carotid artery wi th 50 to 69% stenosis of the internal carotid artery. Less than 50% stenosis right external carotid artery Minimal plaque at the proximal left internal carotid artery with significant to rtuosity of the left internal carotid artery. This may affect degree of stenosis interpretation. 50 to 69% stenosis left internal carotid artery. Greater than 50% stenosis left external carotid artery Patent antegrade vertebral arteries bilaterally No significant change from the previous examination of April 21, 2020 Ordering Physician: GAGE TAVAREZ Referring Physician: Hector Walker Performed By: Akosua Ramirez RVT
== END ==
PROVIDERS: PCP Internal Medicine
DX: R09.89 Other specified symptoms and signs involving the circulatory and respiratory systems (principal); I25.10 Atherosclerotic heart disease of native coronary artery without angina pectoris; M79.89 Other specified soft tissue disorders
CPT/HCPCS: 93880; 93970

== ENCOUNTER 2021-03-11 12:35 | Inpatient (IN) | payer MEDICARE, SELFPAY ==
[2021-03-11 13:12] VITALS: RESP 26
[2021-03-11 13:45] VITALS: BMI 27.3
[2021-03-11 14:00] VITALS: BP 114/45; PULSE 57; RESP 20; TEMP 36.4; O2SAT 94
--- NOTE | 2021-03-11 14:13 | NURSING ---
DISCUSSED CODE STATUS WITH R' AND HER DAUGHTER. WISHES TO BE DNRCC-A NO INTUBATION. PURPLE BRACELET APPLIED.
[2021-03-11] MEDS: Potassium Chloride Oral Tablet 20 MEQ PO ×2 (15:01→21:05)
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
[2021-03-11] MEDS: busPIRone 5 MG Tablet PO (17:56)
[2021-03-11] MEDS: APIXABAN 5 MG TABLET PO (17:56)
[2021-03-11] MEDS: Furosemide 80 MG Tablet PO (17:57)
[2021-03-11] MEDS: Senna/Docusate Sodium 1 Tablet PO (17:57)
[2021-03-11] MEDS: SACUBITRIL/VALSARTAN 24/26 MG TABLET 1 EACH PO (17:58)
[2021-03-11 19:04] VITALS: O2SAT 95
[2021-03-11] MEDS: Atorvastatin Calcium 40 MG Tablet PO (21:06)
[2021-03-11] MEDS: Paroxetine 20 MG Tablet 40 MG PO (21:08)
[2021-03-11] MEDS: Magnesium Chloride 64 MG Delay Rel.Tablet 128 MG PO (23:27)
[2021-03-12 06:55] LABS: Absolute Lymphocyte Count 1.08 X10^3/uL (0.83-4.51); Absolute Neutrophil Count 8.5 X10^3/uL (2.0-7.7); Basophil# 0.04 X10^3/uL; Basophil% 0.4 % (0-1); Eosinophil# 0.44 X10^3/uL; Hematocrit 29.9 % (37-47); Lymphocyte # 1.08 X10^3/ul (0.83-4.51); Lymphocyte % 9.8 % (19-41); Mean Corp Hgb Conc 30.1 g/dL (32-36); Mean Corpuscular Hgb 29.7 pg (27.0-32.0); Mean Corpuscular Volume 98.7 fL (81-99); Mean Platelet Vol. 9.7 fl (6.2-12.0); Monocyte# 0.88 X10^3/uL; NRBC Flagged by Analyzer 0 % (0-5); Neutrophil # 8.52 X10^3/uL (2.7-7.7); Neutrophil % 77.3 % (47-70); Platelet Count 545 K/mm3 (150-450); RBC Distribution Width CV 17.3 % (11.6-14.6); RBC Distribution Width SD 61.7 fl (35.1-43.9); Red Blood Count 3.03 M/mm3 (4.2-5.4)
[2021-03-12 07:20] LABS: BUN 13 mg/dL (7-18); Glucose 109 mg/dL (74-106)
[2021-03-12 07:21] LABS: Anion Gap 6 (5-15); BUN/Creat Ratio 15.1 RATIO (10-20); Calcium,Total 9.2 mg/dL (8.5-10.1); Chloride 106 mmol/L (98-107); Creatinine, Serum 0.86 mg/dL (0.55-1.02); EST Glomerular Filtration Rate 68 mL/min (>60); Est Glom Filt Rate - Afr Amer 82 mL/min (>60); Estimated Creatinine Clearance 39.35 ml/min; Sodium Level 138 mmol/L (136-145)
[2021-03-12 07:50] VITALS: O2SAT 95
[2021-03-12] MEDS: traMADol 50 MG Tablet PO (08:18)
[2021-03-12] MEDS: Budesonide 3 MG CAPSULE.EC 9 MG PO (08:19)
[2021-03-12] MEDS: Amiodarone 200 MG Tablet PO (08:19)
[2021-03-12] MEDS: busPIRone 5 MG Tablet PO ×2 (08:19→17:17)
[2021-03-12] MEDS: Furosemide 80 MG Tablet PO ×2 (08:19→17:16)
[2021-03-12] MEDS: amLODIPine 5 MG Tablet PO (08:19)
[2021-03-12] MEDS: Levothyroxine 50 MCG Tablet PO (08:20)
[2021-03-12] MEDS: SACUBITRIL/VALSARTAN 24/26 MG TABLET 1 EACH PO ×2 (08:20→17:16)
[2021-03-12] MEDS: Cholecalciferol (VIT D3) 25 MCG TABLET (1,000 UNITS) PO (08:20)
[2021-03-12] MEDS: APIXABAN 5 MG TABLET PO ×2 (08:21→17:10)
[2021-03-12] MEDS: Potassium Chloride Oral Tablet 20 MEQ PO ×3 (08:21→21:13)
[2021-03-12] MEDS: Pantoprazole Sodium 40 MG Tablet PO (08:21)
[2021-03-12 08:22] VITALS: BP 143/59; PULSE 70; RESP 18; TEMP 36.7; O2SAT 96
--- NOTE | 2021-03-12 10:30 | NURSING ---
Pt C/O of Nausea states its with any activity she does. Pt has been having frequent Diarrhea this AM. Dr. Best updated New order for Nate and JASIEL. Will continue to monitor pt. Call light within reach.
--- NOTE | 2021-03-12 11:01 | RAD_ITS ---
STUDY: X-RAY - ABDOMEN/PELVIS REASON FOR EXAM: Female, 75 years old. Nausea TECHNIQUE: Two AP supine views of the abdomen and pelvis. COMPARISON: None. FINDINGS: Normal visualized lung bases. There is an unremarkable bowel gas pattern. There is no demonstrated free abdominal air. There are granulomatous calcifications in the left upper quadrant. There is nonspecific right mid abdominal calcification. There are vascular calcifications. There is degenerative change of the spine. There is right hip replacement. RAD/Abdomen Single View IMPRESSION: No obstruction. Electronically Signed: Lalo Peralta MD at 15:17 EDT , Service support ,
[2021-03-12] MEDS: Ondansetron ODT 4 MG Tablet PO (11:12)
[2021-03-12] MEDS: Magnesium Chloride 64 MG Delay Rel.Tablet 128 MG PO ×2 (11:32→21:29)
[2021-03-12] MEDS: Tuberculin,Purif.prot.deriv. 50 TU/ML Vial 0.1 ML ID (14:56)
[2021-03-12 21:06] VITALS: PULSE 58; RESP 20; O2SAT 97
[2021-03-12] MEDS: Atorvastatin Calcium 40 MG Tablet PO (21:13)
[2021-03-12] MEDS: Paroxetine 20 MG Tablet 40 MG PO (21:14)
[2021-03-12] MEDS: MELATONIN 10 MG TABLET PO (21:18)
[2021-03-13 05:00] VITALS: BP 135/56; PULSE 54; RESP 18; TEMP 36.3; O2SAT 97
[2021-03-13] MEDS: APIXABAN 5 MG TABLET PO ×2 (06:30→17:48)
[2021-03-13] MEDS: Furosemide 80 MG Tablet PO ×2 (06:30→13:09)
[2021-03-13] MEDS: Amiodarone 200 MG Tablet PO (06:30)
[2021-03-13] MEDS: Budesonide 3 MG CAPSULE.EC 9 MG PO (06:30)
[2021-03-13] MEDS: amLODIPine 5 MG Tablet PO (06:30)
[2021-03-13] MEDS: Cholecalciferol (VIT D3) 25 MCG TABLET (1,000 UNITS) PO (06:30)
[2021-03-13] MEDS: Levothyroxine 50 MCG Tablet PO (06:30)
[2021-03-13] MEDS: Pantoprazole Sodium 40 MG Tablet PO (06:30)
[2021-03-13] MEDS: busPIRone 5 MG Tablet PO ×2 (06:30→17:48)
[2021-03-13] MEDS: SACUBITRIL/VALSARTAN 24/26 MG TABLET 1 EACH PO ×2 (06:30→17:48)
[2021-03-13] MEDS: Potassium Chloride Oral Tablet 10 MEQ 20 MEQ PO ×3 (07:44→17:48)
[2021-03-13] MEDS: Magnesium Chloride 64 MG Delay Rel.Tablet 128 MG PO ×2 (11:13→21:38)
[2021-03-13] MEDS: Ondansetron ODT 4 MG Tablet PO (11:15)
[2021-03-13 15:33] VITALS: BP 129/50; PULSE 56; RESP 18; TEMP 36.7; O2SAT 99
[2021-03-13] MEDS: Atorvastatin Calcium 40 MG Tablet PO (21:38)
[2021-03-13] MEDS: Paroxetine 20 MG Tablet 40 MG PO (21:38)
[2021-03-13] MEDS: MELATONIN 10 MG TABLET PO (21:41)
[2021-03-14] MEDS: Acetaminophen 500 MG Tablet 1000 MG PO (01:38)
[2021-03-14 05:34] LABS: Hematocrit 28.8 % (37-47); Hemoglobin 8.9 g/dL (12.0-15.0)
[2021-03-14] MEDS: busPIRone 5 MG Tablet PO ×2 (07:37→17:25)
[2021-03-14] MEDS: amLODIPine 5 MG Tablet PO (07:38)
[2021-03-14] MEDS: Levothyroxine 50 MCG Tablet PO (07:38)
[2021-03-14] MEDS: Pantoprazole Sodium 40 MG Tablet PO (07:38)
[2021-03-14] MEDS: APIXABAN 5 MG TABLET PO ×2 (07:38→17:25)
[2021-03-14] MEDS: Amiodarone 200 MG Tablet PO (07:38)
[2021-03-14] MEDS: Furosemide 80 MG Tablet PO ×2 (07:38→14:27)
[2021-03-14] MEDS: Cholecalciferol (VIT D3) 25 MCG TABLET (1,000 UNITS) PO (07:38)
[2021-03-14] MEDS: SACUBITRIL/VALSARTAN 24/26 MG TABLET 1 EACH PO ×2 (07:38→17:25)
[2021-03-14] MEDS: Potassium Chloride Oral Tablet 10 MEQ 20 MEQ PO ×3 (07:40→17:25)
[2021-03-14] MEDS: Budesonide 3 MG CAPSULE.EC 9 MG PO (09:26)
[2021-03-14 10:30] VITALS: O2SAT 95
[2021-03-14] MEDS: Magnesium Chloride 64 MG Delay Rel.Tablet 128 MG PO ×2 (11:24→22:49)
[2021-03-14 11:28] VITALS: O2SAT 97
--- NOTE | 2021-03-14 16:14 | PHA.CONS_ITS ---
Progress Note - Pharmacy Subjective: TCU Admission Objective: Allergies Sulfa (Sulfonamide Antibiotics) Allergy (Verified 01/25/21 10:58) Unknown Current Medications Generic Name Dose Route Start Last Admin Trade Name Lawanda PRN Reason Stop Dose Admin Acetaminophen 1,000 mg 03/11/21 16:09 03/14/21 01:38 Acetaminophen 500 Mg Tablet PO 1,000 mg Q6H PRN PRN Administration Pain Score 1-3 Albuterol/Ipratropium 3 ml 03/11/21 13:48 Ipratropium/Albuterol Sulfate 3 Ml Ampul.Neb INHALATION Q8H PRN lungs Amiodarone HCl 200 mg 03/12/21 06:00 03/14/21 07:38 Amiodarone 200 Mg Tablet PO 200 mg DAILY JOANA Administration Amlodipine Besylate 5 mg 03/12/21 06:00 03/14/21 07:38 Amlodipine 5 Mg Tablet PO 5 mg DAILY JOANA Administration Apixaban 5 mg 03/11/21 18:00 03/14/21 07:38 Apixaban 5 Mg Tablet PO 5 mg BID JOANA Administration Atorvastatin Calcium 40 mg 03/11/21 22:00 03/13/21 21:38 Atorvastatin Calcium 40 Mg Tablet PO 40 mg QHS JOANA Administration Bisacodyl 10 mg 03/11/21 16:08 Bisacodyl 5 Mg Tablet PO DAILY PRN PRN Constipation Budesonide 9 mg 03/12/21 06:00 03/14/21 09:26 Budesonide 3 Mg Capsule.Ec PO 9 mg DAILY JOANA Administration Buspirone HCl 5 mg 03/11/21 18:00 03/14/21 07:37 Buspirone 5 Mg Tablet PO 5 mg BID JOANA Administration Cholecalciferol 25 mcg 03/12/21 06:00 03/14/21 07:38 Cholecalciferol (Vit D3) 25 Mcg Tablet (1,000 Units) PO 25 mcg DAILY JOANA Administration Furosemide 80 mg 03/13/21 14:00 03/14/21 14:27 Furosemide 80 Mg Tablet PO 80 mg 0600,1400 JOANA Administration Levothyroxine Sodium 50 mcg 03/12/21 06:00 03/14/21 07:38 Levothyroxine 50 Mcg Tablet PO 50 mcg DAILY JOANA Administration Magnesium Chloride 128 mg 03/11/21 22:00 03/14/21 11:24 Magnesium Chloride 64 Mg Delay Rel.Tablet PO 128 mg 1200,2200 JOANA Administration Melatonin 10 mg 03/11/21 16:08 03/13/21 21:41 Melatonin 10 Mg Tablet PO 10 mg QHS PRN PRN Administration INSOMNIA Nutritional Formula (Lactose Free) 120 ml 03/11/21 17:00 03/14/21 11:23 Ensure Enlive 120 Ml Liquid PO 120 ml 4X/DAY JOANA Administration Ondansetron HCl 4 mg 03/12/21 11:00 03/13/21 11:15 Ondansetron Odt 4 Mg Tablet PO 4 mg Q8H PRN PRN Administration NAUSEA/VOMITING Pantoprazole Sodium 40 mg 03/12/21 06:00 03/14/21 07:38 Pantoprazole Sodium 40 Mg Tablet PO 40 mg DAILY JOANA Administration Paroxetine HCl 40 mg 03/11/21 22:00 03/13/21 21:38 Paroxetine 20 Mg Tablet PO 40 mg QHS JOANA Administration Polyethylene Glycol 17 gm 03/13/21 23:54 Polyethylene Glycol 3350 17 Gm Packet PO DAILY PRN Constipation Potassium Chloride 20 meq 03/13/21 07:45 03/14/21 11:45 Potassium Chloride Oral Tablet 10 Meq PO 20 meq TIDCM JOANA Administration Sacubitril/Valsartan 1 each 03/11/21 18:00 03/14/21 07:38 Sacubitril/Valsartan 24/26 Mg Tablet PO 1 each BID JOANA Administration Senna/Docusate Sodium 1 tablet 03/13/21 23:57 Senna/Docusate Sodium 1 Tablet PO DAILY PRN PRN Constipation Tramadol HCl 50 mg 03/11/21 16:09 03/12/21 08:18 Tramadol 50 Mg Tablet PO 50 mg Q6H PRN PRN Administration Pain Score 4-10 Tuberculin PPD 0.1 ml 03/19/21 10:00 Tuberculin,Purif.Prot.Deriv. 50 Tu/Ml Vial ID 03/19/21 10:01 X1 ONE Problem List (Last Reviewed 03/11/21 @ 15:[address] Ramon Best MD) Asthma (Acute) Hypothyroidism (Acute) Anxiety (Acute) Depression (Acute) Hypokalemia (Acute) Insomnia (Acute) Hyperlipidemia (Acute) Hypomagnesemia (Acute) Hypertension (Chronic) Infection due to ESBL-producing Escherichia coli (Acute) Atrial fibrillation (Acute) Coronary artery disease (Acute) Debility (Acute) History of coronary artery bypass graft x 3 (Acute) Chronic combined systolic and diastolic CHF (congestive heart failure) (Chronic) Vital Signs Temp Pulse Resp BP Pulse Ox 98.1 F 56 L 18 129/50 H 97 03/13/21 15:33 03/13/21 15:33 03/13/21 15:33 03/13/21 15:33 03/14/21 11:28 Oxygen Flow Rate (L/min) 4 Oxygen Delivery Method Nasal Cannula Weight: 61.099 kg Body Mass Index (BMI) 27.3 Sodium 138 mmol/L (136-145) 03/12/21 06:10 Potassium 4.0 mmol/L (3.5-5.1) 03/12/21 06:10 Chloride 106 mmol/L (98-107) 03/12/21 06:10 Carbon Dioxide 26.0 mmol/L (21.0-32.0) 03/12/21 06:10 Anion Gap 6 (5-15) 03/12/21 06:10 BUN 13 mg/dL (7-18) 03/12/21 06:10 Creatinine 0.86 mg/dL (0.55-1.02) 03/12/21 06:10 Est GFR (MDRD) Af Amer 82 mL/min (>60) 03/12/21 06:10 Est GFR (MDRD) Non-Af 68 mL/min (>60) 03/12/21 06:10 BUN/Creatinine Ratio 15.1 RATIO (10-20) 03/12/21 06:10 Glucose 109 mg/dL (74-106) H 03/12/21 06:10 Assessment/Plan: 1. Pain: acetaminophen 1000mg PO Q6H PRN pain 1-3 and tramadol 50mg PO Q6H PRN pain 4-10. Please continue to monitor for increased pain, PRN usage, constipation and respiratory depression. 2. Atrial fibrillation/CHF: amiodarone 200mg PO daily, apixaban 5mg PO BID, sacubitril/valsartan 24/26mg PO BID and furosemide 80mg PO BID. Please continue to monitor for S/S of bleeding, potassium (last 4 mmol/L), sodium (last 138 mmol/L), BP (last 129/50), HR (last 56), and renal function. 3. Hyperlipidemia: atorvastatin 40mg PO QHS. Please continue to monitor for muscle pain and lipid panel (last 12/2018). 4. Microscopic colitis: budesonide 9mg PO daily. Please continue to monitor for microscopic colitis and headaches. *5. Hypothyroidism: levothyroxine 50mcg PO daily. Please consider ordering a TSH (last 03/2019) if clinically appropriate. Please continue to monitor for S/S hypothyroidism. 6. Hypomagnesemia: magnesium chloride 128mg PO BID. Please continue to monitor magnesium levels (last 2.1mg/dL). Please continue to monitor for diarrhea. 7. GERD: pantoprazole 40mg PO daily. Please continue to monitor for GERD and diarrhea. 8. Hypokalemia: potassium chloride 20mEq PO TIDCM. Please continue to monitor potassium (last 4mmol/L). 9. Asthma: Duoneb 3mL inhalation Q8H PRN lungs. Please continue to monitor for P RN usage. 10. Insomnia: melatonin 10mg PO QHS PRN insomnia. Please continue to monitor for insomnia and PRN usage. *11. Vitamin D deficiency: cholecalciferol 25mcg PO daily. Please consider ordering a vitamin D level (last 10/2018) if clinically appropriate. Thanks. Psychotropic Medications: 1. Anxiety: buspirone 5mg PO BID. Please see physician note regarding GDR. *2. Depression: paroxetine 40mg PO QHS. Please continue to monitor for GI side effects. Please consider GDR by 08/2021 if clinically appropriate. Thanks. Unnecessary Medications: None Bowel Regimen: Miralax 17gm PO daily PRN constipation, senna/docusate 1T PO BID PRN constipation and bisacodyl 10mg PO daily PRN constipation. Please continue to monitor for constipation and PRN usage. Date of Note:: 03/14/21
[2021-03-14 16:42] VITALS: BP 129/53; PULSE 63; RESP 20; TEMP 36; O2SAT 99
--- NOTE | 2021-03-14 17:37 | CASEMGMT ---
Social Work Met with patient for initial assessment. Discussed code status. Pt confirmed DNR-CCA, no intubation. MOLST form completed, communication to , placed in chart. Explained [employer] insurance with NRD 03/15 and continued stay is not guaranteed with each review. The goal is for pt to return home alone. She has a first floor set up and children can assist with laundry in the basement. Pt was independent pt - oxygen is new and would weened off prior to DC. SW to continue to follow. Valeria Magdaleno, CIRCULATOR JOURNALIST
[2021-03-14 22:01] VITALS: PULSE 61; RESP 18; O2SAT 97
[2021-03-14] MEDS: Atorvastatin Calcium 40 MG Tablet PO (22:21)
[2021-03-14] MEDS: MELATONIN 10 MG TABLET PO (22:21)
[2021-03-14] MEDS: Paroxetine 20 MG Tablet 40 MG PO (22:21)
[2021-03-15] MEDS: Acetaminophen 500 MG Tablet 1000 MG PO (03:55)
[2021-03-15] MEDS: Budesonide 3 MG CAPSULE.EC 9 MG PO (06:09)
[2021-03-15] MEDS: busPIRone 5 MG Tablet PO ×2 (06:09→17:09)
[2021-03-15] MEDS: APIXABAN 5 MG TABLET PO ×2 (06:09→17:09)
[2021-03-15] MEDS: Amiodarone 200 MG Tablet PO (06:09)
[2021-03-15] MEDS: Pantoprazole Sodium 40 MG Tablet PO (06:10)
[2021-03-15] MEDS: amLODIPine 5 MG Tablet PO (06:10)
[2021-03-15] MEDS: Cholecalciferol (VIT D3) 25 MCG TABLET (1,000 UNITS) PO (06:10)
[2021-03-15] MEDS: Furosemide 80 MG Tablet PO ×2 (06:10→13:49)
[2021-03-15] MEDS: Levothyroxine 50 MCG Tablet PO (06:10)
[2021-03-15] MEDS: SACUBITRIL/VALSARTAN 24/26 MG TABLET 1 EACH PO ×2 (06:10→17:08)
[2021-03-15] MEDS: Menthol/Lanolin/Calamine/Znox 113 GM Tube 1 APPLIC TOPICAL ×2 (06:19→20:16)
[2021-03-15 06:48] VITALS: O2SAT 91
[2021-03-15] MEDS: Potassium Chloride Oral Tablet 10 MEQ 20 MEQ PO ×3 (08:16→17:09)
[2021-03-15] MEDS: Magnesium Chloride 64 MG Delay Rel.Tablet 128 MG PO ×2 (11:39→20:15)
[2021-03-15 14:43] VITALS: BP 132/44; PULSE 57; RESP 18; TEMP 36.7; O2SAT 98
--- NOTE | 2021-03-15 15:37 | CHAPLAIN ---
Type of Pastoral Visit _x__ Initial Visit ___ Follow-up Visit ___ On-call Visit ___ General Patient Visit ___ Spiritual Assessment ___ Family Conference ___ Bereavement ___ Rapid Response ___ Code Blue ___ Other (describe below) Pastoral Care Referral From _x__ Patient ___ Family ___ Nurse ___ Physician ___ Director Orange ___ [employer] ___ Other (describe below) Sacrament/Intervention _x__ Active listening ___ Anointing ___ Jew ___ Bereavement ___ Communion ___ Babita exploration ___ _x__ Life review _x__ Prayer ___ Reconciliation ___ Sacrament of Sick ___ Supportive presence ___ Wedding ___ Other (describe below) Pastoral Comments 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
[2021-03-15] MEDS: Paroxetine 20 MG Tablet 40 MG PO (20:15)
[2021-03-15] MEDS: Atorvastatin Calcium 40 MG Tablet PO (20:16)
[2021-03-15] MEDS: MELATONIN 10 MG TABLET PO (22:38)
[2021-03-16 05:56] LABS: Hematocrit 29.5 % (37-47); Hemoglobin 9.1 g/dL (12.0-15.0)
[2021-03-16] MEDS: Budesonide 3 MG CAPSULE.EC 9 MG PO (06:27)
[2021-03-16] MEDS: APIXABAN 5 MG TABLET PO ×2 (06:27→17:23)
[2021-03-16] MEDS: Cholecalciferol (VIT D3) 25 MCG TABLET (1,000 UNITS) PO (06:27)
[2021-03-16] MEDS: busPIRone 5 MG Tablet PO ×2 (06:27→17:23)
[2021-03-16] MEDS: amLODIPine 5 MG Tablet PO (06:27)
[2021-03-16] MEDS: Acetaminophen 500 MG Tablet 1000 MG PO ×2 (06:27→21:12)
[2021-03-16] MEDS: Amiodarone 200 MG Tablet PO (06:27)
[2021-03-16] MEDS: Pantoprazole Sodium 40 MG Tablet PO (06:27)
[2021-03-16] MEDS: Levothyroxine 50 MCG Tablet PO (06:27)
[2021-03-16] MEDS: SACUBITRIL/VALSARTAN 24/26 MG TABLET 1 EACH PO ×2 (06:27→17:23)
[2021-03-16] MEDS: Furosemide 80 MG Tablet PO ×2 (06:27→14:52)
[2021-03-16] MEDS: Menthol/Lanolin/Calamine/Znox 113 GM Tube 1 APPLIC TOPICAL ×2 (06:28→21:07)
[2021-03-16] MEDS: Potassium Chloride Oral Tablet 10 MEQ 20 MEQ PO ×3 (08:23→17:23)
[2021-03-16] MEDS: Iron Polysaccharide Complex 150 MG CAPSULE PO (08:25)
[2021-03-16] MEDS: Ondansetron ODT 4 MG Tablet PO (10:00)
[2021-03-16] MEDS: Magnesium Chloride 64 MG Delay Rel.Tablet 128 MG PO ×2 (14:52→21:08)
[2021-03-16 15:34] VITALS: BP 114/57; PULSE 113; RESP 16; TEMP 36.4; O2SAT 95
--- NOTE | 2021-03-16 15:44 | CASEMGMT ---
Social Work IDT met with patient, son and dtr for care plan meeting. Discussed patient's progress in therapy and nursing. Explained [employer] insurance with NRD 03/22 and continued stay is not guaranteed. The goal is for pt to return home alone at [facility] without O2. SW to continue to follow. Valeria Magdaleno, INVENTORY CONTROL MANAGER POCKET GRINDER OPERATOR
[2021-03-16] MEDS: Atorvastatin Calcium 40 MG Tablet PO (21:07)
[2021-03-16] MEDS: Paroxetine 20 MG Tablet 40 MG PO (21:08)
[2021-03-16 22:00] VITALS: PULSE 55; O2SAT 97
[2021-03-16] MEDS: MELATONIN 10 MG TABLET PO (22:44)
[2021-03-17] MEDS: Amiodarone 200 MG Tablet PO (06:13)
[2021-03-17] MEDS: busPIRone 5 MG Tablet PO ×2 (06:13→17:10)
[2021-03-17] MEDS: Furosemide 80 MG Tablet PO ×2 (06:13→13:10)
[2021-03-17] MEDS: Levothyroxine 50 MCG Tablet PO (06:13)
[2021-03-17] MEDS: Cholecalciferol (VIT D3) 25 MCG TABLET (1,000 UNITS) PO (06:13)
[2021-03-17] MEDS: Budesonide 3 MG CAPSULE.EC 9 MG PO (06:14)
[2021-03-17] MEDS: amLODIPine 5 MG Tablet PO (06:14)
[2021-03-17] MEDS: Menthol/Lanolin/Calamine/Znox 113 GM Tube 1 APPLIC TOPICAL ×2 (06:14→21:22)
[2021-03-17] MEDS: SACUBITRIL/VALSARTAN 24/26 MG TABLET 1 EACH PO ×2 (06:14→17:10)
[2021-03-17] MEDS: APIXABAN 5 MG TABLET PO ×2 (06:14→17:10)
[2021-03-17] MEDS: Pantoprazole Sodium 40 MG Tablet PO (06:14)
[2021-03-17] MEDS: Acetaminophen 500 MG Tablet 1000 MG PO ×2 (06:25→17:12)
[2021-03-17 06:46] VITALS: O2SAT 95
[2021-03-17] MEDS: Potassium Chloride Oral Tablet 10 MEQ 20 MEQ PO ×3 (08:29→17:10)
[2021-03-17] MEDS: Iron Polysaccharide Complex 150 MG CAPSULE PO (08:29)
[2021-03-17 08:30] VITALS: PULSE 56; RESP 18; O2SAT 96
[2021-03-17] MEDS: Magnesium Chloride 64 MG Delay Rel.Tablet 128 MG PO ×2 (11:56→21:18)
[2021-03-17 16:00] VITALS: BP 122/56; PULSE 59; RESP 18; TEMP 36.3; O2SAT 97
[2021-03-17] MEDS: Doxepin Hydrochloride 10 MG Capsule PO (21:18)
[2021-03-17] MEDS: Atorvastatin Calcium 40 MG Tablet PO (21:18)
[2021-03-17] MEDS: Paroxetine 20 MG Tablet 40 MG PO (21:18)
[2021-03-18 05:56] LABS: Hemoglobin 9.7 g/dL (12.0-15.0)
[2021-03-18] MEDS: APIXABAN 5 MG TABLET PO ×2 (06:11→17:22)
[2021-03-18] MEDS: Cholecalciferol (VIT D3) 25 MCG TABLET (1,000 UNITS) PO (06:11)
[2021-03-18] MEDS: Budesonide 3 MG CAPSULE.EC 9 MG PO (06:11)
[2021-03-18] MEDS: SACUBITRIL/VALSARTAN 24/26 MG TABLET 1 EACH PO ×2 (06:11→17:22)
[2021-03-18] MEDS: Acetaminophen 500 MG Tablet 1000 MG PO (06:11)
[2021-03-18] MEDS: Pantoprazole Sodium 40 MG Tablet PO (06:12)
[2021-03-18] MEDS: busPIRone 5 MG Tablet PO ×2 (06:12→17:21)
[2021-03-18] MEDS: Furosemide 80 MG Tablet PO ×2 (06:12→14:19)
[2021-03-18] MEDS: Amiodarone 200 MG Tablet PO (06:12)
[2021-03-18] MEDS: Levothyroxine 50 MCG Tablet PO (06:12)
[2021-03-18] MEDS: amLODIPine 5 MG Tablet PO (06:12)
[2021-03-18 06:14] VITALS: BP 134/64; PULSE 56
[2021-03-18] MEDS: Menthol/Lanolin/Calamine/Znox 113 GM Tube 1 APPLIC TOPICAL ×2 (08:28→21:17)
[2021-03-18] MEDS: Iron Polysaccharide Complex 150 MG CAPSULE PO (08:29)
[2021-03-18] MEDS: Potassium Chloride Oral Tablet 10 MEQ 20 MEQ PO ×3 (08:30→17:21)
[2021-03-18] MEDS: Magnesium Chloride 64 MG Delay Rel.Tablet 128 MG PO ×2 (11:15→21:16)
[2021-03-18 14:53] VITALS: BP 123/54; PULSE 81; RESP 20; TEMP 35.7; O2SAT 95
[2021-03-18] MEDS: Paroxetine 20 MG Tablet 40 MG PO (21:16)
[2021-03-18] MEDS: Atorvastatin Calcium 40 MG Tablet PO (21:17)
[2021-03-18] MEDS: Doxepin Hydrochloride 10 MG Capsule PO (21:18)
[2021-03-18 22:00] VITALS: PULSE 59; O2SAT 97
[2021-03-19] MEDS: traMADol 50 MG Tablet PO (03:09)
[2021-03-19 03:17] VITALS: BP 128/59; PULSE 53; RESP 18; O2SAT 96
[2021-03-19] MEDS: Cholecalciferol (VIT D3) 25 MCG TABLET (1,000 UNITS) PO (05:59)
[2021-03-19] MEDS: Levothyroxine 50 MCG Tablet PO (05:59)
[2021-03-19] MEDS: Budesonide 3 MG CAPSULE.EC 9 MG PO (05:59)
[2021-03-19] MEDS: Furosemide 80 MG Tablet PO ×2 (05:59→13:23)
[2021-03-19] MEDS: Pantoprazole Sodium 40 MG Tablet PO (05:59)
[2021-03-19] MEDS: SACUBITRIL/VALSARTAN 24/26 MG TABLET 1 EACH PO ×2 (05:59→17:01)
[2021-03-19] MEDS: amLODIPine 5 MG Tablet PO (05:59)
[2021-03-19] MEDS: Amiodarone 200 MG Tablet PO (05:59)
[2021-03-19] MEDS: Acetaminophen 500 MG Tablet 1000 MG PO (05:59)
[2021-03-19] MEDS: busPIRone 5 MG Tablet PO ×2 (05:59→17:02)
[2021-03-19] MEDS: APIXABAN 5 MG TABLET PO ×2 (06:00→17:01)
[2021-03-19] MEDS: Menthol/Lanolin/Calamine/Znox 113 GM Tube 1 APPLIC TOPICAL ×2 (06:00→20:23)
[2021-03-19 07:18] VITALS: O2SAT 98
[2021-03-19 07:30] VITALS: O2SAT 98
[2021-03-19] MEDS: Iron Polysaccharide Complex 150 MG CAPSULE PO (08:27)
[2021-03-19] MEDS: Potassium Chloride Oral Tablet 10 MEQ 20 MEQ PO ×3 (08:27→17:01)
[2021-03-19 08:39] LABS: Absolute Lymphocyte Count 1.62 X10^3/uL (0.83-4.51); Absolute Neutrophil Count 8.9 X10^3/uL (2.0-7.7); Basophil% 0.8 % (0-1); Eosinophil# 0.37 X10^3/uL; Eosinophils% 3.1 % (0-5); Hematocrit 34.9 % (37-47); Hemoglobin 10.7 g/dL (12.0-15.0); Lymphocyte # 1.62 X10^3/ul (0.83-4.51); Lymphocyte % 13.4 % (19-41); Mean Corp Hgb Conc 30.7 g/dL (32-36); Mean Corpuscular Hgb 29.7 pg (27.0-32.0); Mean Corpuscular Volume 96.9 fL (81-99); Mean Platelet Vol. 9.4 fl (6.2-12.0); Monocyte% 9.1 % (0-10); NRBC Flagged by Analyzer 0 % (0-5); Neutrophil # 8.86 X10^3/uL (2.7-7.7); Neutrophil % 73.2 % (47-70); Platelet Count 579 K/mm3 (150-450); RBC Distribution Width SD 57.3 fl (35.1-43.9); White Blood Count 12.1 K/mm3 (4.4-11.0)
[2021-03-19 09:20] LABS: Anion Gap 8 (5-15); BUN 26 mg/dL (7-18); BUN/Creat Ratio 29.9 RATIO (10-20); Calcium,Total 9.3 mg/dL (8.5-10.1); Chloride 105 mmol/L (98-107); Creatinine, Serum 0.87 mg/dL (0.55-1.02); EST Glomerular Filtration Rate 67 mL/min (>60); Est Glom Filt Rate - Afr Amer 81 mL/min (>60); Glucose 116 mg/dL (74-106); Potassium 3.6 mmol/L (3.5-5.1); Sodium Level 139 mmol/L (136-145)
[2021-03-19 11:22] VITALS: O2SAT 96
[2021-03-19] MEDS: Magnesium Chloride 64 MG Delay Rel.Tablet 128 MG PO ×2 (11:55→20:24)
[2021-03-19] MEDS: Tuberculin,Purif.prot.deriv. 50 TU/ML Vial 0.1 ML ID (13:21)
[2021-03-19 14:36] VITALS: BP 109/49; PULSE 63; RESP 18; TEMP 36.3; O2SAT 96
--- NOTE | 2021-03-19 15:53 | NURSING ---
Notified Dr. Best of patient having hard lump to left inner thigh. Received order for [place].
[2021-03-19] MEDS: Paroxetine 20 MG Tablet 40 MG PO (20:24)
[2021-03-19] MEDS: Atorvastatin Calcium 40 MG Tablet PO (20:24)
[2021-03-19] MEDS: Doxepin Hydrochloride 10 MG Capsule PO (20:25)
[2021-03-20] MEDS: Acetaminophen 500 MG Tablet 1000 MG PO (05:40)
[2021-03-20] MEDS: Budesonide 3 MG CAPSULE.EC 9 MG PO (05:41)
[2021-03-20] MEDS: busPIRone 5 MG Tablet PO ×2 (05:41→17:22)
[2021-03-20] MEDS: Menthol/Lanolin/Calamine/Znox 113 GM Tube 1 APPLIC TOPICAL ×2 (05:41→21:59)
[2021-03-20] MEDS: SACUBITRIL/VALSARTAN 24/26 MG TABLET 1 EACH PO ×2 (05:42→17:22)
[2021-03-20] MEDS: APIXABAN 5 MG TABLET PO ×2 (05:42→17:22)
[2021-03-20] MEDS: Furosemide 80 MG Tablet PO ×2 (05:42→13:14)
[2021-03-20] MEDS: Pantoprazole Sodium 40 MG Tablet PO (05:43)
[2021-03-20] MEDS: Levothyroxine 50 MCG Tablet PO (05:43)
[2021-03-20] MEDS: Cholecalciferol (VIT D3) 25 MCG TABLET (1,000 UNITS) PO (05:43)
[2021-03-20] MEDS: Amiodarone 200 MG Tablet PO (05:47)
[2021-03-20] MEDS: amLODIPine 5 MG Tablet PO (05:48)
[2021-03-20] MEDS: Iron Polysaccharide Complex 150 MG CAPSULE PO (07:50)
[2021-03-20] MEDS: Potassium Chloride Oral Tablet 10 MEQ 20 MEQ PO ×3 (07:50→17:22)
[2021-03-20] MEDS: Magnesium Chloride 64 MG Delay Rel.Tablet 128 MG PO ×2 (11:44→21:59)
[2021-03-20 14:36] VITALS: BP 132/65; PULSE 60; RESP 18; TEMP 35.9; O2SAT 96
[2021-03-20] MEDS: Doxepin Hydrochloride 10 MG Capsule PO (21:59)
[2021-03-20] MEDS: Paroxetine 20 MG Tablet 40 MG PO (21:59)
[2021-03-20] MEDS: Atorvastatin Calcium 40 MG Tablet PO (21:59)
[2021-03-20 22:00] VITALS: PULSE 59; O2SAT 96
[2021-03-21] MEDS: busPIRone 5 MG Tablet PO ×2 (06:28→17:17)
[2021-03-21] MEDS: Furosemide 80 MG Tablet PO ×2 (06:28→14:06)
[2021-03-21] MEDS: APIXABAN 5 MG TABLET PO ×2 (06:28→17:17)
[2021-03-21] MEDS: amLODIPine 5 MG Tablet PO (06:28)
[2021-03-21] MEDS: SACUBITRIL/VALSARTAN 24/26 MG TABLET 1 EACH PO ×2 (06:28→17:18)
[2021-03-21] MEDS: Amiodarone 200 MG Tablet PO (06:28)
[2021-03-21] MEDS: Acetaminophen 500 MG Tablet 1000 MG PO (06:28)
[2021-03-21] MEDS: Budesonide 3 MG CAPSULE.EC 9 MG PO (06:28)
[2021-03-21] MEDS: Cholecalciferol (VIT D3) 25 MCG TABLET (1,000 UNITS) PO (06:28)
[2021-03-21] MEDS: Pantoprazole Sodium 40 MG Tablet PO (06:28)
[2021-03-21] MEDS: Levothyroxine 50 MCG Tablet PO (06:28)
[2021-03-21] MEDS: Menthol/Lanolin/Calamine/Znox 113 GM Tube 1 APPLIC TOPICAL ×2 (06:33→21:39)
[2021-03-21] MEDS: Potassium Chloride Oral Tablet 10 MEQ 20 MEQ PO ×3 (08:17→17:16)
[2021-03-21] MEDS: Iron Polysaccharide Complex 150 MG CAPSULE PO (08:17)
[2021-03-21 10:05] VITALS: PULSE 63; RESP 18; O2SAT 91
[2021-03-21] MEDS: Magnesium Chloride 64 MG Delay Rel.Tablet 128 MG PO ×2 (11:47→21:35)
--- NOTE | 2021-03-21 13:00 | US_ITS ---
STUDY: SUPERFICIAL ULTRASOUND - HARD LUMP OF INTEREST REASON FOR EXAM: Female, 75 years old. Hard lump to left upper inner thigh TECHNIQUE: A superficial ultrasound was performed with real-time and static sanchez-scale imaging. COMPARISON: None. US/Ext Non Vasc Limited/Soft Tiss IMPRESSION: 5.9 x 1.3 x 1.1 cm tubular, noncompressible fluid collection with internal echoes at the site of the incision in the left thigh without internal DOPPLER flow, probably fibrous scar material. Electronically Signed: Ashish Ward MD at 23:03 EDT Tel , Service support ,
[2021-03-21 14:29] VITALS: BP 127/51; PULSE 60; RESP 18; TEMP 36.3; O2SAT 97
[2021-03-21] MEDS: Doxepin Hydrochloride 10 MG Capsule PO (21:34)
[2021-03-21] MEDS: Paroxetine 20 MG Tablet 40 MG PO (21:34)
[2021-03-21] MEDS: Atorvastatin Calcium 40 MG Tablet PO (21:36)
[2021-03-22 05:40] VITALS: BP 126/75; PULSE 54
[2021-03-22] MEDS: Acetaminophen 500 MG Tablet 1000 MG PO (05:41)
[2021-03-22] MEDS: Budesonide 3 MG CAPSULE.EC 9 MG PO (05:41)
[2021-03-22] MEDS: Cholecalciferol (VIT D3) 25 MCG TABLET (1,000 UNITS) PO (05:42)
[2021-03-22] MEDS: Amiodarone 200 MG Tablet PO (05:42)
[2021-03-22] MEDS: Furosemide 80 MG Tablet PO ×2 (05:42→13:03)
[2021-03-22] MEDS: APIXABAN 5 MG TABLET PO ×2 (05:42→17:44)
[2021-03-22] MEDS: Levothyroxine 50 MCG Tablet PO (05:42)
[2021-03-22] MEDS: amLODIPine 5 MG Tablet PO (05:42)
[2021-03-22] MEDS: SACUBITRIL/VALSARTAN 24/26 MG TABLET 1 EACH PO ×2 (05:42→17:44)
[2021-03-22] MEDS: busPIRone 5 MG Tablet PO ×2 (05:42→17:43)
[2021-03-22] MEDS: Pantoprazole Sodium 40 MG Tablet PO (05:42)
[2021-03-22] MEDS: Menthol/Lanolin/Calamine/Znox 113 GM Tube 1 APPLIC TOPICAL ×2 (05:46→21:49)
[2021-03-22 05:48] VITALS: O2SAT 97
[2021-03-22] MEDS: Iron Polysaccharide Complex 150 MG CAPSULE PO (08:15)
[2021-03-22] MEDS: Potassium Chloride Oral Tablet 10 MEQ 20 MEQ PO ×3 (08:15→17:43)
[2021-03-22] MEDS: Magnesium Chloride 64 MG Delay Rel.Tablet 128 MG PO ×2 (11:44→21:50)
[2021-03-22 13:27] VITALS: BP 134/49; PULSE 57; RESP 18; TEMP 36; O2SAT 97
--- NOTE | 2021-03-22 14:44 | CASEMGMT ---
Social Work Dtr present in room - updated dtr and pt insurance NRD 03/28 and to anticipate [facility]. Dtr to stay with pt 15/01 for transition at DC. Pt to f/u with Cardiac Rehab. SW to continue to follow. Valeria Magdaleno, TERMITE CONTROL SERVICE REPRESENTATIVE ZINC MINER
--- NOTE | 2021-03-22 14:59 | MDS.RN ---
Information for the mds was obtained from review of the clinical record, interview of resident, staff, and direct observation of resident's care.
[2021-03-22] MEDS: Atorvastatin Calcium 40 MG Tablet PO (21:50)
[2021-03-22] MEDS: Doxepin Hydrochloride 10 MG Capsule PO (21:51)
[2021-03-22] MEDS: Paroxetine 20 MG Tablet 40 MG PO (21:51)
[2021-03-23 01:15] VITALS: PULSE 56; RESP 12; O2SAT 96
[2021-03-23] MEDS: Pantoprazole Sodium 40 MG Tablet PO (05:06)
[2021-03-23] MEDS: APIXABAN 5 MG TABLET PO ×2 (05:06→17:24)
[2021-03-23] MEDS: Furosemide 80 MG Tablet PO ×2 (05:06→13:37)
[2021-03-23] MEDS: busPIRone 5 MG Tablet PO ×2 (05:06→17:24)
[2021-03-23] MEDS: Levothyroxine 50 MCG Tablet PO (05:06)
[2021-03-23] MEDS: amLODIPine 5 MG Tablet PO (05:06)
[2021-03-23] MEDS: SACUBITRIL/VALSARTAN 24/26 MG TABLET 1 EACH PO ×2 (05:06→17:23)
[2021-03-23] MEDS: Budesonide 3 MG CAPSULE.EC 9 MG PO (05:06)
[2021-03-23] MEDS: Cholecalciferol (VIT D3) 25 MCG TABLET (1,000 UNITS) PO (05:06)
[2021-03-23] MEDS: Amiodarone 200 MG Tablet PO (05:06)
[2021-03-23] MEDS: Acetaminophen 500 MG Tablet 1000 MG PO (05:06)
[2021-03-23] MEDS: Menthol/Lanolin/Calamine/Znox 113 GM Tube 1 APPLIC TOPICAL ×2 (05:07→20:52)
[2021-03-23] MEDS: Potassium Chloride Oral Tablet 10 MEQ 20 MEQ PO ×3 (09:32→17:23)
[2021-03-23] MEDS: Iron Polysaccharide Complex 150 MG CAPSULE PO (09:33)
[2021-03-23] MEDS: Magnesium Chloride 64 MG Delay Rel.Tablet 128 MG PO ×2 (11:47→20:56)
[2021-03-23] MEDS: Ondansetron ODT 4 MG Tablet PO (11:50)
[2021-03-23 16:35] VITALS: BP 135/71; PULSE 66; RESP 20; TEMP 36.2; O2SAT 97
[2021-03-23] MEDS: Paroxetine 20 MG Tablet 40 MG PO (20:57)
[2021-03-23] MEDS: Atorvastatin Calcium 40 MG Tablet PO (20:57)
[2021-03-23] MEDS: Doxepin Hydrochloride 10 MG Capsule PO (21:55)
[2021-03-24] MEDS: Budesonide 3 MG CAPSULE.EC 9 MG PO (05:35)
[2021-03-24] MEDS: busPIRone 5 MG Tablet PO ×2 (05:35→17:23)
[2021-03-24] MEDS: Acetaminophen 500 MG Tablet 1000 MG PO (05:35)
[2021-03-24] MEDS: Pantoprazole Sodium 40 MG Tablet PO (05:35)
[2021-03-24] MEDS: Cholecalciferol (VIT D3) 25 MCG TABLET (1,000 UNITS) PO (05:35)
[2021-03-24] MEDS: Amiodarone 200 MG Tablet PO (05:35)
[2021-03-24] MEDS: APIXABAN 5 MG TABLET PO (05:35)
[2021-03-24] MEDS: amLODIPine 5 MG Tablet PO (05:36)
[2021-03-24] MEDS: Furosemide 80 MG Tablet PO (05:36)
[2021-03-24] MEDS: Menthol/Lanolin/Calamine/Znox 113 GM Tube 1 APPLIC TOPICAL ×2 (05:36→20:52)
[2021-03-24] MEDS: SACUBITRIL/VALSARTAN 24/26 MG TABLET 1 EACH PO ×2 (05:36→17:24)
[2021-03-24] MEDS: Levothyroxine 50 MCG Tablet PO (05:36)
[2021-03-24] MEDS: Potassium Chloride Oral Tablet 10 MEQ 20 MEQ PO ×3 (07:59→17:22)
[2021-03-24] MEDS: Iron Polysaccharide Complex 150 MG CAPSULE PO (07:59)
--- NOTE | 2021-03-24 09:30 | NURSING ---
Addendum entered by Jenny Dickerson 03/24/21 14:16: PT returned from cardiology appointment N.O. to d/c eliquis and amiodarone, change lasix from scheduled to PRN for weight gain/edema. F/U with Dr. Stephen, and f/u with CT surgeons Albert Ayala CNP in [address] Stephen appointment scheduled for 04/13/21 at 1145, f/u appointment with Albert Ayala CNP on 04/21/21 1330, RN and Dr. Best updated on new orders. Original Note: Pt left at this time with family to attend cardiology appointment
[2021-03-24 13:50] VITALS: BP 142/61; PULSE 58; RESP 20; TEMP 35.6; O2SAT 98
[2021-03-24] MEDS: Magnesium Chloride 64 MG Delay Rel.Tablet 128 MG PO ×2 (14:10→20:49)
--- NOTE | 2021-03-24 16:05 | CASEMGMT ---
Social Work Pt returned from f/u appt and feels pt is ready to DC home - pt agreeable. IDT agreeable to DC 03/26, per pt request. Pt has Dr. Stephen as Test Engineering Intern. IDT recommending Cardiac Rehab vs HHC. Spoke with Dr. Stephen's nurse to inquire - if so, referral to be made to [facility] Cardiac Rehab. Notified Noe in Cardiac Rehab. Pt requesting [facility]. [place] [facility] stay with pt at [place]. Dtr to transport. Plan: DC home with dtr 03/26, Cardiac Rehab, FWW Valeria Magdaleno, SAND CONTROL WORKER NEAL
--- NOTE | 2021-03-24 20:15 | PCM.DC.SUM ---
Providers Date of Admission: 03/11/21 Primary Care Physician: Dr. Hector Walker MD Reason For Visit: CABG Diagnosis Discharge Diagnosis (1) Debility: Status: Acute Code(s): R53.81 - Other malaise (2) History of coronary artery bypass graft x 3: Status: Deleted Code(s): Z95.1 - Presence of aortocoronary bypass graft (3) Coronary artery disease: Status: Deleted Code(s): I25.10 - Atherosclerotic heart disease of [place] coronary artery without angina pectoris (4) Atrial fibrillation: Status: Deleted Code(s): I48.91 - Unspecified atrial fibrillation (5) Infection due to ESBL-producing Escherichia coli: Status: Acute Code(s): A49.8 - Other bacterial infections of unspecified site; Z16.12 - Extended spectrum beta lactamase (ESBL) resistance (6) Chronic combined systolic and diastolic CHF (congestive heart failure): Status: Chronic Code(s): I50.42 - Chronic combined systolic (congestive) and diastolic (congestive) heart failure (7) Hypertension: Status: Deleted Code(s): I10 - Essential (primary) hypertension (8) Hypomagnesemia: Status: Acute Code(s): E83.42 - Hypomagnesemia (9) Hyperlipidemia: Status: Acute Code(s): E78.5 - Hyperlipidemia, unspecified (10) Insomnia: Status: Acute Code(s): G47.00 - Insomnia, unspecified (11) Hypokalemia: Status: Acute Code(s): E87.6 - Hypokalemia (12) Depression: Status: Acute Code(s): F32.9 - Major depressive disorder, single episode, unspecified (13) Anxiety: Status: Acute Code(s): F41.9 - Anxiety disorder, unspecified (14) Hypothyroidism: Status: Acute Code(s): E03.9 - Hypothyroidism, unspecified (15) Asthma: Status: Acute Code(s): J45.909 - Unspecified asthma, uncomplicated Medications at Discharge Home Medications cholecalciferol (vitamin D3) 1,000 unit PO DAILY 05/02/14 acetaminophen 500 mg tablet 1,000 mg PO Q8H PRN 05/28/19 aspirin 81 mg tablet,delayed release 81 mg PO DAILY 06/09/19 magnesium oxide 400 mg (241.3 mg magnesium) tablet 800 mg PO QHS 01/20/20 levothyroxine 50 mcg tablet 50 mcg PO DAILY #90 tab 12/02/20 budesonide 3 mg capsule,delayed,extended release 9 mg PO DAILY ea 12/30/20 Entresto 1 tab PO BID 03/11/21 amlodipine 5 mg PO DAILY 03/11/21 buspirone 5 mg PO BID 03/11/21 pantoprazole 40 mg PO DAILY 03/11/21 paroxetine HCl 40 mg PO QHS 03/11/21 potassium chloride 20 meq PO TID 03/11/21 rosuvastatin 20 mg PO QHS 03/11/21 doxepin 10 mg PO QHS 30 Days #30 cap 03/24/21 polysaccharide iron complex [Ferrex 150] 150 mg PO DAILYCM 30 Days #30 cap 03/24/21 Hospital Course Operations - (CABG x 3.) Procedures None Summary of Care Provided Minutes Spent on Discharge: 30 Hospital Course: 75 year old female with below past medical history hospitalized for CABG x 3, postoperative course complicated by atrial fibrillation, ESBL E. Coli urinary tract infection ruled out, admitted to TCU with debility, here for rehabilitation, strengthening, prior to discharge home alone. Discharge home with daughter 03/26/2021, Cardiac rehab, Front wheeled walker. Physical Exam Const alert and oriented x3 General Appearance: cooperative HEENT normocephalic Eyes PERRL and EOMs intact bilaterally Neck supple, no JVD and no carotid bruits Resp normal respiratory effort, normal air movement and clear to auscultation bilaterally Cardio regular rate and regular rhythm GI normal to inspection, nondistended, normoactive bowel sounds, non-tender and non-distended Extremity normal capillary refill General Extremity: Negative for edema Skin no rashes or lesions noted General Skin Exam: no breakdown Psych affect normal Appearance: appropriate Weight / BMI Weight Weight: 60.923 kg Body Mass Index (BMI) 27.3 ABG / Lab / Microbiology Data Result Diagrams: 03/19/21 07:35 03/19/21 07:35 D/C Instructions Discharge Diet: No restrictions Discharge Activity: Return to Normal Activity, May Shower and Use Walker Weight Bearing Status: Weight bearing as tolerated Call your doctor if you observe: Fever of 101 or Higher, Inability to urinate, Inability to have a bowel movement, Shortness of breath, Dizziness, Fainting spells, Swelling in the ankles, Chest pain and Uncontrolled pain Additional Instructions: Discharge home with daughter 03/26/2021, Cardiac rehab, Front wheeled walker. Please Follow Up With: STARLA Ramirez When: As scheduled. Meaningful Use Info Meaningful Use Diagnoses (Choose all that apply): None applicable Discharge Plan Admission Admit Date/Time: 03/11/21 12:35 Primary Reason for Your Visit: Debility. Attending Provider: Ramon Best Chi Primary Care Provider: Hector Walker Instructions Additional Instructions / Restrictions: Discharge home with daughter 03/26/2021, Cardiac rehab, Front wheeled walker. Discharge Orders/Prescriptions Prescriptions: New polysaccharide iron complex [Ferrex 150] 150 mg iron Capsule 150 mg PO DAILYCM 30 Days Qty: 30 RF: 0 doxepin 10 mg Capsule 10 mg PO QHS 30 Days Qty: 30 RF: 0 Continued aspirin 81 mg tablet,delayed release (DR/EC) 81 mg PO DAILY RF: 0 budesonide 3 mg capsule,delayed,extend.release 9 mg PO DAILY RF: 0 cholecalciferol (vitamin D3) 400 UNIT capsule 1,000 unit PO DAILY RF: 0 acetaminophen 500 mg tablet 1,000 mg PO Q8H PRN (Reason: pain) RF: 0 magnesium oxide 400 mg (241.3 mg magnesium) tablet 800 mg PO QHS RF: 0 amlodipine 5 mg Tablet 5 mg PO DAILY RF: 0 Entresto 24-26 mg Tablet 1 tab PO BID RF: 0 buspirone 5 mg tablet 5 mg PO BID RF: 0 potassium chloride 10 mEq capsule, extended release 20 meq PO TID RF: 0 paroxetine HCl 40 mg tablet 40 mg PO QHS RF: 0 rosuvastatin 20 mg tablet 20 mg PO QHS RF: 0 pantoprazole 20 mg Tablet,Delayed Release (Dr/Ec) 40 mg PO DAILY RF: 0 levothyroxine 50 mcg tablet 50 mcg PO DAILY Qty: 90 RF: 3 Discontinued diphenhydramine-acetaminophen [Tylenol PM Extra Strength] 25-500 mg tablet 1 tab PO QHS PRN (Reason: Insomnia) RF: 0 ipratropium-albuterol 0.5 mg-3 mg(2.5 mg base)/3 mL Solution For Nebulization 3 ml INHALATION Q8H PRN (Reason: lungs) RF: 0 amiodarone 200 mg Tablet 200 mg PO DAILY RF: 0 tramadol 50 mg Tablet 50 mg PO Q6H PRN (Reason: Pain) RF: 0 apixaban 5 mg Tablet 5 mg PO BID RF: 0 furosemide 40 mg tablet 80 mg PO BID RF: 0 Referrals / Follow Up: Hector Walker MD [Primary Care Provider] - Disposition Disposition (needs filled in before D/C Order can be placed): Home, Self Care
[2021-03-24] MEDS: Atorvastatin Calcium 40 MG Tablet PO (20:49)
[2021-03-24] MEDS: Doxepin Hydrochloride 10 MG Capsule PO (20:50)
[2021-03-24] MEDS: Paroxetine 20 MG Tablet 40 MG PO (20:51)
[2021-03-25 05:28] VITALS: BP 131/56; PULSE 56; RESP 18; TEMP 37.5; O2SAT 94
[2021-03-25] MEDS: Budesonide 3 MG CAPSULE.EC 9 MG PO (05:30)
[2021-03-25] MEDS: Cholecalciferol (VIT D3) 25 MCG TABLET (1,000 UNITS) PO (05:31)
[2021-03-25] MEDS: Pantoprazole Sodium 40 MG Tablet PO (05:31)
[2021-03-25] MEDS: SACUBITRIL/VALSARTAN 24/26 MG TABLET 1 EACH PO ×2 (05:31→17:20)
[2021-03-25] MEDS: Levothyroxine 50 MCG Tablet PO (05:31)
[2021-03-25] MEDS: busPIRone 5 MG Tablet PO ×2 (05:31→17:21)
[2021-03-25] MEDS: Acetaminophen 500 MG Tablet 1000 MG PO (05:31)
[2021-03-25] MEDS: amLODIPine 5 MG Tablet PO (05:31)
[2021-03-25] MEDS: Menthol/Lanolin/Calamine/Znox 113 GM Tube 1 APPLIC TOPICAL ×2 (05:32→21:48)
[2021-03-25] MEDS: Iron Polysaccharide Complex 150 MG CAPSULE PO (08:15)
[2021-03-25] MEDS: Potassium Chloride Oral Tablet 10 MEQ 20 MEQ PO ×3 (08:15→17:20)
[2021-03-25] MEDS: Ondansetron ODT 4 MG Tablet PO (08:18)
--- NOTE | 2021-03-25 10:44 | CASEMGMT ---
Social Work BIMS and PHQ-9 completed for MDS assessment. Valeria Magdaleno, C APPLICATION DEVELOPER TEACHER PUBLIC HEALTH
[2021-03-25] MEDS: Magnesium Chloride 64 MG Delay Rel.Tablet 128 MG PO ×2 (11:27→21:47)
[2021-03-25 14:21] VITALS: BP 121/60; PULSE 56; RESP 16; TEMP 36.8; O2SAT 96
[2021-03-25] MEDS: Atorvastatin Calcium 40 MG Tablet PO (21:46)
[2021-03-25] MEDS: Doxepin Hydrochloride 10 MG Capsule PO (21:46)
[2021-03-25] MEDS: Paroxetine 20 MG Tablet 40 MG PO (21:46)
[2021-03-26] MEDS: Budesonide 3 MG CAPSULE.EC 9 MG PO (06:06)
[2021-03-26] MEDS: Acetaminophen 500 MG Tablet 1000 MG PO (06:07)
[2021-03-26] MEDS: busPIRone 5 MG Tablet PO (06:07)
[2021-03-26] MEDS: amLODIPine 5 MG Tablet PO (06:07)
[2021-03-26] MEDS: SACUBITRIL/VALSARTAN 24/26 MG TABLET 1 EACH PO (06:08)
[2021-03-26] MEDS: Cholecalciferol (VIT D3) 25 MCG TABLET (1,000 UNITS) PO (06:08)
[2021-03-26] MEDS: Pantoprazole Sodium 40 MG Tablet PO (06:08)
[2021-03-26] MEDS: Levothyroxine 50 MCG Tablet PO (06:10)
[2021-03-26 06:11] VITALS: BP 141/58; PULSE 58
[2021-03-26] MEDS: Potassium Chloride Oral Tablet 10 MEQ 20 MEQ PO (08:21)
[2021-03-26] MEDS: Iron Polysaccharide Complex 150 MG CAPSULE PO (08:21)
[2021-03-26 08:30] VITALS: PULSE 53; RESP 18; O2SAT 94
[2021-03-26 08:50] LABS: Absolute Lymphocyte Count 1.69 X10^3/uL (0.83-4.51); Absolute Neutrophil Count 7.8 X10^3/uL (2.0-7.7); Basophil# 0.06 X10^3/uL; Basophil% 0.5 % (0-1); Eosinophil# 0.22 X10^3/uL; Hematocrit 30.9 % (37-47); Hemoglobin 9.3 g/dL (12.0-15.0); Lymphocyte # 1.69 X10^3/ul (0.83-4.51); Lymphocyte % 15.5 % (19-41); Mean Corp Hgb Conc 30.1 g/dL (32-36); Mean Corpuscular Hgb 29.2 pg (27.0-32.0); Mean Corpuscular Volume 96.9 fL (81-99); Mean Platelet Vol. 9.9 fl (6.2-12.0); Monocyte# 1.08 X10^3/uL; Monocyte% 9.9 % (0-10); NRBC Flagged by Analyzer 0 % (0-5); Neutrophil % 71.6 % (47-70); Platelet Count 304 K/mm3 (150-450); RBC Distribution Width CV 15.9 % (11.6-14.6); RBC Distribution Width SD 56.1 fl (35.1-43.9); Red Blood Count 3.19 M/mm3 (4.2-5.4); White Blood Count 10.9 K/mm3 (4.4-11.0)
[2021-03-26 09:10] LABS: Anion Gap 6 (5-15); BUN 20 mg/dL (7-18); BUN/Creat Ratio 25.2 RATIO (10-20); Calcium,Total 9.1 mg/dL (8.5-10.1); Chloride 107 mmol/L (98-107); EST Glomerular Filtration Rate 74 mL/min (>60); Est Glom Filt Rate - Afr Amer 90 mL/min (>60); Glucose 106 mg/dL (74-106); Potassium 4.6 mmol/L (3.5-5.1); Sodium Level 140 mmol/L (136-145)
[2021-03-26 10:24] VITALS: BP 129/51; PULSE 60; RESP 18; TEMP 36.4; O2SAT 95
== END 2021-03-26 11:00 | disposition home or self-care (01) | DRG 949 ==
PROVIDERS: Admitting Provider Family Medicine Geriatric Medicine; PCP Internal Medicine; Visit Provider Family Medicine Geriatric Medicine
DX: Z48.812 Encounter for surgical aftercare following surgery on the circulatory system (principal); I97.190 Other postprocedural cardiac functional disturbances following cardiac surgery; I50.42 Chronic combined systolic (congestive) and diastolic (congestive) heart failure; I25.10 Atherosclerotic heart disease of native coronary artery without angina pectoris; E03.9 Hypothyroidism, unspecified; E87.6 Hypokalemia; F32.9 Major depressive disorder, single episode, unspecified; K21.9 Gastro-esophageal reflux disease without esophagitis; J45.909 Unspecified asthma, uncomplicated; E78.5 Hyperlipidemia, unspecified; E55.9 Vitamin D deficiency, unspecified; F41.9 Anxiety disorder, unspecified; Z23 Encounter for immunization; Y83.2 Surgical operation with anastomosis, bypass or graft as the cause of abnormal reaction of the patient, or of later complication, without mention of misadventure at the time of the procedure; I11.0 Hypertensive heart disease with heart failure; M99.02 Segmental and somatic dysfunction of thoracic region; M99.01 Segmental and somatic dysfunction of cervical region; M99.03 Segmental and somatic dysfunction of lumbar region; M99.05 Segmental and somatic dysfunction of pelvic region; I25.2 Old myocardial infarction; Z95.1 Presence of aortocoronary bypass graft; Z87.891 Personal history of nicotine dependence; Z79.899 Other long term (current) drug therapy
CPT/HCPCS: 36415; 74018; 76882; 80048; 85014; 85018; 85025; 97110; 97116; 97162; 97166; 97530; 97535; 97802; G0009; 90670

== ENCOUNTER → 2021-04-13 13:32 | Outpatient (CLI) | payer MEDICARE, SELFPAY ==
--- NOTE | 2021-04-13 13:43 | PCM.CR.ITP ---
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, HTN, HLD Personal Learning Style:: Audio/Visual Barriers to Learning: Hearing Impairment, Vision Impairment Stage of change r/t lifestyle modifications:: Action Gave educational material for:: Treating Heart Disease, Emotions & Heart Disease, Stress Management & Relaxation, Sleep Disorders & Heart Disease, How The Heart Works, What it means to have Heart Disease, How Coronary Artery Disease is Diagnosed, Heart Procedures, What Heart Medications Do, Risk Factors & Modifications, Living an Active Life, Nutrition - Education/Goals Individual Counseling: Initial Assessment: Abnormal Cholesterol Levels, High Blood Pressure Cardiac Rehabilitation Goals: 1. Maintain the individual as the primary focus of care. 2. To improve the patient's quality of life. 3. Identification of cardiac risk factors and provide cardiac risk factor management. 4. Enhance the psychosocial status of the patient. 5. Reconditioning enough to allow the patient to resume customary activities. 6. Control symptoms of cardiac disease Personal Goals: Initial Assessment: Improve energy level, Participate in home exercise program, Improve muscle strength and endurance, Improve diet and eating habits (eat healthier), Control risk factors (learn risk factor modification) Scale for measuring improvement of personal goals: Enter appropriate number in Comments. 2 = Unchanged. 3 = Slightly Better. 4 = Moderate Improvement. 5 = Met my Goal - Diagnosis & Disease Process Outcomes/Goals: Pt IDs own risk factors & lifestyle modifications by Session 10, Verbalizes symptoms of angina & response by session 3., Pt independently manages Plan/Interventions: Assist Pt to ID & engage in lifestyle modification to reduce CVD risk, Instruct on individual risk factors, Review symptoms of angina & emergency actions, Review secondary diagnosis & identify educational needs. - Safety Referral to Physical Therapy: No Referral to [facility] Case Management: No Fall Risk Assessed:: Yes Assistive Devices:: Cane Exercise - Initial Assessment - Visit Date of Eval: 04/13/21 Session #:: 0 - pre-cardiac rehab evaluation Mets: Pre-: >5 METS for 30 minutes by discharge - Physician Prescribed Exercise Modalities: Treadmill, NuStep, SciFit Frequency: 3x/week for 12 weeks [36 sessions] Intensity: 60-80% of age predicted maximum heart rate reserve Current METSs:: 2.5 -3.0 Target Heart Rate:: 93-121 Resting Blood Pressure: 164/80 EKG Type: Sinus rhythm with 1st degree AV block - Outcomes & Goals Goals:: Verbalizes understanding of THR, RPE & goal METS by session 6, Documents in home exercise log/reports 30 min aerobic 5 day/wk by DC, Demonstrates accurate pulse taking by DC - Intervention & Plan Exercise Program Goals: Instruct on personal THR & RPE, Instruct on MET level & personal MET goal, Instruct on home exercise - Physical Activity Home Exercise Physical Activity - Home Exercise: Safe Exercise, Warm-up, Self-monitoring, Cool-Down, Home Exercise > 30 min Daily, Sitting Time <3 hours/daily - Outcomes & Goals Outcomes/Goals: Demonstrates correct Warm-up/exercise Cool-Down (S3) if = 2.5 METs, Verbalizes symptoms of exercise intolerance by Session 3 (S3), Demonstrate safe equipment use (S3) & follows exercise prescrition (6) - Intervention & Plan Plan/Intervention: Instruct warm-up & cool-down if exercising at > 2 METs, Instruct on symptoms of exercise intolerance & actions to take, Instruct & monitor on saf, Assess intial functional capacity & safety risk Nutrition - Initial Assessment - Program Goals Nutrition Program Goals: LDL <100 optimal. 100 - 129 Near optimal. 130 - 159 Borderline High. 160 - 189 High. Total Cholesterol <200 desirable. 200 - 239 Borderline High. >/= 240 High. HDL < 40 Low >/=60 High. Triglycerides <150 desirable. <199 optimal. VlDL 5 - 40. HgbA1C <7%. BMI <25 Patient has diagnosis of Hyperlipidemia (ICD E78)?: Yes - Visit Date of Assessment:: 04/13/21 Session #:: 0 - pre-cardiac rehab evaluation - Cholesterol/Lipids Triglycerides (mg/dL): 124 Total Cholesterol (mg/dL): 198 LDL Cholesterol (mg/dL): 57 HDL Cholesterol (mg/dL): 116 Determine presence & major risk factors that modify LDL goal: Hypertension or hypertensive medication, Family history of premature CHD in Male < 55 years: female <65 yearsFa, Age men > 45 years; women >/= 55 years Outcomes/Goals: Pt IDs own risk factors & lifestyle modifications by Session 10, Verbalizes symptoms of angina & response by session 3., Pt independently manages Intervention/Plan: Instruct on personal lipid levels & lipid goals/NCEP guidelines, Instruct on cholesterol - Diabetes (Other Core Measures) Diabetes Type: Not Applicable - Weight Mgt (Other Care) Not Applicable: Yes Height: 5 ft 1 in Weight:: 133 lb BMI: 25.1 Diagnosis Overweight/Obesity BMI> 30% ICD-10 E66: No Diagnosis High BMI/Morbid Obesity BMI> 35% ICD-10 Z68: No Outcomes/Goals: Pt sets, maintains & shows weight loss goal & trend during rehab Intervention/Plan: Assist pt to ID & incorporate diet changes for weight loss by S9 - Healthy Eating Habits Will attend diet classes:: Yes Outcomes/Goals:: Consume diet rich in vegs,fruits,whole grain/high fiber,fish,lean meat, Limit sat/trans fats,cholesterol & added salts & sugars Intervention/Plan:: Assess current eating habits - Education Gave educational materials for:: Healthy eating Nutrition - 30-Day Assessment Nutrition - 60-Day Assessment Nutrition - 90-Day Assessment Nutrition - Final Assessment Medical - Initial Assessment - Visit Date of Eval: 04/13/21 Session #:: 0 - pre-cardiac rehab evaluation - Medication Compliance Preventative Medication(s):: Aspirin, МАРИЯ inhibitor, Statin/lipid, Beta bishnu H/O mental health issues: depression, anxiety, or addiction?: Yes Doesn?t believe in the benefits of treatment?: No Believes medications are unnecessary or harmful?: No Has a concern about medication side effects?: No Expresses concern over the cost of medications?: No Outcomes/Goals: Verbalizes medications,desired effect & common side effects @ DC, Pt self-reports following medication regimen, Keeps card in wallet w/medications listed by DC Interventions/plans: Instruct on medication effects & side effects, Review medication list w/patient every two weeks, Instruct importance of taking meds as ordered & assist problem solving - Tobacco Use Tobacco Use: Non-smoker - Hypertension Hypertension Diagnosis:: Hypertension ICD-10 I10 Resting Blood Pressure:: 164/80 [place] [employer] Hypertension Guidelines: [place] [employer] Hypertension Guidelines. Normal BP Less than 120/80. Elevated BP 120/80. Hypertension Stage 1: BP 130-139/80-89. Hypertesnion Stage 2: BP 140 or higher/90 or higher. Hypertension Crisis: BP higher than 180/120 Outcomes/Goals: Able to verbalize/achieve optimal blood pressure <130/80, Incorporates diet changes & exercise for blood pressure control by DC Interventions/plan: Instruct on optimal blood pressure, hypertension & medications, Instruct on effects of sodium, alcohol, stress, exercise &hypertension - Tobacco Cessation Referral Smoking Cessation Referral:: No Individual Education/Counseling:: No Education Schedule Given:: Yes Medical- 30-Day Assessment Medical- 60-Day Assessment Medical- 90-Day Assessment Medical - Final Assessment Psychosocial - Initial Assess - VIsit Date of Eval: 04/13/21 Session #:: 0 - Pre-cardiac rehab evaluation Not Applicable: No History of previous Mental disease:: Yes History of Emotional Disorders: Depression - Psychosocial Test Tool Used:: [employer] Power QOL Cardiac, PHQ-9 Questionnaire phq-9 Severity: Severity. 1-4 Minimal Depression. 5-9 Mild Depression. 10-14 Moderate Depression. 15-19 Moderately Sever Depression. 20-27 Severe Depression. Rule: - Referral to Behavioral Health PS - Interventions: Yes Attend Stress Management Classes, No Referral to Behavioral Health if PHQ-9 score >9:, No Referral to [facility] Community [facility], No Referral to Physician if PHQ-9 if score is 5-9: - Outcomes/Goals: See list Psychosocial Outcomes/Goals:: ID's personal stressors & 2 strategies to manage stress by discharge - Intervention/Plan: See List Interventions/Plan:: Assess stressors,coping strategies & signs of derpression on admission, Instruct/assist pt to develop coping & personal stress Mgt strategies, Instruct patient to recognize signs & symptoms of depression, Instruct patient to recog Psychosocial - 30-Day Assess Psychosocial - 60-Day Assess Psychosocial - 90-Day Assess Psychosocial - Final Assessmen Patient Health Questionnaire Initial Assessment 1. Little interest or pleasure in doing things: Not at all 2. Feeling down, depressed, or hopeless: Not at all 3. Trouble falling or staying asleep, or sleeping too much: Several days 4. Feeling tired or having little energy: Several days 5. Poor appetite or overeating: Not at all 6. Feeling bad about yourself -- or that you are a failure or have let yourself or your family down: Not at all 7. Trouble concentrating on things, such as reading the newspaper or watching television: Not at all 8. Moving or speaking so slowly that other people could have noticed. Or the opposite - being so fidgety or restless that you have been moving around a lot more than usual: Not at all 9. Thoughts that you would be better off , or of hurting yourself in some way: Not at all How difficult have these problems made it for you to do your work, take care of things at home, or get along with other people?: Not difficult at all Total Score: 2 TASHA-Q SV Test - Statements CAD is a disease of the arteries in the heart: False Examples of risk factors for heart disease: True Angina is chest pain or discomfort: True The benefits of resistance training include: True Eating more meat and dairy products: False Anti-platelet medications such as aspirin are important: True The only effective way to manage stress: False An exercise warm-up slowly increases heart rate: True Prepared, processed foods usually have high sodium: True Depression is common after a heart attack: True The statin medications lower cholesterol: True To control blood pressure, lower the amount of sodium: True If someone gets chest discomfort during walking: False Transfats are partially hydrogenated vegetable oils: I Don't Know Sleep apnea that is not treated increases the risk: False To control cholesterol, one should become a vegetarian: False Someone knows if he/she is exercising at the right level: True Diabetes cannot be prevented with exercise & health eating: True Stress is a large risk for heart attack: True A diet that can help lower blood pressure is rich in: True - Total Score Total Correct Responses: 18 Self-Efficacy Initial Assessment We would like to know how confident you are in doing certain activities. Please select your confidence level for:: Select your confidence level for the following using the scale 1-10 where 1 is not at all confident and 10 is totally confident. Your score is the average of all 6 responses. Fatigue: How confident are you that you can keep the fatigue caused by your disease from interfering with the things you want to do? Select Number: 10 Physical Discomfort or Pain: How confident are you that you can keep the physical discomfort or pain of your disease from interfering with the things you want to do? Select Number: 9 Emotional Distress: How confident are you that you can keep the emotional distress caused by your disease from interfering with the things you want to do? Select Number: 9 Other Symptoms or Health Problems: How confident are you that you can keep other symptoms or health problems from interfering with the things you want to do? Select Number: 9 Different Tasks and Activities: How confident are you that you can do the different tasks and activities needed to manage your health condition so as to reduce your need to see a doctor? Select Number: 10 Medication: How confident are you that you can do things other than just taking medication to reduce how much your illness affects your everyday life? Select Number: 10 Total Score:: 9 Nutrition Survey - Nutrition Survey Initial Have you lost >10 lbs over the past 2 months without trying?: No Are you following a special diet at home for diabetes, low fat, or low salt?: Yes Are you interested in meeting with a dietitian for help understanding your diet?: No Do you eat less than 3 meals a day?: No Do you eat fatty meats (pavon, sausage, ribs, etc), fried foods, desserts, large amounts of salad dressings, margarine, butter, or cheese most days?: No Do you have food allergies? [Enter types in comment field]: No Do you eat in restaurants more than 3 times a week?: No Do you season food with salt, seasoning salt, or garlic salt?: No Do you used canned, boxed, frozen meals, or soups, seasoning packets?: No Total Score:: 1
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
[2021-04-13 14:13] VITALS: BP 164/80; PULSE 70; RESP 16; TEMP 36.7; O2SAT 96; BMI 22.8
[2021-04-13 14:21] VITALS: BP 164/80; BMI 25.1
== END ==
PROVIDERS: PCP Internal Medicine; Referring Provider Internal Medicine Cardiovascular Disease; Visit Provider Internal Medicine Cardiovascular Disease
DX: I49.5 Sick sinus syndrome (principal); I97.89 Other postprocedural complications and disorders of the circulatory system, not elsewhere classified; I48.91 Unspecified atrial fibrillation; I25.10 Atherosclerotic heart disease of native coronary artery without angina pectoris; I25.5 Ischemic cardiomyopathy; I11.0 Hypertensive heart disease with heart failure; I50.42 Chronic combined systolic (congestive) and diastolic (congestive) heart failure; Z79.899 Other long term (current) drug therapy; Z95.1 Presence of aortocoronary bypass graft

== ENCOUNTER → 2021-05-13 13:55 | Outpatient (CLI) | payer MEDICARE, SELFPAY ==
[2021-05-11 07:18] VITALS: BMI 24.3
[2021-05-13 15:42] LABS: Anion Gap 7 (5-15); BUN 10 mg/dL (7-18); BUN/Creat Ratio 11.1 RATIO (10-20); Chloride 103 mmol/L (98-107); EST Glomerular Filtration Rate 64 mL/min (>60); Est Glom Filt Rate - Afr Amer 78 mL/min (>60); Glucose 104 mg/dL (74-106); Potassium 3.2 mmol/L (3.5-5.1); Sodium Level 138 mmol/L (136-145)
== END ==
PROVIDERS: PCP Internal Medicine; Referring Provider Internal Medicine Cardiovascular Disease; Visit Provider Internal Medicine Cardiovascular Disease
DX: Z95.1 Presence of aortocoronary bypass graft (principal)
CPT/HCPCS: 36415; 80048; 83735

== ENCOUNTER 2021-05-18 13:00 | Outpatient (RCR) | payer MEDICARE, SELFPAY ==
[2021-04-13 14:21] VITALS: BMI 25.1
--- NOTE | 2021-05-11 07:10 | PCM.CR.ITP ---
Diagnosis Exercise - 30-day Assessment - Visit Date of Eval: 05/11/21 Session #:: 4 - Patient delayed start until 05/02/2021 due to transportation issues. - Physician Prescribed Exercise Modalities: Treadmill, NuStep, SciFit Frequency: 3x/week for 12 weeks [36 sessions] Intensity: 60-80% of age predicted maximum heart rate reserve Current METSs:: 2.0 Target Heart Rate:: 92-120 Current RPE:: 12-14 Maximum Excercise HR:: 93 Resting Blood Pressure: 110/56 Maximum Exercise Blood Pressure: 124/52 EKG Type: NSR w/BBB occasional PAC and PVCs noted. Current Physical Activity or Exercising minutes: 38:16 - Outcomes & Goals Goals:: Verbalizes understanding of THR, RPE & goal METS by session 6, Documents in home exercise log/reports 30 min aerobic 5 day/wk by DC, Demonstrates accurate pulse taking by DC - Intervention & Plan Exercise Program Goals: Instruct on personal THR & RPE, Instruct on MET level & personal MET goal, Show patient to take own pulse /validate performance until accurate, Instruct on home exercise - 30-day Reassessments 30 day Reassessments:: Progressing - Physical Activity Home Exercise Physical Activity - Home Exercise: Safe Exercise, Warm-up, Self-monitoring, Cool-Down, Home Exercise > 30 min Daily, Sitting Time <3 hours/daily - Outcomes & Goals Outcomes/Goals: Demonstrates correct Warm-up/exercise Cool-Down (S3) if = 2.5 METs, Verbalizes symptoms of exercise intolerance by Session 3 (S3), Demonstrate safe equipment use (S3) & follows exercise prescrition (6) - Intervention & Plan Plan/Intervention: Instruct warm-up & cool-down if exercising at > 2 METs, Instruct on symptoms of exercise intolerance & actions to take, Instruct & monitor on saf, Assess intial functional capacity & safety risk - 30-day Reassessments 30 day Reassessments:: Progressing Nutrition - Initial Assessment Nutrition - 30-Day Assessment - Program Goals Nutrition Program Goals: LDL <100 optimal. 100 - 129 Near optimal. 130 - 159 Borderline High. 160 - 189 High. Total Cholesterol <200 desirable. 200 - 239 Borderline High. >/= 240 High. HDL < 40 Low >/=60 High. Triglycerides <150 desirable. <199 optimal. VlDL 5 - 40. HgbA1C <7%. BMI <25 Patient has diagnosis of Hyperlipidemia (ICD E78)?: Yes - Visit Date of Assessment:: 05/11/21 Session #:: 4 - Cholesterol/Lipids Triglycerides (mg/dL): 124 Total Cholesterol (mg/dL): 198 LDL Cholesterol (mg/dL): 57 HDL Cholesterol (mg/dL): 116 Determine presence & major risk factors that modify LDL goal: Hypertension or hypertensive medication, Family history of premature CHD in Male < 55 years: female <65 yearsFa, Age men > 45 years; women >/= 55 years Outcomes/Goals: Pt IDs own risk factors & lifestyle modifications by Session 10, Verbalizes symptoms of angina & response by session 3., Pt independently manages Intervention/Plan: Instruct on personal lipid levels & lipid goals/NCEP guidelines, Instruct on cholesterol Referral to dietitian:: Yes - Medical Nutrition Therapy 30-day Reassessments:: Progressing - Diabetes (Other Core Measures) Diabetes Type: Not Applicable - Weight Mgt (Other Care) Not Applicable: Yes Height: 5 ft 4 in Weight:: 141 lb 8 oz BMI: 24.3 Diagnosis Overweight/Obesity BMI> 30% ICD-10 E66: No Diagnosis High BMI/Morbid Obesity BMI> 35% ICD-10 Z68: No Outcomes/Goals: Pt sets, maintains & shows weight loss goal & trend during rehab Intervention/Plan: Instruct on ideal BMI & set weight loss goal w/patient 30 day Reassessments:: Progressing - Healthy Eating Habits Will attend diet classes:: Yes Outcomes/Goals:: Consume diet rich in vegs,fruits,whole grain/high fiber,fish,lean meat, Limit sat/trans fats,cholesterol & added salts & sugars Intervention/Plan:: Assess current eating habits 30-day Reassessments:: Progressing - Education Gave educational materials for:: Healthy eating Nutrition - 60-Day Assessment Nutrition - 90-Day Assessment Nutrition - Final Assessment Medical - Initial Assessment Medical- 30-Day Assessment - Visit Date of Eval: 05/11/21 Session #:: 4 - Medication Compliance Preventative Medication(s):: Aspirin, Statin/lipid, Beta bishnu H/O mental health issues: depression, anxiety, or addiction?: No Doesn?t believe in the benefits of treatment?: No Believes medications are unnecessary or harmful?: No Has a concern about medication side effects?: No Expresses concern over the cost of medications?: No Outcomes/Goals: Verbalizes medications,desired effect & common side effects @ DC, Pt self-reports following medication regimen, Keeps card in wallet w/medications listed by DC Interventions/plans: Instruct on medication effects & side effects, Review medication list w/patient every two weeks 30-day Reassessments:: Progressing - Tobacco Use Tobacco Use: Non-smoker - Hypertension Hypertension Diagnosis:: Hypertension ICD-10 I10 Resting Blood Pressure:: 110/56 [place] [employer] Hypertension Guidelines: [place] [employer] Hypertension Guidelines. Normal BP Less than 120/80. Elevated BP 120/80. Hypertension Stage 1: BP 130-139/80-89. Hypertesnion Stage 2: BP 140 or higher/90 or higher. Hypertension Crisis: BP higher than 180/120 Peak Exercise Blood Pressure:: 124/52 Outcomes/Goals: Able to verbalize/achieve optimal blood pressure <130/80, Incorporates diet changes & exercise for blood pressure control by DC Interventions/plan: Instruct on optimal blood pressure, hypertension & medications, Instruct on effects of sodium, alcohol, stress, exercise &hypertension 30 day Reassessments:: Progressing - Tobacco Cessation Referral Smoking Cessation Referral:: No Individual Education/Counseling:: No Education Schedule Given:: Yes - Online resources and printed Education book provided to patient. Medical- 60-Day Assessment Medical- 90-Day Assessment Medical - Final Assessment Psychosocial - Initial Assess Psychosocial - 30-Day Assess - VIsit Date of Eval: 05/11/21 Session #:: 4 Not Applicable: Yes History of previous Mental disease:: No - Psychosocial Test Tool Used:: PHQ-9 Questionnaire phq-9 Severity: Severity. 1-4 Minimal Depression. 5-9 Mild Depression. 10-14 Moderate Depression. 15-19 Moderately Sever Depression. 20-27 Severe Depression. Rule: - Referral to Behavioral Health PS - Interventions: Yes Attend Stress Management Classes, No Referral to Behavioral Health if PHQ-9 score >9:, No Referral to [facility], No Referral to Physician if PHQ-9 if score is 5-9: - Outcomes/Goals: See list Psychosocial Outcomes/Goals:: ID's personal stressors & 2 strategies to manage stress by discharge - Intervention/Plan: See List Interventions/Plan:: Assess stressors,coping strategies & signs of derpression on admission, Instruct/assist pt to develop coping & personal stress Mgt strategies, Instruct patient to recognize signs & symptoms of depression, Instruct patient to recog - 30-day Reassessments: 30 day Reassessments:: Progressing Psychosocial - 60-Day Assess Psychosocial - 90-Day Assess Psychosocial - Final Assessmen Patient Health Questionnaire 30-Day Re-eval Assessment 1. Little interest or pleasure in doing things: Not at all 2. Feeling down, depressed, or hopeless: Not at all 3. Trouble falling or staying asleep, or sleeping too much: Several days 4. Feeling tired or having little energy: Several days 5. Poor appetite or overeating: Not at all 6. Feeling bad about yourself -- or that you are a failure or have let yourself or your family down: Not at all 7. Trouble concentrating on things, such as reading the newspaper or watching television: Not at all 8. Moving or speaking so slowly that other people could have noticed. Or the opposite - being so fidgety or restless that you have been moving around a lot more than usual: Not at all 9. Thoughts that you would be better off , or of hurting yourself in some way: Not at all How difficult have these problems made it for you to do your work, take care of things at home, or get along with other people?: Not difficult at all Total Score: 2 Self-Efficacy 30-Day Re-eval Assessment We would like to know how confident you are in doing certain activities. Please select your confidence level for:: Select your confidence level for the following using the scale 1-10 where 1 is not at all confident and 10 is totally confident. Your score is the average of all 6 responses. Fatigue: How confident are you that you can keep the fatigue caused by your disease from interfering with the things you want to do? Select Number: 10 Physical Discomfort or Pain: How confident are you that you can keep the physical discomfort or pain of your disease from interfering with the things you want to do? Select Number: 9 Emotional Distress: How confident are you that you can keep the emotional distress caused by your disease from interfering with the things you want to do? Select Number: 9 Other Symptoms or Health Problems: How confident are you that you can keep other symptoms or health problems from interfering with the things you want to do? Select Number: 9 Different Tasks and Activities: How confident are you that you can do the different tasks and activities needed to manage your health condition so as to reduce your need to see a doctor? Select Number: 10 Medication: How confident are you that you can do things other than just taking medication to reduce how much your illness affects your everyday life? Select Number: 10 Total Score:: 9 Nutrition Survey
[2021-05-11 07:18] VITALS: BP 110/56; BP 124/52; BMI 24.3
== END 2021-05-24 23:59 ==
LOC: CR 13:00
PROVIDERS: PCP Internal Medicine; Referring Provider Internal Medicine Cardiovascular Disease; Visit Provider Internal Medicine Cardiovascular Disease
DX: I49.5 Sick sinus syndrome (principal); I97.89 Other postprocedural complications and disorders of the circulatory system, not elsewhere classified; I48.91 Unspecified atrial fibrillation; I25.10 Atherosclerotic heart disease of native coronary artery without angina pectoris; I25.5 Ischemic cardiomyopathy; I50.42 Chronic combined systolic (congestive) and diastolic (congestive) heart failure; Z95.1 Presence of aortocoronary bypass graft; Z79.899 Other long term (current) drug therapy; I11.0 Hypertensive heart disease with heart failure
CPT/HCPCS: 93798

== ENCOUNTER 2021-06-03 13:00 | Outpatient (RCR) | payer MEDICARE, SELFPAY ==
[2021-05-11 07:18] VITALS: BMI 24.3
[2021-05-25 00:09] VITALS: BP 110/56; BP 124/52
--- NOTE | 2021-06-10 07:31 | CR.ITP_ITS ---
Diagnosis Exercise - 30-day Assessment - Visit Date of Eval: 06/10/21 Session #:: 14 - Patient missed 2 sessions d/t transportation - Physician Prescribed Exercise Modalities: Treadmill, NuStep, SciFit Frequency: 3x/week for 12 weeks [36 sessions] Intensity: 60-80% of age predicted maximum heart rate reserve Current METSs:: 2.5 Target Heart Rate:: 92-120 Current RPE:: 12 Maximum Excercise HR:: 79 Resting Blood Pressure: 118/50 Maximum Exercise Blood Pressure: 130/50 EKG Type: NSR w/BBB occas. PVC. Atrial bigeminy - ventricular bigeminy couplets. Current Physical Activity or Exercising minutes: 40:46 - Outcomes & Goals Goals:: Documents in home exercise log/reports 30 min aerobic 5 day/wk by DC, Demonstrates accurate pulse taking by DC - Intervention & Plan Exercise Program Goals: Instruct on personal THR & RPE, Instruct on MET level & personal MET goal, Show patient to take own pulse /validate performance until accurate, Instruct on home exercise - 30-day Reassessments 30 day Reassessments:: Progressing - Physical Activity Home Exercise Physical Activity - Home Exercise: Safe Exercise, Warm-up, Self-monitoring, Cool-Down, Home Exercise > 30 min Daily, Sitting Time <3 hours/daily - Outcomes & Goals Outcomes/Goals: Demonstrates correct Warm-up/exercise Cool-Down (S3) if = 2.5 METs, Verbalizes symptoms of exercise intolerance by Session 3 (S3), Demonstrate safe equipment use (S3) & follows exercise prescrition (6) - Intervention & Plan Plan/Intervention: Instruct warm-up & cool-down if exercising at > 2 METs, Instruct on symptoms of exercise intolerance & actions to take, Instruct & monitor on saf, Assess intial functional capacity & safety risk - 30-day Reassessments 30 day Reassessments:: Progressing Nutrition - Initial Assessment Nutrition - 30-Day Assessment - Program Goals Nutrition Program Goals: LDL <100 optimal. 100 - 129 Near optimal. 130 - 159 Borderline High. 160 - 189 High. Total Cholesterol <200 desirable. 200 - 239 Borderline High. >/= 240 High. HDL < 40 Low >/=60 High. Triglycerides <150 desirable. <199 optimal. VlDL 5 - 40. HgbA1C <7%. BMI <25 Patient has diagnosis of Hyperlipidemia (ICD E78)?: Yes - Visit Date of Assessment:: 06/10/21 Session #:: 14 - Cholesterol/Lipids Triglycerides (mg/dL): 124 Total Cholesterol (mg/dL): 198 LDL Cholesterol (mg/dL): 57 HDL Cholesterol (mg/dL): 116 Determine presence & major risk factors that modify LDL goal: Hypertension or hypertensive medication, Low HDL cholesterol <40 mg/dL*, Family history of premature CHD in Male < 55 years: female <65 yearsFa, Age men > 45 years; women >/= 55 years Outcomes/Goals: Pt IDs own risk factors & lifestyle modifications by Session 10, Verbalizes symptoms of angina & response by session 3., Pt independently manages Intervention/Plan: Instruct on personal lipid levels & lipid goals/NCEP guidelines, Instruct on cholesterol Referral to dietitian:: Yes - Medical Nutrition Therapy 30-day Reassessments:: Progressing - Diabetes (Other Core Measures) Diabetes Type: Not Applicable - Weight Mgt (Other Care) Not Applicable: Yes Height: 5 ft 4 in Weight:: 142 lb 8 oz BMI: 24.4 Diagnosis Overweight/Obesity BMI> 30% ICD-10 E66: No Diagnosis High BMI/Morbid Obesity BMI> 35% ICD-10 Z68: No Outcomes/Goals: Pt sets, maintains & shows weight loss goal & trend during rehab Intervention/Plan: Instruct on ideal BMI & set weight loss goal w/patient 30 day Reassessments:: Met - Healthy Eating Habits Will attend diet classes:: Yes Outcomes/Goals:: Consume diet rich in vegs,fruits,whole grain/high fiber,fis h,lean meat, Limit sat/trans fats,cholesterol & added salts & sugars 30-day Reassessments:: Met - Education Gave educational materials for:: Healthy eating Nutrition - 60-Day Assessment Nutrition - 90-Day Assessment Nutrition - Final Assessment Medical - Initial Assessment Medical- 30-Day Assessment - Visit Date of Eval: 06/10/21 Session #:: 14 - Medication Compliance Preventative Medication(s):: Aspirin, Statin/lipid, Beta bishnu H/O mental health issues: depression, anxiety, or addiction?: No Doesn?t believe in the benefits of treatment?: No Believes medications are unnecessary or harmful?: No Has a concern about medication side effects?: No Expresses concern over the cost of medications?: No Outcomes/Goals: Verbalizes medications,desired effect & common side effects @ DC, Pt self-reports following medication regimen, Keeps card in wallet w/medications listed by DC Interventions/plans: Instruct on medication effects & side effects, Review medication list w/patient every two weeks, Instruct importance of taking meds as ordered & assist problem solving 30-day Reassessments:: Progressing - Tobacco Use Tobacco Use: Non-smoker - Hypertension Hypertension Diagnosis:: Hypertension ICD-10 I10 Resting Blood Pressure:: 118/50 [place] [employer] Hypertension Guidelines: [place] [employer] Hypertension Guidelines. Normal BP Less than 120/80. Elevated BP 120/80. Hypertension Stage 1: BP 130-139/80-89. Hypertesnion Stage 2: BP 140 or higher/90 or higher. Hypertension Crisis: BP higher than 180/120 Peak Exercise Blood Pressure:: 130/50 Outcomes/Goals: Able to verbalize/achieve optimal blood pressure <130/80, Incorporates diet changes & exercise for blood pressure control by DC Interventions/plan: Instruct on optimal blood pressure, hypertension & medications, Instruct on effects of sodium, alcohol, stress, exercise &hypertension 30 day Reassessments:: Progressing - Tobacco Cessation Referral Smoking Cessation Referral:: No Individual Education/Counseling:: No Education Schedule Given:: Yes Medical- 60-Day Assessment Medical- 90-Day Assessment Medical - Final Assessment Psychosocial - Initial Assess Psychosocial - 30-Day Assess - VIsit Date of Eval: 06/10/21 Session #:: 14 Not Applicable: Yes History of previous Mental disease:: No - Psychosocial Test Tool Used:: PHQ-9 Questionnaire phq-9 Severity: Severity. 1-4 Minimal Depression. 5-9 Mild Depression. 10-14 Moderate Depression. 15-19 Moderately Sever Depression. 20-27 Severe Depression. Rule: - Referral to Behavioral Health PS - Interventions: Yes Attend Stress Management Classes, No Referral to Behavioral Health if PHQ-9 score >9:, No Referral to [facility], No Referral to Physician if PHQ-9 if score is 5-9: - Outcomes/Goals: See list Psychosocial Outcomes/Goals:: ID's personal stressors & 2 strategies to manage stress by discharge - Intervention/Plan: See List Interventions/Plan:: Assess stressors,coping strategies & signs of derpression on admission, Instruct/assist pt to develop coping & personal stress Mgt strategies, Instruct patient to recognize signs & symptoms of depression, Instruct patient to recog - 30-day Reassessments: 30 day Reassessments:: Progressing Psychosocial - 60-Day Assess Psychosocial - 90-Day Assess Psychosocial - Final Assessmen Patient Health Questionnaire 30-Day Re-eval Assessment 1. Little interest or pleasure in doing things: More than half the days 2. Feeling down, depressed, or hopeless: Several days 3. Trouble falling or staying asleep, or sleeping too much: Several days 4. Feeling tired or having little energy: Several days 5. Poor appetite or overeating: Several days 6. Feeling bad about yourself -- or that you are a failure or have let yourself or your family down: Not at all 7. Trouble concentrating on things, such as reading the newspaper or watching television: More than half the days 8. Moving or speaking so slowly that other people could have noticed. Or the opposite - being so fidgety or restless that you have been moving around a lot more than usual: Several days 9. Thoughts that you would be better off , or of hurting yourself in some way: Not at all How difficult have these problems made it for you to do your work, take care of things at home, or get along with other people?: Somewhat difficult Total Score: 9 Self-Efficacy 30-Day Re-eval Assessment We would like to know how confident you are in doing certain activities. Please select your confidence level for:: Select your confidence level for the following using the scale 1-10 where 1 is not at all confident and 10 is totally confident. Your score is the average of all 6 responses. Fatigue: How confident are you that you can keep the fatigue caused by your disease from interfering with the things you want to do? Select Number: 6 Physical Discomfort or Pain: How confident are you that you can keep the physical discomfort or pain of your disease from interfering with the things you want to do? Select Number: 8 Emotional Distress: How confident are you that you can keep the emotional distress caused by your disease from interfering with the things you want to do? Select Number: 7 Other Symptoms or Health Problems: How confident are you that you can keep other symptoms or health problems from interfering with the things you want to do? Select Number: 8 Different Tasks and Activities: How confident are you that you can do the different tasks and activities needed to manage your health condition so as to reduce your need to see a doctor? Select Number: 9 Medication: How confident are you that you can do things other than just taking medication to reduce how much your illness affects your everyday life? Select Number: 9 Total Score:: 7 Nutrition Survey
[2021-06-10 07:42] VITALS: BP 118/50; BP 130/50; BMI 24.4
== END 2021-06-24 23:59 ==
LOC: CR 13:00
PROVIDERS: PCP Internal Medicine; Referring Provider Internal Medicine Cardiovascular Disease; Visit Provider Internal Medicine Cardiovascular Disease
DX: I49.5 Sick sinus syndrome (principal); I97.89 Other postprocedural complications and disorders of the circulatory system, not elsewhere classified; I48.91 Unspecified atrial fibrillation; I25.10 Atherosclerotic heart disease of native coronary artery without angina pectoris; I25.5 Ischemic cardiomyopathy; I50.42 Chronic combined systolic (congestive) and diastolic (congestive) heart failure; Z95.1 Presence of aortocoronary bypass graft; Z79.899 Other long term (current) drug therapy; I11.0 Hypertensive heart disease with heart failure
CPT/HCPCS: 93798